=== PATIENT | female | born 1960 ===

== ENCOUNTER 2025-01-21 20:33 | Emergency (ER) | payer OTHER, SELFPAY ==
--- NOTE | ~2025-01-21 | XR_ITS ---
CLINICAL HISTORY: cough 2 view chest x-ray Comparison: None Findings: No consolidation or effusion. Normal size heart. No acute fracture. IMPRESSION: 1. No acute findings. This document has been electronically signed by: Lebron Garcia MD on 01/21/2025 23:58:51
[2025-01-21 20:41] VITALS: BP 146/92; PULSE 73; O2SAT 96
[2025-01-21 21:04] VITALS: BP 130/98; PULSE 72; RESP 19; TEMP 36.6; O2SAT 97; BMI 28.7
[2025-01-21 21:41] LABS: MANUAL DIFF FLAG NO
[2025-01-21 21:43] LABS: Basophils Absolute Auto 0.1 X10*3/uL (0.0-0.2); Basophils Percent Auto 0.7 % (0-2); Eosinophils Absolute Auto 0.2 X10*3/uL (0.0-0.4); Hematocrit 38.8 % (37.0-47.0); Hemoglobin 13.5 g/dl (12.0-16.0); Imm Gran Abs Auto 0.05 X10*3/uL (0.00-0.03); Imm Gran Pct Auto 0.6 % (0.0-0.4); Lymphocytes Absolute Auto 1.2 X10*3/uL (1.2-4.9); Lymphocytes Percent Auto 15.3 % (20-40); Mean Corpuscular HGB Conc 34.8 g/dl (31.0-35.0); Mean Corpuscular Hemoglobin 30.4 pg (27.0-33.0); Mean Corpuscular Volume 87.4 fL (80.0-98.0); Mean Platelet Volume 9.7 fL (9.4-12.3); Monocytes Absolute Auto 0.5 X10*3/uL (0.1-1.2); Neutrophils Percent Auto 75.4 % (45-73); Platelet Count 145 X10*3/uL (160-400); Red Blood Count 4.44 X10*6/uL (4.20-5.50); Red Cell Distribution Width 14.3 % (11.0-16.0)
[2025-01-21 22:12] LABS: Alanine Aminotransferase 36 U/L (0-31); Albumin Level 4.5 g/dL (3.5-5.0); Alkaline Phosphatase 85 U/L (39-117); Anion Gap 13 (12-20); Aspartate Amino Transferase 36 U/L (5-31); Bilirubin Direct 0.2 mg/dL (0.0-0.5); Bilirubin Total 0.6 mg/dL (0.0-1.0); Blood Urea Nitrogen 3 mg/dL (9-16); Calcium 8.4 mg/dL (8.4-10.2); Carbon Dioxide 25 mmol/L (22-29); Chloride 98 mmol/L (96-108); Creatinine Clr Calc Pharmacy 68.9; Estimated Glomerular Filt Rate 58; Glucose Random 89 mg/dL (60-115); Lipase 12 U/L (8-78); Potassium 3.8 mmol/L (3.3-5.1); Sodium 132 mmol/L (135-145)
[2025-01-21 22:19] LABS: Influenza A PCR NEGATIVE (Negative); Influenza B PCR NEGATIVE (Negative); Resp Syncy Virus RNA Qual PCR NEGATIVE (Negative); SARS COV2 PCR INHOUSE NEGATIVE (Negative)
[2025-01-21 23:01] VITALS: BP 144/77; PULSE 77; RESP 18; TEMP 36.4; O2SAT 95
--- NOTE | 2025-01-21 23:07 | PC.NURSE ---
pt a&ox4, respirations even and unlabored but noted to have a productive, junky cough. pt reporting x3 days of general weakness, nausea, vomiting, diarrhea, shortness of breath, fevers and chills. pt reports she had not been checking her temperature at home but she felt hot . pt reports recent admit at [facility] for pneumonia. vss.
--- NOTE | 2025-01-22 01:59 | ED.GENADULT ---
HPI - General Adult General Chief complaint: General Medical Stated complaint: diarrhea,chills, falls yesterday Time Seen by Provider: 01/22/25 01:34 Source: patient Limitations: no limitations History of Present Illness ED Provider: Seema Johnson PA-C HPI narrative: 64-year-old female presents with diarrhea x2 days. Denies nausea vomiting, abdominal pain, fever. Denies recent travel, use of antibiotics or hospitalizations. Patient was having 2 loose stools a day. No sick contacts with similar symptoms Related Data Previous Rx's ?Medication ?Instructions ?Recorded dicyclomine 10 mg capsule 10 mg PO BID PRN abdominal pain #6 01/22/25 caps Allergies Allergy/AdvReac Type Severity Reaction Status Date / Time ibuprofen Allergy Unknown Verified 01/21/25 21:08 Review of Systems Review of Systems: Yes all other systems are reviewed and are negative Constitutional: Constitutional: Denies fatigue and Denies fever(s) Cardiovascular: Cardiovascular: Denies chest pain and Denies dyspnea Respiratory: Respiratory: Denies cough and Denies dyspnea Gastrointestinal: Gastrointestinal: Denies abdominal pain, Reports diarrhea, Denies nausea and Denies vomiting Endocrine: Endocrine: Denies fatigue [facility] Past Medical History Attestation statement: The following information was validated with the patient. Social History Social History Smoked in Last 30 Days: Yes Use of substances other than those prescribed or required for medical reasons: No Advance Directives: No Advance Directives Information Provided: Yes Patient : No Physical Exam ED Vital Signs: Vital Signs - 24 hr 01/21/25 21:04 01/21/25 23:01 Temperature 98 F 97.6 F Pulse Rate 72 77 Respiratory Rate 19 18 Blood Pressure 130/98 H 144/77 H Pulse Oximetry 97 95 Oxygen Delivery Method Room Air Room Air BMI result Body Mass Index 28.7 Const Other: Alert appears older than stated age Orientation/consciousness: patient oriented x3 Resp Effort & Inspection: normal respiratory effort Cardio Other: Normal peripheral perfusion GI Other: Soft nontender nondistended no guarding Skin Other: Warm dry no rash Neuro General: patient oriented x3, gait normal, no focal motor deficits and CN's II-XI intact bilaterally Psych Other: Cooperative Medical Decision Making Medical Decision Making MDM Narrative: 64-year-old female presents with diarrhea x2 days. Denies nausea vomiting, abdominal pain, fever. Denies recent travel, use of antibiotics or hospitalizations. Patient was having 2 loose stools a day. No sick contacts with similar symptoms No known chronic issues History: Per patient I have considered the following differential diagnoses: Viral gastroenteritis, diverticulitis, C diff, traveler's diarrhea Plan: Screening labs and a viral panel were obtained from triage, everything is unremarkable. She is having minimal symptoms, she has no abdominal pain, her exam was benign, we will send with Bent[facility] she can follow up with primary care. She has no risk factors for C diff or traveler's diarrhea. I have independently reviewed the following tests: Labs: No leukocytosis, not anemic, no electrolyte abnormality, viral panel negative Lab Data 01/21/25 21:37 01/21/25 21:37 Labs: Lab Results 01/21/25 Range/Units 21:37 WBC 8.0 (4.8-10.8) X10*3/uL RBC 4.44 (4.20-5.50) X10*6/uL Hgb 13.5 (12.0-16.0) g/dl Hct 38.8 (37.0-47.0) % MCV 87.4 (80.0-98.0) fL MCH 30.4 (27.0-33.0) pg MCHC 34.8 (31.0-35.0) g/dl RDW 14.3 (11.0-16.0) % Plt Count 145 L (160-400) X10*3/uL MPV 9.7 (9.4-12.3) fL Immature Gran % (Auto) 0.6 H (0.0-0.4) % Neut % (Auto) 75.4 H (45-73) % Lymph % (Auto) 15.3 L (20-40) % [place] % (Auto) 6.0 (2-11) % Eos % (Auto) 2.0 (0-4) % Baso % (Auto) 0.7 (0-2) % Lymph # (Auto) 1.2 (1.2-4.9) X10*3/uL [place] # (Auto) 0.5 (0.1-1.2) X10*3/uL Eos # (Auto) 0.2 (0.0-0.4) X10*3/uL Baso # (Auto) 0.1 (0.0-0.2) X10*3/uL Abs Immat Gran (auto) 0.05 H (0.00-0.03) X10*3/uL Absolute Neuts (auto) 6.0 (2.0-8.3) x10*3/uL Absolute Nucleated RBC 0.000 (0.0-0.012) X10*3/uL Nucleated RBC % (auto) 0.0 (0.0-0.2) /100WBC Sodium 132 L (135-145) mmol/L Potassium 3.8 (3.3-5.1) mmol/L Chloride 98 (96-108) mmol/L Carbon Dioxide 25 (22-29) mmol/L Anion Gap 13 (12-20) BUN 3 L (9-16) mg/dL Creatinine 0.97 (0.5-1.4) mg/dL Estim Creat Clear Calc 68.9 Estimated GFR 58 Random Glucose 89 (60-115) mg/dL Calcium 8.4 (8.4-10.2) mg/dL Total Bilirubin 0.6 (0.0-1.0) mg/dL Direct Bilirubin 0.2 (0.0-0.5) mg/dL AST 36 H (5-31) U/L ALT 36 H (0-31) U/L Alkaline Phosphatase 85 (39-117) U/L Total Protein 8.0 (6.5-8.0) g/dL Albumin 4.5 (3.5-5.0) g/dL Lipase 12 (8-78) U/L Influenza Type A (PCR) NEGATIVE (Negative) Influenza Type B (PCR) NEGATIVE (Negative) RSV RNA Qual (PCR) NEGATIVE (Negative) SARS-CoV-2 RNA (RT-PCR) NEGATIVE (Negative) Discharge Plan Discharge Clinical Impression: Diarrhea Patient Disposition: Home, Self-Care Instructions: Acute Diarrhea (ED), Nutrition Tips for Relief of Diarrhea (ED) Additional Instructions: All of your labs were normal. See home care instructions. Use the dicyclomine as needed for abdominal cramping and/or diarrhea. Follow up with your primary care provider next week. Prescriptions: New dicyclomine 10 mg capsule 10 mg PO BID PRN (Reason: abdominal pain) Qty: 6 0RF Print Language: Cook Islander
[2025-01-22] MEDS: Dicyclomine HCl 10 MG CAPSULE 20 MG PO (02:28)
--- NOTE | 2025-01-22 02:41 | PC.NURSE ---
pt tooth cutter clutch to provide transport home.
[2025-01-22 03:19] VITALS: BP 142/88; PULSE 69; RESP 18; TEMP 36.8; O2SAT 95
== END 2025-01-22 03:19 | disposition home or self-care (01) ==
PROVIDERS: Emergency Provider Emergency Medicine; PCP Internal Medicine
DX: R19.7 Diarrhea, unspecified (principal); Z03.818 Encounter for observation for suspected exposure to other biological agents ruled out; F17.210 Nicotine dependence, cigarettes, uncomplicated
CPT/HCPCS: 0241U; 71046; 80048; 80076; 83690; 85025; 99283; 99284

== ENCOUNTER → 2025-01-21 23:00 | Outpatient (BNV) | payer OTHER, SELFPAY | PROVIDERS: PCP Internal Medicine; Visit Provider Radiology Diagnostic Radiology | DX: R05.9 Cough, unspecified (principal) | CPT/HCPCS: 71046 ==

== ENCOUNTER 2025-01-24 04:37 | Emergency (ER) | payer OTHER, SELFPAY ==
[2025-01-24 04:48] VITALS: BP 108/69; BP 142/78; PULSE 82; PULSE 85; RESP 18; TEMP 36.2; O2SAT 93; O2SAT 98; BMI 26.6
[2025-01-24 04:49] VITALS: BP 108/69; PULSE 85; RESP 20; TEMP 36.2; O2SAT 93
--- NOTE | 2025-01-24 05:16 | PC.NURSE ---
supplemental: essentially what ems stated was AH seems to be loud homeless people outside of where she is living. she states building isnt safe doesnt like the place where she is living drank a wine and two beers today states she has [facility] help w meds, states shes current on medications, states she feels safe (no plans to hurt self or others). 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
--- OUTSIDE RECORDS SUMMARY | 2025-01-24 05:25 | XMS_ITS | Encounter Summary ---
Author Organization [facility] Address [address] [place] [address] Care Team Providers Care General Cleaner Name Role Phone Dina Anna MD Primary Care Provider [phone] Reason for Visit * Reason Onset Date Comments Advice Only 11/27/2024 Encounter Details Date Type Department Care Team (Late st Contact Info) Description 11/27/2024 Telephone General Surgery - [place] [address] [facility] [address] [place] [phone] Benoit Garvin MD 175 [facility] [address] [place] [address] Advice Only Social History Tobacco Use Types Packs/Day Years Used Date Smoking Tobacco: Some Days Cigarettes Smokeless Tobacco: Never Alcohol Use Standard Drinks/Week Comments Yes 2 (1 standard drink = 0.6 oz pur e alcohol) Comments Unknown Sex and Gender Information Value Date Recorded Sex Assigned at Not on file Legal Sex Female 10:26 PM EST Gender Identity Not on file Sexual Orientation Not on file documented as of this encounter Progress Notes * Lorie Kincaid MA - 11/28/2024 3:46 PM EST Attempted to call pt , phone is not in service * Lian Charlton - 11/27/2024 12:34 PM EST Patient would like to know, if Dr Garvin received the Results of the Ultrasound she had done for Neck Cancer? She would like to receive a call. documented in this encounter Plan of Treatment Upcoming Encounters Date Type Department Care Team (Late st Contact Info) Description 04/29/2025 11:00 AM EDT Office Visit Internal Medicine - [place] 175 [facility] [address] [place] [phone] Dina Anna MD 175 [facility] [address] [place] [phone] 06/01/2025 11:00 AM EDT Office Visit General Surgery - [place] 175 [facility] [address] [place] [phone] Benoit Garvin MD 175 [facility] [address] [place] [address] documented as of this encounter Visit Diagnoses Not on filedocumented in this encounter Care Teams General Cleaner Relationship Specialty Start Date End Date Dina Anna MD [address] [phone] PCP - General Internal Medicine 03/23/22 documented as of this encounter
--- OUTSIDE RECORDS SUMMARY | 2025-01-24 05:25 | XMS_ITS | Encounter Summary ---
Author Organization [facility] Address [address] [place] [address] Care Team Providers Care Car Painter Name Role Phone Dina Anna MD Primary Care Provider [phone] Reason for Visit * Reason Onset Date Comments Request For Order(s) 01/06/2025 [facility] Care - Order [id number] Encounter Details Date Type Department Care Team (Late st Contact Info) Description 01/06/2025 Telephone Internal Medicine - [place] [address] [facility] [address] [place] [address] Angelita Owens MA Request For Order(s) ([facility] - Order [id number]/) Social History Tobacco Use Types Packs/Day Years [...] as of this encounter Progress Notes * Angelita Owens MA - 01/08/2025 10:15 AM EST Scanned into chart and faxed to [facility] [phone] * Angelita Owens MA - 01/06/2025 2:19 PM EST [facility] - Order [id number] Please sign & fax [phone] documented in this encounter Plan of Treatment Upcoming Encounters Date Type Department Care Team (Late st Contact Info) Description 04/29/2025 11:00 AM EDT Office Visit Internal Medicine - [place] 175 [facility] [address] [place] [phone] Dina Anna MD 175 [facility] [address] [place] [phone] 06/01/2025 11:00 AM EDT Office Visit General Surgery - [place] 175 [facility] [address] [place] [phone] Benoit Garvin MD 175 [facility] [address] [place] [address] documented as of this encounter Visit Diagnoses Not on filedocumented in this encounter Care Teams Car Painter Relationship Specialty Start Date End Date Dina Anna MD 175 [facility] [address] [place] [phone] PCP - General Internal Medicine 03/23/22 documented as of this encounter
--- OUTSIDE RECORDS SUMMARY | 2025-01-24 05:25 | XMS_ITS | Encounter Summary ---
Author Organization [facility] Address [id number] [place] [phone] Care Team Providers Care Microfilm Machine Operator Name Role Phone Dina Anna MD Primary Care Provider Reason for Visit * Reason Onset Date Comments [facility] 01/15/2025 Encounter Details Date Type Department Care Team (Late st Contact Info) Description 01/15/2025 Telephone Internal Medicine - [place] [address] [facility] [address] [place] [phone] Dina Anna MD [address] [facility] [address] [place] [address] [place] [address] [facility] Social History Tobacco Use Types Packs/Day Years [...] on file documented as of this encounter Ordered Prescriptions Prescription Sig Dispense Quantity Refills Last Filled Start Date End Date diclofenac (VOLTAREN) 1 % topical gel Apply 2 g topically 4 (four) times a day. 150 g 2 01/15/2025 acetaminophen (TYLENOL) 500 mg tablet Take 1 tablet (500 mg total) by mouth every 6 (six) hours if needed for moderate pain. 30 tablet 3 01/15/2025 documented in this encounter Progress Notes * Dina Anna MD - 01/15/2025 4:22 PM EST sent * Tomeka Senior RN - 01/15/2025 3:57 PM EST Call to [facility] # [phone], spoke w/ them. Verbal order given. Pt is reporting some arthritis pain and [facility] is asking for orders for -tylenol -diclofenac sodium topical ointment * Daylin Terrell - 01/15/2025 3:45 PM EST [facility] called and requested verbal orders to continue halfway. Cb# [phone] documented in this encounter Plan of Treatment Upcoming Encounters Date Type Department Care Team (Late st Contact Info) Description 04/29/2025 11:00 AM EDT Office Visit Internal Medicine [facility] [address] [phone] Dina Anna MD [address] [phone] 06/01/2025 11:00 AM EDT Office Visit General Surgery [facility] 175 [facility] [address] [place] [phone] Benoit Garvin MD 175 [facility] [address] [place] [address] documented as of this encounter Visit Diagnoses Not on filedocumented in this encounter Discontinued Medications Medication Sig Discontinue Reason Start Date End Da te acetaminophen (TYLENOL) 500 mg tablet Take 1 tablet (500 mg total) by mouth every 6 (six) hours if needed. Reorder 11/13/2023 01/15/2025 documented as of this encounter Care Teams Microfilm Machine Operator Relationship Specialty Start Date End Date Dina Anna MD [address] [phone] PCP - General Internal Medicine 03/23/22 documented as of this encounter
--- OUTSIDE RECORDS SUMMARY | 2025-01-24 05:25 | XMS_ITS | Clinical Summary ---
Author Organization [facility] Address [address] [place] [address] Phone Care Team Providers Care Flanging Operator Name Role Phone Dina Anna MD Primary Care Provider [phone] Allergies Active Allergy Reactions Criticality Noted Date Comments Ibuprofen 05/02/2023 Ragweed 12/03/2023 Medications albuterol 2.5 mg /3 mL (0.083 %) nebulizer solution Inhale 3 mL (2.5 mg total). 11/13/19 24 Active albuterol HFA (PROAIR HFA ; PROVENTIL HFA ; VENTOLIN HFA) 90 mcg/actuation inhaler Inhale 2 puffs by mouth. 02/24/20 21 Active atorvastatin (LIPITOR) 20 mg tablet Take 1 tablet (20 mg total) by mouth. 11/15/19 24 Active ergocalciferol (VITAMIN D-2) 1,250 mcg (50,000 unit) capsule Take 1 capsule (50,000 Units total) by mouth. 11/21/19 23 Active gabapentin (NEURONTIN) 400 mg capsule Take 1 capsule (400 mg total) by mouth. Active hydrOXYzine pamoate (VISTARIL) 50 mg capsule 4 times daily as needed for Itching. 11/13/19 24 Active incontinence pad, liner, disp pad 1 each by Not Applicable route. 03/23/20 20 Active diaper,brief,a dult,disposabl e misc 1 each by Not Applicable route. 03/23/20 20 Active melatonin 3 mg tablet Take 1 tablet (3 mg total) by mouth. Active NEBULIZERS MISC 1 each by Not Applicable route. 02/24/20 21 Active nicotine (Nicotrol) 10 mg inhaler Inhale 1 puff by mouth. 07/11/20 22 Active prazosin (MINIPRESS) 2 mg capsule Take 1 capsule (2 mg total) by mouth. Active risperiDONE (RisperDAL) 1 mg tablet Take 1 tablet (1 mg total) by mouth 2 (two) times a day. 01/04/20 21 Active sertraline (ZOLOFT) 100 mg tablet Take 2 tablets (200 mg total) by mouth 1 (one) time each day. 11/13/19 24 Active sertraline (ZOLOFT) 50 mg tablet Take 1 tablet (50 mg total) by mouth 1 (one) time each day. 05/31/20 23 Active incontinence pad,liner,disp (PREVAIL PANTY LINER MISC) 3 each by Not Applicable route. 05/20/20 20 Active traMADoL (ULTRAM) 50 mg tablet Take 1 tablet (50 mg total) by mouth. 05/24/20 23 Active cholecalcifero l (VITAMIN D-3) 125 mcg (5,000 unit) capsule Take 1 capsule (5,000 Units total) by mouth 1 (one) time per week. 4 capsule 2 09/29/20 24 Active solifenacin (VESICARE) 10 mg tablet TAKE 1 TABLET BY MOUTH DAILY. 30 tablet 4 10/21/20 24 Active levothyroxine (SYNTHROID, LEVOTHROID) 25 mcg tablet TAKE 1 TABLET BY MOUTH DAILY. 30 tablet 10/31/20 24 Active tiotropium (Spiriva with HandiHaler) 18 mcg per inhalation capsule Place 1 capsule (18 mcg total) into inhaler and inhale 1 (one) time each day. 30 capsule 4 01/14/20 25 Active acetaminophen (TYLENOL) 500 mg tablet Take 1 tablet (500 mg total) by mouth every 6 (six) hours if needed for moderate pain. 30 tablet 3 01/16/20 25 Active diclofenac (VOLTAREN) 1 % topical gel Apply 2 g topically 4 (four) times a day. 150 g 2 01/16/20 25 Active acetaminophen (TYLENOL) 500 mg tablet Take 1 tablet (500 mg total) by mouth every 6 (six) hours if needed. 11/13/19 24 025 Discontinued(Re order) tiotropium (SPIRIVA) 18 mcg per inhalation capsule Place 1 capsule (18 mcg total) into inhaler and inhale. 07/30/20 23 025 Discontinued cefuroxime (CEFTIN) 500 mg tablet Take 1 tablet (500 mg total) by mouth 2 (two) times a day for 7 days. 14 tablet 11/13/19 25 025 Discontinued cefuroxime (CEFTIN) 500 mg tablet TAKE 1 TABLET (500 MG TOTAL) BY MOUTH 2 (TWO) TIMES A DAY FOR 7 DAYS. 14 tablet 12/30/19 25 025 Active Problems Problem Noted Date Diagnosed Date Acute respiratory failure with hypoxia Major depressive disorder, r ecurrent severe without psychotic features 10/23/2024 Acute respiratory failure with hypoxemia 024 Hypo-osmolality and hyponatremia 10/14/2024 Unspecified bacterial pneumonia 10/14/2024 Noninfective gastroenteritis and colitis, unspec ified 10/14/2024 Major depressive disorder, r ecurrent, severe without psychotic features 10/14/2024 Post-traumatic stress disorder, chronic 10/14/20 24 Mixed incontinence urge and stress (male)(female ) 01/07/2024 Overview (01/07/2024): 02/16/2021 Overactive bladder/mixed, on solefenacin, has supplies Depression 01/07/2024 Overview (01/07/2024): Admitted to [facility] in 11/2019; patient has had multiple admits Tobacco use 01/07/2024 Overview (01/07/2024): 04/08/2021 Motivational interviewing done Chooses quit date of in July Motivation is her health and her grandchildren to live a long time for them History of seizures 01/07/2024 Overview (01/07/2024): From withdrawal Hypercholesteremia 12/23/2019 Post traumatic stress disorder 12/23/2018 Overview (01/07/2024): 02/16/2021 Also with BAD, on risperdal, prazosin, Zoloft No SI HI Has no psychiatrist, will help get 1 in the community Has therapist who comes to her house weekly No SI/HI 03/02/2021 Has appt with psychiatrist tomorrow Got her sons ashes this week, planning a memorial now, family is helping to plan 03/09/2021 Patient still suffering with this Awaiting psychiatry Going to [facility] today Thrombocytopenia 10/20/2018 Overview (01/07/2024): 02/16/2021 Likely due to etoh in past, normal recently Consider US in future 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 (01/07/2024): Active TB, age 4; negative chest x-ray 11/2010 Bipolar 1 disorder 07/25/2018 Allergic rhinitis 07/25/2018 COPD (chronic obstructive pulmonary disease) Overview (01/07/2024): 02/16/2021 Patient with history of COPD Chronic cough, uses Spiriva No acute worsening of symptoms Uses as needed albuterol, prescribed nebulizer and solution today Consider long-acting beta agonist in the future Tobacco cessation 02/23/2021 Smoking cessation, again sent prescription for nebulizer as well as albuterol inhaler for when she is out of the house Chronic hepatitis C 06/30/2018 Overview (01/07/2024): 07/2016 S/p treatment w/ repeatedly negative viral loads, resolved Alcohol dependence 04/12/2018 Substance abuse 11/16/2016 Overview (01/07/2024): 02/16/2021 Cocaine and alcohol. [facility] 04/29, 06/29, 10/29; [facility] 03/30 alcohol; [facility] 12/04/20-12/07/20 Patient longest sobriety was 1 year, many years ago Her motivation for sobriety is her grandchildren Drinking is been worse that she is mourning the of 2 sons Reports that gabapentin 100 mg has been helpful in relieving her anxiety and her cravings Increase to 300 3 times daily Consider naltrexone in the future Also uses cocaine and crack, wants to be abstinent from both Extensive motivational interviewing done, focusing on her grandchildren and her goal to be in their life 02/23/2021 Reports drinking 1-2 25 oz Ice house beers per day When drinking heavily will have 3-4 of these large high alcohol content beers and a few nips Motivated for abstinence Has not started increased dose of gabapentin, states her VNA who makes her pillboxes has not started yet Gabapentin 300 tid, consider adding NTX at fu Further motivational interviewing to picture her grandchildren on and take a deep exhalation whenever she has cravings for cocaine 03/02/2021 Has not drank all week! Stressed out and still not drinking. Did increase dose of gabapentin which she feels is helpful. No cocaine I'm done with it Has been picturing her grandchildren on and take a deep exhalation whenever she has cravings for cocaine 03/09/2021 Patient has relapsed in the last week with both alcohol and cocaine Started off his treatment couple of years, progressed to more beer and more nips and also cocaine Patient reports great relief when she has gone to [facility] detox in the past She already has contacted them for [place], is awaiting bed Today I congratulated her on actively seeking care Also highlighted has been successful for her recovery in the past Reports being abstinent from heroin for 25 years which began with a prayer to god Encouraged to bring more prayer to her life Consider naltrexone at follow-up, declines today 03/25/2021 Reports cutting back on her own Didn't end up needing to go to [facility] Getting more support from her mother/family who are sober Feels that the gabapentin is helping She also states that her parents helping, prays to Joel for what she wants, for strength, also expresses gratitude 04/08/2021 rePorts 1 beer in the last week and a half Reports no cocaine for 1 week and states I am done with that Motivational interviewing done today Notes relief with gabapentin in regards to her alcohol use Encounters Date Type Department Care Team Description 01/23/2025 Telephone Internal Medicine [address] [place] [phone] Ela Hager MA faxed order (L&C) 01/15/2025 Telephone Internal Medicine - [place] [facility] [address] [place] [phone] Dina Anna MD VNA 01/06/2025 Telephone Internal Medicine [address] [phone] Angelita Owens MA Request For Order(s) ([facility] - Order 2VXP/) 12/02/2024 Telephone Internal Medicine [address] [phone] Angelita Owens MA Request For Order(s) ([facility] Cert 11/21/24-01/19/25 Plan Of Care /) 11/27/2024 Telephone General Surgery [address] [place] [phone] Benoit Garvin MD Advice Only 11/13/2024 10:45 AM EST Office Visit Internal Medicine [address] [place] [phone] Matty Flaherty MD Loose stools (Primary Dx); Acute viral syndrome 11/11/2024 Telephone Internal Medicine [address] [phone] Dina Anna MD Call back 11/04/2024 Telephone Internal Medicine [address] [phone] Dina Anna MD [place]: Imaging Results 11/03/2024 Telephone Internal Medicine [address] [place] [phone] Dina Anna MD PT1 from Last 3 Months Immunizations Name Administration Dates Next Due Influenza trivalent, with pr eservative (Fluzone; Afluria) 6mo and older 08/26/2021,11/25/2019 Pneumococcal polysaccharide 23 valent (Pneumovax 23) 2yo and older 03/04/2019 Surgical History Surgery Date Site/Laterality Comments CHOLECYSTECTOMY PROCEDURE: HISTORICAL CHOLECYSTECTOMY TUBAL LIGATION PROCEDURE: HISTORICAL TUBAL LIGATION ANKLE SURGERY 02/2017 Left PROCEDURE: HISTORICAL ANKLE SURGERY; COMMENT: ankle fx; Dr. Ken Medical History Medical History Date Comments Depression DX:Depression Urinary incontinence DX:Urinary incontinence; COMMENT: Overactive bladder COPD (chronic obstructive pu lmonary disease) (CMS/HCC) DX:COPD (chronic obstructive pulmonary disease) ([facility]); COMMENT: 2010 hx of collapsed lung from a cold History of hepatitis C 06/30/2018 DX:Histor y of hepatitis C; COMMENT: 07/2016 S/p treatment w/ repeatedly negative viral loads, resolved History of substance abuse (CMS/HCC) 11/16/2016 DX:History of substance abuse (HCC); COMMENT: Cocaine and alcohol. [facility] 04/29, 06/29 Allergic rhinitis 07/25/2018 DX:Allergic rh initis Chronic hepatitis C (CMS/HCC) 06/30/2018 DX :Chronic hepatitis C (HCC); COMMENT: 07/2016 S/p treatment w/ repeatedly negative viral loads, resolved 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 DX:T B (pulmonary tuberculosis); COMMENT: Active TB, age 4; negative chest x-ray 11/2010 History of seizures 12/23/2018 DX:History o f seizures; COMMENT: From withdrawal Post traumatic stress disorder 12/23/2018 D X:Post traumatic stress disorder Bipolar 1 disorder (CMS/HCC) 07/25/2018 DX: Bipolar 1 disorder (HCC) Alcohol dependence (CMS/HCC) 04/12/2018 DX: Alcohol dependence (HCC) Thrombocytopenia (CMS/HCC) 10/20/2018 DX:Th rombocytopenia (HCC) Substance abuse (CMS/HCC) 11/16/2016 DX:Sub stance abuse (HCC); COMMENT: Cocaine and alcohol. [facility] 04/29, 06/29, 10/29 Family History Medical History Relation Name Comments Heart attack Brother 1 Arnel Alcohol abuse Father otw not known; no contact since age 14 Breast cancer Mother osteoporosis; chemical dependence-drugs Osteoporosis Mother Suicide Attempts Son 1 Pasquale 2017 ADD / ADHD Son 2 Jesus Other: brain injury Son 2 Jesus seizure in the tub; 2019 Relation Name Status Comments Brother 1 Arnel Brother 2 Jarred Alive Father (Age 77) Mother Alive Sister Nadya Alive Son 1 Pasquale (Age 35) Son 2 Jesus (Age 36) 2019 Social History Tobacco Use Types Packs/Day Years [...] on file Sexual Orientation Not on file Obstetrics History Last Filed Vital Signs Vital Sign Reading Time Taken Comments Blood Pressure 124/70 11/13/2024 11:13 AM EST Pulse 81 11/13/2024 11:13 AM EST Temperature 36.9 ??C (98.4 ??F) 11/13/2024 11:[address] Respiratory Rate - - Oxygen Saturation 92% 11/13/2024 11:13 AM EST Inhaled Oxygen Concentration - - Weight 89 kg (196 lb 3.2 oz) 11/13/2024 11:13 AM EST Height 170.2 cm (5' 7 ) 06/02/2024 1:00 PM EDT Body Mass Index 30.73 06/02/2024 1:00 PM EDT Plan of Treatment Upcoming Encounters Date Type Department Care Team (Late st Contact Info) Description 04/29/2025 11:00 AM EDT Office Visit Internal Medicine [facility] [address] [facility] [address] [place] [phone] Dina Anna MD [facility] [address] [place] [phone] 06/01/2025 11:00 AM EDT Office Visit General Surgery [facility] [address] [facility] [address] [place] [phone] Benoit Garvin MD [facility] [address] [place] [phone] Health Maintenance Due Date Last Done Comments Breast Cancer Screening 1962 COVID-19 Vaccine (#1) 1967 Hepatitis A Vaccines (1 of 2 - Risk 2-dose series) 1981 Zoster Vaccines (1 of 2) 1981 Cervical Cancer Screening: Pap Smear 11/16/2019 11/16/2016 Pneumococcal Vaccine: 50+ Years (3 of 3 - PCV) 03/04/2020 03/04/2019, 12/28/2012 Pneumococcal Vaccine: Pediatrics (0 to 5 Years) and At-Risk Patients (6 to 64 Years) (3 of 3 - PCV) 03/04/2020 03/04/2019, 12/28/2012 Hepatitis B Vaccines (1 of 3 - Risk 3-dose series) 2022 RSV Immunization Patients 60+ Years Old (1 - Risk 60-74 years 1-dose series) 2022 Colorectal Cancer Screening: Stool Based Tests (FOBT/FIT) 10/15/2022 HIV Screening 10/15/2022 Social Influencers of Health Screening 10/15/2022 Influenza Vaccine (#1) 2024 2, 08/26/2021, 11/25/2019, Additional history exists Depression Screening 12/12/2024 12/12/2023 DTaP,Tdap,and Td Vaccines (2 - Td or Tdap) 06/06/2025 06/06/2015 Cholesterol Screening (Lipid Panel) 11/14/2028 11/14/2023 Hepatitis C Screening Completed 12/02/2018 HIB Vaccines Aged Out No longer eligi ble based on patient's age to complete this topic HPV Vaccines Aged Out No longer eligi ble based on patient's age to complete this topic IPV Vaccines Aged Out No longer eligi ble based on patient's age to complete this topic MMR Vaccines Aged Out No longer eligi ble based on patient's age to complete this topic Meningococcal ACWY Vaccine Aged Out N o longer eligible based on patient's age to complete this topic Meningococcal B Vacine Aged Out No lo nger eligible based on patient's age to complete this topic RSV Immunization Patients Under 20 months Aged Out No longer eligible based on patient's age to complete this topic Varicella Vaccines Aged Out No longer eligible based on patient's age to complete this topic Procedures Procedure Name Priority Date/Time Associated Diagnosis Comments LIPID PANEL Routine 11/14/2023 HEPATITIS C SCREENING Routine 12/02/2018 PAP SMEAR Routine 11/16/2016 from Last 3 Months or Most Recently Relevant to Health Maintenance Results * Lipid panel (11/14/2023) LDL/HDL Ratio 5 Triglycerides 95 mg/dL Cholesterol 215 mg/dL HDL 47 mg/dL LDL Cholesterol 149 mg/dL Blood Venous blood specimen / Unknown Historical Provider LAB BLOOD ORDERABLES Lesa l Result * Hepatitis C Screening (12/02/2018) Hepatitis C Screening Negative [facility] Provider HEALTH MAINTENANCE Final Result * Pap Smear (11/16/2016) Pap smear Negative Historical Provider HEALTH MAINTENANCE Final Result from Last 3 Months or Most Recently Relevant to Health Maintenance Insurance [facility] [facility] Care Teams Flanging Operator Relationship Specialty Start Date End Date Dina Anna MD [facility] [address] [place] [phone] PCP - General Internal Medicine 03/23/22
--- NOTE | 2025-01-24 06:29 | ED.PSYCH ---
HPI - Psych General Chief Complaint: Psychiatric Symptoms Stated Complaint: CRISIS. AH Time Seen by Provider: 01/24/25 06:25 Source: patient, EMS, RN notes reviewed and old records reviewed Mode of arrival: EMS Limitations: no limitations History of Present Illness ED Provider: Nikkie Kaur PA-C HPI Narrative: 64 yo female presents to the ER for evaluation of auditory hallucinations. She reports she has been increasingly depressed lately thinking about the deaths of her 2 sons that occurred 6 years ago. She reports last night she was at home when she heard a woman screaming for help. She was scared and did not feel safe. She reports she is unsure if this was real or hallucinations, but it felt real. She denies history of auditory hallucinations in the past. She has a psychiatric history but has difficulty telling me what her diagnosis are and what medications she is on. she reports being medication compliant. she states she has a psychiatrist and a therapist. she denies SI or HI. she reports the last time she was psychiatrically hospitalized was 2 years ago in [place]. She feels like she needs to be hospitalized again. MD complaint: feels depressed, anxiety and hallucinations Onset (ago): hour(s) Duration: intermittent History of same: No Relieving factors: none Exacerbating factors: none Associated psychiatric symptoms: depression and auditory hallucinations Related Data Home Medications ?Medication ?Instructions ?Recorded ?Confirmed gabapentin 300 mg capsule 300 mg PO TID 01/24/25 01/24/25 hydroxyzine pamoate 50 mg capsule 50 mg PO QID PRN Anxiety 01/24/25 01/24/25 melatonin 3 mg tablet 3 mg PO BEDTIME PRN Insomnia 01/24/25 01/24/25 prazosin 1 mg capsule 1 mg PO TID 01/24/25 01/24/25 risperidone 1 mg tablet 1 mg PO BID 01/24/25 01/24/25 sertraline 100 mg tablet 100 mg PO BID 01/24/25 01/24/25 solifenacin 10 mg tablet 10 mg PO DAILY 01/24/25 01/24/25 Previous Rx's ?Medication ?Instructions ?Recorded dicyclomine 10 mg capsule 10 mg PO BID PRN abdominal pain #6 01/22/25 caps Allergies Allergy/AdvReac Type Severity Reaction Status Date / Time ibuprofen Allergy Intermediate Unknown Verified 01/24/25 04:53 Review of Systems Review of Systems: Yes all other systems are reviewed and are negative [facility] Social History Social History Advance Directives: No Advance Directives Information Provided: Yes Do you have a plan to hurt others: No Plan Physical Exam Vital Signs: Vital Signs: Last Vital Signs Temp 97.0 F 01/24/25 09:22 Pulse 80 01/24/25 09:22 Resp 18 01/24/25 09:22 BP 125/83 01/24/25 14:08 Pulse Ox 92 01/24/25 09:22 O2 Del Method Room Air 01/24/25 09:22 BMI result Body Mass Index 26.6 Appearance: Alert. Oriented X3. No acute distress. Head: normocephalic, atraumatic. Eyes: normal inspection ENT: normal external inspection Neck: Normal inspection. CVS: Normal heart rate and rhythm. Pulses normal. Respiratory: No respiratory distress. Breath sounds normal. Abdomen: obese, soft and nontender. +BS x4 Skin: Skin warm and dry. Normal skin color. Normal skin turgor. No rashes. Extremities: No lower extremity edema. No joint swelling. Neuro/psych: Oriented X 3. grossly nonfocal. CN II-XII intact. intermittently garbled speech and cognition. poor historian. mood is depressed Medications Administered Generic Name Dose Route Start Last Admin Trade Name [place] PRN Reason Stop Dose Admin Cefuroxime Axetil 500 mg 01/24/25 13:00 01/24/25 13:46 Cefuroxime Axetil 500 Mg Tablet PO 500 mg BID REENA Administration Gabapentin 300 mg 01/24/25 15:00 01/24/25 14:08 Gabapentin 300 Mg Capsule PO 300 mg TID REENA Administration Prazosin HCl 1 mg 01/24/25 15:00 01/24/25 14:08 Prazosin Hcl 1 Mg Capsule PO 1 mg TID REENA Administration Protocol Risperidone 1 mg 01/24/25 13:00 01/24/25 13:46 Risperidone 1 Mg Tablet PO 1 mg BID REENA Administration Sertraline HCl 100 mg 01/24/25 13:00 01/24/25 13:46 Sertraline Hcl 100 Mg Tablet PO 100 mg BID REENA Administration Tolterodine Tartrate 4 mg 01/24/25 13:30 01/24/25 15:03 Tolterodine Tartrate [place] 4 Mg Cap.Er.24h PO 4 mg DAILY REENA Administration Discontinued Medications Generic Name Dose Route Start Last Admin Trade Name [place] PRN Reason Stop Dose Admin Acetaminophen 650 mg 01/24/25 14:18 01/24/25 14:27 Acetaminophen 325 Mg Tablet PO 01/24/25 14:19 650 mg ONCE ONE Administration Medical Decision Making Medical Decision Making [facility] Narrative: 64 yo female with unclear psych diagnosis, history of psych hospitalization 2 years ago presenting for evaluation of depression, anxiety and possible auditory hallucinations. her history is not very clear. she is a poor historian will get basic lab workup, utox, have care team see her. Patient has urinary tract infection on her workup. She also found to be cocaine positive. Her possible hallucinations are intermittent which is not totally consistent with acute confusion associated with UTI. no fever, tachycardia or leukocytosis to suggest sepsis started on PO abx She is lucid at this time. She is complaining of worsening depression, thinking about the of her 2 sons. She feels like she needs inpatient level of care verses respite. Will have the care team evaluate her. Physician observation started at 1346. Patient placed in physician observation because patient is awaiting CARE team evaluation for the possible need of inpatient psych admission. At the time observation was started patient's vital signs were stable. Patient is alert and oriented. Neuro exam is non-focal. CV: RRR and lungs are clear. Will continue to monitor. Differential Diagnosis Differential Diagnoses: The differential diagnosis associated with the presentation includes substance induced mood disorder, acute psychosis, schizophrenia, schizoaffective disorder, PTSD, bipolar disorder, major depression with psychotic features, UTI Admission/Observation Consideration of admission/observation: Escalation of care including admission/observation considered Lab Data [facility] Lab Attestation statement: I reviewed the patient's lab results. 01/24/25 09:22 01/24/25 09:22 Labs: Lab Results 01/24/25 01/24/25 Range/Units 09:22 12:44 WBC 10.1 (4.8-10.8) X10*3/uL RBC 4.72 (4.20-5.50) X10*6/uL Hgb 14.2 (12.0-16.0) g/dl Hct 42.3 (37.0-47.0) % MCV 89.6 (80.0-98.0) fL MCH 30.1 (27.0-33.0) pg MCHC 33.6 (31.0-35.0) g/dl RDW 14.4 (11.0-16.0) % Plt Count 182 D (160-400) X10*3/uL MPV 9.8 (9.4-12.3) fL Immature Gran % (Auto) 0.5 H (0.0-0.4) % Neut % (Auto) 71.7 (45-73) % Lymph % (Auto) 20.6 (20-40) % [place] % (Auto) 5.1 (2-11) % Eos % (Auto) 1.5 (0-4) % Baso % (Auto) 0.6 (0-2) % Lymph # (Auto) 2.1 (1.2-4.9) X10*3/uL [place] # (Auto) 0.5 (0.1-1.2) X10*3/uL Eos # (Auto) 0.2 (0.0-0.4) X10*3/uL Baso # (Auto) 0.1 (0.0-0.2) X10*3/uL Abs Immat Gran (auto) 0.05 H (0.00-0.03) X10*3/uL Absolute Neuts (auto) 7.2 (2.0-8.3) x10*3/uL Absolute Nucleated RBC 0.000 (0.0-0.012) X10*3/uL Nucleated RBC % (auto) 0.0 (0.0-0.2) /100WBC Sodium 134 L (135-145) mmol/L Potassium 4.2 (3.3-5.1) mmol/L Chloride 99 (96-108) mmol/L Carbon Dioxide 25 (22-29) mmol/L Anion Gap 14 (12-20) BUN 4 L (9-16) mg/dL Creatinine 1.03 (0.5-1.4) mg/dL Estim Creat Clear Calc 64.7 Estimated GFR 54 Random Glucose 87 (60-115) mg/dL Calcium 8.4 (8.4-10.2) mg/dL Magnesium 2.2 (1.6-2.6) mg/dL Total Bilirubin 0.7 (0.0-1.0) mg/dL Direct Bilirubin 0.2 (0.0-0.5) mg/dL AST 33 H (5-31) U/L ALT 27 (0-31) U/L Alkaline Phosphatase 91 (39-117) U/L Total Protein 8.1 H (6.5-8.0) g/dL Albumin 4.4 (3.5-5.0) g/dL Urine Color Yellow Urine Appearance Cloudy Urine pH 6.5 (5.0-9.0) Ur Specific [place] <= 1.005 (1.005-1.025) Urine Protein Negative (Neg-Trace) mg/dL Urine Glucose (UA) Negative (Negative) mg/dL Urine Ketones Negative (Negative) mg/dL Urine Blood Negative (Negative) Urine Nitrite Positive H (Negative) Ur Leukocyte Esterase Large (3+) H (Negative) Urine RBC 0-2 (0-2) /HPF Urine WBC >50 H (0-5) /HPF Ur Squamous Epith Cells 0-2 (0-2) /HPF Urine Bacteria 4+ (None Seen) Hyaline Casts 0-2 (0-2) /LPF Urine Opiates Screen Not Detected (Not Detect) Ur Buprenorphine Scrn Not Detected (Not Detect) ng/mL Ur Oxycodone Screen Not Detected (Not Detect) ng/mL Urine Methadone Screen Not Detected (Not Detect) ng/mL Urine Fentanyl Screen Not Detected (Not Detect) Ur Barbiturates Screen Not Detected (Not Detect) Ur Phencyclidine Scrn Not Detected (Not Detect) Ur Amphetamines Screen Not Detected (Not Detect) U Benzodiazepines Scrn Not Detected (Not Detect) Urine Cocaine Screen POSITIVE H (Not Detect) U Marijuana (THC) Screen Not Detected (Not Detect) Ethyl Alcohol < 10 mg/dL Independent Historian Clinical information obtained from an independent historian. History obtained from or confirmed by: EMS External Record Review External record reviewed: Prior outpatient labs Prescription Management I considered prescription management with: Antibiotic Chronic Conditions Patient?s care impacted by: Other (psychiatric disorder) Critical Care Time Critical Care Time Critical Care Time: No Discharge Plan Discharge Clinical Impression: Cocaine use UTI (urinary tract infection) Qualifiers: Urinary tract infection type: acute cystitis Hematuria presence: without hematuria Qualified Code(s): N30.00 - Acute cystitis without hematuria Patient Disposition: Still a Patient Prescriptions: No Action dicyclomine 10 mg capsule 10 mg PO BID PRN (Reason: abdominal pain) Qty: 6 0RF hydroxyzine pamoate 50 mg Capsule 50 mg PO QID PRN (Reason: Anxiety) solifenacin 10 mg Tablet 10 mg PO DAILY prazosin 1 mg Capsule 1 mg PO TID Rx Instructions: TID at bedtime sertraline 100 mg Tablet 100 mg PO BID Rx Instructions: 2 tablets by mouth once a day melatonin 3 mg Tablet 3 mg PO BEDTIME PRN (Reason: Insomnia) gabapentin 300 mg Capsule 300 mg PO TID risperidone 1 mg Tablet 1 mg PO BID Interventions: [place]-Suicide Risk Severity Scale Last Done: 01/24/25 06:29 Print Language: Welsh
[2025-01-24 09:22] VITALS: BP 125/83; PULSE 80; RESP 18; TEMP 36.1; O2SAT 92
--- NOTE | 2025-01-24 09:24 | PC.NURSE ---
Pt stating she hasn't received her morning meds. This RN attempted to do med rec on pt- put unable to tell t/w what medications she takes stating, it's in the computer Only medication under home meds is PRN Bentyl. This RN asked pt what pharmacy she uses in attempt to call pharmacy for med rec. Pt states [facility] - refused to respond when asked for more clarification as to which pharmacy. Pt speaking with agitation towards this RN, will reattempt med rec when pt is more calm/cooperative with staff. A/ox3, respirations even and unlabored, no increased wob/sob noted, no signs of distress.
[2025-01-24 09:33] LABS: MANUAL DIFF FLAG NO
[2025-01-24 09:34] LABS: Basophils Absolute Auto 0.1 X10*3/uL (0.0-0.2); Basophils Percent Auto 0.6 % (0-2); Eosinophils Absolute Auto 0.2 X10*3/uL (0.0-0.4); Eosinophils Percent Auto 1.5 % (0-4); Hematocrit 42.3 % (37.0-47.0); Hemoglobin 14.2 g/dl (12.0-16.0); Imm Gran Abs Auto 0.05 X10*3/uL (0.00-0.03); Imm Gran Pct Auto 0.5 % (0.0-0.4); Lymphocytes Absolute Auto 2.1 X10*3/uL (1.2-4.9); Lymphocytes Percent Auto 20.6 % (20-40); Mean Corpuscular HGB Conc 33.6 g/dl (31.0-35.0); Mean Corpuscular Hemoglobin 30.1 pg (27.0-33.0); Mean Corpuscular Volume 89.6 fL (80.0-98.0); Mean Platelet Volume 9.8 fL (9.4-12.3); Monocytes Absolute Auto 0.5 X10*3/uL (0.1-1.2); Monocytes Percent Auto 5.1 % (2-11); Neutrophils Absolute Auto 7.2 x10*3/uL (2.0-8.3); Neutrophils Percent Auto 71.7 % (45-73); Platelet Count 182 X10*3/uL (160-400); Red Blood Count 4.72 X10*6/uL (4.20-5.50); Red Cell Distribution Width 14.4 % (11.0-16.0); White Blood Count 10.1 X10*3/uL (4.8-10.8)
--- NOTE | 2025-01-24 09:45 | MHC.EDTECH ---
Patient unable to provide urine sample at this time. Patient incontinent of urine in brief. A new brief and cleaning supplies provided to patient.
[2025-01-24 09:53] LABS: Alanine Aminotransferase 27 U/L (0-31); Albumin Level 4.4 g/dL (3.5-5.0); Alkaline Phosphatase 91 U/L (39-117); Anion Gap 14 (12-20); Aspartate Amino Transferase 33 U/L (5-31); Bilirubin Direct 0.2 mg/dL (0.0-0.5); Bilirubin Total 0.7 mg/dL (0.0-1.0); Blood Urea Nitrogen 4 mg/dL (9-16); Calcium 8.4 mg/dL (8.4-10.2); Carbon Dioxide 25 mmol/L (22-29); Chloride 99 mmol/L (96-108); Creatinine Clr Calc Pharmacy 64.7; Estimated Glomerular Filt Rate 54; Ethanol < 10 mg/dL; Glucose Random 87 mg/dL (60-115); Magnesium 2.2 mg/dL (1.6-2.6); Potassium 4.2 mmol/L (3.3-5.1); Sodium 134 mmol/L (135-145); Total Protein 8.1 g/dL (6.5-8.0)
--- NOTE | 2025-01-24 10:53 | MHC.EDTECH ---
This tech attempted again to obtain urine sample. Patient politely refusing, stating unable to give sample as she was just incontinent. This tech explained that we needed these test results before we could move forward with her speaking with our care team. This tech will continue to attempt to obtain sample. RN and care team aware of attempts.
--- NOTE | 2025-01-24 12:01 | MHC.EDTECH ---
This tech attempted to obtain urine sample. Patient refusing to get up, states tired, I want my pamper . This tech explained that a brief was supplied earlier at her request. Patient will try to provide urine sample when she goes to the bathroom to put on her brief. Will attempt again.
[2025-01-24 12:52] LABS: Appearance Urine Cloudy; Color Urine Yellow; Glucose Urine UA Negative (Negative); Leukocyte Esterase Urine Large (3+) (Negative); Nitrite Urine Positive (Negative); PH 6.5 (5.0-9.0); Specific Gravity - Urine <= 1.005 (1.005-1.025); UMIC TRIGGER UACC YES; Urine Blood Negative (Negative); Urine Ketones Negative (Negative); Urine Protein Negative (Neg-Trace)
[2025-01-24 12:57] LABS: Bacteria Urine 4+ (None Seen); Hyaline Casts Urine 0-2 /LPF (0-2); RBC Urine 0-2 /HPF (0-2); Squamous Epithelial Cell Urine 0-2 /HPF (0-2); UACC Culture Trigger YES; WBC Urine >50 /HPF (0-5)
[2025-01-24 13:01] LABS: Amphetamine Screen Urine Not Detected (Not Detect); Barbiturates, Urine Not Detected (Not Detect); Benzodiazepines Screen Urine Not Detected (Not Detect); Buprenorphine Scr Not Detected (Not Detect); Cannabinoid Screen Urine Not Detected (Not Detect); Cocaine Screen Urine POSITIVE (Not Detect); Fentanyl, urine Not Detected (Not Detect); Methadone Screen, Urine Not Detected (Not Detect); Opiate Screen Urine Not Detected (Not Detect); Oxycodone Screen Urine Not Detected (Not Detect); Phencyclidine Screen Urine Not Detected (Not Detect)
[2025-01-24] MEDS: risperiDONE 1 MG TABLET PO ×2 (13:46→20:02)
[2025-01-24] MEDS: Sertraline HCL 100 MG TABLET PO ×2 (13:46→20:02)
[2025-01-24] MEDS: cefuroxime axetiL 500 MG TABLET PO ×2 (13:46→20:01)
[2025-01-24 14:08] VITALS: BP 125/83
[2025-01-24] MEDS: Prazosin HCL 1 MG CAPSULE PO ×2 (14:08→20:01)
[2025-01-24] MEDS: Gabapentin 300 MG CAPSULE PO ×2 (14:08→20:01)
[2025-01-24] MEDS: Acetaminophen 325 MG TABLET 650 MG PO (14:27)
--- NOTE | 2025-01-24 14:55 | PC.NURSE ---
[facility] [phone]
[2025-01-24] MEDS: Tolterodine Tartrate LA 4 MG CAP.ER.24H PO (15:03)
[2025-01-24] MEDS: hydrOXYzine HCL 50 MG TABLET PO ×2 (18:29→22:39)
[2025-01-24 18:44] VITALS: BP 136/98; PULSE 96; RESP 16; TEMP 36.7; O2SAT 95
[2025-01-24 20:01] VITALS: BP 136/98
[2025-01-24] MEDS: Melatonin 3 MG TABLET PO (22:40)
[2025-01-25 05:14] VITALS: BP 99/75; PULSE 72; RESP 18; TEMP 36.3; O2SAT 90
[2025-01-25] MEDS: Albuterol Sulfate 90 MCG 8 GM INHALER 2 PUFF INHALE (05:39)
[2025-01-25] MEDS: Prazosin HCL 1 MG CAPSULE PO (08:55)
[2025-01-25] MEDS: Gabapentin 300 MG CAPSULE PO (08:55)
[2025-01-25] MEDS: risperiDONE 1 MG TABLET PO (08:55)
[2025-01-25] MEDS: Sertraline HCL 100 MG TABLET PO (08:55)
[2025-01-25] MEDS: cefuroxime axetiL 500 MG TABLET PO (09:15)
[2025-01-25 09:27] VITALS: BP 138/78; PULSE 69; RESP 16; TEMP 36.1; O2SAT 93
--- NOTE | 2025-01-25 10:01 | PC.NURSE ---
Pt belongings returned to pt; pt verbalized that she has all personal belongings at time of DC
[2025-01-25 10:02] VITALS: BP 138/78; PULSE 69; RESP 16; TEMP 36.1; O2SAT 93
== END 2025-01-25 10:03 | disposition home or self-care (01) ==
PROVIDERS: Physician Assistant; Emergency Provider Emergency Medicine; PCP Internal Medicine
DX: F14.90 Cocaine use, unspecified, uncomplicated (principal); R44.0 Auditory hallucinations; F32.A Depression, unspecified; F41.9 Anxiety disorder, unspecified; N39.0 Urinary tract infection, site not specified; F10.10 Alcohol abuse, uncomplicated; F17.210 Nicotine dependence, cigarettes, uncomplicated; Z79.899 Other long term (current) drug therapy
CPT/HCPCS: 36415; 80048; 80076; 80307; 81001; 83735; 85025; 87086; 87088; 87186; 99285; S9485

== ENCOUNTER 2025-02-03 04:13 | Emergency (ER) | payer OTHER, SELFPAY ==
[2025-02-03 04:42] VITALS: BP 144/88; BP 158/110; PULSE 89; PULSE 91; RESP 16; TEMP 36.7; O2SAT 97; O2SAT 98; BMI 29.0
[2025-02-03 05:03] LABS: MANUAL DIFF FLAG NO
[2025-02-03 05:05] LABS: Basophils Percent Auto 0.5 % (0-2); Eosinophils Absolute Auto 0.1 X10*3/uL (0.0-0.4); Hematocrit 36.9 % (37.0-47.0); Hemoglobin 12.5 g/dl (12.0-16.0); Imm Gran Abs Auto 0.03 X10*3/uL (0.00-0.03); Imm Gran Pct Auto 0.5 % (0.0-0.4); Lymphocytes Absolute Auto 1.2 X10*3/uL (1.2-4.9); Lymphocytes Percent Auto 20.1 % (20-40); Mean Corpuscular HGB Conc 33.9 g/dl (31.0-35.0); Mean Corpuscular Hemoglobin 30.4 pg (27.0-33.0); Mean Corpuscular Volume 89.8 fL (80.0-98.0); Mean Platelet Volume 9.7 fL (9.4-12.3); Monocytes Absolute Auto 0.3 X10*3/uL (0.1-1.2); Monocytes Percent Auto 5.4 % (2-11); Neutrophils Absolute Auto 4.2 x10*3/uL (2.0-8.3); Neutrophils Percent Auto 72.5 % (45-73); Platelet Count 129 X10*3/uL (160-400); Red Blood Count 4.11 X10*6/uL (4.20-5.50); Red Cell Distribution Width 14.3 % (11.0-16.0); White Blood Count 5.8 X10*3/uL (4.8-10.8)
[2025-02-03 05:18] LABS: Alanine Aminotransferase 22 U/L (0-31); Albumin Level 3.7 g/dL (3.5-5.0); Alkaline Phosphatase 76 U/L (39-117); Anion Gap 13 (12-20); Aspartate Amino Transferase 27 U/L (5-31); Bilirubin Direct 0.2 mg/dL (0.0-0.5); Bilirubin Total 0.4 mg/dL (0.0-1.0); Blood Urea Nitrogen 5 mg/dL (9-16); Carbon Dioxide 24 mmol/L (22-29); Chloride 107 mmol/L (96-108); Creatinine Clr Calc Pharmacy 73.8; Estimated Glomerular Filt Rate > 60; Ethanol < 10 mg/dL; Glucose Random 83 mg/dL (60-115); Magnesium 1.9 mg/dL (1.6-2.6); Potassium 3.8 mmol/L (3.3-5.1); Sodium 140 mmol/L (135-145); Total Protein 6.3 g/dL (6.5-8.0)
--- NOTE | 2025-02-03 05:33 | PC.NURSE ---
Pt arrived via ambulance, for reports of visual and auditory hallucinations. 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 Pt denied any drug use to this RN but reported to provider. Pt Denies si/HI denies auditory hallucinations. Pt reports recent uti and believes throat cancer is coming back. labs drawn MD assessed patient, plan of care ongoing.
--- NOTE | 2025-02-03 05:38 | ECG_ITS ---
Test Reason : SUBSTANCE Blood Pressure : */* mmHG Vent. Rate : 64 BPM Atrial Rate : 64 BPM P-R Int : 154 ms QRS Dur : 74 ms QT Int : 464 ms P-R-T Axes : 29 49 60 degrees QTcB Int : 478 ms Normal sinus rhythm Low voltage QRS Borderline ECG No previous ECGs available Referred By: Alejandra Griffin Electronically Signed By: YANDEL SHANNON MD
--- NOTE | 2025-02-03 05:41 | ED_ITS ---
HPI - Psych General Chief Complaint: Psychiatric Symptoms Stated Complaint: hallucinations paranoia Time Seen by Provider: 02/03/25 04:37 Source: patient and EMS Mode of arrival: EMS Limitations: no limitations History of Present Illness ED Provider: XIOMARA GREEN Narrative: 64 yo female with anxiety and depression who is struggling with her sons deaths 6 years ago she is depressed and has passive SI - she is using cociane and not taking her medications as she should she states she needs help with depression and needs to get off the cocaine. She is paranoid and having visual hallucinations. She has had hallucinations in the past with cocaine abuse. MD complaint: feels depressed and hallucinations Onset (ago): week(s) Duration: getting worse History of same: Yes Relieving factors: none Exacerbating factors: drug use Context: recent drug abuse Associated psychiatric symptoms: depression and suicidal ideation Associated symptoms: denies other symptoms Treatments prior to arrival: none If self harm: admits thoughts of self harm Related Data Home Medications ?Medication ?Instructions ?Recorded ?Confirmed gabapentin 300 mg capsule 300 mg PO TID 01/24/25 01/24/25 hydroxyzine pamoate 50 mg capsule 50 mg PO QID PRN Anxiety 01/24/25 01/24/25 melatonin 3 mg tablet 3 mg PO BEDTIME PRN Insomnia 01/24/25 01/24/25 prazosin 1 mg capsule 1 mg PO TID 01/24/25 01/24/25 risperidone 1 mg tablet 1 mg PO BID 01/24/25 01/24/25 sertraline 100 mg tablet 100 mg PO BID 01/24/25 01/24/25 solifenacin 10 mg tablet 10 mg PO DAILY 01/24/25 01/24/25 Previous Rx's ?Medication ?Instructions ?Recorded dicyclomine 10 mg capsule 10 mg PO BID PRN abdominal pain #6 01/22/25 caps cephalexin 500 mg capsule 500 mg PO Q8H #15 caps 01/25/25 Allergies Allergy/AdvReac Type Severity Reaction Status Date / Time ibuprofen Allergy Intermediate Unknown Verified 02/03/25 04:46 Review of Systems 2 Review of Systems: Constitutional : No Fever, No Chills ENT/Mouth : No Ear Pain, No Nasal Congestion, No sore throat Eyes: No Eye Pain, No Swelling, No Redness Cardiovascular : No Chest Pain, No SOB Respiratory : No Cough, No Sputum, No Dyspnea Gastrointestinal : No Nausea, No Vomiting, No Diarrhea, No Hematochezia, No Melena Genitourinary : No Dysuria, No Urinary Frequency, No Hematuria Musculoskeletal : No Myalgias Skin : No Skin Lesions, No rash Neuro : No Weakness, No Numbness, No Paresthesias, No Dizziness, No Headache Psych : positive Anxiety, positive Depression, positive SI no HI All other systems reviewed and are negative [facility] Past Medical History Attestation statement: The following information was validated with the patient. Source: old records reviewed Medical History (Updated 02/03/25 @ 06:20 by Alejandra Griffin DO) Anxiety and depression Social History Social History (Updated 02/03/25 @ 05:41 by Alejandra Griffin DO) Alcohol intake: former Patient Tobacco Use Status: Current everyday Tobacco user Smoked in Last 30 Days: Yes Use of substances other than those prescribed or required for medical reasons: No Advance Directives: No Advance Directives Information Provided: Yes Physical Exam 2 Vital Signs: Vital Signs: Last Vital Signs Temp 98.1 F 02/03/25 04:42 Pulse 91 02/03/25 04:42 Resp 16 02/03/25 04:42 BP 158/110 H 02/03/25 04:42 Pulse Ox 98 02/03/25 04:42 O2 Del Method Room Air 02/03/25 04:42 BMI result Body Mass Index 29.0 Appearance: Alert. Oriented X3. No acute distress. Eyes: Pupils equal, round and reactive to light. ENT: Pharynx normal. Neck: Normal inspection. Neck supple. CVS: Normal heart rate and rhythm. Pulses normal. Respiratory: No respiratory distress. Breath sounds normal. Abdomen: Soft and nontender. Skin: Skin warm and dry. Normal skin color. Normal skin turgor. Extremities: No lower extremity edema. No calf ttp Neuro: Oriented X 3. No motor deficit. No sensory deficit. CN2-12 intact Medications Administered Discontinued Medications Generic Name Dose Route Start Last Admin Trade Name Freq PRN Reason Stop Dose Admin Hydroxyzine HCl 50 mg 02/03/25 05:57 02/03/25 06:07 Hydroxyzine Hcl 50 Mg Tablet PO 02/03/25 05:58 50 mg ONCE ONE Administration Medical Decision Making Medical Decision Making MDM Narrative: 64 yo female with anxiety and depression here with c/o cocaine abuse paranoia and feeling depressed at this time will obtain basic labs, CARE team consult. She has no medical issues or complaints Differential Diagnosis Differential Diagnoses: The differential diagnosis associated with the presentation includes depression, cocaine abuse Admission/Observation Consideration of admission/observation: Escalation of care including admission/observation considered physician observation started at 615am Lab Data MDM Lab Attestation statement: I reviewed the patient's lab results. 02/03/25 04:55 02/03/25 04:55 Labs: Lab Results 02/03/25 Range/Units 04:55 WBC 5.8 (4.8-10.8) X10*3/uL RBC 4.11 L (4.20-5.50) X10*6/uL Hgb 12.5 (12.0-16.0) g/dl Hct 36.9 L (37.0-47.0) % MCV 89.8 (80.0-98.0) fL MCH 30.4 (27.0-33.0) pg MCHC 33.9 (31.0-35.0) g/dl RDW 14.3 (11.0-16.0) % Plt Count 129 L D (160-400) X10*3/uL MPV 9.7 (9.4-12.3) fL Immature Gran % (Auto) 0.5 H (0.0-0.4) % Neut % (Auto) 72.5 (45-73) % Lymph % (Auto) 20.1 (20-40) % [place] % (Auto) 5.4 (2-11) % Eos % (Auto) 1.0 (0-4) % Baso % (Auto) 0.5 (0-2) % Lymph # (Auto) 1.2 (1.2-4.9) X10*3/uL [place] # (Auto) 0.3 (0.1-1.2) X10*3/uL Eos # (Auto) 0.1 (0.0-0.4) X10*3/uL Baso # (Auto) 0.0 (0.0-0.2) X10*3/uL Abs Immat Gran (auto) 0.03 (0.00-0.03) X10*3/uL Absolute Neuts (auto) 4.2 (2.0-8.3) x10*3/uL Absolute Nucleated RBC 0.000 (0.0-0.012) X10*3/uL Nucleated RBC % (auto) 0.0 (0.0-0.2) /100WBC Sodium 140 (135-145) mmol/L Potassium 3.8 (3.3-5.1) mmol/L Chloride 107 (96-108) mmol/L Carbon Dioxide 24 (22-29) mmol/L Anion Gap 13 (12-20) BUN 5 L (9-16) mg/dL Creatinine 0.88 (0.5-1.4) mg/dL Estim Creat Clear Calc 73.8 Estimated GFR > 60 Random Glucose 83 (60-115) mg/dL Calcium 8.0 L (8.4-10.2) mg/dL Magnesium 1.9 (1.6-2.6) mg/dL Total Bilirubin 0.4 (0.0-1.0) mg/dL Direct Bilirubin 0.2 (0.0-0.5) mg/dL AST 27 (5-31) U/L ALT 22 (0-31) U/L Alkaline Phosphatase 76 (39-117) U/L Total Protein 6.3 L (6.5-8.0) g/dL Albumin 3.7 (3.5-5.0) g/dL Ethyl Alcohol < 10 mg/dL Independent Interpretation I performed an independent interpretation of an: EKG Interpretation: Rate: 64 Rhythm: NSR [place]: normal Normal P waves. Normal MESFIN. Normal QRS complex. ST T wave : nonspecific ST T wave changes lateral leads qTC: 478 prior studies: no acute ischemia The study has been interpreted contemporaneously by me. . Independent Historian Clinical information obtained from an independent historian. History obtained from or confirmed by: EMS External Record Review External record reviewed: Outpatient record Social Determinants Patient?s care significantly limited by Social Determinants of Health including: Problems related to primary support group Discharge Plan Discharge Clinical Impression: Cocaine abuse Patient Disposition: Still a Patient Instructions: Cocaine Abuse (ED) Prescriptions: No Action dicyclomine 10 mg capsule 10 mg PO BID PRN (Reason: abdominal pain) Qty: 6 0RF hydroxyzine pamoate 50 mg Capsule 50 mg PO QID PRN (Reason: Anxiety) solifenacin 10 mg Tablet 10 mg PO DAILY prazosin 1 mg Capsule 1 mg PO TID Rx Instructions: TID at bedtime sertraline 100 mg Tablet 100 mg PO BID Rx Instructions: 2 tablets by mouth once a day melatonin 3 mg Tablet 3 mg PO BEDTIME PRN (Reason: Insomnia) gabapentin 300 mg Capsule 300 mg PO TID risperidone 1 mg Tablet 1 mg PO BID cephalexin 500 mg capsule 500 mg PO Q8H Qty: 15 0RF Interventions: [place]-Suicide Risk Severity Scale Last Done: 02/03/25 04:46 Print Language: Mexican
[2025-02-03] MEDS: hydrOXYzine HCL 50 MG TABLET PO (06:07)
--- NOTE | 2025-02-03 06:11 | PC.NURSE ---
Pt c/o bad anxiety . requesting home med of vistaril 50mg. Elias Mcmillan notified and medications administered per order.
[2025-02-03 06:23] VITALS: BP 142/85; PULSE 62; RESP 16; TEMP 36.7; O2SAT 93
--- NOTE | 2025-02-03 07:40 | PC.NURSE ---
Pt yelling, agitated and demanding to go home. This RN attempted to deescalate, provider at bedside talking to pt. 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 No SI or HI. Pt reporting she is trying to find a ride to call and is demanding to leave.
[2025-02-03 08:26] VITALS: BP 142/85; PULSE 62; RESP 16; TEMP 36.7; O2SAT 93
== END 2025-02-03 08:27 | disposition home or self-care (01) ==
PROVIDERS: Emergency Provider Emergency Medicine
DX: F14.10 Cocaine abuse, uncomplicated (principal); R44.1 Visual hallucinations; F32.A Depression, unspecified; Z79.899 Other long term (current) drug therapy
CPT/HCPCS: 36415; 80048; 80076; 80307; 83735; 85025; 93005; 99284; S9485

== ENCOUNTER → 2025-02-03 05:38 | Outpatient (BNV) | payer OTHER, SELFPAY | PROVIDERS: Emergency Provider Emergency Medicine; Visit Provider Internal Medicine Cardiovascular Disease | DX: F19.10 Other psychoactive substance abuse, uncomplicated (principal) | CPT/HCPCS: 93010 ==

== ENCOUNTER 2025-02-04 19:54 | Inpatient (IN) | payer OTHER, SELFPAY ==
[2025-02-04 20:11] VITALS: BP 132/82; BP 145/91; PULSE 70; PULSE 72; RESP 18; TEMP 36.2; O2SAT 95
[2025-02-04 20:55] LABS: MANUAL DIFF FLAG NO
[2025-02-04 20:58] LABS: Basophils Absolute Auto 0.1 X10*3/uL (0.0-0.2); Basophils Percent Auto 0.9 % (0-2); Eosinophils Absolute Auto 0.1 X10*3/uL (0.0-0.4); Eosinophils Percent Auto 2.3 % (0-4); Hematocrit 40.7 % (37.0-47.0); Hemoglobin 13.5 g/dl (12.0-16.0); Imm Gran Abs Auto 0.03 X10*3/uL (0.00-0.03); Imm Gran Pct Auto 0.6 % (0.0-0.4); Lymphocytes Absolute Auto 1.3 X10*3/uL (1.2-4.9); Lymphocytes Percent Auto 25.2 % (20-40); Mean Corpuscular HGB Conc 33.2 g/dl (31.0-35.0); Mean Corpuscular Hemoglobin 30.2 pg (27.0-33.0); Mean Corpuscular Volume 91.1 fL (80.0-98.0); Mean Platelet Volume 9.5 fL (9.4-12.3); Monocytes Absolute Auto 0.3 X10*3/uL (0.1-1.2); Monocytes Percent Auto 5.5 % (2-11); Neutrophils Absolute Auto 3.5 x10*3/uL (2.0-8.3); Neutrophils Percent Auto 65.5 % (45-73); Platelet Count 138 X10*3/uL (160-400); Red Blood Count 4.47 X10*6/uL (4.20-5.50); Red Cell Distribution Width 14.6 % (11.0-16.0); White Blood Count 5.3 X10*3/uL (4.8-10.8)
[2025-02-04 21:13] LABS: Acetaminophen LAB < 3 mcg/mL (<30); Alanine Aminotransferase 22 U/L (0-31); Albumin Level 4.2 g/dL (3.5-5.0); Alkaline Phosphatase 87 U/L (39-117); Anion Gap 12 (12-20); Aspartate Amino Transferase 26 U/L (5-31); Bilirubin Total 0.5 mg/dL (0.0-1.0); Blood Urea Nitrogen 5 mg/dL (9-16); Calcium 8.3 mg/dL (8.4-10.2); Carbon Dioxide 27 mmol/L (22-29); Chloride 106 mmol/L (96-108); Creatinine Clr Calc Pharmacy 63.4; Estimated Glomerular Filt Rate 58; Ethanol < 10 mg/dL; Glucose Random 82 mg/dL (60-115); Salicylate < 5.0 mg/dL (15-30); Sodium 141 mmol/L (135-145); Total Protein 7.1 g/dL (6.5-8.0)
--- NOTE | 2025-02-04 21:32 | PC.NURSE ---
patient appears to have fallen asleep presently
--- NOTE | 2025-02-05 | ECG_ITS ---
Test Reason : MEDICAL CLEARENCE Blood Pressure : */* mmHG Vent. Rate : 71 BPM Atrial Rate : 71 BPM P-R Int : 152 ms QRS Dur : 78 ms QT Int : 416 ms P-R-T Axes : 51 72 68 degrees QTcB Int : 452 ms Normal sinus rhythm Nonspecific T wave abnormality Abnormal ECG When compared with ECG of 03-Feb-2025 05:53, Inverted T waves have replaced nonspecific T wave abnormality in Anterior leads Referred By: Alber Sinha Electronically Signed By: YANDEL SHANNON MD
--- NOTE | 2025-02-05 03:47 | ED_ITS ---
HPI - Psych General Chief Complaint: Psychiatric Symptoms Stated Complaint: suicidal ideations w plans Time Seen by Provider: 02/04/25 21:22 Source: patient Limitations: no limitations History of Present Illness ED Provider: Seema Johnson PA-C HPI Narrative: 64-year-old female with a history of anxiety, depression, alcohol abuse, cocaine abuse, presents with SI. Patient states she has a plan for self-harm, however is not verbalizing that plan. Patient describes she had 2 sons, 1 hung himself the other was murdered. The incident occurred 6 years ago. Patient was actively asking to be hospitalized. She admits to alcohol use overnight. To note patient was seen in the emergency department yesterday and cleared by the care team. Related Data Home Medications ?Medication ?Instructions ?Recorded ?Confirmed gabapentin 300 mg capsule 300 mg PO TID 01/24/25 01/24/25 hydroxyzine pamoate 50 mg capsule 50 mg PO QID PRN Anxiety 01/24/25 01/24/25 melatonin 3 mg tablet 3 mg PO BEDTIME PRN Insomnia 01/24/25 01/24/25 prazosin 1 mg capsule 1 mg PO TID 01/24/25 01/24/25 risperidone 1 mg tablet 1 mg PO BID 01/24/25 01/24/25 sertraline 100 mg tablet 100 mg PO BID 01/24/25 01/24/25 solifenacin 10 mg tablet 10 mg PO DAILY 01/24/25 01/24/25 Previous Rx's ?Medication ?Instructions ?Recorded dicyclomine 10 mg capsule 10 mg PO BID PRN abdominal pain #6 01/22/25 caps cephalexin 500 mg capsule 500 mg PO Q8H #15 caps 01/25/25 Allergies Allergy/AdvReac Type Severity Reaction Status Date / Time ibuprofen Allergy Intermediate Unknown Verified 02/04/25 20:17 Review of Systems 2 Review of Systems: Yes all other systems are reviewed and are negative Constitutional: Constitutional: Denies fatigue and Denies fever(s) Cardiovascular: Cardiovascular: Denies chest pain and Denies dyspnea Respiratory: Respiratory: Denies cough and Denies dyspnea Gastrointestinal: Gastrointestinal: Denies abdominal pain Endocrine: Endocrine: Denies fatigue PMFSH Past Medical History Attestation statement: The following information was validated with the patient. Medical History (Updated 02/05/25 @ 03:53 by JAMES Gomez) Anxiety and depression Social History Social History (Updated 02/03/25 @ 05:41 by Alejandra Griffin DO) Alcohol intake: former Patient Tobacco Use Status: Current everyday Tobacco user Advance Directives: No Advance Directives Information Provided: Yes Do you have a plan to hurt others: No Plan Physical Exam 2 Vital Signs: Vital Signs: Last Vital Signs Temp 97.1 F 02/04/25 20:11 Pulse 70 02/04/25 20:11 Resp 18 02/04/25 20:11 BP 145/91 H 02/04/25 20:11 Pulse Ox 95 02/04/25 20:11 O2 Del Method Room Air 02/04/25 20:11 BMI result Body Mass Index 30.0 Const: Other: Alert Orientation/consciousness: patient oriented x3 Resp: Effort & Inspection: normal respiratory effort Cardio: Other: normal peripheral perfusion Skin: Other: warm dry no rash Neuro: General: patient oriented x3, gait normal, no focal motor deficits and CN's II-XI intact bilaterally Psych: Other: cooperative in ER Medical Decision Making Medical Decision Making MDM Narrative: 64-year-old female with a history of anxiety, depression, alcohol abuse, cocaine abuse, presents with SI. Patient states she has a plan for self-harm, however is not verbalizing that plan. Patient describes she had 2 sons, 1 hung himself the other was murdered. The incident occurred 6 years ago. Patient was actively asking to be hospitalized. She admits to alcohol use overnight. To note patient was seen in the emergency department yesterday and cleared by the care team. problem: Anxiety, depression, substance abuse History: Per patient I have considered the following differential diagnoses: Decompensated psychiatric illness, SI, HI, drug / alcohol intoxication Plan: I foresee the patient being a bed search, she was cleared by the care team yesterday, she bounces back today. Screening labs including serum ethanol and drug screen we will be obtained. We will place the consult. I have independently reviewed the following tests: labs: No leukocytosis, not anemic, no electrolyte abnormality, ethanol negative, drug screen pending Lab Data 02/04/25 20:48 02/04/25 20:49 Labs: Lab Results 02/04/25 02/04/25 Range/Units 20:48 20:49 WBC 5.3 (4.8-10.8) X10*3/uL RBC 4.47 (4.20-5.50) X10*6/uL Hgb 13.5 (12.0-16.0) g/dl Hct 40.7 (37.0-47.0) % MCV 91.1 (80.0-98.0) fL MCH 30.2 (27.0-33.0) pg MCHC 33.2 (31.0-35.0) g/dl RDW 14.6 (11.0-16.0) % Plt Count 138 L (160-400) X10*3/uL MPV 9.5 (9.4-12.3) fL Immature Gran % (Auto) 0.6 H (0.0-0.4) % Neut % (Auto) 65.5 (45-73) % Lymph % (Auto) 25.2 (20-40) % [place] % (Auto) 5.5 (2-11) % Eos % (Auto) 2.3 (0-4) % Baso % (Auto) 0.9 (0-2) % Lymph # (Auto) 1.3 (1.2-4.9) X10*3/uL [place] # (Auto) 0.3 (0.1-1.2) X10*3/uL Eos # (Auto) 0.1 (0.0-0.4) X10*3/uL Baso # (Auto) 0.1 (0.0-0.2) X10*3/uL Abs Immat Gran (auto) 0.03 (0.00-0.03) X10*3/uL Absolute Neuts (auto) 3.5 (2.0-8.3) x10*3/uL Absolute Nucleated RBC 0.000 (0.0-0.012) X10*3/uL Nucleated RBC % (auto) 0.0 (0.0-0.2) /100WBC Sodium 141 (135-145) mmol/L Potassium 4.0 (3.3-5.1) mmol/L Chloride 106 (96-108) mmol/L Carbon Dioxide 27 (22-29) mmol/L Anion Gap 12 (12-20) BUN 5 L (9-16) mg/dL Creatinine 0.97 (0.5-1.4) mg/dL Estim Creat Clear Calc 63.4 Estimated GFR 58 Random Glucose 82 (60-115) mg/dL Calcium 8.3 L (8.4-10.2) mg/dL Total Bilirubin 0.5 (0.0-1.0) mg/dL AST 26 (5-31) U/L ALT 22 (0-31) U/L Alkaline Phosphatase 87 (39-117) U/L Total Protein 7.1 (6.5-8.0) g/dL Albumin 4.2 (3.5-5.0) g/dL Salicylates < 5.0 L (15-30) mg/dL Acetaminophen < 3 (<30) mcg/mL Ethyl Alcohol < 10 mg/dL Discharge Plan Discharge Clinical Impression: Suicidal ideation Patient Disposition: Still a Patient Prescriptions: No Action dicyclomine 10 mg capsule 10 mg PO BID PRN (Reason: abdominal pain) Qty: 6 0RF hydroxyzine pamoate 50 mg Capsule 50 mg PO QID PRN (Reason: Anxiety) solifenacin 10 mg Tablet 10 mg PO DAILY prazosin 1 mg Capsule 1 mg PO TID Rx Instructions: TID at bedtime sertraline 100 mg Tablet 100 mg PO BID Rx Instructions: 2 tablets by mouth once a day melatonin 3 mg Tablet 3 mg PO BEDTIME PRN (Reason: Insomnia) gabapentin 300 mg Capsule 300 mg PO TID risperidone 1 mg Tablet 1 mg PO BID cephalexin 500 mg capsule 500 mg PO Q8H Qty: 15 0RF Interventions: Beadle-Suicide Risk Severity Scale Last Done: 02/04/25 20:32 Print Language: Faroese
[2025-02-05 04:25] VITALS: BP 146/96; PULSE 65; RESP 17; TEMP 36.9; O2SAT 89
[2025-02-05 04:27] LABS: Appearance Urine Clear; Color Urine Yellow; Glucose Urine UA Negative (Negative); Leukocyte Esterase Urine Trace (Negative); Nitrite Urine Negative (Negative); Specific Gravity - Urine <= 1.005 (1.005-1.025); UMIC TRIGGER UACC YES; Urine Blood Negative (Negative); Urine Ketones Negative (Negative); Urine Protein Negative (Neg-Trace)
[2025-02-05 04:32] LABS: Bacteria Urine None Seen (None Seen); Hyaline Casts Urine 0-2 /LPF (0-2); RBC Urine 0-2 /HPF (0-2); Squamous Epithelial Cell Urine 0-2 /HPF (0-2); WBC Urine 0-5 /HPF (0-5)
[2025-02-05 04:36] LABS: Amphetamine Screen Urine Not Detected (Not Detect); Barbiturates, Urine Not Detected (Not Detect); Benzodiazepines Screen Urine Not Detected (Not Detect); Buprenorphine Scr Not Detected (Not Detect); Cannabinoid Screen Urine Not Detected (Not Detect); Cocaine Screen Urine POSITIVE (Not Detect); Fentanyl, urine Not Detected (Not Detect); Methadone Screen, Urine Not Detected (Not Detect); Opiate Screen Urine Not Detected (Not Detect); Oxycodone Screen Urine Not Detected (Not Detect); Phencyclidine Screen Urine Not Detected (Not Detect)
--- NOTE | 2025-02-05 10:15 | PC.NURSE ---
pt sleeping, rr equal/non labored, woked to verbal stimulus- care team spoke with pt, per care team patient will go inpt. plan of care ongoing
--- NOTE | 2025-02-05 10:57 | PC.NURSE ---
patient requesting am medications which pt has had med req completed- provider was notified that the med req was completed by pharmacy and to order the medications.
[2025-02-05 11:06] VITALS: BP 134/94; PULSE 72; RESP 20; TEMP 36.5; O2SAT 95
[2025-02-05] MEDS: Gabapentin 600 MG TABLET PO ×3 (11:06→20:42)
[2025-02-05] MEDS: risperiDONE 1 MG TABLET PO ×2 (11:06→20:43)
[2025-02-05] MEDS: Sertraline HCL 100 MG TABLET 200 MG PO (11:06)
[2025-02-05 11:07] VITALS: BP 134/94
[2025-02-05] MEDS: Levothyroxine Sodium 25 MCG TABLET PO (11:07)
[2025-02-05] MEDS: Prazosin HCL 1 MG CAPSULE PO ×3 (11:07→20:43)
[2025-02-05] MEDS: Atorvastatin Calcium 20 MG TABLET PO (11:07)
--- NOTE | 2025-02-05 11:14 | PC.NURSE ---
patient was medicated with her am meds, she is also asking for tylenol for generalized pain, this nurse notified provider.
--- NOTE | 2025-02-05 11:16 | PC.NURSE ---
meds this nurse noticed that the patients medications were put in from the med req as 1x dosages, attempted speaking with pharmacy to see if the orders could be changed to reflect the daily dosages and they stated that the provider will have to put in all new orders for them to be continued after this dose. The patient was medicated with the 1x orders and this nurse notified Dr. Sinha via tiger text that he will need to do new orders to continue the patients medication.
--- NOTE | 2025-02-05 11:52 | MHC.CARE ---
Pt will be an inpatient bedsearch
[2025-02-05] MEDS: Nicotine 21 MG PATCH.TD24 TRANSDERMA (12:56)
[2025-02-05] MEDS: Acetaminophen 325 MG TABLET 975 MG PO (12:57)
[2025-02-05 15:18] VITALS: BP 101/71; PULSE 71; RESP 18; TEMP 36.6; O2SAT 95
[2025-02-05 15:19] VITALS: BMI 30.6
--- NOTE | 2025-02-05 18:15 | PC.ADMIT ---
64 y/o female admitted to M5 from [facility] at 1445 for depression and SI. Pt has hx of MDD, Bipolar, and PTSD. Pt self presented to ED for depression and SI and was discharged on 02/03 [address] services already in place. However, pt returned to ED on 02/04 with plan to hang herself if not admitted. Pt struggling with substance use and unresolved grief from losing both of her sons one year apart. Per report, pt found one son hanging in the closet after committing suicide, and another son in a MVA. Pt stated both of her sons six years ago, one right after the other, and she has struggled to cope with their loss. On arrival to the unit pt was calm and cooperative. Pt appeared disheveled and older than stated age. Pt cooperative with safety check. Skin check remarkable for old abrasion to right auguste. Pt reported ?That?s from a fall. I?m really unsteady, I fall a lot.? Pt denied using an ambulation device at home, but stated ?I really need a cane.? Pt was given a walker and placed on 5 minute checks with a PT consult ordered. Pt incontinent of urine and reported she wears a brief at home. Pt has numerous missing teeth, but denied denture use. During the admission process pt reported ?I need to be here. I have so much going on with my mental health. I need help.? Pt denied an active plan to harm herself on the unit and stated she could seek out staff if feeling unsafe. Pt denied AVH, however reported a past hx. Pt reported daily ETOH use, and weekly crack cocaine use. Tox screen positive for cocaine,? BAL <10. Pt placed on CIWA per orders.? Pt lives alone in an apartment in [place]. Pt has a cost recovery technician, psychiatrist, therapist, and a rep payee. Pt reported she also has an aide that comes to her home to help with showering and house cleaning. Pt stated that despite taking her medications, and maintaining her appointments she has felt increasingly depressed with thoughts to hang herself. Pt has past IPLOC admits for substance use and a suicide attempt. Pt is a daily nicotine user, and is utilizing a nicotine patch. Pt reported she believed she already received a Flu vaccine this season. Pt declined to sign any releases, and stated ?Maybe tomorrow I will decide to.? Pt has hx of COPD but denied any other medical issues. Pt accepted a visit from the hospital police lieutenant precinct, and wants to continue visits with pastoral services while on the? unit.
[2025-02-05] MEDS: hydrOXYzine HCL 25 MG TABLET PO (19:15)
[2025-02-05 20:41] VITALS: BP 145/89; PULSE 67; RESP 20; TEMP 36.2; O2SAT 96
[2025-02-05] MEDS: LORazepam 1 MG TABLET PO (20:46)
[2025-02-06] MEDS: Levothyroxine Sodium 25 MCG TABLET PO (07:21)
[2025-02-06 07:59] VITALS: BP 146/85; PULSE 61; RESP 16; TEMP 36.4; O2SAT 94
[2025-02-06] MEDS: Nicotine 21 MG PATCH.TD24 TRANSDERMA (08:15)
[2025-02-06] MEDS: Gabapentin 600 MG TABLET PO ×3 (08:16→20:47)
[2025-02-06] MEDS: Prazosin HCL 1 MG CAPSULE PO ×3 (08:16→20:47)
[2025-02-06] MEDS: Multivitamin TABLET 1 TAB PO (08:16)
[2025-02-06] MEDS: Thiamine HCL 100 MG TABLET PO (08:16)
[2025-02-06] MEDS: Tolterodine Tartrate LA 4 MG CAP.ER.24H PO (08:16)
[2025-02-06] MEDS: risperiDONE 1 MG TABLET PO ×2 (08:16→20:48)
[2025-02-06] MEDS: Folic Acid 1 MG TABLET PO (08:16)
[2025-02-06] MEDS: Sertraline HCL 100 MG TABLET 200 MG PO (08:17)
[2025-02-06] MEDS: Atorvastatin Calcium 20 MG TABLET PO (08:17)
[2025-02-06 08:49] LABS: Estimated Average Glucose 103 mg/dL; Hemoglobin A1C 123.0226 umol/L; Hemoglobin A1c % 5.2 % (<6.0); Total Hemoglobin (HGBA1C) 3666.9996 umol/L
[2025-02-06 08:59] VITALS: BP 146/85; PULSE 61; O2SAT 94
[2025-02-06 09:04] LABS: Cholesterol 173 mg/dL (<200); HDL Cholesterol 50 mg/dL (>40); LDL Cholesterol Calculated 95 mg/dL (<100); Magnesium 2.2 mg/dL (1.6-2.6); Triglycerides 144 mg/dL (<150)
--- NOTE | 2025-02-06 09:07 | P.HPPS_ITS ---
HPI Date of Service: 02/06/25 Chief Complaint: suicidal ideations w plans Sources of Information: patient interviewed, chart reviewed and crisis/core team assessment reviewed HPI Subjective Notes: Bowman Warning, Conditional Voluntary and 3 Day Narrative: 64 y/o female admitted to M5 from [facility] at 1445 for depression and SI. Pt has hx of MDD, Bipolar, and PTSD. Pt self presented to ED for depression and SI and was discharged on 02/03 with services already in place. However, pt returned to ED on 02/04 with plan to hang herself if not admitted. Pt struggling with substance use and unresolved grief from losing both of her sons one year apart. Per report, pt found one son hanging in the closet after committing suicide, and another son in a MVA. Pt stated both of her sons six years ago, one right after the other, and she has struggled to cope with their loss. On arrival to the unit pt was calm and cooperative. Pt appeared disheveled and older than stated age. Pt cooperative with safety check. Skin check remarkable for old abrasion to right auguste. Pt reported ?That?s from a fall. I?m really unsteady, I fall a lot.? Pt denied using an ambulation device at home, but stated ?I really need a cane.? Pt was given a walker and placed on 5 minute checks with a PT consult ordered. Pt incontinent of urine and reported she wears a brief at home. Pt has numerous missing teeth, but denied denture use. During the admission process pt reported ?I need to be here. I have so much going on with my mental health. I need help.? Pt denied an active plan to harm herself on the unit and stated she could seek out staff if feeling unsafe. Pt denied AVH, however reported a past hx. Pt reported daily ETOH use, and weekly crack cocaine use. Tox screen positive for cocaine,? BAL <10. Pt placed on CIWA per orders.? Pt lives alone in an apartment in [place]. Pt has a classroom technology coach, psychiatrist, therapist, and a rep payee. Pt reported she also has an aide that comes to her home to help with showering and house cleaning. Pt stated that despite taking her medications, and maintaining her appointments she has felt increasingly depressed with thoughts to hang herself. Pt has past IPLOC admits for substance use and a suicide attempt. Pt is a daily nicotine user, and is utilizing a nicotine patch. Pt reported she believed she already received a Flu vaccine this season. Pt declined to sign any releases, and stated ?Maybe tomorrow I will decide to.? Pt has hx of COPD but denied any other medical issues. Pt accepted a visit from the hospital mechanical engineering specialist, and wants to continue visits with pastoral services while on the? unit. [facility] Medical History (Updated 02/05/25 @ 03:53 by JAMES Gomez) Anxiety and depression Diagnostics Vital Signs (24Hr): Vital Signs - 24 hr 02/05/25 11:06 02/05/25 11:07 02/05/25 15:18 Temperature 97.7 F 98 F Pulse Rate 72 71 Respiratory Rate 20 18 Blood Pressure 134/94 H 134/94 H 101/71 Pulse Oximetry 95 95 Oxygen Delivery Method Room Air Room Air 02/05/25 20:41 02/06/25 07:59 Temperature 97.1 F 97.5 F Pulse Rate 67 61 Respiratory Rate 20 16 Blood Pressure 145/89 H 146/85 H Pulse Oximetry 96 94 Oxygen Delivery Method Room Air Room Air BMI result Body Mass Index 30.6 Labs 02/04/25 20:48 02/04/25 20:49 Labs: Laboratory Results - last 48 hr 02/04/25 02/04/25 02/05/25 20:48 20:49 04:15 WBC 5.3 RBC 4.47 Hgb 13.5 Hct 40.7 MCV 91.1 MCH 30.2 MCHC 33.2 RDW 14.6 Plt Count 138 L MPV 9.5 Immature Gran % (Auto) 0.6 H Neut % (Auto) 65.5 Lymph % (Auto) 25.2 [place] % (Auto) 5.5 Eos % (Auto) 2.3 Baso % (Auto) 0.9 Lymph # (Auto) 1.3 [place] # (Auto) 0.3 Eos # (Auto) 0.1 Baso # (Auto) 0.1 Abs Immat Gran (auto) 0.03 Absolute Neuts (auto) 3.5 Absolute Nucleated RBC 0.000 Nucleated RBC % (auto) 0.0 Sodium 141 Potassium 4.0 Chloride 106 Carbon Dioxide 27 Anion Gap 12 BUN 5 L Creatinine 0.97 Estim Creat Clear Calc 63.4 Estimated GFR 58 Random Glucose 82 Estimat Average Glucose Hemoglobin A1c % Calcium 8.3 L Magnesium Total Bilirubin 0.5 AST 26 ALT 22 Alkaline Phosphatase 87 Total Protein 7.1 Albumin 4.2 Triglycerides Cholesterol LDL Cholesterol, Calc HDL Cholesterol Urine Color Yellow Urine Appearance Clear Urine pH 7.0 Ur Specific [place] <= 1.005 Urine Protein Negative Urine Glucose (UA) Negative Urine Ketones Negative Urine Blood Negative Urine Nitrite Negative Ur Leukocyte Esterase Trace H Urine RBC 0-2 Urine WBC 0-5 Ur Squamous Epith Cells 0-2 Urine Bacteria None Seen Hyaline Casts 0-2 Salicylates < 5.0 L Urine Opiates Screen Ur Buprenorphine Scrn Ur Oxycodone Screen Urine Methadone Screen Urine Fentanyl Screen Acetaminophen < 3 Ur Barbiturates Screen Ur Phencyclidine Scrn Ur Amphetamines Screen U Benzodiazepines Scrn Urine Cocaine Screen U Marijuana (THC) Screen Ethyl Alcohol < 10 02/05/25 02/06/25 04:16 08:27 WBC RBC Hgb Hct MCV MCH MCHC RDW Plt Count MPV Immature Gran % (Auto) Neut % (Auto) Lymph % (Auto) [place] % (Auto) Eos % (Auto) Baso % (Auto) Lymph # (Auto) [place] # (Auto) Eos # (Auto) Baso # (Auto) Abs Immat Gran (auto) Absolute Neuts (auto) Absolute Nucleated RBC Nucleated RBC % (auto) Sodium Potassium Chloride Carbon Dioxide Anion Gap BUN Creatinine Estim Creat Clear Calc Estimated GFR Random Glucose Estimat Average Glucose 103 Hemoglobin A1c % 5.2 Calcium Magnesium 2.2 Total Bilirubin AST ALT Alkaline Phosphatase Total Protein Albumin Triglycerides 144 Cholesterol 173 LDL Cholesterol, Calc 95 HDL Cholesterol 50 Urine Color Urine Appearance Urine pH Ur Specific [place] Urine Protein Urine Glucose (UA) Urine Ketones Urine Blood Urine Nitrite Ur Leukocyte Esterase Urine RBC Urine WBC Ur Squamous Epith Cells Urine Bacteria Hyaline Casts Salicylates Urine Opiates Screen Not Detected Ur Buprenorphine Scrn Not Detected Ur Oxycodone Screen Not Detected Urine Methadone Screen Not Detected Urine Fentanyl Screen Not Detected Acetaminophen Ur Barbiturates Screen Not Detected Ur Phencyclidine Scrn Not Detected Ur Amphetamines Screen Not Detected U Benzodiazepines Scrn Not Detected Urine Cocaine Screen POSITIVE H U Marijuana (THC) Screen Not Detected Ethyl Alcohol Meds/Allergies Meds Home Medications ?Medication ?Instructions ?Recorded ?Confirmed ?Type gabapentin 300 mg capsule 600 mg PO TID 01/24/25 02/05/25 History hydroxyzine pamoate 50 mg capsule 50 mg PO QID PRN Anxiety 01/24/25 02/05/25 History melatonin 3 mg tablet 3 mg PO BEDTIME PRN Insomnia 01/24/25 02/05/25 History prazosin 1 mg capsule 1 mg PO TID 01/24/25 02/05/25 History risperidone 1 mg tablet 1 mg PO BID 01/24/25 02/05/25 History sertraline 100 mg tablet 200 mg PO DAILY 01/24/25 02/05/25 History solifenacin 10 mg tablet 10 mg PO DAILY 01/24/25 02/05/25 History atorvastatin 20 mg tablet 20 mg PO DAILY 02/05/25 02/05/25 History diclofenac sodium 1 % topical gel 1 inch topical BID 02/05/25 02/05/25 History levothyroxine 25 mcg tablet 25 mcg PO DAILY 02/05/25 02/05/25 History Allergies Allergies Allergy/AdvReac Type Severity Reaction Status Date / Time ibuprofen Allergy Intermediate Unknown Verified 02/04/25 20:17 Assessment & Plan Statement Statement: I have reviewed the history and physical and performed a pertinent examination on my patient. No changes have occurred unless specified. If the History and Physical was not performed prior to admission, the Hospitalist's service will be consulted for completing the admission physical. Time Spent With Patient Time: Total time managing care of this patient today ____ minutes.
[2025-02-06 09:19] LABS: Free T4 (Free Thyroxine) 0.49 ng/dL (0.71-1.85); Thyroid Stimulating Hormone 72.46 uIU/mL (0.32-4.0)
[2025-02-06] MEDS: Acetaminophen 325 MG TABLET 975 MG PO (09:28)
[2025-02-06 09:31] LABS: Folate 4.6 ng/mL (> or = 4.0); Vitamin B12 503 pg/mL (200-900)
[2025-02-06] MEDS: Tiotropium Bromide 2.5 mcg 1 PUFF/2.5 MCG MIST.INHAL 2 PUFF INHALE (09:52)
--- NOTE | 2025-02-06 10:12 | HO.PSYADMNOT ---
HPI Date of Service: 02/06/25 Chief Complaint: suicidal ideations w plans Sources of Information: patient interviewed, chart reviewed and crisis/core team assessment reviewed Additional Sources of Information: Seen 2pm HPI Subjective Notes: Bowman Warning and Conditional Voluntary Healthcare Proxy: No Guardianship: No Medical Problems Affecting Mental Status: No Narrative: 64 yo female, to ER with EMS, reports an increase in depressive sx with SI,plan to hang herself and AVH. Reports a lack of support and feels she needs someone to live with as she falls a lot and needs someone to be there to help. Has a NATURAL GAS INSPECTOR who can help with her cat. Does not believe current living situation is appropriate for her mental health needs. Reports decreasing alcohol use, currently 2 beers monthly. 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 Two brothers and one sister GED earned. Never , 2 sons who have Substance History: alcohol, cocaine Several admissions to [facility] she reports Trauma History: Affirms- found her son hanging in a closet in 2016 and younger son in 2017 of a brain aneurysm/mva Diagnostics Vital Signs (24Hr): Vital Signs - 24 hr 02/05/25 11:06 02/05/25 11:07 02/05/25 15:18 Temperature 97.7 F 98 F Pulse Rate 72 71 Respiratory Rate 20 18 Blood Pressure 134/94 H 134/94 H 101/71 Pulse Oximetry 95 95 Oxygen Delivery Method Room Air Room Air 02/05/25 20:41 02/06/25 07:59 02/06/25 08:59 Temperature 97.1 F 97.5 F Pulse Rate 67 61 61 Respiratory Rate 20 16 Blood Pressure 145/89 H 146/85 H 146/85 H Pulse Oximetry 96 94 94 Oxygen Delivery Method Room Air Room Air BMI result Body Mass Index 30.6 Labs 02/04/25 20:48 02/04/25 20:49 Labs: Laboratory Results - last 48 hr 02/04/25 02/04/25 02/05/25 20:48 20:49 04:15 WBC 5.3 RBC 4.47 Hgb 13.5 Hct 40.7 MCV 91.1 MCH 30.2 MCHC 33.2 RDW 14.6 Plt Count 138 L MPV 9.5 Immature Gran % (Auto) 0.6 H Neut % (Auto) 65.5 Lymph % (Auto) 25.2 [place] % (Auto) 5.5 Eos % (Auto) 2.3 Baso % (Auto) 0.9 Lymph # (Auto) 1.3 [place] # (Auto) 0.3 Eos # (Auto) 0.1 Baso # (Auto) 0.1 Abs Immat Gran (auto) 0.03 Absolute Neuts (auto) 3.5 Absolute Nucleated RBC 0.000 Nucleated RBC % (auto) 0.0 Sodium 141 Potassium 4.0 Chloride 106 Carbon Dioxide 27 Anion Gap 12 BUN 5 L Creatinine 0.97 Estim Creat Clear Calc 63.4 Estimated GFR 58 Random Glucose 82 Estimat Average Glucose Hemoglobin A1c % Calcium 8.3 L Magnesium Total Bilirubin 0.5 AST 26 ALT 22 Alkaline Phosphatase 87 Total Protein 7.1 Albumin 4.2 Triglycerides Cholesterol LDL Cholesterol, Calc HDL Cholesterol Vitamin B12 Folate TSH Free T4 Urine Color Yellow Urine Appearance Clear Urine pH 7.0 Ur Specific [place] <= 1.005 Urine Protein Negative Urine Glucose (UA) Negative Urine Ketones Negative Urine Blood Negative Urine Nitrite Negative Ur Leukocyte Esterase Trace H Urine RBC 0-2 Urine WBC 0-5 Ur Squamous Epith Cells 0-2 Urine Bacteria None Seen Hyaline Casts 0-2 Salicylates < 5.0 L Urine Opiates Screen Ur Buprenorphine Scrn Ur Oxycodone Screen Urine Methadone Screen Urine Fentanyl Screen Acetaminophen < 3 Ur Barbiturates Screen Ur Phencyclidine Scrn Ur Amphetamines Screen U Benzodiazepines Scrn Urine Cocaine Screen U Marijuana (THC) Screen Ethyl Alcohol < 10 02/05/25 02/06/25 04:16 08:27 WBC RBC Hgb Hct MCV MCH MCHC RDW Plt Count MPV Immature Gran % (Auto) Neut % (Auto) Lymph % (Auto) [place] % (Auto) Eos % (Auto) Baso % (Auto) Lymph # (Auto) [place] # (Auto) Eos # (Auto) Baso # (Auto) Abs Immat Gran (auto) Absolute Neuts (auto) Absolute Nucleated RBC Nucleated RBC % (auto) Sodium Potassium Chloride Carbon Dioxide Anion Gap BUN Creatinine Estim Creat Clear Calc Estimated GFR Random Glucose Estimat Average Glucose 103 Hemoglobin A1c % 5.2 Calcium Magnesium 2.2 Total Bilirubin AST ALT Alkaline Phosphatase Total Protein Albumin Triglycerides 144 Cholesterol 173 LDL Cholesterol, Calc 95 HDL Cholesterol 50 Vitamin B12 503 Folate 4.6 TSH 72.46 H Free T4 0.49 L Urine Color Urine Appearance Urine pH Ur Specific [place] Urine Protein Urine Glucose (UA) Urine Ketones Urine Blood Urine Nitrite Ur Leukocyte Esterase Urine RBC Urine WBC Ur Squamous Epith Cells Urine Bacteria Hyaline Casts Salicylates Urine Opiates Screen Not Detected Ur Buprenorphine Scrn Not Detected Ur Oxycodone Screen Not Detected Urine Methadone Screen Not Detected Urine Fentanyl Screen Not Detected Acetaminophen Ur Barbiturates Screen Not Detected Ur Phencyclidine Scrn Not Detected Ur Amphetamines Screen Not Detected U Benzodiazepines Scrn Not Detected Urine Cocaine Screen POSITIVE H U Marijuana (THC) Screen Not Detected Ethyl Alcohol Meds/Allergies Meds Home Medications ?Medication ?Instructions ?Recorded ?Confirmed ?Type gabapentin 300 mg capsule 600 mg PO TID 01/24/25 02/05/25 History hydroxyzine pamoate 50 mg capsule 50 mg PO QID PRN Anxiety 01/24/25 02/05/25 History melatonin 3 mg tablet 3 mg PO BEDTIME PRN Insomnia 01/24/25 02/05/25 History prazosin 1 mg capsule 1 mg PO TID 01/24/25 02/05/25 History risperidone 1 mg tablet 1 mg PO BID 01/24/25 02/05/25 History sertraline 100 mg tablet 200 mg PO DAILY 01/24/25 02/05/25 History solifenacin 10 mg tablet 10 mg PO DAILY 01/24/25 02/05/25 History atorvastatin 20 mg tablet 20 mg PO DAILY 02/05/25 02/05/25 History diclofenac sodium 1 % topical gel 1 inch topical BID 02/05/25 02/05/25 History levothyroxine 25 mcg tablet 25 mcg PO DAILY 02/05/25 02/05/25 History Allergies Allergies Allergy/AdvReac Type Severity Reaction Status Date / Time ibuprofen Allergy Intermediate Unknown Verified 02/04/25 20:17 Mental Status Exam Mental Status Exam Patient Appearance: Fatigued Patient Orientation: Person, Place, Time and Situation Level of Consciousness: Alert Patient Behavior: Talkative and Good Eye Contact Mood Description: Depressed Affect Description: Flat Patient Cognition Impaired: No Ability to Follow Directions: Good Speech Pattern: Spontaneous Speech and Soft-Spoken Memory Description: Intact and Episodic Impaired Hallucinations: Auditory Perceptual Disturbances: Depersonalization and Derealization Thought Process: Rumination Thought Content: positive for Circumstantial and positive for Perseveration Depressive Symptoms: Increased Anxiety, Hopelessness and Thoughts of /Suicide Judgement: Fair Assessment & Plan Assessment & Plan (1) Bipolar disorder current episode depressed: Status: Acute Code(s): F31.30 - Bipolar disorder, current episode depressed, mild or moderate severity, unspecified (2) Alcohol abuse: Status: Acute Code(s): F10.10 - Alcohol abuse, uncomplicated Plan Admit, CV, 15 minute checks Collateral Contact Diagnostics as needed Lamictal 25 mg HS Continue other meds Encourage milieu PT consult for walker use Discharge planning. Patient educated on: medication risk/benefits and therapeutic strategies Reason for continued inpatient stay Substantial Risk for: rapid decompensation Statement Statement: I have reviewed the history and physical and performed a pertinent examination on my patient. No changes have occurred unless specified. If the History and Physical was not performed prior to admission, the Hospitalist's service will be consulted for completing the admission physical. Time Spent With Patient Time: Total time managing care of this patient today ____ minutes.
[2025-02-06 16:41] VITALS: BP 142/32
[2025-02-06] MEDS: Nicotine Polacrilex 2 MG GUM 4 MG BUCCAL ×2 (16:42→20:47)
[2025-02-06 20:30] VITALS: BP 144/80; PULSE 80; RESP 18; TEMP 36.6; O2SAT 93
[2025-02-06 20:47] VITALS: BP 144/80
[2025-02-06] MEDS: lamoTRIgine 25 MG TABLET PO (20:47)
[2025-02-06] MEDS: hydrOXYzine HCL 25 MG TABLET PO (23:29)
[2025-02-06] MEDS: Melatonin 3 MG TABLET PO (23:29)
[2025-02-07] MEDS: Acetaminophen 325 MG TABLET 975 MG PO ×3 (01:02→20:41)
[2025-02-07 04:00] VITALS: PULSE 84; RESP 16
[2025-02-07] MEDS: Levothyroxine Sodium 25 MCG TABLET PO (06:44)
[2025-02-07 07:49] VITALS: BP 106/71; PULSE 73; RESP 18; O2SAT 94
[2025-02-07] MEDS: Tiotropium Bromide 2.5 mcg 1 PUFF/2.5 MCG MIST.INHAL 2 PUFF INHALE (07:57)
[2025-02-07] MEDS: Nicotine 21 MG PATCH.TD24 TRANSDERMA (07:58)
[2025-02-07] MEDS: Multivitamin TABLET 1 TAB PO (07:59)
[2025-02-07] MEDS: Atorvastatin Calcium 20 MG TABLET PO (07:59)
[2025-02-07] MEDS: risperiDONE 1 MG TABLET PO ×2 (07:59→20:41)
[2025-02-07] MEDS: Thiamine HCL 100 MG TABLET PO (07:59)
[2025-02-07] MEDS: Sertraline HCL 100 MG TABLET 200 MG PO (07:59)
[2025-02-07] MEDS: Prazosin HCL 1 MG CAPSULE PO ×3 (07:59→20:41)
[2025-02-07] MEDS: Tolterodine Tartrate LA 4 MG CAP.ER.24H PO (07:59)
[2025-02-07] MEDS: Gabapentin 600 MG TABLET PO ×3 (07:59→20:41)
[2025-02-07] MEDS: Folic Acid 1 MG TABLET PO (08:00)
[2025-02-07] MEDS: Magnesium Hydrox/Alum Hydrox 30 ML ORAL.SUSP PO (08:41)
--- NOTE | 2025-02-07 09:01 | P.PNPSI_ITS ---
Subjective Subjective Date of Service: 02/07/25 Reason For Visit: suicidal ideations w plans Subjective Notes: Conditional Voluntary Healthcare Proxy: No Guardianship: No Medical Problems Affecting Mental Status: No Interim History: 64 yo oanh lockwood reports not interested in living at assisted living, but just fears living alone and EMT DISPATCHER took off . Requesting melatonin for sleep at night0- which is already on her meds just has to be requested by patient as prn Medication Compliance: Yes Side effects from medications: No Attending Groups: Yes Review of Systems Acute medical concerns: No Medical Review of Systems: unchanged Mental Status Exam Mental Status Exam Narrative: appears older than stated age Patient Appearance: Well Grooomed and Unkempt Patient Orientation: Person, Place, Time and Situation Patient Behavior: Appropriate and Cooperative Mood Description: Calm Affect Description: Appropriate Patient Cognition Impaired: No Ability to Follow Directions: Good Speech Pattern: Clear Hallucinations: None Delusions: Not Present Thought Process: Intact and Goal Oriented Thought Content: positive for Perseveration and positive for Hypochondriasis (somatic focus) Depressive Symptoms: Increased Anxiety (around falling at home) Judgement: Fair Diagnostics Vital Signs (24Hr): Vital Signs - 24 hr 02/06/25 16:41 02/06/25 20:30 02/06/25 20:47 Temperature 97.9 F Pulse Rate 80 Respiratory Rate 18 Blood Pressure 142/32 H 144/80 H 144/80 H Pulse Oximetry 93 Oxygen Delivery Method Room Air 02/07/25 04:00 02/07/25 07:49 Temperature Pulse Rate 84 73 Respiratory Rate 16 18 Blood Pressure 106/71 Pulse Oximetry 94 Oxygen Delivery Method Room Air BMI result Body Mass Index 30.6 Labs 02/04/25 20:48 02/04/25 20:49 Labs: Laboratory Results - last 48 hr 02/06/25 08:27 Estimat Average Glucose 103 Hemoglobin A1c % 5.2 Magnesium 2.2 Triglycerides 144 Cholesterol 173 LDL Cholesterol, Calc 95 HDL Cholesterol 50 Vitamin B12 503 Folate 4.6 TSH 72.46 H Free T4 0.49 L Medications Medications Current Medications Acetaminophen (Acetaminophen 325 Mg Tablet) 975 mg PO Q8H PRN PRN Reason: Pain, Mild (Pain Scale 1-3) Last Admin: 02/07/25 01:02 Dose: 975 mg Al Hydroxide/Mg Hydroxide (Magnesium Hydrox/Alum Hydrox 30 Ml Oral.Susp) 30 ml PO Q6H PRN PRN Reason: Heartburn/Nausea Last Admin: 02/07/25 08:41 Dose: 30 ml Atorvastatin Calcium (Atorvastatin Calcium 20 Mg Tablet) 20 mg PO DAILY [facility] Last Admin: 02/07/25 07:59 Dose: 20 mg Folic Acid (Folic Acid 1 Mg Tablet) 1 mg PO DAILY [facility] Last Admin: 02/07/25 08:00 Dose: 1 mg Gabapentin (Gabapentin 600 Mg Tablet) 600 mg PO TID [facility] Last Admin: 02/07/25 07:59 Dose: 600 mg Hydroxyzine HCl (Hydroxyzine Hcl 25 Mg Tablet) 25 mg PO Q6H PRN PRN Reason: mild anxiety Last Admin: 02/06/25 23:29 Dose: 25 mg Lamotrigine (Lamotrigine 25 Mg Tablet) 25 mg PO BEDTIME [facility] Last Admin: 02/06/25 20:47 Dose: 25 mg Levothyroxine Sodium (Levothyroxine Sodium 25 Mcg Tablet) 25 mcg PO DAILY@0600 [facility] Last Admin: 02/07/25 06:44 Dose: 25 mcg Lorazepam (Lorazepam 1 Mg Tablet) 1 mg PO Q2H PRN PRN Reason: ciwa 6-10 Last Admin: 02/05/25 20:46 Dose: 1 mg Lorazepam (Lorazepam 1 Mg Tablet) 2 mg PO Q2H PRN PRN Reason: ciwa 11+ Magnesium Hydroxide (Milk Of Magnesia 30 Ml Oral.Susp) 30 ml PO DAILY PRN PRN Reason: Constipation Melatonin (Melatonin 3 Mg Tablet) 3 mg PO BEDTIME PRN PRN Reason: Insomnia Last Admin: 02/06/25 23:29 Dose: 3 mg Multivitamins/Vitamin C (Multivitamin Tablet) 1 tab PO DAILY [facility] Last Admin: 02/07/25 07:59 Dose: 1 tab Nicotine (Nicotine 21 Mg Patch.Td24) 21 mg TRANSDERMA DAILY [facility] Last Admin: 02/07/25 07:58 Dose: 21 mg Nicotine Polacrilex (Nicotine Polacrilex 2 Mg Gum) 4 mg BUCCAL Q2H PRN PRN Reason: Nicotine Cravings Last Admin: 02/06/25 20:47 Dose: 4 mg Prazosin HCl (Prazosin Hcl 1 Mg Capsule) 1 mg PO TID [facility]; Protocol Last Admin: 02/07/25 07:59 Dose: 1 mg Risperidone (Risperidone 1 Mg Tablet) 1 mg PO BID [facility] Last Admin: 02/07/25 07:59 Dose: 1 mg Sertraline HCl (Sertraline Hcl 100 Mg Tablet) 200 mg PO DAILY [facility] Last Admin: 02/07/25 07:59 Dose: 200 mg Thiamine HCl (Thiamine Hcl 100 Mg Tablet) 100 mg PO DAILY [facility] Last Admin: 02/07/25 07:59 Dose: 100 mg Tiotropium [place] (Tiotropium [place] 2.5 Mcg 1 Puff/2.5 Mcg Mist.Inhal) 2 puff INHALE RDAILY [facility] Last Admin: 02/07/25 07:57 Dose: 2 puff Tolterodine Tartrate (Tolterodine Tartrate [place] 4 Mg Cap.Er.24h) 4 mg PO DAILY [facility] Last Admin: 02/07/25 07:59 Dose: 4 mg Allergies Allergies Allergy/AdvReac Type Severity Reaction Status Date / Time ibuprofen Allergy Intermediate Unknown Verified 02/04/25 20:17 Assessment & Plan Assessment & Plan (1) Bipolar disorder current episode depressed: Status: Acute Code(s): F31.30 - Bipolar disorder, current episode depressed, mild or moderate severity, unspecified (2) Alcohol abuse: Status: Acute Code(s): F10.10 - Alcohol abuse, uncomplicated Plan Admit, CV, 15 minute checks Collateral Contact Diagnostics as needed Lamictal 25 mg HS Continue other meds Encourage milieu PT consult for walker use Discharge planning. 3.29 CTP- Patient educated on: medication risk/benefits Informed Consent: understands Reason for continued inpatient stay Substantial Risk for: inability to function and rapid decompensation Time Spent With Patient Time: Total time managing care of this patient today ____ minutes.
[2025-02-07] MEDS: hydrOXYzine HCL 25 MG TABLET PO (10:45)
[2025-02-07 14:35] VITALS: BP 132/73
[2025-02-07 20:00] VITALS: BP 133/68; PULSE 79; RESP 18; TEMP 36.4; O2SAT 96
[2025-02-07] MEDS: lamoTRIgine 25 MG TABLET PO (20:42)
[2025-02-07] MEDS: Melatonin 3 MG TABLET PO (20:42)
[2025-02-08] MEDS: Levothyroxine Sodium 25 MCG TABLET PO (06:49)
[2025-02-08] MEDS: Folic Acid 1 MG TABLET PO (08:25)
[2025-02-08] MEDS: Gabapentin 600 MG TABLET PO ×3 (08:25→20:52)
[2025-02-08] MEDS: Sertraline HCL 100 MG TABLET 200 MG PO (08:25)
[2025-02-08] MEDS: Multivitamin TABLET 1 TAB PO (08:25)
[2025-02-08] MEDS: Prazosin HCL 1 MG CAPSULE PO ×3 (08:25→20:53)
[2025-02-08] MEDS: Atorvastatin Calcium 20 MG TABLET PO (08:25)
[2025-02-08] MEDS: Tolterodine Tartrate LA 4 MG CAP.ER.24H PO (08:25)
[2025-02-08] MEDS: Thiamine HCL 100 MG TABLET PO (08:25)
[2025-02-08] MEDS: risperiDONE 1 MG TABLET PO ×2 (08:26→20:52)
[2025-02-08] MEDS: Acetaminophen 325 MG TABLET 975 MG PO (08:26)
[2025-02-08] MEDS: Nicotine 21 MG PATCH.TD24 TRANSDERMA (08:27)
[2025-02-08] MEDS: Lidocaine 4 % Patch ADH..PATCH 1 PATCH TRANSDERMA (08:27)
[2025-02-08] MEDS: Tiotropium Bromide 2.5 mcg 1 PUFF/2.5 MCG MIST.INHAL 2 PUFF INHALE (08:33)
[2025-02-08 08:34] VITALS: BP 120/72; PULSE 77; RESP 18; TEMP 36.4; O2SAT 96
[2025-02-08] MEDS: Magnesium Hydrox/Alum Hydrox 30 ML ORAL.SUSP PO ×2 (09:23→17:40)
--- NOTE | 2025-02-08 10:45 | P.PNPSI_ITS ---
Subjective Subjective Date of Service: 02/08/25 Reason For Visit: suicidal ideations w plans Subjective Notes: Conditional Voluntary Healthcare Proxy: No Guardianship: No Medical Problems Affecting Mental Status: No Interim History: 64 yo WF hoping to go home Sunday, says NITROGLYCERIN SUPERVISOR coming to pick her up - was wanting to apply to housing for 2 bedroom so that NITROGLYCERIN SUPERVISOR could stay at house- Pt co constipation and gas/gi issues responded to maalox- partially and might be on colace now- no signs of etoh withdrawal ciwa dced feels inc medication did help depression- Medication Compliance: Yes Side effects from medications: Yes (constipation) Attending Groups: Intermittent Review of Systems Acute medical concerns: No Medical Review of Systems: changed (constipation) Mental Status Exam Mental Status Exam Narrative: lying in bed Patient Appearance: Fatigued Patient Orientation: Person, Place, Time and Situation Level of Consciousness: Awake Patient Behavior: Appropriate, Cooperative and Good Eye Contact Mood Description: Calm Affect Description: Blunted Patient Cognition Impaired: No Ability to Follow Directions: Good Speech Pattern: Clear Hallucinations: None Delusions: Not Present Thought Process: Intact and Goal Oriented Depressive Symptoms: Difficulty Sleeping and Back Pain Judgement: Fair Diagnostics Vital Signs (24Hr): Vital Signs - 24 hr 02/07/25 14:35 02/07/25 20:00 02/08/25 08:34 Temperature 97.6 F 97.5 F Pulse Rate 79 77 Respiratory Rate 18 18 Blood Pressure 132/73 133/68 120/72 Pulse Oximetry 96 96 Oxygen Delivery Method Room Air Room Air BMI result Body Mass Index 30.6 Labs 02/04/25 20:48 02/04/25 20:49 Medications Medications Current Medications Acetaminophen (Acetaminophen 325 Mg Tablet) 975 mg PO Q8H PRN PRN Reason: Pain, Mild (Pain Scale 1-3) Last Admin: 02/08/25 08:26 Dose: 975 mg Al Hydroxide/Mg Hydroxide (Magnesium Hydrox/Alum Hydrox 30 Ml Oral.Susp) 30 ml PO Q6H PRN PRN Reason: Heartburn/Nausea Last Admin: 02/08/25 09:23 Dose: 30 ml Atorvastatin Calcium (Atorvastatin Calcium 20 Mg Tablet) 20 mg PO DAILY [facility] Last Admin: 02/08/25 08:25 Dose: 20 mg Folic Acid (Folic Acid 1 Mg Tablet) 1 mg PO DAILY [facility] Last Admin: 02/08/25 08:25 Dose: 1 mg Gabapentin (Gabapentin 600 Mg Tablet) 600 mg PO TID [facility] Last Admin: 02/08/25 08:25 Dose: 600 mg Hydroxyzine HCl (Hydroxyzine Hcl 25 Mg Tablet) 25 mg PO Q6H PRN PRN Reason: mild anxiety Last Admin: 02/07/25 10:45 Dose: 25 mg Lamotrigine (Lamotrigine 25 Mg Tablet) 25 mg PO BEDTIME [facility] Last Admin: 02/07/25 20:42 Dose: 25 mg Levothyroxine Sodium (Levothyroxine Sodium 25 Mcg Tablet) 25 mcg PO DAILY@0600 [facility] Last Admin: 02/08/25 06:49 Dose: 25 mcg Lidocaine (Lidocaine 4 % Patch Adh..Patch) 1 patch TRANSDERMA DAILY [facility]; Protocol Last Admin: 02/08/25 08:27 Dose: 1 patch Lorazepam (Lorazepam 1 Mg Tablet) 1 mg PO Q2H PRN PRN Reason: ciwa 6-10 Last Admin: 02/05/25 20:46 Dose: 1 mg Lorazepam (Lorazepam 1 Mg Tablet) 2 mg PO Q2H PRN PRN Reason: ciwa 11+ Magnesium Hydroxide (Milk Of Magnesia 30 Ml Oral.Susp) 30 ml PO DAILY PRN PRN Reason: Constipation Melatonin (Melatonin 3 Mg Tablet) 3 mg PO BEDTIME PRN PRN Reason: Insomnia Last Admin: 02/07/25 20:42 Dose: 3 mg Multivitamins/Vitamin C (Multivitamin Tablet) 1 tab PO DAILY [facility] Last Admin: 02/08/25 08:25 Dose: 1 tab Nicotine (Nicotine 21 Mg Patch.Td24) 21 mg TRANSDERMA DAILY [facility] Last Admin: 02/08/25 08:27 Dose: 21 mg Nicotine Polacrilex (Nicotine Polacrilex 2 Mg Gum) 4 mg BUCCAL Q2H PRN PRN Reason: Nicotine Cravings Last Admin: 02/06/25 20:47 Dose: 4 mg Prazosin HCl (Prazosin Hcl 1 Mg Capsule) 1 mg PO TID [facility]; Protocol Last Admin: 02/08/25 08:25 Dose: 1 mg Risperidone (Risperidone 1 Mg Tablet) 1 mg PO BID [facility] Last Admin: 02/08/25 08:26 Dose: 1 mg Sertraline HCl (Sertraline Hcl 100 Mg Tablet) 200 mg PO DAILY [facility] Last Admin: 02/08/25 08:25 Dose: 200 mg Thiamine HCl (Thiamine Hcl 100 Mg Tablet) 100 mg PO DAILY [facility] Last Admin: 02/08/25 08:25 Dose: 100 mg Tiotropium [place] (Tiotropium [place] 2.5 Mcg 1 Puff/2.5 Mcg Mist.Inhal) 2 puff INHALE RDAILY [facility] Last Admin: 02/08/25 08:33 Dose: 2 puff Tolterodine Tartrate (Tolterodine Tartrate La 4 Mg Cap.Er.24h) 4 mg PO DAILY [facility] Last Admin: 02/08/25 08:25 Dose: 4 mg Allergies Allergies Allergy/AdvReac Type Severity Reaction Status Date / Time ibuprofen Allergy Intermediate Unknown Verified 02/04/25 20:17 Assessment & Plan Assessment & Plan (1) Bipolar disorder current episode depressed: Status: Acute Code(s): F31.30 - Bipolar disorder, current episode depressed, mild or moderate severity, unspecified (2) Alcohol abuse: Status: Acute Code(s): F10.10 - Alcohol abuse, uncomplicated Plan Admit, CV, 15 minute checks Collateral Contact Diagnostics as needed Lamictal 25 mg HS Continue other meds Encourage milieu PT consult for walker use Discharge planning. 3. CTP- 02/08 slept better on melatonin- some constipation from medication- Patient educated on: medication risk/benefits Informed Consent: understands Reason for continued inpatient stay Substantial Risk for: rapid decompensation Time Spent With Patient Time: Total time managing care of this patient today ____ minutes.
[2025-02-08 14:03] VITALS: BP 152/92
[2025-02-08] MEDS: hydrOXYzine HCL 25 MG TABLET PO (17:40)
[2025-02-08 20:00] VITALS: BP 137/71; PULSE 72; RESP 18; TEMP 36.6; O2SAT 93
[2025-02-08] MEDS: lamoTRIgine 25 MG TABLET PO (20:55)
[2025-02-08] MEDS: Melatonin 3 MG TABLET PO (20:56)
[2025-02-09 08:00] VITALS: BP 145/79; PULSE 66; TEMP 36.5; O2SAT 92
[2025-02-09] MEDS: Lidocaine 4 % Patch ADH..PATCH 1 PATCH TRANSDERMA (08:32)
[2025-02-09] MEDS: Prazosin HCL 1 MG CAPSULE PO ×3 (08:33→20:43)
[2025-02-09] MEDS: Tolterodine Tartrate LA 4 MG CAP.ER.24H PO (08:33)
[2025-02-09] MEDS: Gabapentin 600 MG TABLET PO ×3 (08:33→20:42)
[2025-02-09] MEDS: risperiDONE 1 MG TABLET PO ×2 (08:33→20:42)
[2025-02-09] MEDS: Levothyroxine Sodium 25 MCG TABLET PO (08:33)
[2025-02-09] MEDS: Multivitamin TABLET 1 TAB PO (08:33)
[2025-02-09] MEDS: Atorvastatin Calcium 20 MG TABLET PO (08:34)
[2025-02-09] MEDS: Sertraline HCL 100 MG TABLET 200 MG PO (08:34)
[2025-02-09] MEDS: Folic Acid 1 MG TABLET PO (08:34)
[2025-02-09] MEDS: Thiamine HCL 100 MG TABLET PO (08:34)
[2025-02-09] MEDS: Nicotine 21 MG PATCH.TD24 TRANSDERMA (08:34)
[2025-02-09] MEDS: Tiotropium Bromide 2.5 mcg 1 PUFF/2.5 MCG MIST.INHAL 2 PUFF INHALE (08:34)
[2025-02-09] MEDS: Acetaminophen 325 MG TABLET 975 MG PO ×2 (08:57→18:29)
--- NOTE | 2025-02-09 11:34 | MHC.RECOVRN ---
AUDIT-C Brief Intervention Pt had positive screen for unhealthy alcohol use on admission. Attempted to meet with pt to discuss alcohol use and offer resources, pt declined.
--- NOTE | 2025-02-09 11:55 | PM.EVENT ---
Event Note Date of Service: 02/09/25 Event Note: Disscussed with Provider re TSH. Hx of elevated TSH, has been on levothyroxine 25 for some time, ok to increase to 50mcg, should repeat TSH in 4-6 weeks Time Spent With Patient Time: Total time managing care of this patient today ____ minutes.
[2025-02-09 15:29] VITALS: BP 122/87
--- NOTE | 2025-02-09 17:21 | HO.PSYCHPN ---
Subjective Subjective Date of Service: 02/09/25 Reason For Visit: suicidal ideations w plans Subjective Notes: Conditional Voluntary Healthcare Proxy: No Guardianship: No Medical Problems Affecting Mental Status: No Interim History: Denies SI,HI,AH,VH. No sx of psychosis or tegan. Prepared to discharge 02/10. VNA will return to assist her. Review of labs, elevated TSH. Hospitalist team suggested we increase levothyroxine to 50 mcg which was done. Pt reports she has an senior net application developer in [place] however does not know her name. We reviewed local endocrinologists, however, pt does not find any familiar names. She will call for appt upon her return to home Mental Status Exam Mental Status Exam Patient Appearance: Appropriate Patient Orientation: Person, Place, Time and Situation Level of Consciousness: Alert Patient Behavior: Talkative and Good Eye Contact Mood Description: Appropriate and Apprehensive Affect Description: Appropriate and Apprehensive Patient Cognition Impaired: No Ability to Follow Directions: Good Speech Pattern: Spontaneous Speech Memory Description: Episodic Impaired Hallucinations: None Delusions: Not Present Thought Process: Goal Oriented Thought Content: positive for Goal Oriented Depressive Symptoms: Increased Anxiety Judgement: Good Diagnostics Vital Signs (24Hr): Vital Signs - 24 hr 02/08/25 20:00 02/09/25 08:00 02/09/25 15:29 Temperature 97.8 F 97.7 F Pulse Rate 72 66 Respiratory Rate 18 Blood Pressure 137/71 145/79 H 122/87 Pulse Oximetry 93 92 Oxygen Delivery Method Room Air Room Air BMI result Body Mass Index 30.6 Labs 02/04/25 20:48 02/04/25 20:49 Medications Medications Current Medications Acetaminophen (Acetaminophen 325 Mg Tablet) 975 mg PO Q8H PRN PRN Reason: Pain, Mild (Pain Scale 1-3) Last Admin: 02/09/25 08:57 Dose: 975 mg Al Hydroxide/Mg Hydroxide (Magnesium Hydrox/Alum Hydrox 30 Ml Oral.Susp) 30 ml PO Q6H PRN PRN Reason: Heartburn/Nausea Last Admin: 02/08/25 17:40 Dose: 30 ml Atorvastatin Calcium (Atorvastatin Calcium 20 Mg Tablet) 20 mg PO DAILY REENA Last Admin: 02/09/25 08:34 Dose: 20 mg Folic Acid (Folic Acid 1 Mg Tablet) 1 mg PO DAILY REENA Last Admin: 02/09/25 08:34 Dose: 1 mg Gabapentin (Gabapentin 600 Mg Tablet) 600 mg PO TID [facility] Last Admin: 02/09/25 15:29 Dose: 600 mg Hydroxyzine HCl (Hydroxyzine Hcl 25 Mg Tablet) 25 mg PO Q6H PRN PRN Reason: mild anxiety Last Admin: 02/08/25 17:40 Dose: 25 mg Lamotrigine (Lamotrigine 25 Mg Tablet) 25 mg PO BEDTIME [facility] Last Admin: 02/08/25 20:55 Dose: 25 mg Levothyroxine Sodium (Levothyroxine Sodium 50 Mcg Tablet) 50 mcg PO DAILY@0600 [facility] Lidocaine (Lidocaine 4 % Patch Adh..Patch) 1 patch TRANSDERMA DAILY [facility]; Protocol Last Admin: 02/09/25 08:32 Dose: 1 patch Magnesium Hydroxide (Milk Of Magnesia 30 Ml Oral.Susp) 30 ml PO DAILY PRN PRN Reason: Constipation Melatonin (Melatonin 3 Mg Tablet) 3 mg PO BEDTIME PRN PRN Reason: Insomnia Last Admin: 02/08/25 20:56 Dose: 3 mg Multivitamins/Vitamin C (Multivitamin Tablet) 1 tab PO DAILY [facility] Last Admin: 02/09/25 08:33 Dose: 1 tab Nicotine (Nicotine 21 Mg Patch.Td24) 21 mg TRANSDERMA DAILY [facility] Last Admin: 02/09/25 08:34 Dose: 21 mg Nicotine Polacrilex (Nicotine Polacrilex 2 Mg Gum) 4 mg BUCCAL Q2H PRN PRN Reason: Nicotine Cravings Last Admin: 02/06/25 20:47 Dose: 4 mg Prazosin HCl (Prazosin Hcl 1 Mg Capsule) 1 mg PO TID [facility]; Protocol Last Admin: 02/09/25 15:29 Dose: 1 mg Risperidone (Risperidone 1 Mg Tablet) 1 mg PO BID [facility] Last Admin: 02/09/25 08:33 Dose: 1 mg Sertraline HCl (Sertraline Hcl 100 Mg Tablet) 200 mg PO DAILY [facility] Last Admin: 02/09/25 08:34 Dose: 200 mg Simethicone (Simethicone 80 Mg Tab.Chew) 80 mg PO QIDWMHS PRN PRN Reason: Gas Thiamine HCl (Thiamine Hcl 100 Mg Tablet) 100 mg PO DAILY [facility] Last Admin: 02/09/25 08:34 Dose: 100 mg Tiotropium [place] (Tiotropium [place] 2.5 Mcg 1 Puff/2.5 Mcg Mist.Inhal) 2 puff INHALE RDAILY [facility] Last Admin: 02/09/25 08:34 Dose: 2 puff Tolterodine Tartrate (Tolterodine Tartrate [place] 4 Mg Cap.Er.24h) 4 mg PO DAILY [facility] Last Admin: 02/09/25 08:33 Dose: 4 mg Allergies Allergies Allergy/AdvReac Type Severity Reaction Status Date / Time ibuprofen Allergy Intermediate Unknown Verified 02/04/25 20:17 Assessment & Plan Assessment & Plan (1) Bipolar disorder current episode depressed: Status: Acute Code(s): F31.30 - Bipolar disorder, current episode depressed, mild or moderate severity, unspecified (2) Alcohol abuse: Status: Acute Code(s): F10.10 - Alcohol abuse, uncomplicated Plan Admit, CV, 15 minute checks Collateral Contact Diagnostics as needed Lamictal 25 mg HS Continue other meds Encourage milieu PT consult for walker use Discharge planning. 3.29 CTP- 02/08 slept better on melatonin- some constipation from medication- 01/30 TSH elevated Increase levothyroxine to 50 mcg daily Pt will follow up with her senior net application developer post discharge Reason for continued inpatient stay Substantial Risk for: stable for discharge Time Spent With Patient Time: Total time managing care of this patient today ____ minutes.
[2025-02-09] MEDS: hydrOXYzine HCL 25 MG TABLET PO (18:30)
[2025-02-09 20:00] VITALS: BP 115/87; PULSE 74; RESP 18; TEMP 36.4; O2SAT 93
[2025-02-09] MEDS: Melatonin 3 MG TABLET PO (20:42)
[2025-02-09] MEDS: lamoTRIgine 25 MG TABLET PO (20:42)
[2025-02-10] MEDS: hydrOXYzine HCL 25 MG TABLET PO (02:43)
[2025-02-10] MEDS: Levothyroxine Sodium 50 MCG TABLET PO (06:41)
[2025-02-10 08:15] VITALS: BP 123/79; PULSE 67; RESP 18; TEMP 36.4; O2SAT 93
[2025-02-10] MEDS: Tiotropium Bromide 2.5 mcg 1 PUFF/2.5 MCG MIST.INHAL 2 PUFF INHALE (08:30)
[2025-02-10] MEDS: Tolterodine Tartrate LA 4 MG CAP.ER.24H PO (08:31)
[2025-02-10] MEDS: Prazosin HCL 1 MG CAPSULE PO (08:31)
[2025-02-10] MEDS: Thiamine HCL 100 MG TABLET PO (08:31)
[2025-02-10] MEDS: Folic Acid 1 MG TABLET PO (08:31)
[2025-02-10] MEDS: risperiDONE 1 MG TABLET PO (08:31)
[2025-02-10] MEDS: Multivitamin TABLET 1 TAB PO (08:31)
[2025-02-10] MEDS: Sertraline HCL 100 MG TABLET 200 MG PO (08:31)
[2025-02-10] MEDS: Atorvastatin Calcium 20 MG TABLET PO (08:31)
[2025-02-10] MEDS: Gabapentin 600 MG TABLET PO (08:32)
[2025-02-10] MEDS: Lidocaine 4 % Patch ADH..PATCH 1 PATCH TRANSDERMA (08:32)
--- NOTE | 2025-02-10 11:01 | PM.PSYDC ---
DS: Providers Provider Date of admission: 02/05/25 13:15 Primary care physician: Unknown Physician Consults: 02/05/25 18:03 Addiction Medicine Provider Routine Consulting Provider: Addiction Covering Reason for consultation: ETOH and Cocaine use DS: Diagnosis Discharge Diagnosis (1) Bipolar disorder current episode depressed: Status: Acute (2) Alcohol abuse: Status: Acute DS: Medications Discharge Medications Home Medications: Home Medications ?Medication ?Instructions ?Recorded ?Confirmed diclofenac sodium 1 % topical gel 1 inch topical BID 02/05/25 02/05/25 Previous Rx's ?Medication ?Instructions ?Recorded acetaminophen 325 mg tablet 975 mg (3 x 325 mg) PO Q8H PRN 02/09/25 Pain, Mild (Pain Scale 1-3) #0 tabs aluminum-magnesium hydroxide 200 30 ml PO Q6H PRN Heartburn/Nausea 02/09/25 mg-200 mg/5 mL oral suspension #0 mL (MAG-AL) atorvastatin 20 mg tablet 20 mg PO DAILY #30 tabs 02/09/25 folic acid 1 mg tablet 1 mg PO DAILY #30 tabs 02/09/25 gabapentin 600 mg tablet 600 mg PO TID #90 tabs 02/09/25 hydroxyzine HCl 25 mg tablet 25 mg PO Q6H PRN mild anxiety #30 02/09/25 tabs lamotrigine 25 mg tablet 25 mg PO BEDTIME #30 tabs 02/09/25 levothyroxine 50 mcg tablet 50 mcg PO DAILY@0600 #30 tabs 02/09/25 lidocaine 4 % topical patch 1 patch transdermal DAILY #0 ea 02/09/25 (Lidocaine Pain Relief) melatonin 3 mg tablet 3 mg PO BEDTIME PRN Insomnia #30 02/09/25 tabs multivitamin (Daily-Darinel tablet) 1 tab PO DAILY #30 tabs 02/09/25 nicotine (polacrilex) 2 mg gum 4 mg buccal Q2H PRN Nicotine 02/09/25 Cravings #100 ea nicotine 21 mg/24 hr daily 21 mg transdermal DAILY #30 ea 02/09/25 transdermal patch prazosin 1 mg capsule 1 mg PO TID #90 caps 02/09/25 risperidone 1 mg tablet 1 mg PO BID #60 tabs 02/09/25 sertraline 100 mg tablet 200 mg (2 x 100 mg) PO DAILY #60 02/09/25 tabs solifenacin 10 mg tablet 10 mg PO DAILY #30 tabs 02/09/25 thiamine mononitrate (vit B1) 100 100 mg PO DAILY #30 tabs 02/09/25 mg tablet tiotropium bromide 2.5 2 puff inhalation RDAILY #1 inhaler 02/09/25 mcg/actuation mist for inhalation (Spiriva Respimat) Data Data Completed and Pending Completed studies during hospitalization [Text1]: 02/04/25 02/04/25 02/05/25 20:48 20:49 04:15 WBC 5.3 RBC 4.47 Hgb 13.5 Hct 40.7 MCV 91.1 MCH 30.2 MCHC 33.2 RDW 14.6 Plt Count 138 L MPV 9.5 Immature Gran % (Auto) 0.6 H Neut % (Auto) 65.5 Lymph % (Auto) 25.2 [place] % (Auto) 5.5 Eos % (Auto) 2.3 Baso % (Auto) 0.9 Lymph # (Auto) 1.3 [place] # (Auto) 0.3 Eos # (Auto) 0.1 Baso # (Auto) 0.1 Abs Immat Gran (auto) 0.03 Absolute Neuts (auto) 3.5 Absolute Nucleated RBC 0.000 Nucleated RBC % (auto) 0.0 Sodium 141 Potassium 4.0 Chloride 106 Carbon Dioxide 27 Anion Gap 12 BUN 5 L Creatinine 0.97 Estim Creat Clear Calc 63.4 Estimated GFR 58 Random Glucose 82 Estimat Average Glucose Hemoglobin A1c % Calcium 8.3 L Magnesium Total Bilirubin 0.5 AST 26 ALT 22 Alkaline Phosphatase 87 Total Protein 7.1 Albumin 4.2 Triglycerides Cholesterol LDL Cholesterol, Calc HDL Cholesterol Vitamin B12 Folate TSH Free T4 Urine Color Yellow Urine Appearance Clear Urine pH 7.0 Ur Specific [place] <= 1.005 Urine Protein Negative Urine Glucose (UA) Negative Urine Ketones Negative Urine Blood Negative Urine Nitrite Negative Ur Leukocyte Esterase Trace H Urine RBC 0-2 Urine WBC 0-5 Ur Squamous Epith Cells 0-2 Urine Bacteria None Seen Hyaline Casts 0-2 Salicylates < 5.0 L Urine Opiates Screen Ur Buprenorphine Scrn Ur Oxycodone Screen Urine Methadone Screen Urine Fentanyl Screen Acetaminophen < 3 Ur Barbiturates Screen Ur Phencyclidine Scrn Ur Amphetamines Screen U Benzodiazepines Scrn Urine Cocaine Screen U Marijuana (THC) Screen Ethyl Alcohol < 10 02/05/25 02/06/25 04:16 08:27 WBC RBC Hgb Hct MCV MCH MCHC RDW Plt Count MPV Immature Gran % (Auto) Neut % (Auto) Lymph % (Auto) [place] % (Auto) Eos % (Auto) Baso % (Auto) Lymph # (Auto) [place] # (Auto) Eos # (Auto) Baso # (Auto) Abs Immat Gran (auto) Absolute Neuts (auto) Absolute Nucleated RBC Nucleated RBC % (auto) Sodium Potassium Chloride Carbon Dioxide Anion Gap BUN Creatinine Estim Creat Clear Calc Estimated GFR Random Glucose Estimat Average Glucose 103 Hemoglobin A1c % 5.2 Calcium Magnesium 2.2 Total Bilirubin AST ALT Alkaline Phosphatase Total Protein Albumin Triglycerides 144 Cholesterol 173 LDL Cholesterol, Calc 95 HDL Cholesterol 50 Vitamin B12 503 Folate 4.6 TSH 72.46 H Free T4 0.49 L Urine Color Urine Appearance Urine pH Ur Specific [place] Urine Protein Urine Glucose (UA) Urine Ketones Urine Blood Urine Nitrite Ur Leukocyte Esterase Urine RBC Urine WBC Ur Squamous Epith Cells Urine Bacteria Hyaline Casts Salicylates Urine Opiates Screen Not Detected Ur Buprenorphine Scrn Not Detected Ur Oxycodone Screen Not Detected Urine Methadone Screen Not Detected Urine Fentanyl Screen Not Detected Acetaminophen Ur Barbiturates Screen Not Detected Ur Phencyclidine Scrn Not Detected Ur Amphetamines Screen Not Detected U Benzodiazepines Scrn Not Detected Urine Cocaine Screen POSITIVE H U Marijuana (THC) Screen Not Detected Ethyl Alcohol DS: Summary Time Spent with Patient Time attestation: Total time managing care of this patient today ____ minutes. Discharge Plan Discharge Anticipated Discharge Date/Time: 02/10/25 12:00 Patient Disposition: Home, Self-Care Discharge Diagnosis: Bipolar Disorder Alcohol Abuse Referrals: Shon Rowland RN [Other] - 1 Week (fax- [phone] ) [facility] Psychiatry with Ct Bergman APRN [Other] - 03/06/25 10:00 am (Telehealth) Therapy with Sage Cramer [Other] - 3-5 Days (Pt will follow up.) Physician,Unknown J [Primary Care Provider] - 1 Week Discharge Medications: New nicotine (polacrilex) 2 mg Gum 4 mg buccal Q2H PRN (Reason: Nicotine Cravings) Qty: 100 0RF nicotine 21 mg/24 hr Patch 24 Hour 21 mg transdermal DAILY Qty: 30 0RF Spiriva Respimat 2.5 mcg/actuation Mist 2 puff inhalation RDAILY Qty: 1 0RF acetaminophen 325 mg Tablet 975 mg PO Q8H PRN (Reason: Pain, Mild (Pain Scale 1-3)) Qty: 0 0RF gabapentin 600 mg Tablet 600 mg PO TID Qty: 90 0RF hydroxyzine HCl 25 mg Tablet 25 mg PO Q6H PRN (Reason: mild anxiety) Qty: 30 0RF lidocaine [Lidocaine Pain Relief] 4 % Adhesive Patch,Medicated 1 patch transdermal DAILY Qty: 0 0RF Protocol: Apply to: Apply to: back lamotrigine 25 mg Tablet 25 mg PO BEDTIME Qty: 30 0RF levothyroxine 50 mcg Tablet 50 mcg PO DAILY@0600 Qty: 30 0RF MAG-AL 200-200 mg/5 mL Suspension 30 ml PO Q6H PRN (Reason: Heartburn/Nausea) Qty: 0 0RF multivitamin [Daily-Darinel] Tablet 1 tab PO DAILY Qty: 30 0RF folic acid 1 mg Tablet 1 mg PO DAILY Qty: 30 0RF thiamine mononitrate (vit B1) 100 mg Tablet 100 mg PO DAILY Qty: 30 0RF Continued diclofenac sodium 1 % gel 1 inch topical BID atorvastatin 20 mg tablet 20 mg PO DAILY Qty: 30 0RF prazosin 1 mg Capsule 1 mg PO TID Qty: 90 0RF Rx Instructions: TID at bedtime sertraline 100 mg Tablet 200 mg PO DAILY Qty: 60 0RF Rx Instructions: 2 tablets by mouth once a day melatonin 3 mg Tablet 3 mg PO BEDTIME PRN (Reason: Insomnia) Qty: 30 0RF risperidone 1 mg Tablet 1 mg PO BID Qty: 60 0RF solifenacin 10 mg Tablet 10 mg PO DAILY Qty: 30 0RF Discontinued hydroxyzine pamoate 50 mg Capsule 50 mg PO QID PRN (Reason: Anxiety) gabapentin 300 mg Capsule 600 mg PO TID levothyroxine 25 mcg tablet 25 mcg PO DAILY Discharge Orders: Discharge Order (Routine); Ordered 02/10/25 Ordered By: Rajni Beckford Diet: Advance to usual diet Activity on Discharge: As tolerated Stand Alone Forms: Patient Portal Discharge page, Community Support Print Language: Unable To Collect Care Plan Goals: Mood and Behavioral Stabilization Abstinence from substances Health Concerns: Mood and Behavioral Stabilization Abstinence from substances Plan of Treatment: Take medications as directed Attend scheduled appointments. Make an appointment with your endocrine specialist. Your TSH on 02/06 was 72.46 Range(0.32-4) and your Free T4 was 0.49 Range (0.71-1.85) on 02/06. In consultation with the hospitalist team, your levothyroxine was increased to 50 mcg daily. You reported you have this providers name and number at your home. Assessment: Denies SI,HI,AH,VH No sx of acute tegan or psychosis Pt asks for discharge and is in agreement with her plan of care.
== END 2025-02-10 12:05 | disposition home or self-care (01) | DRG 753 ==
LOC: HO.ED 02-05 03:53 → HO.PM5 02-05 13:20
PROVIDERS: Admitting Provider Clinical Nurse Specialist Psychiatric/Mental Health, Adult; Emergency Provider Emergency Medicine; Visit Provider Clinical Nurse Specialist Psychiatric/Mental Health, Adult
DX: F31.30 Bipolar disorder, current episode depressed, mild or moderate severity, unspecified (principal); R45.851 Suicidal ideations; F17.210 Nicotine dependence, cigarettes, uncomplicated; Z71.6 Tobacco abuse counseling; F10.10 Alcohol abuse, uncomplicated
CPT/HCPCS: 36415; 80053; 80061; 80143; 80179; 80307; 81001; 82607; 82746; 83036; 83735; 84439; 84443; 85025; 93005; 97161; 99285; S9485

== ENCOUNTER 2025-02-05 13:15 | Outpatient (BNV) | payer OTHER, SELFPAY | END 2025-02-05 14:22 | PROVIDERS: Admitting Provider Clinical Nurse Specialist Psychiatric/Mental Health, Adult; Emergency Provider Emergency Medicine; Visit Provider Internal Medicine Cardiovascular Disease | DX: R94.31 Abnormal electrocardiogram [ECG] [EKG] (principal); Z13.6 Encounter for screening for cardiovascular disorders | CPT/HCPCS: 93010 ==

== ENCOUNTER → 2025-02-05 13:15 | Outpatient (BNV) | payer OTHER, SELFPAY | PROVIDERS: Admitting Provider Clinical Nurse Specialist Psychiatric/Mental Health, Adult; Emergency Provider Emergency Medicine; Visit Provider Clinical Nurse Specialist Psychiatric/Mental Health, Adult | DX: F31.30 Bipolar disorder, current episode depressed, mild or moderate severity, unspecified (principal); F10.10 Alcohol abuse, uncomplicated | CPT/HCPCS: 90792 ==

== ENCOUNTER 2025-02-20 00:58 | Emergency (ER) | payer OTHER, SELFPAY ==
[2025-02-20 01:07] VITALS: BP 128/68; BP 132/90; PULSE 69; PULSE 70; RESP 18; TEMP 36.3; O2SAT 91; O2SAT 96; BMI 31.3
[2025-02-20 05:36] VITALS: BP 109/53; PULSE 65; RESP 16; TEMP 36.6; O2SAT 94
[2025-02-20 07:13] VITALS: BP 112/62; PULSE 67; RESP 20; TEMP 35.9; O2SAT 96
--- OUTSIDE RECORDS SUMMARY | 2025-02-20 07:30 | XMS_ITS | Encounter Summary ---
Author Organization [facility] Address [address] [place] [id number] Care Team Providers Care Beam Press Operator Name Role Phone Dina Anna MD Primary Care Provider [phone] Reason for Visit * Reason Onset Date Comments Hospital Follow-up 02/17/2025 Verbal orders 02/17/2025 Encounter Details Date Type Department Care Team (Late st Contact Info) Description 02/17/2025 Telephone Internal Medicine - [place] [address] [place] [address] Dina Anna MD [address] [place] [address] Hospital Follow-up; Verbal orders Social History Tobacco Use Types Packs/Day Years [...] as of this encounter Progress Notes * Antoinette Mcrae RN - 02/19/2025 8:38 AM EDT Call to Shon # [phone], left message to call back Call to pt # [phone], left message to call back 2nd attempt to reach pt and VNA * Antoinette Mcrae RN - 02/18/2025 8:34 AM EDT Call to Shon # [phone], left message to call back Call to pt # [phone], left message to call back * Tomeka Senior RN - 02/17/2025 1:52 PM EDT Pt in [facility] [place] on 02/03 for substance use. Call to Shon # [phone], left message to call us back Needs TCM Call to pt # [phone], number not in service Call to 2nd listed # [phone], number not reachable Call to 3rd listed pt # [phone], line is busy, tried 2x Call to 4th listed pt # [phone], line rings several times then goes to voicemail, I left a message for the pt to call us back Looks like 1st 3 numbers are not in service, I took those numbers out of pt chart If pt calls back please confirm her best contact info * Daylin Terrell - 02/17/2025 1:44 PM EDT [facility] called and requested verbal orders for penitentiary. Also requesting a hospital follow up for patient because she was in [facility] on 02/05 and discharged yesterday due to mental health. Please advise Cb# [phone] documented in this encounter Plan of Treatment Upcoming Encounters Date Type Department Care Team (Late st Contact Info) Description 03/17/2025 2:00 PM EDT Office Visit Internal Medicine [facility] [address] [address] Dina Anna MD [address] [phone] 04/29/2025 11:00 AM EDT Office Visit Internal Medicine [facility] [address] [facility] [address] [place] [address] Dina Anna MD 175 [facility] [address] [place] [address] 06/01/2025 11:00 AM EDT Office Visit General Surgery - [place] [address] [facility] [address] [place] [id number] Benoit Garvin MD [address] [id number] documented as of this encounter Visit Diagnoses Not on filedocumented in this encounter Care Teams Beam Press Operator Relationship Specialty Start Date End Date Dina Anna MD [address] [phone] PCP - General Internal Medicine 03/23/22 documented as of this encounter
--- OUTSIDE RECORDS SUMMARY | 2025-02-20 07:30 | XMS_ITS | Clinical Summary ---
Author Organization 175 [facility] Address 175 [place] [address] Phone Care Team Providers Care Supervisor Assembly Name Role Phone Dina Anna MD Primary Care Provider [phone] Allergies Active Allergy Reactions Criticality Noted Date Comments Ibuprofen 05/02/2023 Ragweed 12/03/2023 Medications albuterol 2.5 mg /3 mL (0.083 %) nebulizer solution Inhale 3 mL (2.5 mg total). 4 Active albuterol HFA (PROAIR HFA ; PROVENTIL HFA ; VENTOLIN HFA) 90 mcg/actuation inhaler Inhale 2 puffs by mouth. 1 Active ergocalciferol (VITAMIN D-2) 1,250 mcg (50,000 unit) capsule Take 1 capsule (50,000 Units total) by mouth. 3 Active gabapentin (NEURONTIN) 400 mg capsule Take 1 capsule (400 mg total) by mouth. Active hydrOXYzine pamoate (VISTARIL) 50 mg capsule 4 times daily as needed for Itching. 4 Active incontinence pad, liner, disp pad 1 each by Not Applicable route. 0 Active diaper,brief,a dult,disposabl e misc 1 each by Not Applicable route. 0 Active melatonin 3 mg tablet Take 1 tablet (3 mg total) by mouth. Active NEBULIZERS MISC 1 each by Not Applicable route. 1 Active nicotine (Nicotrol) 10 mg inhaler Inhale 1 puff by mouth. 2 Active prazosin (MINIPRESS) 2 mg capsule Take 1 capsule (2 mg total) by mouth. Active risperiDONE (RisperDAL) 1 mg tablet Take 1 tablet (1 mg total) by mouth 2 (two) times a day. 1 Active sertraline (ZOLOFT) 100 mg tablet Take 2 tablets (200 mg total) by mouth 1 (one) time each day. 4 Active sertraline (ZOLOFT) 50 mg tablet Take 1 tablet (50 mg total) by mouth 1 (one) time each day. 3 Active incontinence pad,liner,disp (PREVAIL PANTY LINER MISC) 3 each by Not Applicable route. 0 Active traMADoL (ULTRAM) 50 mg tablet Take 1 tablet (50 mg total) by mouth. 3 Active cholecalcifero l (VITAMIN D-3) 125 mcg (5,000 unit) capsule Take 1 capsule (5,000 Units total) by mouth 1 (one) time per week. 4 capsule 2 4 Active solifenacin (VESICARE) 10 mg tablet TAKE 1 TABLET BY MOUTH DAILY. 30 tablet 4 4 Active levothyroxine (SYNTHROID, LEVOTHROID) 25 mcg tablet TAKE 1 TABLET BY MOUTH DAILY. 30 tablet 4 Active tiotropium (Spiriva with HandiHaler) 18 mcg per inhalation capsule Place 1 capsule (18 mcg total) into inhaler and inhale 1 (one) time each day. 30 capsule 4 5 Active acetaminophen (TYLENOL) 500 mg tablet Take 1 tablet (500 mg total) by mouth every 6 (six) hours if needed for moderate pain. 30 tablet 3 5 Active diclofenac (VOLTAREN) 1 % topical gel Apply 2 g topically 4 (four) times a day. 150 g 2 5 Active atorvastatin (LIPITOR) 20 mg tablet Take 1 tablet (20 mg total) by mouth at bedtime. 90 tablet 3 5 Active atorvastatin (LIPITOR) 20 mg tablet Take 1 tablet (20 mg total) by mouth. 4 02/05/20 25 Discontinu ed(Reorder ) Active Problems Problem Noted Date Diagnosed Date Acute respiratory failure wi th hypoxia (CMS/HCC V24, CMS/HCC V28) 10/23/2024 Major depressive disorder, r ecurrent severe without psychotic features ([facility] V24, [facility] V28) 10/23/2024 Acute respiratory failure wi th hypoxemia ([facility] V24, CMS/[facility] V28) 10/14/2024 Hypo-osmolality and hyponatremia 10/14/2024 Unspecified bacterial pneumonia 10/14/2024 Noninfective gastroenteritis and colitis, unspec ified 10/14/2024 Major depressive disorder, r ecurrent, severe without psychotic features ([facility] V24, [facility] V28) 10/14/2024 Post-traumatic stress disorder, chronic 10/14/20 24 Mixed incontinence urge and stress (male)(female ) 01/07/2024 Overview (01/07/2024): 02/16/2021 Overactive bladder/mixed, on solefenacin, has supplies Depression 01/07/2024 Overview (01/07/2024): Admitted to [facility] in 11/2019; patient has had multiple admits [...] suffering with this Awaiting psychiatry Going to [facility] today Thrombocytopenia ([facility] V24) 10/20/2018 Overview (01/07/2024): 02/16/2021 Likely due to etoh in past, normal recently Consider US in future 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 (01/07/2024): Active TB, age 4; negative chest x-ray 11/2010 Bipolar 1 disorder ([facility] V24, [facility] V28) Allergic rhinitis 07/25/2018 COPD (chronic obstructive pu lmonary disease) ([facility] V24, [facility] V28) 07/25/2018 Overview (01/07/2024): 02/16/2021 Patient with history of COPD Chronic cough, uses Spiriva No acute worsening of symptoms Uses as needed albuterol, prescribed nebulizer and solution today Consider long-acting beta agonist in the future Tobacco cessation 02/23/2021 Smoking cessation, again sent prescription for nebulizer as well as albuterol inhaler for when she is out of the house Chronic hepatitis C ([facility] V24, [facility] V28) 0 06/30/2018 Overview (01/07/2024): 07/2016 S/p treatment w/ repeatedly negative viral loads, resolved Alcohol dependence ([facility] V24, [facility] V28) Substance abuse ([facility] V24, [facility] V28) 11/16 Overview (01/07/2024): 02/16/2021 Cocaine and alcohol. [facility] 04/29, 06/29, 10/29; [facility] 03/30 [facility]; [facility] Patient longest sobriety was 1 year, [...] great relief when she has gone to [facility] detox in the past She already has contacted them for [place], is awaiting bed Today I congratulated her [...] Didn't end up needing to go to [facility] Getting more support from her mother/family [...] Encounters Date Type Department Care Team Description 02/18/2025 Telephone Internal Medicine - [place] 175 [facility] [address] [place] [address] Miley Rutherford MA pt-1 02/17/2025 Telephone Internal Medicine [facility] 175 [facility] [address] [place] [phone] Dina Anna MD Hospital Follow-up; Verbal orders 01/30/2025 Telephone Internal [facility] [address] [facility] [address] [place] [phone] Angelita Owens MA Request For Order(s) ([facility] Cert 01/20/25-03/20/2025 Plan Of Care /) 01/23/2025 [facility] [address] [place] [phone] Ela Hager MA faxed order (L&C) 01/15/2025 [facility] [address] [place] [phone] Dina Anna MD VNA 01/06/2025 [facility] [address] [phone] Angelita Owens MA Request For Order(s) ([facility] - Order 2VXP/) 12/02/2024 [facility] [address] [phone] Angelita Owens MA Request For Order(s) ([facility] Cert 11/21/24-01/19/25 Plan Of Care /) 11/27/2024 Telephone General Surgery [address] [place] [address] Benoit Garvin MD Advice Only from Last 3 Months Immunizations Name Administration [...] bladder COPD (chronic obstructive pu lmonary disease) ([facility]/HCC V24, CMS/HCC V28) DX:COPD (chronic o bstructive pulmonary disease) (HCC); COMMENT: 2010 hx of collapsed lung from a cold History of hepatitis C 06/30/2018 DX:Histor y of hepatitis C; COMMENT: 07/2016 S/p treatment w/ repeatedly negative viral loads, resolved History of substance abuse ( CMS/HCC V24, [facility] V28) 11/16/2016 DX:History of substance abus e (HCC); COMMENT: Cocaine and alcohol. [facility] 04/29, 06/29 Allergic rhinitis 07/25/2018 DX:Allergic rh initis Chronic hepatitis C ([facility]/HCC V24, [facility] V28) 06/30/2018 DX:Chronic hepatitis C (HCC) ; COMMENT: 07/2016 S/p treatment w/ repeatedly negative viral loads, resolved 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 DX:T B (pulmonary tuberculosis); COMMENT: Active TB, age 4; negative chest x-ray 11/2010 History of seizures 12/23/2018 DX:History o f seizures; COMMENT: From withdrawal Post traumatic stress disorder 12/23/2018 D X:Post traumatic stress disorder Bipolar 1 disorder ([facility]/HCC V24, [facility]/HCC V28) 07/25/2018 DX:Bipolar 1 disorder (HCC) Alcohol dependence ([facility]/HCC V24, [facility] V28) 04/12/2018 DX:Alcohol dependence (HCC) Thrombocytopenia ([facility]/HCC V24) 10/20/2018 D X:Thrombocytopenia (HCC) Substance abuse ([facility]/HCC V24 , [facility] V28) 11/16/2016 DX:Substance abuse (HCC); CO MMENT: Cocaine and alcohol. [facility] 04/29, 06/29, 10/29 [...] 2:00 PM EDT Office Visit Internal Medicine [facility] 175 [facility] [address] [place] [phone] Dina Anna MD [address] [phone] 04/29/2025 11:00 AM EDT Office Visit Internal Medicine [facility] 175 [facility] [address] [place] [phone] Dina Anna MD 175 [facility] [address] [place] [phone] 06/01/2025 11:00 AM EDT Office Visit General Surgery - [place] 175 [facility] [address] [place] [address] Benoit Garvin MD 175 [facility] [address] [place] [address] Health Maintenance Due Date Last Done Comments [...] - Risk 3-dose series) 2022 RSV Immunization Adult Patients (1 - Risk 60-74 years 1-dose series) 2022 Colorectal Cancer Screening: Stool Based Tests (FOBT/FIT) 10/15/2022 HIV Screening 10/15/2022 Social Influencers of Health Screening 10/15/2022 Depression Screening 12/12/2024 12/12/2023 DTaP,Tdap,and Td Vaccines (2 - Td or Tdap) 06/06/2025 06/06/2015 Influenza Vaccine (Season Ended) 2025 10/20/2022, 08/26/2021, 11/25/2019, Additional history exists Cholesterol Screening (Lipid Panel) 11/14/2028 11/14/2023 Hepatitis [...] age to complete this topic Meningococcal B Vaccine Aged Out No l onger eligible based on patient's age to complete [...] C Screening (12/02/2018) Hepatitis C Screening Negative Historical Provider HEALTH MAINTENANCE Final Result * Pap Smear (11/16/2016) Pap smear Negative Historical Provider HEALTH MAINTENANCE Final Result from Last 3 Months or Most Recently Relevant to Health Maintenance Insurance [facility] Care Teams Supervisor Assembly Relationship Specialty Start Date End Date Dina Anna MD [address] [place] [phone] PCP - General Internal Medicine 03/23/22
--- OUTSIDE RECORDS SUMMARY | 2025-02-20 07:30 | XMS_ITS | Encounter Summary ---
Author Organization [facility] Address [address] [place] [phone] Care Team Providers Care Cissp Name Role Phone Jojo Anna MD Primary Care Provider [phone] Reason for Visit * Reason Onset Date Comments pt-1 02/18/2025 Encounter Details Date Type Department Care Team (Late st Contact Info) Description 02/18/2025 Telephone Internal Medicine - [place] [address] [facility] [address] [place] [address] Miley Rutherford MA pt-1 Social History Tobacco Use Types Packs/Day Years [...] as of this encounter Progress Notes * Ela Hager MA - 02/18/2025 3:48 PM EDT Submitted * Miley Rutherford MA - 02/18/2025 1:59 PM EDT [facility] [employer] new provider or submitter number is [id number] Verify and document patients [place] [employer] insurance ID # (NOT [facility] ID): Payor: [employer]ERCIAL INSURANCE / Plan: COMMERCIAL INSURANCE / Product Type: OTHER Patient mailing address: [address] [place] [address] [place] [address] Telephone Information:[phone] Home Phone Work Phone Not on file. Mobile Not on file. Pt. demographics verified? yes If not accurate, update registration. Is this a NEW request or a RENEWAL? renewal Name of treating facility: adult medicine Name (first & last) of treating provider? required : jojo anna What is the medical reason why the patient is seeing the above provider? physical Address/Zip code for treating provider: 175 [facility] 200 [facility] [address] Phone # for treating provider: [phone] Is the provider in the [facility] [employer] network (do they accept [place] [employer] insurance)? yes What specialtly is this provider? Adult med When is the visit scheduled for? 03/17/2025 How often you will be seeing this particular provider? routinely Do you have friends or family who can transport you to this visit? no If yes, do not complete request. Is there anything stopping you from using public transportation? If yes, explain. : copd Is there a medical reason (diagnosis) why you are unable to use public transportation? If yes, explain: copd j44.9 Does patient carry self-administered oxygen? no Does patient require door through door or room to room service( ex: member cannot ambulate or wait independently outside their home/facility for transportation. no Is this is for an Adult Day Program or Suboxone clinic no If yes to above what is arrival time and what is departure time If yes to above how many days a week? Do you need a wheelchair van? no If you use a wheelchair what is the height, width & length of the wheelchair? Do you need an escort to accompany you? If yes, explain why. no Will you have an alternative pick-up address? no Do you have a service animal? no PT DOES NOT NEED RELEASE OF INFORMATION SIGNED documented in this encounter Plan of Treatment Upcoming Encounters Date Type Department Care Team (Late st Contact Info) Description 03/17/2025 2:00 PM EDT Office Visit Internal Medicine [address] [phone] Jojo Anna MD [address] [place] [address] [address] [place] [address] 04/29/2025 11:00 AM EDT Office Visit Internal Medicine - [address] [place] [address] Jojo Anna MD [address] [phone] 06/01/2025 11:00 AM EDT Office Visit General Surgery - [place] 175 [facility] [address] [place] [phone] Benoit Garvin MD [address] [phone] documented as of this encounter Visit Diagnoses Not on filedocumented in this encounter Care Teams Cissp Relationship Specialty Start Date End Date Jojo Anna MD [address] [phone] PCP - General Internal Medicine 03/23/22 documented as of this encounter
[2025-02-20 08:29] VITALS: BP 111/81; PULSE 64; RESP 16; TEMP 37.2; O2SAT 91
--- NOTE | 2025-02-20 09:00 | PC.NURSE ---
pt is yelling that she is not staying for any treatment, insisting that she needs to leaving right now, refusing the medication and the blood work and x-ray, carbon brush maker aware
--- NOTE | 2025-02-20 09:08 | ED.GENADULT ---
HPI - General Adult General Chief complaint: Extremity Injury, Lower Stated complaint: Bilat leg and foot pain, hx of arthritis, 89 RA Time Seen by Provider: 02/20/25 08:03 Source: patient, EMS, RN notes reviewed and old records reviewed Mode of arrival: EMS History of Present Illness ED Provider: Ana María Villanueva PA-C HPI narrative: 64-year-old female with a past medical history ETOH abuse, bipolar, anxiety, depression, presenting to the ED complaining of bilateral foot pain x weeks with associated paresthesias & spasming to feet /toes. Reports history of arthritis, has been taking Tylenol at home without relief. Denies injury, trauma, fall, weakness, fever, chills, pedal edema, SOB/CP Related Data Home Medications ?Medication ?Instructions ?Recorded ?Confirmed diclofenac sodium 1 % topical gel 1 inch topical BID 02/05/25 02/05/25 Previous Rx's ?Medication ?Instructions ?Recorded acetaminophen 325 mg tablet 975 mg (3 x 325 mg) PO Q8H PRN 02/09/25 Pain, Mild (Pain Scale 1-3) #0 tabs aluminum-magnesium hydroxide 200 30 ml PO Q6H PRN Heartburn/Nausea 02/09/25 mg-200 mg/5 mL oral suspension #0 mL (MAG-AL) atorvastatin 20 mg tablet 20 mg PO DAILY #30 tabs 02/09/25 folic acid 1 mg tablet 1 mg PO DAILY #30 tabs 02/09/25 gabapentin 600 mg tablet 600 mg PO TID #90 tabs 02/09/25 hydroxyzine HCl 25 mg tablet 25 mg PO Q6H PRN mild anxiety #30 02/09/25 tabs lamotrigine 25 mg tablet 25 mg PO BEDTIME #30 tabs 02/09/25 levothyroxine 50 mcg tablet 50 mcg PO DAILY@0600 #30 tabs 02/09/25 lidocaine 4 % topical patch 1 patch transdermal DAILY #0 ea 02/09/25 (Lidocaine Pain Relief) melatonin 3 mg tablet 3 mg PO BEDTIME PRN Insomnia #30 02/09/25 tabs multivitamin (Daily-Darinel tablet) 1 tab PO DAILY #30 tabs 02/09/25 nicotine (polacrilex) 2 mg gum 4 mg buccal Q2H PRN Nicotine 02/09/25 Cravings #100 ea nicotine 21 mg/24 hr daily 21 mg transdermal DAILY #30 ea 02/09/25 transdermal patch prazosin 1 mg capsule 1 mg PO TID #90 caps 02/09/25 risperidone 1 mg tablet 1 mg PO BID #60 tabs 02/09/25 sertraline 100 mg tablet 200 mg (2 x 100 mg) PO DAILY #60 02/09/25 tabs solifenacin 10 mg tablet 10 mg PO DAILY #30 tabs 02/09/25 thiamine mononitrate (vit B1) 100 100 mg PO DAILY #30 tabs 02/09/25 mg tablet tiotropium bromide 2.5 2 puff inhalation RDAILY #1 inhaler 02/09/25 mcg/actuation mist for inhalation (Spiriva Respimat) Allergies Allergy/AdvReac Type Severity Reaction Status Date / Time ibuprofen Allergy Intermediate Unknown Verified 02/20/25 01:10 Review of Systems Review of Systems: Yes all other systems are reviewed and are negative Constitutional: Constitutional: Reports as per [facility] Past Medical History Attestation statement: The following information was validated with the patient. Source: old records reviewed Medical History Alcohol abuse Bipolar disorder current episode depressed Anxiety and depression Social History Social History Household Members: None Housing: Apartment Do you presently have visiting nurse or other home services: Yes Alcohol intake: current Patient Tobacco Use Status: Current everyday Tobacco user Tobacco use type: Cigarette Smoked in Last 30 Days: Yes Use of substances other than those prescribed or required for medical reasons: Yes Substance Use Type: Crack/Cocaine Advance Directives: No Advance Directives Information Provided: Yes Do you have a plan to hurt others: No Plan service: No Sexual orientation: Straight/Heterosexual Physical Exam ED Vital Signs: Vital Signs - 24 hr 02/20/25 01:07 02/20/25 05:36 02/20/25 07:13 Temperature 97.3 F 97.8 F 96.6 F L Pulse Rate 69 65 67 Respiratory Rate 18 16 20 Blood Pressure 128/68 109/53 L 112/62 Pulse Oximetry 96 94 96 Oxygen Delivery Method Nasal Cannula Room Air Room Air 02/20/25 08:29 02/20/25 09:20 Temperature 98.9 F 98.9 F Pulse Rate 64 64 Respiratory Rate 16 16 Blood Pressure 111/81 111/81 Pulse Oximetry 91 L 91 L Oxygen Delivery Method Room Air Room Air BMI result Body Mass Index 31.3 Const General: cooperative, healthy appearing and no acute distress Orientation/consciousness: patient oriented x3 Limitations: no limitations HENMT Head: Yes normal to inspection and Yes atraumatic Ears: hearing grossly normal bilaterally General nose exam: Normal external nose present Face and sinus: Yes normal facial exam Eyes General: appearance normal, both eyes and all related structures EOM: EOMs intact bilaterally Neck Neck: Yes normal visual inspection and Yes no meningeal signs Resp Effort & Inspection: normal respiratory effort and no respiratory distress Cardio Rate: regular rate Skin Rashes: no rashes Wounds: no wounds Neuro General: patient oriented x3, tone normal and no meningeal signs Cranial nerves: Yes CN's II-XII intact bilaterally Gait exam (Neuro): Normal gait present Extrem Other: bilateral feet without appreciable deformity. No swelling / pitting edema, no erythema /warmth or crepitus. Nontender to palpation. Neurovascularly intact. No calf tenderness. General: Yes normal to inspection Course Course Course Narrative: -0900-- patient refusing all labs and imaging. Would like to be discharged. Safe for discharge home, transportation called Results discussed with patient including worrisome signs and symptoms and strict return precautions, and when to return to the emergency department. They verbalized understanding and feel safe for discharge at this time. Medical Decision Making Medical Decision Making [facility] Narrative: 64-year-old female with a past medical history ETOH abuse, bipolar, anxiety, depression, presenting to the ED complaining of bilateral foot pain x weeks with associated paresthesias. On exam VSS, NAD, nontoxic appearing, PE as above. Concern for arthritis vs myalgias vs electrolyte abnormality. Low suspicion for DVT. No evidence of cellulitis. Low suspicion for fracture Plan: Labs, x-ray, pain control Please refer to course for remaining clinical decision making, interpretation of labs/imaging results, and discussions with consultants and/or family members. Differential Diagnosis Differential Diagnoses: The differential diagnosis associated with the presentation includes As above Admission/Observation Consideration of admission/observation: Escalation of care including admission/observation considered Lab Data [facility] Lab Attestation statement: I reviewed the patient's lab results. Radiology Impression Discussion of test interpretation with radiology: I have reviewed the radiologist's reading. External Record Review External record reviewed: Inpatient record, Office record, Outpatient record, Prior outpatient labs, Prior outpatient radiology, Primary care record and Outside ED record Tests considered The following testing was considered but not selected: As above Discharge Plan Discharge Clinical Impression: Bilateral foot pain Patient Disposition: Home, Self-Care Instructions: Arthralgia (ED) Additional Instructions: you refused all labs and imaging Continue home prescribed medications Take Tylenol at home for pain Follow up with her primary care doctor If your symptoms persist or worsen return to the emergency department You are always welcome to return to the ED Prescriptions: No Action diclofenac sodium 1 % gel 1 inch topical BID nicotine (polacrilex) 2 mg Gum 4 mg buccal Q2H PRN (Reason: Nicotine Cravings) Qty: 100 0RF nicotine 21 mg/24 hr Patch 24 Hour 21 mg transdermal DAILY Qty: 30 0RF Spiriva Respimat 2.5 mcg/actuation Mist 2 puff inhalation RDAILY Qty: 1 0RF acetaminophen 325 mg Tablet 975 mg PO Q8H PRN (Reason: Pain, Mild (Pain Scale 1-3)) Qty: 0 0RF gabapentin 600 mg Tablet 600 mg PO TID Qty: 90 0RF hydroxyzine HCl 25 mg Tablet 25 mg PO Q6H PRN (Reason: mild anxiety) Qty: 30 0RF lidocaine [Lidocaine Pain Relief] 4 % Adhesive Patch,Medicated 1 patch transdermal DAILY Qty: 0 0RF Protocol: Apply to: Apply to: back lamotrigine 25 mg Tablet 25 mg PO BEDTIME Qty: 30 0RF levothyroxine 50 mcg Tablet 50 mcg PO DAILY@0600 Qty: 30 0RF MAG-AL 200-200 mg/5 mL Suspension 30 ml PO Q6H PRN (Reason: Heartburn/Nausea) Qty: 0 0RF multivitamin [Daily-Darinel] Tablet 1 tab PO DAILY Qty: 30 0RF folic acid 1 mg Tablet 1 mg PO DAILY Qty: 30 0RF thiamine mononitrate (vit B1) 100 mg Tablet 100 mg PO DAILY Qty: 30 0RF atorvastatin 20 mg tablet 20 mg PO DAILY Qty: 30 0RF prazosin 1 mg Capsule 1 mg PO TID Qty: 90 0RF Rx Instructions: TID at bedtime sertraline 100 mg Tablet 200 mg PO DAILY Qty: 60 0RF Rx Instructions: 2 tablets by mouth once a day melatonin 3 mg Tablet 3 mg PO BEDTIME PRN (Reason: Insomnia) Qty: 30 0RF risperidone 1 mg Tablet 1 mg PO BID Qty: 60 0RF solifenacin 10 mg Tablet 10 mg PO DAILY Qty: 30 0RF Referrals: [facility] [Provider Group] Physician,Unknown J [Primary Care Provider] - Interventions: ED Discharge Assessment Last Done: 02/20/25 09:20 Discharge Date/Time: 02/20/25 09:20 Print Language: Unable To Collect
--- NOTE | 2025-02-20 09:18 | MHC.EDTECH ---
Patient is refusing all care and testing. RN aware as well as provider.
[2025-02-20 09:20] VITALS: BP 111/81; PULSE 64; RESP 16; TEMP 37.2; O2SAT 91
== END 2025-02-20 09:20 | disposition home or self-care (01) ==
PROVIDERS: Emergency Provider Emergency Medicine Emergency Medical Services
DX: M79.604 Pain in right leg (principal); M79.605 Pain in left leg
CPT/HCPCS: 99282; 99284

== ENCOUNTER 2025-07-04 02:23 | Inpatient (IN) | payer OTHER, SELFPAY ==
--- NOTE | ~2025-07-04 | XR_ITS ---
CLINICAL HISTORY: cough, SOB 1 view chest x-ray Comparison: 01/21/2025 Findings: There is left lower lobe consolidation, possible pneumonia or subsegmental atelectasis. Normal size heart. No acute fracture. IMPRESSION: 1. Lower lobe consolidation, differential considerations noted. This document has been electronically signed by: Sage Suarez MD on 07/05/2025 08:31:37
[2025-07-04 02:35] VITALS: BP 103/73; BP 124/86; PULSE 75; PULSE 85; RESP 16; TEMP 36.7; O2SAT 95; BMI 29.8
[2025-07-04 02:39] VITALS: BP 103/73; PULSE 75; RESP 16; TEMP 36.7; O2SAT 88
[2025-07-04 02:54] LABS: MANUAL DIFF FLAG NO
[2025-07-04 02:55] LABS: Hematocrit 38.2 % (37.0-47.0); Hemoglobin 13.1 g/dl (12.0-16.0); Imm Gran Abs Auto 0.04 X10*3/uL (0.00-0.03); Imm Gran Pct Auto 0.5 % (0.0-0.4); Lymphocytes Absolute Auto 1.8 X10*3/uL (1.2-4.9); Mean Corpuscular HGB Conc 34.3 g/dl (31.0-35.0); Mean Corpuscular Hemoglobin 30.7 pg (27.0-33.0); Mean Corpuscular Volume 89.5 fL (80.0-98.0); NRBC Abs Auto 0.000 X10*3/uL (0.0-0.012); NRBC Pct Auto 0.0 /100WBC (0.0-0.2); Platelet Count 151 X10*3/uL (160-400); Red Blood Count 4.27 X10*6/uL (4.20-5.50); White Blood Count 7.9 X10*3/uL (4.8-10.8)
[2025-07-04 03:13] LABS: Alanine Aminotransferase 17 U/L (0-31); Albumin Level 4.5 g/dL (3.5-5.0); Alkaline Phosphatase 79 U/L (39-117); Anion Gap 16 (12-20); Aspartate Amino Transferase 29 U/L (5-31); Blood Urea Nitrogen 5 mg/dL (9-16); Calcium 8.2 mg/dL (8.4-10.2); Carbon Dioxide 25 mmol/L (22-29); Chloride 98 mmol/L (96-108); Creatinine Clr Calc Pharmacy 63.2; Estimated Glomerular Filt Rate 54; Magnesium 2.1 mg/dL (1.6-2.6); Potassium 3.6 mmol/L (3.3-5.1); Sodium 135 mmol/L (135-145); Total Protein 7.2 g/dL (6.5-8.0)
--- NOTE | 2025-07-04 04:19 | MHC.EDTECH ---
Pts belongings are in the [facility] 1
[2025-07-04 05:12] VITALS: BP 102/70; PULSE 69; RESP 16; TEMP 36.7; O2SAT 91
--- NOTE | 2025-07-04 05:24 | ED.ALCOHOL ---
HPI - Alcohol General Chief Complaint: ETOH/Substance Use Stated Complaint: ETOH Time Seen by Provider: 07/04/25 04:48 Source: patient and EMS Mode of arrival: EMS Limitations: no limitations History of Present Illness ED Provider: Dr. Crys Villarreal HPI narrative: Patient comes to the emergency room complaining depression. Patient states that she wants to be with her kids. Patient states that 2 of them . Also, patient states that she is terrified by going home, states that there is a werewolf around her house and patient can see through the window. Patient denies any HI. Patient admits to drinking alcohol. Related Data Home Medications ?Medication ?Instructions ?Recorded ?Confirmed atorvastatin 20 mg tablet 20 mg PO DAILY 07/04/25 07/04/25 gabapentin 300 mg capsule 600 mg PO TID 07/04/25 07/04/25 hydroxyzine pamoate 50 mg capsule 50 mg PO Q6H PRN Agitation 07/04/25 07/04/25 levothyroxine 25 mcg tablet 25 mcg PO DAILY@0600 07/04/25 07/04/25 prazosin 1 mg capsule 3 mg PO BEDTIME 07/04/25 07/04/25 risperidone 1 mg tablet 1 mg PO BID 07/04/25 07/04/25 sennosides 8.6 mg-docusate sodium 1 tab PO BEDTIME 07/04/25 07/04/25 50 mg tablet (Stool Softener-Laxative) sertraline 100 mg tablet 200 mg PO DAILY 07/04/25 07/04/25 solifenacin 10 mg tablet 10 mg PO DAILY 07/04/25 07/04/25 Allergies Allergy/AdvReac Type Severity Reaction Status Date / Time ibuprofen Allergy Intermediate Unknown Verified 07/04/25 02:36 Review of Systems Review of Systems: Constitutional : No Weight loss, No Fever, No Chills, No Night Sweats, No Fatigue, No Malaise ENT/Mouth : No Hearing loss, No Ear Pain, No Nasal Congestion, No Sinus Pain, No Hoarseness, No sore throat, No Rhinorrhea, No Swallowing Difficulty Eyes: No Eye Pain, No Swelling, No Redness, No Foreign Body, No Discharge, No Vision Changes Cardiovascular : No Chest Pain, No SOB, No Dyspnea on Exertion, No Orthopnea, No Edema, No Palpitations Respiratory : No Cough, No Sputum, No Wheezing, No Smoke Exposure, No Dyspnea Gastrointestinal : No Nausea, No Vomiting, No Diarrhea, No Constipation, No abdominal Pain, No Hematochezia, No Melena Genitourinary : no irregular bleeding, No Dysuria, No Urinary Frequency, No Hematuria, No Urinary Incontinence, No Urgency, No Flank Pain, No Urinary Flow Changes, No Hesitancy Musculoskeletal : No joint pain, No Myalgias, No Joint Swelling Skin : No Skin Lesions, No rash Neuro : No Weakness, No Numbness, No Paresthesias, No Loss of Consciousness, No Dizziness, No Headache Psych : Complaining of anxiety and depression, complaining of fear of a werewolf roaming around her house, states that she wants to be with her kids who already Heme/Lymph: No Bruising, No Bleeding,No Lymphadenopathy Endocrine : No Polyuria, No Polydipsia, No Temperature Intolerance PMFSH Past Medical History Medical History Alcohol abuse Bipolar disorder current episode depressed Anxiety and depression Social History Social History Household Members: None Housing: Apartment Do you presently have visiting nurse or other home services: Yes Alcohol intake: current Alcohol intake frequency: 0-2 drinks per day Alcohol type: hard liquor Patient Tobacco Use Status: Current everyday Tobacco user Tobacco use type: Cigarette Smoked in Last 30 Days: Yes Use of substances other than those prescribed or required for medical reasons: No Substance Use Type: Crack/Cocaine Advance Directives: No Advance Directives Information Provided: Yes Patient : No service: No Sexual orientation: Straight/Heterosexual Physical Exam ED Exam Exam: Appearance: Alert. Oriented X3. No acute distress. Eyes: Pupils equal, round and reactive to light. ENT: Pharynx normal. Neck: Normal inspection. Neck supple. No lymph nodes noted. No crepitus CVS: Normal heart rate and rhythm. Pulses normal. Normal S1 and S2 Respiratory: No respiratory distress. Breath sounds normal. No Wheezing. No rales Abdomen: Soft and nontender. No rigidity. No distention. Skin: Skin warm and dry. Normal skin color. Normal skin turgor. Extremities: No lower extremity edema. No Lacerations. No Rash Neuro: Oriented X 3. No motor deficit. No sensory deficit. Moving all extremities. No slurred speech. CN 2 through 12 grossly intact Psych: calm, cooperative, normal affect Vital Signs: Vital Signs - 24 hr 07/04/25 14:11 07/04/25 20:11 07/05/25 02:09 Temperature 98 F 98.4 F Pulse Rate 75 69 Respiratory Rate 18 18 Blood Pressure 125/84 152/93 H 107/66 Pulse Oximetry 97 92 Oxygen Delivery Method Nasal Cannula Nasal Cannula Oxygen Flow Rate 2 2 07/05/25 03:19 07/05/25 07:06 07/05/25 08:00 Temperature 97.5 F 97.8 F 98.7 F Pulse Rate 69 78 80 Respiratory Rate 16 18 16 Blood Pressure 142/95 H 125/106 H 125/89 Pulse Oximetry 90 L 97 Oxygen Delivery Method Nasal Cannula Nasal Cannula Nasal Cannula Oxygen Flow Rate 3 3 3 BMI result Body Mass Index 29.8 Course Course Course Narrative: Patient did not make any direct SI statements but keeps saying that she wants to be with her kids who Also, patient complaining of seeing a werewolf through her window in her house Patient requesting a care team consult and will like to go to the Behavioral Health floor Reevaluation(s) Reevaluation #1: Time: 07:21 Date: 07/05/25 Provider: Addison Peck MD Signed out to me at [address] Villarreal waiting for [facility] bed Noted to be hypoxic, also she has a UTI, we will do a chest x-ray Chest x-ray done the patient has a left lower lobe pneumonia we will start on IV antibiotic I think she will need to be admitted she is hypoxic, she has a left lower lobe pneumonia, she also has a UTI, she is withdrawing from alcohol she is scoring 6, we will order blood culture lactic acid before starting antibiotic Patient will need admission she has a left lower lobe pneumonia/UTI/she withdrawn from alcohol she has a an oxygen requirement of 3 L. discussed with hospitalist Time: 10:25 Medical Decision Making Medical Decision Making [facility] Narrative: My interpretation of labs: No significant abnormality in patient's hematology or chemistry, normal LFTs, minimal elevation of ETOH at 19 Pending: Urinalysis Urine toxicology Differential Diagnosis Differential Diagnoses: The differential diagnosis associated with the presentation includes (Anxiety, depression, alcohol abuse, polysubstance abuse, bipolar disorder, schizophrenia) Admission/Observation Consideration of admission/observation: Escalation of care including admission/observation considered (It is possible that patient may need inpatient level of care, consult from the care team pending to determine patient's disposition) Lab Data MDM Lab Attestation statement: I reviewed the patient's lab results. 07/05/25 10:37 07/04/25 02:49 Labs: Lab Results 07/04/25 07/04/25 07/04/25 Range/Units 02:49 05:17 08:30 WBC 7.9 (4.8-10.8) X10*3/uL RBC 4.27 (4.20-5.50) X10*6/uL Hgb 13.1 (12.0-16.0) g/dl Hct 38.2 (37.0-47.0) % MCV 89.5 (80.0-98.0) fL MCH 30.7 (27.0-33.0) pg MCHC 34.3 (31.0-35.0) g/dl RDW 14.0 (11.0-16.0) % Plt Count 151 L (160-400) X10*3/uL MPV 8.8 L (9.4-12.3) fL Immature Gran % (Auto) 0.5 H (0.0-0.4) % Neut % (Auto) 70.4 (45-73) % Lymph % (Auto) 23.2 (20-40) % Daniels % (Auto) 4.4 (2-11) % Eos % (Auto) 0.9 (0-4) % Baso % (Auto) 0.6 (0-2) % Lymph # (Auto) 1.8 (1.2-4.9) X10*3/uL Daniels # (Auto) 0.4 (0.1-1.2) X10*3/uL Eos # (Auto) 0.1 (0.0-0.4) X10*3/uL Baso # (Auto) 0.1 (0.0-0.2) X10*3/uL Abs Immat Gran (auto) 0.04 H (0.00-0.03) X10*3/uL Absolute Neuts (auto) 5.5 (2.0-8.3) x10*3/uL Absolute Nucleated RBC 0.000 (0.0-0.012) X10*3/uL Nucleated RBC % (auto) 0.0 (0.0-0.2) /100WBC Sodium 135 (135-145) mmol/L Potassium 3.6 (3.3-5.1) mmol/L Chloride 98 (96-108) mmol/L Carbon Dioxide 25 (22-29) mmol/L Anion Gap 16 (12-20) BUN 5 L (9-16) mg/dL Creatinine 1.04 (0.5-1.4) mg/dL Estim Creat Clear Calc 63.2 Estimated GFR 54 Random Glucose 79 (60-115) mg/dL Calcium 8.2 L (8.4-10.2) mg/dL Magnesium 2.1 (1.6-2.6) mg/dL Total Bilirubin 0.4 (0.0-1.0) mg/dL AST 29 (5-31) U/L ALT 17 (0-31) U/L Alkaline Phosphatase 79 (39-117) U/L Total Protein 7.2 (6.5-8.0) g/dL Albumin 4.5 (3.5-5.0) g/dL Urine Color Yellow Urine Appearance Turbid Urine pH 6.0 (5.0-9.0) Ur Specific [place] <= 1.005 (1.005-1.025) Urine Protein 300 (3+) H (Neg-Trace) mg/dL Urine Glucose (UA) Negative (Negative) mg/dL Urine Ketones Negative (Negative) mg/dL Urine Blood Moderate (2+) H (Negative) Urine Nitrite Negative (Negative) Ur Leukocyte Esterase Large (3+) H (Negative) Urine RBC 0-2 (0-2) /HPF Urine WBC >50 H (0-5) /HPF Urine WBC Clumps Present Ur Squamous Epith Cells 11-20 (0-2) /HPF Urine Bacteria 4+ (None Seen) Hyaline Casts >20 (0-2) /LPF Urine Opiates Screen Not Detected (Not Detect) Ur Buprenorphine Scrn Not Detected (Not Detect) ng/mL Ur Oxycodone Screen Not Detected (Not Detect) ng/mL Urine Methadone Screen Not Detected (Not Detect) ng/mL Urine Fentanyl Screen Not Detected (Not Detect) Ur Barbiturates Screen Not Detected (Not Detect) Ur Phencyclidine Scrn Not Detected (Not Detect) Ur Amphetamines Screen Not Detected (Not Detect) U Benzodiazepines Scrn Not Detected (Not Detect) Urine Cocaine Screen POSITIVE H (Not Detect) U Marijuana (THC) Screen Not Detected (Not Detect) Ethyl Alcohol 19 mg/dL Influenza Type A (PCR) NEGATIVE (Negative) Influenza Type B (PCR) NEGATIVE (Negative) RSV RNA Qual (PCR) NEGATIVE (Negative) SARS-CoV-2 RNA (RT-PCR) NEGATIVE (Negative) 07/05/25 Range/Units 10:37 WBC 6.3 (4.8-10.8) X10*3/uL RBC 4.21 (4.20-5.50) X10*6/uL Hgb 13.0 (12.0-16.0) g/dl Hct 39.2 (37.0-47.0) % MCV 93.1 (80.0-98.0) fL MCH 30.9 (27.0-33.0) pg MCHC 33.2 (31.0-35.0) g/dl RDW 14.2 (11.0-16.0) % Plt Count 131 L (160-400) X10*3/uL MPV 9.2 L (9.4-12.3) fL Immature Gran % (Auto) 0.6 H (0.0-0.4) % Neut % (Auto) 78.7 H (45-73) % Lymph % (Auto) 14.5 L (20-40) % Daniels % (Auto) 4.9 (2-11) % Eos % (Auto) 0.8 (0-4) % Baso % (Auto) 0.5 (0-2) % Lymph # (Auto) 0.9 L (1.2-4.9) X10*3/uL Daniels # (Auto) 0.3 (0.1-1.2) X10*3/uL Eos # (Auto) 0.1 (0.0-0.4) X10*3/uL Baso # (Auto) 0.0 (0.0-0.2) X10*3/uL Abs Immat Gran (auto) 0.04 H (0.00-0.03) X10*3/uL Absolute Neuts (auto) 5.0 (2.0-8.3) x10*3/uL Absolute Nucleated RBC 0.000 (0.0-0.012) X10*3/uL Nucleated RBC % (auto) 0.0 (0.0-0.2) /100WBC Sodium (135-145) mmol/L Potassium (3.3-5.1) mmol/L Chloride (96-108) mmol/L Carbon Dioxide (22-29) mmol/L Anion Gap (12-20) BUN (9-16) mg/dL Creatinine (0.5-1.4) mg/dL Estim Creat Clear Calc Estimated GFR Random Glucose (60-115) mg/dL Calcium (8.4-10.2) mg/dL Magnesium (1.6-2.6) mg/dL Total Bilirubin (0.0-1.0) mg/dL AST (5-31) U/L ALT (0-31) U/L Alkaline Phosphatase (39-117) U/L Total Protein (6.5-8.0) g/dL Albumin (3.5-5.0) g/dL Urine Color Urine Appearance Urine pH (5.0-9.0) Ur Specific [place] (1.005-1.025) Urine Protein (Neg-Trace) mg/dL Urine Glucose (UA) (Negative) mg/dL Urine Ketones (Negative) mg/dL Urine Blood (Negative) Urine Nitrite (Negative) Ur Leukocyte Esterase (Negative) Urine RBC (0-2) /HPF Urine WBC (0-5) /HPF Urine WBC Clumps Ur Squamous Epith Cells (0-2) /HPF Urine Bacteria (None Seen) Hyaline Casts (0-2) /LPF Urine Opiates Screen (Not Detect) Ur Buprenorphine Scrn (Not Detect) ng/mL Ur Oxycodone Screen (Not Detect) ng/mL Urine Methadone Screen (Not Detect) ng/mL Urine Fentanyl Screen (Not Detect) Ur Barbiturates Screen (Not Detect) Ur Phencyclidine Scrn (Not Detect) Ur Amphetamines Screen (Not Detect) U Benzodiazepines Scrn (Not Detect) Urine Cocaine Screen (Not Detect) U Marijuana (THC) Screen (Not Detect) Ethyl Alcohol mg/dL Influenza Type A (PCR) (Negative) Influenza Type B (PCR) (Negative) RSV RNA Qual (PCR) (Negative) SARS-CoV-2 RNA (RT-PCR) (Negative) Medications Administered Generic Name Dose Route Start Last Admin Trade Name [place] PRN Reason Stop Dose Admin Atorvastatin Calcium 20 mg 07/05/25 09:00 07/05/25 08:40 Atorvastatin Calcium 20 Mg Tablet PO 20 mg DAILY REENA Administration Gabapentin 600 mg 07/04/25 15:00 07/05/25 08:39 Gabapentin 300 Mg Capsule PO 600 mg TID REENA Administration Hydroxyzine HCl 50 mg 07/04/25 14:31 07/04/25 23:12 Hydroxyzine Hcl 50 Mg Tablet PO 50 mg Q6H PRN Administration Agitation Levothyroxine Sodium 25 mcg 07/05/25 06:00 07/05/25 07:05 Levothyroxine Sodium 25 Mcg Tablet PO 25 mcg DAILY@0600 REENA Administration Prazosin HCl 3 mg 07/04/25 21:00 07/04/25 20:11 Prazosin Hcl 1 Mg Capsule PO 3 mg BEDTIME REENA Administration Protocol Risperidone 1 mg 07/04/25 21:00 07/05/25 08:40 Risperidone 1 Mg Tablet PO 1 mg BID REENA Administration Senna/Docusate Sodium 1 tab 07/04/25 21:00 07/04/25 20:11 Sennosides/Docusate Sodium Tablet PO 1 tab BEDTIME REENA Administration Sertraline HCl 200 mg 07/05/25 09:00 07/05/25 08:40 Sertraline Hcl 100 Mg Tablet PO 200 mg DAILY REENA Administration Tolterodine Tartrate 4 mg 07/05/25 09:00 07/05/25 08:40 Tolterodine Tartrate La 4 Mg Cap.Er.24h PO 4 mg DAILY REENA Administration Discontinued Medications Generic Name Dose Route Start Last Admin Trade Name [place] PRN Reason Stop Dose Admin Acetaminophen 975 mg 07/04/25 08:24 07/04/25 08:31 Acetaminophen 325 Mg Tablet PO 07/04/25 08:25 975 mg ONCE ONE Administration Lorazepam 1 mg 07/05/25 10:18 07/05/25 10:39 Lorazepam 1 Mg Tablet PO 07/05/25 10:19 1 mg ONCE ONE Administration Ondansetron HCl 4 mg 07/05/25 04:02 07/05/25 04:09 Ondansetron Odt 4 Mg Tab.Rapdis TRANSLINGU 07/05/25 04:03 4 mg ONCE ONE Administration Ondansetron HCl 4 mg 07/05/25 09:01 07/05/25 09:04 Ondansetron Odt 4 Mg Tab.Pb [id number] 07/05/25 09:02 4 mg ONCE ONE Administration Critical Care Time Critical Care Time Critical Care Time: Yes Total Critical Care Time: 35 Attestation: I have personally provided critical care time. Time includes review of lab data, radiology results, discussion with consultants, and monitoring for potential decompensation. Intervention performed as documented. Discharge Plan Discharge Clinical Impression: Hallucination, visual, Anxiety and depression, Alcohol abuse Pneumonia Qualifiers: Pneumonia type: due to unspecified organism Laterality: left Lung location: lower lobe of lung Qualified Code(s): J18.9 - Pneumonia, unspecified organism UTI (urinary tract infection) Qualifiers: Urinary tract infection type: site unspecified Hematuria presence: without hematuria Qualified Code(s): N39.0 - Urinary tract infection, site not specified Patient Disposition: Admitted As Inpatient Print Language: Unable To Collect
[2025-07-04 05:27] LABS: Appearance Urine Turbid; Glucose Urine UA Negative (Negative); PH 6.0 (5.0-9.0); Specific Gravity - Urine <= 1.005 (1.005-1.025); UMIC TRIGGER UA YES
[2025-07-04 05:46] LABS: Cannabinoid Screen Urine Not Detected (Not Detect)
[2025-07-04 08:33] VITALS: BP 105/83; PULSE 69; RESP 18; O2SAT 94
[2025-07-04 10:12] LABS: Resp Syncy Virus RNA Qual PCR NEGATIVE (Negative); SARS COV2 PCR INHOUSE NEGATIVE (Negative)
--- NOTE | 2025-07-04 10:45 | PHA.MEDREC ---
Pharmacy Consult ? Medication Reconciliation Pharmacy has completed the medication reconciliation. Patient unarousable at bedside, utilized recent claim history
[2025-07-04 14:11] VITALS: BP 125/84; PULSE 75; RESP 18; TEMP 36.6; O2SAT 97
--- NOTE | 2025-07-04 16:54 | PC.NURSE ---
Pt reports feeling anxious, requesting hydroxyzine. Medicated as charted.
[2025-07-04 20:11] VITALS: BP 152/93
[2025-07-05] VITALS (13 sets, daily range): BP systolic 107–142; BP diastolic 66–106; PULSE 69–83; RESP 16–25; TEMP 36.2–37.1; O2SAT 89–97; BMI 30.9
--- NOTE | 2025-07-05 07:12 | PC.NURSE ---
assumed care of patient, Pt is calm and cooperative, RR even and unlabored, on 3L NC. Pt denies SOB or CP but c/o 4/10 lower abdominal pain, ongoing with a little nausea. Pt is A+OX4. No other complaints.
--- NOTE | 2025-07-05 09:07 | PC.NURSE ---
pt had an episode of dry heaving/vomitting, provided with a zofran tablet.
[2025-07-05 10:44] LABS: MANUAL DIFF FLAG NO
[2025-07-05 10:46] LABS: Hematocrit 39.2 % (37.0-47.0); Hemoglobin 13.0 g/dl (12.0-16.0); Imm Gran Abs Auto 0.04 X10*3/uL (0.00-0.03); Imm Gran Pct Auto 0.6 % (0.0-0.4); Lymphocytes Absolute Auto 0.9 X10*3/uL (1.2-4.9); Mean Corpuscular HGB Conc 33.2 g/dl (31.0-35.0); Mean Corpuscular Hemoglobin 30.9 pg (27.0-33.0); Mean Corpuscular Volume 93.1 fL (80.0-98.0); NRBC Abs Auto 0.000 X10*3/uL (0.0-0.012); NRBC Pct Auto 0.0 /100WBC (0.0-0.2); Platelet Count 131 X10*3/uL (160-400); Red Blood Count 4.21 X10*6/uL (4.20-5.50); White Blood Count 6.3 X10*3/uL (4.8-10.8)
--- NOTE | 2025-07-05 10:51 | PM.IMHP ---
History of Present Illness Date of Service: 07/05/25 Attending physician on admission: Lee Herrera Chief Complaint: SI, cough This is a 64-year-old female with a history of COPD, hypothyroidism who presented to the emergency department with increasing depression and suicidal ideation. She initially was stating that she wanted to go be with her two children. She was evaluated by the care team and it was initially planned for her to be admitted to the inpatient psychiatric floor. However patient developed hypoxia and was placed on 3 L nasal cannula. Chest x-ray was obtained which showed a left-sided pneumonia. Patient endorses shortness of breath with ambulation and persistent cough. She denies any fever or chills. She received a dose of IV doxycycline in the emergency room. Patient states that she usually drinks 2-25 oz beers daily but in addition to that she has also been drinking hard alcohol that someone gave her. She smokes 1 pack of cigarettes daily and smokes crack. She reports having a nurse who brings her medications and reports being compliant with her baseline medication Review of Systems Review of Systems: Yes all other systems are reviewed and are negative Constitutional: Constitutional: Denies chills and Denies fever(s) Cardiovascular: Cardiovascular: Denies chest pain and Reports dyspnea Respiratory: Respiratory: Reports cough and Reports dyspnea Gastrointestinal: Gastrointestinal: Denies abdominal pain [facility] Medical History (Updated 07/05/25 @ 10:59 by JAMES Martinez) Thyroid cancer HLD (hyperlipidemia) Alcohol abuse Bipolar disorder current episode depressed Anxiety and depression Social History Household Members: None Housing: Apartment Do you presently have visiting nurse or other home services: Yes Alcohol intake: current Alcohol intake frequency: 0-2 drinks per day Alcohol type: hard liquor Patient Tobacco Use Status: Current everyday Tobacco user Tobacco use type: Cigarette Smoked in Last 30 Days: Yes Use of substances other than those prescribed or required for medical reasons: No Substance Use Type: Crack/Cocaine Advance Directives: No Advance Directives Information Provided: Yes Patient : No service: No Sexual orientation: Straight/Heterosexual Meds Allergies Allergy/AdvReac Type Severity Reaction Status Date / Time ibuprofen Allergy Intermediate Unknown Verified 07/04/25 02:36 Active Medications: Current Medications Acetaminophen (Acetaminophen 325 Mg Tablet) 650 mg PO Q6H PRN PRN Reason: Pain, Mild 1-3,fever,headache Albuterol/Ipratropium (Albuterol/Iprat 2.5/0.5mg 3 Ml Ampul.Neb) 3 ml INHALE RQ6H WHILE AWAKE [facility] Albuterol/Ipratropium (Albuterol/Iprat 2.5/0.5mg 3 Ml Ampul.Neb) 3 ml INHALE RQ4H WHILE AWAKE PRN PRN Reason: shortness of breath/wheezing Atorvastatin Calcium (Atorvastatin Calcium 20 Mg Tablet) 20 mg PO DAILY [facility] Last Admin: 07/05/25 08:40 Dose: 20 mg Calcium Carbonate (Calcium Carbonate 750 Mg Tab.Chew) 750 mg PO Q4H PRN PRN Reason: Heartburn Enoxaparin Sodium (Enoxaparin Sodium 40 Mg/0.4 Ml Syringe) 40 mg SUBCUT Q24H [facility] Gabapentin (Gabapentin 300 Mg Capsule) 600 mg PO TID [facility] Last Admin: 07/05/25 08:39 Dose: 600 mg Guaifenesin/Dextromethorphan (Guaifenesin Dm 200/20/10 Ml 10 Ml Syrup) 10 ml PO Q6H PRN PRN Reason: Cough Hydroxyzine HCl (Hydroxyzine Hcl 50 Mg Tablet) 50 mg PO Q6H PRN PRN Reason: Agitation Last Admin: 07/04/25 23:12 Dose: 50 mg Doxycycline Hyclate 100 mg/ (Sodium Chloride) 250 mls @ 166.67 mls/hr IV ONCE ONE Stop: 07/05/25 11:46 Last Admin: 07/05/25 10:49 Dose: 166.67 mls/hr Levothyroxine Sodium (Levothyroxine Sodium 25 Mcg Tablet) 25 mcg PO DAILY@0600 [facility] Last Admin: 07/05/25 07:05 Dose: 25 mcg Magnesium Hydroxide (Milk Of Magnesia 30 Ml Oral.Susp) 30 ml PO DAILY PRN PRN Reason: Constipation Melatonin (Melatonin 3 Mg Tablet) 6 mg PO BEDTIME PRN PRN Reason: Insomnia Nicotine (Nicotine 21 Mg Patch.Td24) 21 mg TRANSDERMA DAILY [facility] Prazosin HCl (Prazosin Hcl 1 Mg Capsule) 3 mg PO BEDTIME [facility]; Protocol Last Admin: 07/04/25 20:11 Dose: 3 mg Risperidone (Risperidone 1 Mg Tablet) 1 mg PO BID [facility] Last Admin: 07/05/25 08:40 Dose: 1 mg Senna/Docusate Sodium (Sennosides/Docusate Sodium Tablet) 1 tab PO BEDTIME [facility] Last Admin: 07/04/25 20:11 Dose: 1 tab Sertraline HCl (Sertraline Hcl 100 Mg Tablet) 200 mg PO DAILY [facility] Last Admin: 07/05/25 08:40 Dose: 200 mg Sodium Chloride (0.9 % Sodium Chloride Flush 3 Ml Syringe) 3 ml IVFLUSH QSHIFT [facility] Tolterodine Tartrate (Tolterodine Tartrate La 4 Mg Cap.Er.24h) 4 mg PO DAILY [facility] Last Admin: 07/05/25 08:40 Dose: 4 mg Home Medications ?Medication ?Instructions ?Recorded ?Confirmed ?Last Taken ?Type atorvastatin 20 mg tablet 20 mg PO DAILY 07/04/25 07/04/25 Unknown History gabapentin 300 mg capsule 600 mg PO TID 07/04/25 07/04/25 Unknown History hydroxyzine pamoate 50 mg capsule 50 mg PO Q6H PRN Agitation 07/04/25 07/04/25 Unknown History levothyroxine 25 mcg tablet 25 mcg PO DAILY@0600 07/04/25 07/04/25 Unknown History prazosin 1 mg capsule 3 mg PO BEDTIME 07/04/25 07/04/25 Unknown History risperidone 1 mg tablet 1 mg PO BID 07/04/25 07/04/25 Unknown History sennosides 8.6 mg-docusate sodium 1 tab PO BEDTIME 07/04/25 07/04/25 Unknown History 50 mg tablet (Stool Softener-Laxative) sertraline 100 mg tablet 200 mg PO DAILY 07/04/25 07/04/25 Unknown History solifenacin 10 mg tablet 10 mg PO DAILY 07/04/25 07/04/25 Unknown History Physical Exam Vital Signs and Narrative: Vital Signs: Last Vital Signs Temp 98.7 F 07/05/25 08:00 Pulse 80 07/05/25 08:00 Resp 16 07/05/25 08:00 BP 125/89 07/05/25 08:00 Pulse Ox 97 07/05/25 08:00 O2 Del Method Nasal Cannula 07/05/25 08:00 O2 Flow Rate 3 07/05/25 08:00 BMI result Body Mass Index 29.8 Const: General: no acute distress, alert, awake and Physically active Nutritional Appearance: average body habitus Orientation/consciousness: patient oriented x3 Resp: Other: scattered expiratory wheeze Effort & Inspection: normal respiratory effort, able to speak in complete sentences, no respiratory distress and no use of accessory muscles Cardio: Rate: regular rate GI: Inspection: No distended Palpation (GI): Soft to palpation Neuro: Other: not tremulous General: patient oriented x3, moves all extremities and CN's II-XI intact bilaterally Extrem: General: No pedal edema Results Labs 07/05/25 10:37 07/05/25 10:37 Labs: Laboratory Results - last 24 hr 07/05/25 10:37 MCV 93.1 MCH 30.9 MCHC 33.2 RDW 14.2 Plt Count 131 L MPV 9.2 L Immature Gran % (Auto) 0.6 H Neut % (Auto) 78.7 H Lymph % (Auto) 14.5 L [place] % (Auto) 4.9 Eos % (Auto) 0.8 Baso % (Auto) 0.5 Lymph # (Auto) 0.9 L [place] # (Auto) 0.3 Eos # (Auto) 0.1 Baso # (Auto) 0.0 Abs Immat Gran (auto) 0.04 H Absolute Neuts (auto) 5.0 Absolute Nucleated RBC 0.000 Nucleated RBC % (auto) 0.0 Assessment and Plan (1) Pneumonia: Qualifiers: Laterality: left Lung location: lower lobe of lung Pneumonia type: due to unspecified organism Qualified Code(s): J18.9 - Pneumonia, unspecified organism Status: Acute (2) UTI (urinary tract infection): Qualifiers: Hematuria presence: without hematuria Urinary tract infection type: site unspecified Qualified Code(s): N39.0 - Urinary tract infection, site not specified Status: Acute (3) COPD (chronic obstructive pulmonary disease): Status: Acute (4) Alcohol abuse: Status: Acute Plan This is a 64-year-old female with history of depression, COPD, alcohol use disorder, tobacco dependence, thyroid cancer who presents to the emergency department with depression with suicidal ideation found to be hypoxic and diagnosed to have pneumonia Acute respiratory failure with hypoxia Due to pneumonia and COPD exacerbation Wean supplemental oxygen as Pneumonia No sepsis Lactic acid pending but does not meet SIRS criteria Ceftriaxone, doxycycline Follow blood cultures Acute COPD exacerbation, mild In the setting of pneumonia, active tobacco and crack cocaine Oral prednisone Scheduled and as needed breathing treatments UTI urine culture growing GNR Previous urine culture grew Klebsiella sensitive to ceftriaxone Continue IV ceftriaxone Follow final urine culture result Alcohol use disorder Scoring 6 on CIWA at this, primarily due to episode of dry heaving Does not appear to be withdrawing at this hold off on starting phenobarb protocol for now Monitor closely on CIWA addiction medicine consult Hypothyroidism following thyroidectomy Continue Synthroid Check TSH (72 in january) Thrombocytopenia Likely due to bone marrow suppression from chronic alcohol Mood Continue baseline medication will need care team evaluation when medically cleared to assess need for inpatient psych Tobacco use disorder Smoking cessation advised NRT HLD Continue statin DVT prophylaxis-Lovenox Code status-full Patient will likely require 2 midnight stay in the hospital for treatment of pneumonia, COPD and alcohol withdrawal requiring IV antibiotics and close monitoring Quality Stroke Does the patient have a stroke diagnosis?: No VTE Prior VTE?: No VTE Risk Level:: Medical - moderate - high VTE Device Contraindication: N/A - Device Ordered VTE Drug Contraindication: N/A - Med Ordered
[2025-07-05 11:12] LABS: Alanine Aminotransferase 12 U/L (0-31); Albumin Level 4.0 g/dL (3.5-5.0); Alkaline Phosphatase 75 U/L (39-117); Anion Gap 14 (12-20); Aspartate Amino Transferase 25 U/L (5-31); Blood Urea Nitrogen 7 mg/dL (9-16); Calcium 8.6 mg/dL (8.4-10.2); Carbon Dioxide 27 mmol/L (22-29); Chloride 101 mmol/L (96-108); Creatinine Clr Calc Pharmacy 62.6; Estimated Glomerular Filt Rate 53; Potassium 4.0 mmol/L (3.3-5.1); Sodium 138 mmol/L (135-145); Total Protein 6.6 g/dL (6.5-8.0)
[2025-07-05] MEDS: Nicotine 21 MG PATCH.TD24 TRANSDERMA (11:12)
[2025-07-05 13:02] LABS: Free T4 (Free Thyroxine) 0.55 ng/dL (0.71-1.85)
[2025-07-05] MEDS: Albuterol/Iprat 2.5/0.5MG 3 ML AMPUL.NEB INHALE ×2 (15:29→19:07)
[2025-07-05] MEDS: 0.9 % Sodium Chloride Flush 3 ML SYRINGE IVFLUSH ×2 (17:55→20:41)
--- NOTE | 2025-07-05 22:25 | PM.EVENT ---
Event Note Date of Service: 07/05/25 Event Note: 10:45 pm - Pt is resting comfortable. Denies suicidal thought currently. Feeling much better. No need for sitter at this time. Time Spent With Patient Time: Total time managing care of this patient today ____ minutes.
--- NOTE | 2025-07-05 22:33 | PC.NURSE ---
pt is no longer suicidal, 1:[address] Maciel at 07/05/2025 22:30.
[2025-07-06] VITALS (8 sets, daily range): BP systolic 110–137; BP diastolic 67–87; PULSE 78–87; RESP 16–20; TEMP 36.3–36.7; O2SAT 88–95
[2025-07-06] MEDS: Albuterol/Iprat 2.5/0.5MG 3 ML AMPUL.NEB INHALE ×3 (07:33→21:25)
[2025-07-06 07:34] LABS: Hematocrit 39.6 % (37.0-47.0); Hemoglobin 13.1 g/dl (12.0-16.0); Mean Corpuscular HGB Conc 33.1 g/dl (31.0-35.0); Mean Corpuscular Hemoglobin 31.2 pg (27.0-33.0); Mean Corpuscular Volume 94.3 fL (80.0-98.0); NRBC Abs Auto 0.000 X10*3/uL (0.0-0.012); NRBC Pct Auto 0.0 /100WBC (0.0-0.2); Platelet Count 155 X10*3/uL (160-400); Red Blood Count 4.20 X10*6/uL (4.20-5.50); White Blood Count 7.8 X10*3/uL (4.8-10.8)
[2025-07-06 07:48] LABS: Anion Gap 16 (12-20); Blood Urea Nitrogen 9 mg/dL (9-16); Calcium 8.8 mg/dL (8.4-10.2); Carbon Dioxide 26 mmol/L (22-29); Chloride 100 mmol/L (96-108); Creatinine Clr Calc Pharmacy 82.7; Estimated Glomerular Filt Rate > 60; Potassium 3.7 mmol/L (3.3-5.1); Sodium 138 mmol/L (135-145)
[2025-07-06] MEDS: guaiFENesin DM 200/20/10 ML 10 ML SYRUP PO ×2 (07:51→16:22)
[2025-07-06] MEDS: Nicotine 21 MG PATCH.TD24 TRANSDERMA (07:52)
[2025-07-06] MEDS: 0.9 % Sodium Chloride Flush 3 ML SYRINGE IVFLUSH ×3 (07:57→23:50)
--- NOTE | 2025-07-06 08:14 | P.PNIM_ITS ---
Subjective Subjective Date of Service: 07/06/25 Interval History: copd /pneumonia Review of Systems sob with exersion generalised weak no fevers Review of Systems: Yes all other systems are reviewed and are negative Physical Exam 2 Vital Signs: Vital Signs: Last Vital Signs Temp 97.5 F 07/06/25 07:04 Pulse 78 07/06/25 07:35 Resp 16 07/06/25 07:04 BP 137/86 07/06/25 07:04 Pulse Ox 89 L 07/06/25 07:04 O2 Del Method Nasal Cannula 07/06/25 07:04 O2 Flow Rate 2 07/06/25 07:04 FiO2 95 07/05/25 19:41 BMI result Body Mass Index 30.9 Appearance: Alert.? Oriented X3.? cvs: rrr, [id number] , no murmur res: aair entry diminshed ,has b/l wheezing abd: no rebound or guarding ,nt, bs present. ext pulses present , no cyanosis . neuro: axo3 , nonfocal. Objective Data Active Medications Acetaminophen (Acetaminophen 325 Mg Tablet) 650 mg PO Q6H PRN PRN Reason: Pain, Mild 1-3,fever,headache Albuterol/Ipratropium (Albuterol/Iprat 2.5/0.5mg 3 Ml Ampul.Neb) 3 ml INHALE RQ6H WHILE AWAKE [facility] Last Admin: 07/06/25 07:33 Dose: 3 ml Documented By: ARCHIE Albuterol/Ipratropium (Albuterol/Iprat 2.5/0.5mg 3 Ml Ampul.Neb) 3 ml INHALE RQ4H WHILE AWAKE PRN PRN Reason: shortness of breath/wheezing Atorvastatin Calcium (Atorvastatin Calcium 20 Mg Tablet) 20 mg PO DAILY [facility] Last Admin: 07/06/25 07:52 Dose: 20 mg Documented By: NASIR Calcium Carbonate (Calcium Carbonate 750 Mg Tab.Chew) 750 mg PO Q4H PRN PRN Reason: Heartburn Ceftriaxone Sodium (Ceftriaxone Sodium 1 Gm Vial) 1 gm IVPUSH Q24H [facility] Last Admin: 07/05/25 11:12 Dose: 1 gm Documented By: CECILIA Enoxaparin Sodium (Enoxaparin Sodium 40 Mg/0.4 Ml Syringe) 40 mg SUBCUT Q24H [facility] Last Admin: 07/05/25 11:12 Dose: 40 mg Documented By: CECILIA Folic Acid (Folic Acid 1 Mg Tablet) 1 mg PO DAILY [facility] Last Admin: 07/06/25 07:52 Dose: 1 mg Documented By: NASIR Gabapentin (Gabapentin 300 Mg Capsule) 600 mg PO TID [facility] Last Admin: 07/06/25 07:51 Dose: 600 mg Documented By: NASIR Guaifenesin/Dextromethorphan (Guaifenesin Dm 200/20/10 Ml 10 Ml Syrup) 10 ml PO Q6H PRN PRN Reason: Cough Last Admin: 07/06/25 07:51 Dose: 10 ml Documented By: NASIR Hydroxyzine HCl (Hydroxyzine Hcl 50 Mg Tablet) 50 mg PO Q6H PRN PRN Reason: Agitation Last Admin: 07/06/25 03:47 Dose: 50 mg Documented By: SIXTO Comments: per patient request Levothyroxine Sodium (Levothyroxine Sodium 25 Mcg Tablet) 25 mcg PO DAILY@0600 [facility] Last Admin: 07/06/25 05:48 Dose: 25 mcg Documented By: SIXTO Magnesium Hydroxide (Milk Of Magnesia 30 Ml Oral.Susp) 30 ml PO DAILY PRN PRN Reason: Constipation Melatonin (Melatonin 3 Mg Tablet) 6 mg PO BEDTIME PRN PRN Reason: Insomnia Nicotine (Nicotine 21 Mg Patch.Td24) 21 mg TRANSDERMA DAILY [facility] Last Admin: 07/06/25 07:52 Dose: 21 mg Documented By: NASIR Nystatin (Nystatin Powder 15 Gm Bottle) 1 appl TOPICAL BID [facility]; Protocol Last Admin: 07/05/25 20:46 Dose: Not Given Documented By: SIXTO Non-Admin Reason: Med Not Available Prazosin HCl (Prazosin Hcl 1 Mg Capsule) 3 mg PO BEDTIME [facility]; Protocol Last Admin: 07/05/25 20:39 Dose: 3 mg Documented By: SIXTO Prednisone (Prednisone 20 Mg Tablet) 40 mg PO DAILY [facility] Last Admin: 07/06/25 07:51 Dose: 40 mg Documented By: NASIR Risperidone (Risperidone 1 Mg Tablet) 1 mg PO BID [facility] Last Admin: 07/06/25 07:52 Dose: 1 mg Documented By: NASIR Senna/Docusate Sodium (Sennosides/Docusate Sodium Tablet) 1 tab PO BEDTIME [facility] Last Admin: 07/05/25 20:39 Dose: 1 tab Documented By: SIXTO Sertraline HCl (Sertraline Hcl 100 Mg Tablet) 200 mg PO DAILY [facility] Last Admin: 07/06/25 07:52 Dose: 200 mg Documented By: NASIR Sodium Chloride (0.9 % Sodium Chloride Flush 3 Ml Syringe) 3 ml IVFLUSH QSHIFT [facility] Last Admin: 07/06/25 07:57 Dose: 3 ml Documented By: NASIR Thiamine HCl (Thiamine Hcl 100 Mg Tablet) 100 mg PO DAILY [facility] Last Admin: 07/06/25 07:52 Dose: 100 mg Documented By: NASIR Tolterodine Tartrate (Tolterodine Tartrate La 4 Mg Cap.Er.24h) 4 mg PO DAILY [facility] Last Admin: 07/06/25 07:52 Dose: 4 mg Documented By: NASIR Labs 07/06/25 06:39 07/06/25 06:39 Labs: Laboratory Results - last 24 hr 07/05/25 07/05/25 07/06/25 10:35 10:37 06:39 MCV 93.1 94.3 MCH 30.9 31.2 MCHC 33.2 33.1 RDW 14.2 14.3 Plt Count 131 L 155 L MPV 9.2 L 9.4 Immature Gran % (Auto) 0.6 H Neut % (Auto) 78.7 H Lymph % (Auto) 14.5 L [place] % (Auto) 4.9 Eos % (Auto) 0.8 Baso % (Auto) 0.5 Lymph # (Auto) 0.9 L [place] # (Auto) 0.3 Eos # (Auto) 0.1 Baso # (Auto) 0.0 Abs Immat Gran (auto) 0.04 H Absolute Neuts (auto) 5.0 Absolute Nucleated RBC 0.000 0.000 Nucleated RBC % (auto) 0.0 0.0 Anion Gap 14 16 Estim Creat Clear Calc 62.6 82.7 Estimated GFR 53 > 60 Random Glucose 77 146 H Lactic Acid 0.7 Calcium 8.6 8.8 Total Bilirubin 0.4 AST 25 ALT 12 Alkaline Phosphatase 75 Total Protein 6.6 Albumin 4.0 TSH 41.00 H Free T4 0.55 L Microbiology Microbiology Results: Microbiology 07/04/25 Unknown Urine Culture - Final Urine clean catch - Clean Catch Midstream Klebsiella pneumoniae Assessment and Plan (1) UTI (urinary tract infection): Status: Acute (2) COPD (chronic obstructive pulmonary disease): Status: Acute Plan 64-year-old female with history of depression, COPD, alcohol use disorder, tobacco dependence, thyroid cancer who presents to the emergency department with depression with suicidal ideation found to be hypoxic and diagnosed to have pneumonia Acute respiratory failure with hypoxia Due to pneumonia and COPD exacerbation Wean supplemental oxygen as Pneumonia No sepsis Lactic acid pending but does not meet SIRS criteria Ceftriaxone, doxycycline Follow blood cultures Acute COPD exacerbation, mild In the setting of pneumonia, active tobacco and crack cocaine Oral prednisone Scheduled and as needed breathing treatments UTI urine culture growing GNR Previous urine culture grew Klebsiella sensitive to ceftriaxone Continue IV ceftriaxone Follow final urine culture result Alcohol use disorder Scoring 6 on CIWA at this, primarily due to episode of dry heaving Does not appear to be withdrawing at this hold off on starting phenobarb protocol for now Monitor closely on CIWA addiction medicine consult Hypothyroidism following thyroidectomy Continue Synthroid Check TSH (72 in january) Thrombocytopenia Likely due to bone marrow suppression from chronic alcohol Mood as per staff still has SI Continue baseline medication will need care team evaluation when medically cleared to assess need for inpatient psych Tobacco use disorder Smoking cessation advised NRT HLD Continue statin DVT prophylaxis-Lovenox Code status-full ongoing need for stay in the hospital for treatment of pneumonia, COPD and alcohol withdrawal requiring IV antibiotics and close monitorin Quality Stroke Does the patient have a stroke diagnosis?: No VTE Prior VTE?: No VTE Risk Level:: Medical - moderate - high VTE Device Contraindication: N/A - Device Ordered VTE Drug Contraindication: N/A - Med Ordered
--- NOTE | 2025-07-06 13:14 | MHC.CM.PN ---
EMR REVIEWED, PT W/ETOH WITHDRAWAL/HYPOXIA/PNA/SI, PT HAS SITTER AT BEDSIDE D/T SI, PT REPORTS SHE LIVES ALONE W/HER CAT AND HER AERONAUTICAL DRAFTER IS FEEDING CAT WHILE PT IN HOSPITAL, PT REPORTS SHE FURNITURE SURFS AT HOME D/T SIZE OF HER STUDIO APT, PT HAS A NEBULIZER/COMMODE FOR DME AND DAILY [facility] AERONAUTICAL DRAFTER UP TO 40HRS/WK AND [facility] FOR DAILY MEDS, [facility] APT AND OUTPT SERVICES. PT WOULD LIKE STR VS IPLOC ADMISSION. [facility] ON FILE VERIFIED, PT REPORTS SHE HAD A HCP IN THE PAST HOWEVER HE WAS STEALING FROM [facility] BY SUBMITTING EXTRA TIME SHEETS, PT CURRENTLY DECLINES TO COMPLETE A NEW HCP HOWEVER AWARE IF PLAN IS STR SHE WILL NEED TO COMPLETE A NEW ONE.
--- NOTE | 2025-07-06 16:06 | MHC.RECOVRN ---
Addendum entered by Isabelle Oviedo RN 07/06/25 16:11: No EtOH withdrawal symptoms reported or observed at this time. Original Note: Pt is a 64-year-old female with history of alcohol use disorder (AUD), depression, COPD, tobacco dependence, and thyroid cancer, who presented to the ED expressing suicidal statements and worsening depression. Pt was found to be hypoxic and was medically admitted for treatment for pneumonia. Met with pt in 443 after receiving addiction consult to discuss substance use, recovery supports, PEBBLES, and other resources. Upon approach pt is receptive to speaking with this nurse in regards to her substance use. 1:1 patient observer at bedsite due to pt continuing to express SI. Pt was somewhat tangential during our discussion and inconsistent with her responses. States she drinks ?every day or whenever I feel like it? due to family conflicts. Pt states she has ?graduated over 15 programs? - has mostly been to IOPs rather than detox. During our discussion pt continued to have difficulties staying on topic and was disorganized - going on tangents about past traumas,family conflict,? evading questions specific to her substance use. Upon further questioning pt endorsed using cocaine via inhalation (smoking) but would not elaborate on further details. Pt was offered written educational material on PEBBLES which she accepted and is planning to review. She is requesting a ?psychiatrist, therapist, graduation coach, and doctor?, however, she adds ?I want nothing to do with mental health providers?. Current supports were discussed: pt has a daily LATCHER, as well as a diving coach Geena. CARE team also following pt. No other questions offered at this time. Will continue to follow up as needed and to determine appropriate interventions for pt.
[2025-07-06] MEDS: Milk of Magnesia 30 ML ORAL.SUSP PO (16:24)
[2025-07-07] VITALS (11 sets, daily range): BP systolic 107–141; BP diastolic 60–88; PULSE 78–91; RESP 16–20; TEMP 36.1–36.7; O2SAT 85–97
[2025-07-07] MEDS: Nicotine 21 MG PATCH.TD24 TRANSDERMA (07:40)
[2025-07-07] MEDS: 0.9 % Sodium Chloride Flush 3 ML SYRINGE IVFLUSH (07:43)
[2025-07-07] MEDS: Albuterol/Iprat 2.5/0.5MG 3 ML AMPUL.NEB INHALE ×3 (07:46→19:04)
[2025-07-07] MEDS: Milk of Magnesia 30 ML ORAL.SUSP PO (07:46)
[2025-07-07] MEDS: guaiFENesin DM 200/20/10 ML 10 ML SYRUP PO (10:52)
--- NOTE | 2025-07-07 14:21 | MHC.RECOVRN ---
Met with pt. in to offer support and education re MONET. Pt A&O and cooperative with T/W. Reviewed pt's ETOH hx and pt. reports to t/w that she drinks 2 beers every sunday . She then stated sometimes nips and when t/w asked how much or how often pt replied whenever someone gives them to me . She does acknowledge that she drinks an amount that is not good for her health and needs to cut down/stop. She reviewed the PEBBLES with me and is interested in Naltrexone. Report to Kelly Burt NP for recommendations. T/W available PRN.
--- NOTE | 2025-07-07 14:35 | HO.PM.IMPN ---
Subjective Subjective Date of Service: 07/07/25 Interval History: copd execerebation Review of Systems sob with minimal excersion has cough no fevers Physical Exam Exam: Exam: Appearance: Alert.? Oriented X3.? cvs: rrr, [id number] , no murmur res: aair entry diminshed ,has b/l wheezing abd: no rebound or guarding ,nt, bs present. ext pulses present , no cyanosis . neuro: axo3 , nonfocal. Vital Signs: Vital Signs: Last Vital Signs Temp 97.0 F 07/07/25 11:47 Pulse 79 07/07/25 11:47 Resp 20 07/07/25 11:47 BP 118/73 07/07/25 11:47 Pulse Ox 97 07/07/25 11:47 O2 Del Method Nasal Cannula 07/07/25 11:47 O2 Flow Rate 4 07/07/25 11:47 FiO2 95 07/05/25 19:41 BMI result Body Mass Index 30.9 Objective Data Active Medications Acetaminophen (Acetaminophen 325 Mg Tablet) 650 mg PO Q6H PRN PRN Reason: Pain, Mild 1-3,fever,headache Last Admin: 07/07/25 03:04 Dose: 650 mg Documented By: SIXTO Albuterol/Ipratropium (Albuterol/Iprat 2.5/0.5mg 3 Ml Ampul.Neb) 3 ml INHALE RQ6H WHILE AWAKE [facility] Last Admin: 07/07/25 07:46 Dose: 3 ml Documented By: ALCON Albuterol/Ipratropium (Albuterol/Iprat 2.5/0.5mg 3 Ml Ampul.Neb) 3 ml INHALE RQ4H WHILE AWAKE PRN PRN Reason: shortness of breath/wheezing Atorvastatin Calcium (Atorvastatin Calcium 20 Mg Tablet) 20 mg PO DAILY [facility] Last Admin: 07/07/25 07:42 Dose: 20 mg Documented By: JAYY Calcium Carbonate (Calcium Carbonate 750 Mg Tab.Chew) 750 mg PO Q4H PRN PRN Reason: Heartburn Ceftriaxone Sodium (Ceftriaxone Sodium 1 Gm Vial) 1 gm IVPUSH Q24H [facility] Last Admin: 07/07/25 11:10 Dose: 1 gm Documented By: JAYY Enoxaparin Sodium (Enoxaparin Sodium 40 Mg/0.4 Ml Syringe) 40 mg SUBCUT Q24H [facility] Last Admin: 07/07/25 10:59 Dose: 40 mg Documented By: JAYY Folic Acid (Folic Acid 1 Mg Tablet) 1 mg PO DAILY [facility] Last Admin: 07/07/25 07:42 Dose: 1 mg Documented By: JAYY Gabapentin (Gabapentin 300 Mg Capsule) 600 mg PO TID [facility] Last Admin: 07/07/25 07:43 Dose: 600 mg Documented By: JAYY Guaifenesin/Dextromethorphan (Guaifenesin Dm 200/20/10 Ml 10 Ml Syrup) 10 ml PO Q6H PRN PRN Reason: Cough Last Admin: 07/07/25 10:52 Dose: 10 ml Documented By: JAYY Hydroxyzine HCl (Hydroxyzine Hcl 50 Mg Tablet) 50 mg PO Q6H PRN PRN Reason: Agitation Last Admin: 07/07/25 10:52 Dose: 50 mg Documented By: JAYY Levothyroxine Sodium (Levothyroxine Sodium 25 Mcg Tablet) 37.5 mcg PO DAILY@0600 [facility] Magnesium Hydroxide (Milk Of Magnesia 30 Ml Oral.Susp) 30 ml PO DAILY PRN PRN Reason: Constipation Last Admin: 07/07/25 07:46 Dose: 30 ml Documented By: JAYY Melatonin (Melatonin 3 Mg Tablet) 6 mg PO BEDTIME PRN PRN Reason: Insomnia Nicotine (Nicotine 21 Mg Patch.Td24) 21 mg TRANSDERMA DAILY [facility] Last Admin: 07/07/25 07:40 Dose: 21 mg Documented By: JAYY Nystatin (Nystatin Powder 15 Gm Bottle) 1 appl TOPICAL BID [facility]; Protocol Last Admin: 07/07/25 07:55 Dose: 1 appl Documented By: JAYY Prazosin HCl (Prazosin Hcl 1 Mg Capsule) 3 mg PO BEDTIME [facility]; Protocol Last Admin: 07/06/25 20:15 Dose: 3 mg Documented By: SIXTO Prednisone (Prednisone 20 Mg Tablet) 40 mg PO DAILY [facility] Last Admin: 07/07/25 07:43 Dose: 40 mg Documented By: JAYY Risperidone (Risperidone 1 Mg Tablet) 1 mg PO BID [facility] Last Admin: 07/07/25 07:43 Dose: 1 mg Documented By: JAYY Senna/Docusate Sodium (Sennosides/Docusate Sodium Tablet) 1 tab PO BEDTIME [facility] Last Admin: 07/06/25 20:17 Dose: 1 tab Documented By: SIXTO Sertraline HCl (Sertraline Hcl 100 Mg Tablet) 200 mg PO DAILY [facility] Last Admin: 07/07/25 07:43 Dose: 200 mg Documented By: JAYY Sodium Chloride (0.9 % Sodium Chloride Flush 3 Ml Syringe) 3 ml IVFLUSH QSHIFT [facility] Last Admin: 07/07/25 07:43 Dose: 3 ml Documented By: JAYY Thiamine HCl (Thiamine Hcl 100 Mg Tablet) 100 mg PO DAILY [facility] Last Admin: 07/07/25 07:42 Dose: 100 mg Documented By: JAYY Tolterodine Tartrate (Tolterodine Tartrate La 4 Mg Cap.Er.24h) 4 mg PO DAILY [facility] Last Admin: 07/07/25 07:42 Dose: 4 mg Documented By: JAYY Labs 07/06/25 06:39 07/06/25 06:39 Microbiology Microbiology Results: Microbiology 07/05/25 10:54 Blood Culture - Preliminary Blood - Venous No growth after 48 hours. 07/05/25 10:35 Blood Culture - Preliminary Blood - Venous No growth after 48 hours. Assessment and Plan (1) UTI (urinary tract infection): Status: Acute (2) COPD (chronic obstructive pulmonary disease): Status: Acute Plan 64-year-old female with history of depression, COPD, alcohol use disorder, tobacco dependence, thyroid cancer who presents to the emergency department with depression with suicidal ideation found to be hypoxic and diagnosed to have pneumonia Acute respiratory failure with hypoxia Due to pneumonia and COPD exacerbation Wean supplemental oxygen as Pneumonia No sepsis Lactic acid pending but does not meet SIRS criteria Ceftriaxone, doxycycline Follow blood cultures Acute COPD exacerbation, mild In the setting of pneumonia, active tobacco and crack cocaine Oral prednisone Scheduled and as needed breathing treatments UTI urine culture growing GNR Previous urine culture grew Klebsiella sensitive to ceftriaxone Continue IV ceftriaxone Follow final urine culture result Alcohol use disorder Scoring 6 on [facility] at this, primarily due to episode of dry heaving Does not appear to be withdrawing at this hold off on starting phenobarb protocol for now Monitor closely on [facility] addiction medicine consult Hypothyroidism following thyroidectomy Continue Synthroid Check TSH (72 in january) Thrombocytopenia Likely due to bone marrow suppression from chronic alcohol Mood as per staff still has SI Continue baseline medication will need care team evaluation when medically cleared to assess need for inpatient psych Tobacco use disorder Smoking cessation advised NRT HLD Continue statin DVT prophylaxis-Lovenox Code status-full ongoing need for stay in the hospital for treatment of pneumonia, COPD and alcohol withdrawal requiring IV antibiotics and close monitorin,taper oxygen Quality Stroke Does the patient have a stroke diagnosis?: No VTE Prior VTE?: No VTE Risk Level:: Medical - moderate - high VTE Device Contraindication: N/A - Device Ordered VTE Drug Contraindication: N/A - Med Ordered
[2025-07-08] VITALS (9 sets, daily range): BP systolic 99–127; BP diastolic 61–82; PULSE 76–92; RESP 16–20; TEMP 36–36.5; O2SAT 88–94
[2025-07-08] MEDS: 0.9 % Sodium Chloride Flush 3 ML SYRINGE IVFLUSH ×4 (00:13→20:45)
[2025-07-08] MEDS: Albuterol/Iprat 2.5/0.5MG 3 ML AMPUL.NEB INHALE ×3 (07:36→19:17)
[2025-07-08] MEDS: Nicotine 21 MG PATCH.TD24 TRANSDERMA (08:22)
[2025-07-08] MEDS: Milk of Magnesia 30 ML ORAL.SUSP PO (08:31)
--- NOTE | 2025-07-08 10:13 | MHC.CM.PN ---
Per ROUNDS discussion, Patient is not yet medically cleared for dc (IV Lasix); Patient may benefit from a Care Team Consult to assist with disposition (? IPLOC).CM will continue to follow.
--- NOTE | 2025-07-08 10:20 | HO.ADDICT_ITS ---
History of Present Illness Date of Service: 07/08/2025 Chief Complaint: ETOH withdrawal, pneumonia Reason for Consult: AUD Sources of Information: patient interviewed and chart reviewed HPI Narrative: Patient is a 64 year old female who presented to [facility] reporting worsening depression and suicidal ideation. While in ED she developed hypoxia, requiring NC and found to have pneumonia, so she was medically admitted. Consult requested as patient reported increase in drinking recently. Chart reviewed, patient seen by mill set up, and history reviewed with patient. She is awake, alert, pleasant and engaged in interview. She reported wanting to start PEBBLES, and actually had medication information sheet on her bedside table reviewing. Reviewed dosing, goals of treatment and possible side effects from medication. She denied any questions. She stated that in the past she has taken a white pill and found it effective in managing her drinking. She reports periods of abstinence, including 6 years --unclear when this was. 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 She has been scoring 1 on CIWA since admission and has not required phenobarbital. She denies experiencing any withdrawal sx. 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 [place]: Hanging attempt Age 20 threw herself in front of a tractor In her 30's attempted to jump from a bridge Medical Evaluation Reviewed: Yes Review of Systems Constitutional: Reports as per HPI Diagnostics Vital Signs (24Hr): Vital Signs - 24 hr 07/07/25 11:47 07/07/25 14:43 07/07/25 16:00 Temperature 97.0 F 97.7 F Pulse Rate 79 86 91 Respiratory Rate 20 16 20 Blood Pressure 118/73 112/70 Pulse Oximetry 97 93 Oxygen Delivery Method Nasal Cannula Nasal Cannula Oxygen Flow Rate 4 2 07/07/25 19:04 07/07/25 20:00 07/07/25 22:24 Temperature 98.0 F Pulse Rate 84 81 Respiratory Rate 20 16 Blood Pressure 107/63 141/88 H Pulse Oximetry 91 L Oxygen Delivery Method Nasal Cannula Oxygen Flow Rate 2 07/07/25 23:45 07/08/25 03:42 07/08/25 07:39 Temperature 97.6 F 97.0 F Pulse Rate 84 77 79 Respiratory Rate 16 16 16 Blood Pressure 126/82 99/61 Pulse Oximetry 91 L 90 L Oxygen Delivery Method Nasal Cannula Nasal Cannula Oxygen Flow Rate 1 1 07/08/25 07:47 Temperature 97.1 F Pulse Rate 76 Respiratory Rate 20 Blood Pressure 125/82 Pulse Oximetry 91 L Oxygen Delivery Method Nasal Cannula Oxygen Flow Rate 2 BMI result Body Mass Index 30.9 Labs 07/06/25 06:39 07/06/25 06:39 Mental Status Exam Mental Status Exam Patient Appearance: Appropriate Level of Consciousness: Awake and Alert Patient Behavior: Appropriate, Talkative and Cooperative Affect Description: Calm Speech Pattern: Clear Thought Process: Intact Thought Content: positive for Intact and positive for [place] Judgement: Good Medications Medications Current Medications Acetaminophen (Acetaminophen 325 Mg Tablet) 650 mg PO Q6H PRN PRN Reason: Pain, Mild 1-3,fever,headache Last Admin: 07/07/25 03:04 Dose: 650 mg Albuterol/Ipratropium (Albuterol/Iprat 2.5/0.5mg 3 Ml Ampul.Neb) 3 ml INHALE RQ6H WHILE AWAKE [facility] Last Admin: 07/08/25 07:36 Dose: 3 ml Albuterol/Ipratropium (Albuterol/Iprat 2.5/0.5mg 3 Ml Ampul.Neb) 3 ml INHALE RQ4H WHILE AWAKE PRN PRN Reason: shortness of breath/wheezing Atorvastatin Calcium (Atorvastatin Calcium 20 Mg Tablet) 20 mg PO DAILY [facility] Last Admin: 07/08/25 08:23 Dose: 20 mg Calcium Carbonate (Calcium Carbonate 750 Mg Tab.Chew) 750 mg PO Q4H PRN PRN Reason: Heartburn Ceftriaxone Sodium (Ceftriaxone Sodium 1 Gm Vial) 1 gm IVPUSH Q24H [facility] Last Admin: 07/07/25 11:10 Dose: 1 gm Enoxaparin Sodium (Enoxaparin Sodium 40 Mg/0.4 Ml Syringe) 40 mg SUBCUT Q24H [facility] Last Admin: 07/07/25 10:59 Dose: 40 mg Folic Acid (Folic Acid 1 Mg Tablet) 1 mg PO DAILY [facility] Last Admin: 07/08/25 08:23 Dose: 1 mg Gabapentin (Gabapentin 300 Mg Capsule) 600 mg PO TID [facility] Last Admin: 07/08/25 08:23 Dose: 600 mg Guaifenesin/Dextromethorphan (Guaifenesin Dm 200/20/10 Ml 10 Ml Syrup) 10 ml PO Q6H PRN PRN Reason: Cough Last Admin: 07/07/25 10:52 Dose: 10 ml Hydroxyzine HCl (Hydroxyzine Hcl 50 Mg Tablet) 50 mg PO Q6H PRN PRN Reason: Agitation Last Admin: 07/07/25 22:21 Dose: 50 mg Levothyroxine Sodium (Levothyroxine Sodium 25 Mcg Tablet) 37.5 mcg PO DAILY@0600 [facility] Last Admin: 07/08/25 06:13 Dose: 37.5 mcg Magnesium Hydroxide (Milk Of Magnesia 30 Ml Oral.Susp) 30 ml PO DAILY PRN PRN Reason: Constipation Last Admin: 07/08/25 08:31 Dose: 30 ml Melatonin (Melatonin 3 Mg Tablet) 6 mg PO BEDTIME PRN PRN Reason: Insomnia Last Admin: 07/07/25 22:24 Dose: 6 mg Naltrexone HCl (Naltrexone Hcl 50 Mg Tablet) 25 mg PO DAILY [facility] Stop: 07/10/25 09:01 Naltrexone HCl (Naltrexone Hcl 50 Mg Tablet) 50 mg PO DAILY [facility] Nicotine (Nicotine 21 Mg Patch.Td24) 21 mg TRANSDERMA DAILY [facility] Last Admin: 07/08/25 08:22 Dose: 21 mg Nystatin (Nystatin Powder 15 Gm Bottle) 1 appl TOPICAL BID [facility]; Protocol Last Admin: 07/08/25 08:31 Dose: 1 appl Prazosin HCl (Prazosin Hcl 1 Mg Capsule) 3 mg PO BEDTIME [facility]; Protocol Last Admin: 07/07/25 22:24 Dose: 3 mg Prednisone (Prednisone 20 Mg Tablet) 40 mg PO DAILY [facility] Last Admin: 07/08/25 08:23 Dose: 40 mg Risperidone (Risperidone 1 Mg Tablet) 1 mg PO BID [facility] Last Admin: 07/08/25 08:23 Dose: 1 mg Senna/Docusate Sodium (Sennosides/Docusate Sodium Tablet) 1 tab PO BEDTIME [facility] Last Admin: 07/07/25 22:22 Dose: 1 tab Sertraline HCl (Sertraline Hcl 100 Mg Tablet) 200 mg PO DAILY [facility] Last Admin: 07/08/25 08:23 Dose: 200 mg Sodium Chloride (0.9 % Sodium Chloride Flush 3 Ml Syringe) 3 ml IVFLUSH QSHIFT [facility] Last Admin: 07/08/25 08:24 Dose: 3 ml Thiamine HCl (Thiamine Hcl 100 Mg Tablet) 100 mg PO DAILY [facility] Last Admin: 07/08/25 08:23 Dose: 100 mg Tolterodine Tartrate (Tolterodine Tartrate La 4 Mg Cap.Er.24h) 4 mg PO DAILY [facility] Last Admin: 07/08/25 08:23 Dose: 4 mg Allergies Allergies Allergy/AdvReac Type Severity Reaction Status Date / Time ibuprofen Allergy Intermediate Unknown Verified 07/04/25 02:36 ragweed pollen Allergy Sneezing Verified 07/05/25 17:34 Assessment & Plan Assessment & Plan (1) Alcohol use disorder, moderate, dependence: Status: Acute Code(s): F10.20 - Alcohol dependence, uncomplicated Assessment and Plan: * naltrexone 25mg x doses, then increase to 50mg QD * mill set up to follow up and ensure connection to provider for continuation of treatment * continue thiamine and folic acid PO Total time managing care of this patient today __25__ minutes. PMFSH Past Medical History Medical History (Updated 07/08/25 @ 10:20 by Kelly Burt CNP) Thyroid cancer HLD (hyperlipidemia) Alcohol abuse Bipolar disorder current episode depressed Anxiety and depression Social History Social History Household Members: None Housing: Apartment Do you presently have visiting nurse or other home services: Yes ([employer]) Alcohol intake: current Alcohol intake frequency: 0-2 drinks per day Alcohol type: hard liquor Comment: sitter in the room Patient Tobacco Use Status: Current everyday Tobacco user Tobacco use type: Cigarette Cigarettes Per Day: 1 Years Smoked: 54 Second Hand Smoke Exposure: Yes Substance Use Type: Crack/Cocaine service: No Sexual orientation: Straight/Heterosexual
--- NOTE | 2025-07-08 10:43 | HO.PM.IMPN ---
Subjective Subjective Date of Service: 07/08/25 Interval History: sob Physical Exam Exam: Exam: General: AO X 3, no acute distress Resp: wheezing bilateral, no accessory muscles used CVS: S1,S2,RRR GI: soft, non tender, non distended Neuro: motor grossly intact, alert Vital Signs: Vital Signs: Last Vital Signs Temp 97.1 F 07/08/25 07:47 Pulse 76 07/08/25 07:47 Resp 20 07/08/25 07:47 BP 125/82 07/08/25 07:47 Pulse Ox 91 L 07/08/25 07:47 O2 Del Method Nasal Cannula 07/08/25 07:47 O2 Flow Rate 2 07/08/25 07:47 FiO2 95 07/05/25 19:41 BMI result Body Mass Index 30.9 Objective Data Active Medications Acetaminophen (Acetaminophen 325 Mg Tablet) 650 mg PO Q6H PRN PRN Reason: Pain, Mild 1-3,fever,headache Last Admin: 07/07/25 03:04 Dose: 650 mg Documented By: SIXTO Albuterol/Ipratropium (Albuterol/Iprat 2.5/0.5mg 3 Ml Ampul.Neb) 3 ml INHALE RQ6H WHILE AWAKE [facility] Last Admin: 07/08/25 07:36 Dose: 3 ml Documented By: TONNY Albuterol/Ipratropium (Albuterol/Iprat 2.5/0.5mg 3 Ml Ampul.Neb) 3 ml INHALE RQ4H WHILE AWAKE PRN PRN Reason: shortness of breath/wheezing Atorvastatin Calcium (Atorvastatin Calcium 20 Mg Tablet) 20 mg PO DAILY [facility] Last Admin: 07/08/25 08:23 Dose: 20 mg Documented By: ROCIO Calcium Carbonate (Calcium Carbonate 750 Mg Tab.Chew) 750 mg PO Q4H PRN PRN Reason: Heartburn Ceftriaxone Sodium (Ceftriaxone Sodium 1 Gm Vial) 1 gm IVPUSH Q24H [facility] Last Admin: 07/08/25 10:33 Dose: 1 gm Documented By: ROCIO Enoxaparin Sodium (Enoxaparin Sodium 40 Mg/0.4 Ml Syringe) 40 mg SUBCUT Q24H [facility] Last Admin: 07/08/25 10:33 Dose: 40 mg Documented By: ROCIO Folic Acid (Folic Acid 1 Mg Tablet) 1 mg PO DAILY [facility] Last Admin: 07/08/25 08:23 Dose: 1 mg Documented By: ROCIO Gabapentin (Gabapentin 300 Mg Capsule) 600 mg PO TID [facility] Last Admin: 07/08/25 08:23 Dose: 600 mg Documented By: ROCIO Guaifenesin/Dextromethorphan (Guaifenesin Dm 200/20/10 Ml 10 Ml Syrup) 10 ml PO Q6H PRN PRN Reason: Cough Last Admin: 07/07/25 10:52 Dose: 10 ml Documented By: ANDRÉSPAElo Hydroxyzine HCl (Hydroxyzine Hcl 50 Mg Tablet) 50 mg PO Q6H PRN PRN Reason: Agitation Last Admin: 07/07/25 22:21 Dose: 50 mg Documented By: BRYON Levothyroxine Sodium (Levothyroxine Sodium 25 Mcg Tablet) 37.5 mcg PO DAILY@0600 [facility] Last Admin: 07/08/25 06:13 Dose: 37.5 mcg Documented By: ANTOIC Magnesium Hydroxide (Milk Of Magnesia 30 Ml Oral.Susp) 30 ml PO DAILY PRN PRN Reason: Constipation Last Admin: 07/08/25 08:31 Dose: 30 ml Documented By: ROCIO Melatonin (Melatonin 3 Mg Tablet) 6 mg PO BEDTIME PRN PRN Reason: Insomnia Last Admin: 07/07/25 22:24 Dose: 6 mg Documented By: BRYON Naltrexone HCl (Naltrexone Hcl 50 Mg Tablet) 25 mg PO DAILY [facility] Stop: 07/10/25 09:01 Naltrexone HCl (Naltrexone Hcl 50 Mg Tablet) 50 mg PO DAILY [facility] Nicotine (Nicotine 21 Mg Patch.Td24) 21 mg TRANSDERMA DAILY [facility] Last Admin: 07/08/25 08:22 Dose: 21 mg Documented By: ROCIO Nystatin (Nystatin Powder 15 Gm Bottle) 1 appl TOPICAL BID [facility]; Protocol Last Admin: 07/08/25 08:31 Dose: 1 appl Documented By: ROCIO Prazosin HCl (Prazosin Hcl 1 Mg Capsule) 3 mg PO BEDTIME [facility]; Protocol Last Admin: 07/07/25 22:24 Dose: 3 mg Documented By: BRYON Prednisone (Prednisone 20 Mg Tablet) 40 mg PO DAILY [facility] Last Admin: 07/08/25 08:23 Dose: 40 mg Documented By: ROCIO Risperidone (Risperidone 1 Mg Tablet) 1 mg PO BID [facility] Last Admin: 07/08/25 08:23 Dose: 1 mg Documented By: ROCIO Senna/Docusate Sodium (Sennosides/Docusate Sodium Tablet) 1 tab PO BEDTIME [facility] Last Admin: 07/07/25 22:22 Dose: 1 tab Documented By: ALTRNelly Sertraline HCl (Sertraline Hcl 100 Mg Tablet) 200 mg PO DAILY [facility] Last Admin: 07/08/25 08:23 Dose: 200 mg Documented By: ROCIO Sodium Chloride (0.9 % Sodium Chloride Flush 3 Ml Syringe) 3 ml IVFLUSH QSHIFT [facility] Last Admin: 07/08/25 08:24 Dose: 3 ml Documented By: ROCIO Thiamine HCl (Thiamine Hcl 100 Mg Tablet) 100 mg PO DAILY [facility] Last Admin: 07/08/25 08:23 Dose: 100 mg Documented By: ROCIO Tolterodine Tartrate (Tolterodine Tartrate La 4 Mg Cap.Er.24h) 4 mg PO DAILY [facility] Last Admin: 07/08/25 08:23 Dose: 4 mg Documented By: ROCIO Labs 07/06/25 06:39 07/06/25 06:39 Microbiology Microbiology Results: Microbiology 07/05/25 10:54 Blood Culture - Preliminary Blood - Venous No growth after 48 hours. 07/05/25 10:35 Blood Culture - Preliminary Blood - Venous No growth after 48 hours. Assessment and Plan (1) Anxiety and depression: Status: Acute Plan 64F PMH alcohol dependence, COPD, hypothyroid, mood disorder presented with hallucinations and shortness of breath Acute hypoxic respiratory failure secondary to COPD with acute decompensation and pneumonia Continue prednisone, DuoNebs, ceftriaxone, doxy, wean O2 as tolerated Urinary tract infection Klebsiella, continue ceftriaxone Alcohol dependence with withdrawal and hallucinations Phenobarb CIWA Hypothyroid with elevated TSH and low T4 Increased levothyroxine dose from 25 mcg to 37.5 mcg, recheck TSH in 4 weeks Chronic thrombocytopenia Due to alcohol Mood disorder With suicide ideation One-to-one sitter, care team prior to discharge Hyperlipidemia Statin DVT prophylaxis with Lovenox Full Code reason for continued hospitalization: Hypoxic Quality Stroke Does the patient have a stroke diagnosis?: No VTE Prior VTE?: No VTE Risk Level:: Medical - moderate - high VTE Device Contraindication: N/A - Device Ordered VTE Drug Contraindication: N/A - Med Ordered
[2025-07-09] VITALS (8 sets, daily range): BP systolic 98–139; BP diastolic 60–77; PULSE 60–86; RESP 16–20; TEMP 36.1–36.6; O2SAT 91–97
[2025-07-09] MEDS: Albuterol/Iprat 2.5/0.5MG 3 ML AMPUL.NEB INHALE ×3 (07:19→19:19)
[2025-07-09 07:40] LABS: Hematocrit 38.3 % (37.0-47.0); Hemoglobin 12.2 g/dl (12.0-16.0); Mean Corpuscular HGB Conc 31.9 g/dl (31.0-35.0); Mean Corpuscular Hemoglobin 30.2 pg (27.0-33.0); Mean Corpuscular Volume 94.8 fL (80.0-98.0); NRBC Abs Auto 0.000 X10*3/uL (0.0-0.012); NRBC Pct Auto 0.0 /100WBC (0.0-0.2); Platelet Count 145 X10*3/uL (160-400); Red Blood Count 4.04 X10*6/uL (4.20-5.50); White Blood Count 8.3 X10*3/uL (4.8-10.8)
[2025-07-09 07:58] LABS: Anion Gap 11 (12-20); Blood Urea Nitrogen 14 mg/dL (9-16); Calcium 9.0 mg/dL (8.4-10.2); Carbon Dioxide 32 mmol/L (22-29); Chloride 99 mmol/L (96-108); Creatinine Clr Calc Pharmacy 73.6; Estimated Glomerular Filt Rate > 60; Magnesium 2.2 mg/dL (1.6-2.6); Potassium 4.3 mmol/L (3.3-5.1); Sodium 138 mmol/L (135-145)
[2025-07-09] MEDS: Nicotine 21 MG PATCH.TD24 TRANSDERMA (09:24)
[2025-07-09] MEDS: guaiFENesin DM 200/20/10 ML 10 ML SYRUP PO (09:24)
[2025-07-09] MEDS: 0.9 % Sodium Chloride Flush 3 ML SYRINGE IVFLUSH ×3 (09:25→20:42)
--- NOTE | 2025-07-09 10:42 | HO.PM.IMPN ---
Subjective Subjective Date of Service: 07/09/25 Interval History: still sob, productive cough Physical Exam Exam: Exam: General: AO X 3, no acute distress Resp: wheezing bilateral, no accessory muscles used CVS: S1,S2,RRR GI: soft, non tender, non distended Neuro: motor grossly intact, alert Vital Signs: Vital Signs: Last Vital Signs Temp 97.8 F 07/09/25 07:37 Pulse 82 07/09/25 07:37 Resp 20 07/09/25 07:37 BP 139/77 07/09/25 07:37 Pulse Ox 96 07/09/25 07:37 O2 Del Method Nasal Cannula 07/09/25 07:37 O2 Flow Rate 4 07/09/25 07:37 FiO2 95 07/05/25 19:41 BMI result Body Mass Index 30.9 Objective Data Active Medications Acetaminophen (Acetaminophen 325 Mg Tablet) 650 mg PO Q6H PRN PRN Reason: Pain, Mild 1-3,fever,headache Last Admin: 07/09/25 05:13 Dose: 650 mg Documented By: IMAN Albuterol/Ipratropium (Albuterol/Iprat 2.5/0.5mg 3 Ml Ampul.Neb) 3 ml INHALE RQ6H WHILE AWAKE [facility] Last Admin: 07/09/25 07:19 Dose: 3 ml Documented By: TRENTON Albuterol/Ipratropium (Albuterol/Iprat 2.5/0.5mg 3 Ml Ampul.Neb) 3 ml INHALE RQ4H WHILE AWAKE PRN PRN Reason: shortness of breath/wheezing Atorvastatin Calcium (Atorvastatin Calcium 20 Mg Tablet) 20 mg PO DAILY [facility] Last Admin: 07/09/25 09:25 Dose: 20 mg Documented By: SOPHIE Calcium Carbonate (Calcium Carbonate 750 Mg Tab.Chew) 750 mg PO Q4H PRN PRN Reason: Heartburn Last Admin: 07/09/25 02:57 Dose: 750 mg Documented By: IMAN Ceftriaxone Sodium (Ceftriaxone Sodium 1 Gm Vial) 1 gm IVPUSH Q24H [facility] Last Admin: 07/09/25 09:24 Dose: 1 gm Documented By: SOPHIE Enoxaparin Sodium (Enoxaparin Sodium 40 Mg/0.4 Ml Syringe) 40 mg SUBCUT Q24H [facility] Last Admin: 07/09/25 09:24 Dose: 40 mg Documented By: SOPHIE Folic Acid (Folic Acid 1 Mg Tablet) 1 mg PO DAILY [facility] Last Admin: 07/09/25 09:25 Dose: 1 mg Documented By: SOPHIE Gabapentin (Gabapentin 300 Mg Capsule) 600 mg PO TID [facility] Last Admin: 07/09/25 09:25 Dose: 600 mg Documented By: SOPHIE Guaifenesin/Dextromethorphan (Guaifenesin Dm 200/20/10 Ml 10 Ml Syrup) 10 ml PO Q6H PRN PRN Reason: Cough Last Admin: 07/09/25 09:24 Dose: 10 ml Documented By: SOPHIE Hydroxyzine HCl (Hydroxyzine Hcl 50 Mg Tablet) 50 mg PO Q6H PRN PRN Reason: Agitation Last Admin: 07/09/25 02:57 Dose: 50 mg Documented By: IMAN Levothyroxine Sodium (Levothyroxine Sodium 25 Mcg Tablet) 37.5 mcg PO DAILY@0600 [facility] Last Admin: 07/09/25 05:10 Dose: 37.5 mcg Documented By: IMAN Magnesium Hydroxide (Milk Of Magnesia 30 Ml Oral.Susp) 30 ml PO DAILY PRN PRN Reason: Constipation Last Admin: 07/08/25 08:31 Dose: 30 ml Documented By: ROCIO Melatonin (Melatonin 3 Mg Tablet) 6 mg PO BEDTIME PRN PRN Reason: Insomnia Last Admin: 07/08/25 20:43 Dose: 6 mg Documented By: IMAN Naltrexone HCl (Naltrexone Hcl 50 Mg Tablet) 25 mg PO DAILY [facility] Stop: 07/10/25 09:01 Last Admin: 07/09/25 09:24 Dose: 25 mg Documented By: SOPHIE Naltrexone HCl (Naltrexone Hcl 50 Mg Tablet) 50 mg PO DAILY [facility] Nicotine (Nicotine 21 Mg Patch.Td24) 21 mg TRANSDERMA DAILY [facility] Last Admin: 07/09/25 09:24 Dose: 21 mg Documented By: SOPHIE Nystatin (Nystatin Powder 15 Gm Bottle) 1 appl TOPICAL BID [facility]; Protocol Last Admin: 07/09/25 09:25 Dose: 1 appl Documented By: SOPHIE Prazosin HCl (Prazosin Hcl 1 Mg Capsule) 3 mg PO BEDTIME [facility]; Protocol Last Admin: 07/08/25 20:42 Dose: 3 mg Documented By: IMAN Prednisone (Prednisone 20 Mg Tablet) 40 mg PO DAILY [facility] Last Admin: 07/09/25 09:25 Dose: 40 mg Documented By: SOPHIE Risperidone (Risperidone 1 Mg Tablet) 1 mg PO BID [facility] Last Admin: 07/09/25 09:25 Dose: 1 mg Documented By: SOPHIE Senna/Docusate Sodium (Sennosides/Docusate Sodium Tablet) 1 tab PO BEDTIME [facility] Last Admin: 07/08/25 20:42 Dose: 1 tab Documented By: IMAN Sertraline HCl (Sertraline Hcl 100 Mg Tablet) 200 mg PO DAILY [facility] Last Admin: 07/09/25 09:25 Dose: 200 mg Documented By: SOPHIE Sodium Chloride (0.9 % Sodium Chloride Flush 3 Ml Syringe) 3 ml IVFLUSH QSHIFT [facility] Last Admin: 07/09/25 09:25 Dose: 3 ml Documented By: SOPHIE Thiamine HCl (Thiamine Hcl 100 Mg Tablet) 100 mg PO DAILY [facility] Last Admin: 07/09/25 09:25 Dose: 100 mg Documented By: SOPHIE Tolterodine Tartrate (Tolterodine Tartrate La 4 Mg Cap.Er.24h) 4 mg PO DAILY [facility] Last Admin: 07/09/25 09:25 Dose: 4 mg Documented By: SOPHIE Labs 07/09/25 07:04 07/09/25 07:04 Labs: Laboratory Results - last 24 hr 07/09/25 07:04 MCV 94.8 MCH 30.2 MCHC 31.9 RDW 14.6 Plt Count 145 L MPV 9.4 Absolute Nucleated RBC 0.000 Nucleated RBC % (auto) 0.0 Anion Gap 11 L Estim Creat Clear Calc 73.6 Estimated GFR > 60 Random Glucose 86 Calcium 9.0 Magnesium 2.2 Assessment and Plan (1) Anxiety and depression: Status: Acute Plan 64F PMH alcohol dependence, COPD, hypothyroid, mood disorder presented with hallucinations and shortness of breath Acute hypoxic respiratory failure secondary to COPD with acute decompensation and pneumonia Continue prednisone, DuoNebs, ceftriaxone, doxy, wean O2 as tolerated Urinary tract infection Klebsiella, continue ceftriaxone Alcohol dependence with withdrawal and hallucinations Phenobarb CIWA Hypothyroid with elevated TSH and low T4 Increased levothyroxine dose from 25 mcg to 37.5 mcg, recheck TSH in 4 weeks Chronic thrombocytopenia Due to alcohol Mood disorder With suicide ideation One-to-one sitter, care team prior to discharge Hyperlipidemia Statin DVT prophylaxis with Lovenox Full Code reason for continued hospitalization: Hypoxic Quality Stroke Does the patient have a stroke diagnosis?: No VTE Prior VTE?: No VTE Risk Level:: Medical - moderate - high VTE Device Contraindication: N/A - Device Ordered VTE Drug Contraindication: N/A - Med Ordered
[2025-07-09] MEDS: Milk of Magnesia 30 ML ORAL.SUSP PO (14:31)
--- NOTE | 2025-07-09 18:21 | MHC.RECOVRN ---
TW spoke w/ provider Jesin via tiger text and requested Naltrexone be ordered upon discharge. Provider agreed. Appt made at [facility] for intake appt and warm handoff provided to [facility] RN Dina
[2025-07-10] VITALS (11 sets, daily range): BP systolic 82–122; BP diastolic 50–68; PULSE 52–90; RESP 15–20; TEMP 36.1–36.6; O2SAT 90–97
[2025-07-10] MEDS: guaiFENesin DM 200/20/10 ML 10 ML SYRUP PO ×2 (02:58→21:09)
[2025-07-10 06:11] LABS: Hematocrit 39.2 % (37.0-47.0); Hemoglobin 13.3 g/dl (12.0-16.0); Mean Corpuscular HGB Conc 33.9 g/dl (31.0-35.0); Mean Corpuscular Hemoglobin 31.5 pg (27.0-33.0); Mean Corpuscular Volume 92.9 fL (80.0-98.0); NRBC Abs Auto 0.000 X10*3/uL (0.0-0.012); NRBC Pct Auto 0.0 /100WBC (0.0-0.2); Platelet Count 148 X10*3/uL (160-400); Red Blood Count 4.22 X10*6/uL (4.20-5.50); Venous Blood Gas Refer to POC result; White Blood Count 8.6 X10*3/uL (4.8-10.8)
[2025-07-10 06:15] LABS: VBG HCO3 35 mmol/L (22-26); VBG O2 % Saturation 91.0 %
[2025-07-10 06:27] LABS: Anion Gap 13 (12-20); Blood Urea Nitrogen 13 mg/dL (9-16); Calcium 8.5 mg/dL (8.4-10.2); Carbon Dioxide 30 mmol/L (22-29); Chloride 101 mmol/L (96-108); Creatinine Clr Calc Pharmacy 75.2; Estimated Glomerular Filt Rate > 60; Potassium 4.4 mmol/L (3.3-5.1); Sodium 140 mmol/L (135-145)
[2025-07-10] MEDS: Albuterol/Iprat 2.5/0.5MG 3 ML AMPUL.NEB INHALE ×3 (07:24→19:01)
[2025-07-10] MEDS: 0.9 % Sodium Chloride Flush 3 ML SYRINGE IVFLUSH ×3 (08:08→21:04)
--- NOTE | 2025-07-10 08:42 | HO.PM.IMPN ---
Subjective Subjective Date of Service: 07/10/25 Interval History: asymptoamtic hyoptension sob improved Physical Exam Exam: Exam: General: AO X 3, no acute distress Resp: CTA bilateral, no accessory muscles used CVS: S1,S2,RRR GI: soft, non tender, non distended Neuro: motor grossly intact, alert Vital Signs: Vital Signs: Last Vital Signs Temp 97.5 F 07/10/25 07:41 Pulse 90 07/10/25 07:41 Resp 20 07/10/25 07:41 BP 82/50 L 07/10/25 07:41 Pulse Ox 92 07/10/25 07:41 O2 Del Method Room Air 07/10/25 07:41 O2 Flow Rate 4 07/10/25 03:18 FiO2 95 07/05/25 19:41 BMI result Body Mass Index 30.9 Objective Data Active Medications Acetaminophen (Acetaminophen 325 Mg Tablet) 650 mg PO Q6H PRN PRN Reason: Pain, Mild 1-3,fever,headache Last Admin: 07/09/25 14:29 Dose: 650 mg Documented By: SOPHIE Albuterol/Ipratropium (Albuterol/Iprat 2.5/0.5mg 3 Ml Ampul.Neb) 3 ml INHALE RQ6H WHILE AWAKE [facility] Last Admin: 07/10/25 07:24 Dose: 3 ml Documented By: TRENTON Albuterol/Ipratropium (Albuterol/Iprat 2.5/0.5mg 3 Ml Ampul.Neb) 3 ml INHALE RQ4H WHILE AWAKE PRN PRN Reason: shortness of breath/wheezing Atorvastatin Calcium (Atorvastatin Calcium 20 Mg Tablet) 20 mg PO DAILY [facility] Last Admin: 07/09/25 09:25 Dose: 20 mg Documented By: SOPHIE Calcium Carbonate (Calcium Carbonate 750 Mg Tab.Chew) 750 mg PO Q4H PRN PRN Reason: Heartburn Last Admin: 07/09/25 02:57 Dose: 750 mg Documented By: IMAN Ceftriaxone Sodium (Ceftriaxone Sodium 1 Gm Vial) 1 gm IVPUSH Q24H [facility] Last Admin: 07/09/25 09:24 Dose: 1 gm Documented By: SOPHIE Enoxaparin Sodium (Enoxaparin Sodium 40 Mg/0.4 Ml Syringe) 40 mg SUBCUT Q24H [facility] Last Admin: 07/09/25 09:24 Dose: 40 mg Documented By: SOPHIE Folic Acid (Folic Acid 1 Mg Tablet) 1 mg PO DAILY [facility] Last Admin: 07/09/25 09:25 Dose: 1 mg Documented By: SOPHIE Gabapentin (Gabapentin 300 Mg Capsule) 600 mg PO TID [facility] Last Admin: 07/09/25 20:40 Dose: 600 mg Documented By: NASIR Guaifenesin/Dextromethorphan (Guaifenesin Dm 200/20/10 Ml 10 Ml Syrup) 10 ml PO Q6H PRN PRN Reason: Cough Last Admin: 07/10/25 02:58 Dose: 10 ml Documented By: ANTOIC Hydroxyzine HCl (Hydroxyzine Hcl 50 Mg Tablet) 50 mg PO Q6H PRN PRN Reason: Agitation Last Admin: 07/10/25 06:03 Dose: 50 mg Documented By: ANTOIC Sodium Chloride (Ns) 1,000 mls @ 999 mls/hr IV .Q1H1M [facility] Stop: 07/10/25 08:45 Last Admin: 07/10/25 07:57 Dose: 999 mls/hr Documented By: TIM Levothyroxine Sodium (Levothyroxine Sodium 25 Mcg Tablet) 37.5 mcg PO DAILY@0600 [facility] Last Admin: 07/10/25 06:02 Dose: 37.5 mcg Documented By: FATOU Magnesium Hydroxide (Milk Of Magnesia 30 Ml Oral.Susp) 30 ml PO DAILY PRN PRN Reason: Constipation Last Admin: 07/09/25 14:31 Dose: 30 ml Documented By: SOPHIE Melatonin (Melatonin 3 Mg Tablet) 6 mg PO BEDTIME PRN PRN Reason: Insomnia Last Admin: 07/08/25 20:43 Dose: 6 mg Documented By: IMAN Naltrexone HCl (Naltrexone Hcl 50 Mg Tablet) 25 mg PO DAILY [facility] Stop: 07/10/25 09:01 Last Admin: 07/09/25 09:24 Dose: 25 mg Documented By: SOPHIE Naltrexone HCl (Naltrexone Hcl 50 Mg Tablet) 50 mg PO DAILY [facility] Nicotine (Nicotine 21 Mg Patch.Td24) 21 mg TRANSDERMA DAILY [facility] Last Admin: 07/09/25 09:24 Dose: 21 mg Documented By: SOPHIE Nystatin (Nystatin Powder 15 Gm Bottle) 1 appl TOPICAL BID [facility]; Protocol Last Admin: 07/09/25 20:43 Dose: Not Given Documented By: NASIR Non-Admin Reason: Patient Refused Prazosin HCl (Prazosin Hcl 1 Mg Capsule) 3 mg PO BEDTIME [facility]; Protocol Last Admin: 07/09/25 20:40 Dose: 3 mg Documented By: NASIR Prednisone (Prednisone 20 Mg Tablet) 40 mg PO DAILY [facility] Last Admin: 07/09/25 09:25 Dose: 40 mg Documented By: SOPHIE Risperidone (Risperidone 1 Mg Tablet) 1 mg PO BID [facility] Last Admin: 07/09/25 20:40 Dose: 1 mg Documented By: NASIR Senna/Docusate Sodium (Sennosides/Docusate Sodium Tablet) 1 tab PO BEDTIME [facility] Last Admin: 07/09/25 20:40 Dose: 1 tab Documented By: NASIR Sertraline HCl (Sertraline Hcl 100 Mg Tablet) 200 mg PO DAILY [facility] Last Admin: 07/09/25 09:25 Dose: 200 mg Documented By: SOPHIE Sodium Chloride (0.9 % Sodium Chloride Flush 3 Ml Syringe) 3 ml IVFLUSH QSHIFT [facility] Last Admin: 07/10/25 08:08 Dose: 3 ml Documented By: TIM Thiamine HCl (Thiamine Hcl 100 Mg Tablet) 100 mg PO DAILY [facility] Last Admin: 07/09/25 09:25 Dose: 100 mg Documented By: SOPHIE Tolterodine Tartrate (Tolterodine Tartrate La 4 Mg Cap.Er.24h) 4 mg PO DAILY [facility] Last Admin: 07/09/25 09:25 Dose: 4 mg Documented By: SOPHIE Labs 07/10/25 06:04 07/10/25 06:04 Labs: Laboratory Results - last 24 hr 07/10/25 07/10/25 06:04 06:10 MCV 92.9 MCH 31.5 MCHC 33.9 RDW 14.6 Plt Count 148 L MPV 9.9 Absolute Nucleated RBC 0.000 Nucleated RBC % (auto) 0.0 VBG pH 7.50 H VBG pCO2 44 VBG pO2 67 VBG HCO3 35 H VBG O2 Saturation 91.0 VBG Base Excess 10.8 Anion Gap 13 Estim Creat Clear Calc 75.2 Estimated GFR > 60 Random Glucose 86 Calcium 8.5 Assessment and Plan (1) Anxiety and depression: Status: Acute Plan 64F PMH alcohol dependence, COPD, hypothyroid, mood disorder presented with hallucinations and shortness of breath Acute hypoxic respiratory failure secondary to COPD with acute decompensation and pneumonia Continue prednisone, DuoNebs, ceftriaxone, doxy, wean O2 as tolerated hypotension due to hypovolemia not sepsis will give 1L NS, monitor Urinary tract infection Klebsiella, continue ceftriaxone Alcohol dependence with withdrawal and hallucinations Phenobarb CIWA Hypothyroid with elevated TSH and low T4 Increased levothyroxine dose from 25 mcg to 37.5 mcg, recheck TSH in 4 weeks Chronic thrombocytopenia Due to alcohol Mood disorder With suicide ideation One-to-one sitter, care team prior to discharge Hyperlipidemia Statin DVT prophylaxis with Lovenox Full Code reason for continued hospitalization: hypotension Quality Stroke Does the patient have a stroke diagnosis?: No VTE Prior VTE?: No VTE Risk Level:: Medical - moderate - high VTE Device Contraindication: N/A - Device Ordered VTE Drug Contraindication: N/A - Med Ordered
[2025-07-10] MEDS: Lactated Ringers 500 ML 999 ML IV (10:40)
--- NOTE | 2025-07-10 13:24 | MHC.CM.PN ---
EMR reviewed and per MD rounds, pt is not medically cleared for discharge due to management of hypotension.
[2025-07-11] VITALS: BP 129/86; PULSE 82; RESP 18; TEMP 36.1; O2SAT 92
[2025-07-11 03:14] VITALS: BP 130/89; PULSE 86; RESP 16; TEMP 36; O2SAT 98
[2025-07-11] MEDS: Albuterol/Iprat 2.5/0.5MG 3 ML AMPUL.NEB INHALE (07:39)
[2025-07-11 07:41] VITALS: PULSE 71; RESP 16; O2SAT 92
[2025-07-11 07:43] VITALS: BP 132/63; PULSE 71; RESP 20; TEMP 36.1; O2SAT 92
[2025-07-11] MEDS: 0.9 % Sodium Chloride Flush 3 ML SYRINGE IVFLUSH (08:11)
[2025-07-11] MEDS: Nicotine 21 MG PATCH.TD24 TRANSDERMA (08:12)
--- NOTE | 2025-07-11 09:17 | HO.PM.IMPN ---
Subjective Subjective Date of Service: 07/11/25 Interval History: no complaints Physical Exam Exam: Exam: General: AO X 3, no acute distress Resp: CTA bilateral, no accessory muscles used CVS: S1,S2,RRR GI: soft, non tender, non distended Neuro: motor grossly intact, alert Vital Signs: Vital Signs: Last Vital Signs Temp 97.0 F 07/11/25 07:43 Pulse 71 07/11/25 07:43 Resp 20 07/11/25 07:43 BP 132/63 07/11/25 07:43 Pulse Ox 92 07/11/25 07:43 O2 Del Method Room Air 07/11/25 07:43 O2 Flow Rate 2 07/11/25 03:14 FiO2 95 07/05/25 19:41 BMI result Body Mass Index 30.9 Objective Data Active Medications Acetaminophen (Acetaminophen 325 Mg Tablet) 650 mg PO Q6H PRN PRN Reason: Pain, Mild 1-3,fever,headache Last Admin: 07/11/25 04:03 Dose: 650 mg Documented By: STEVEN Albuterol/Ipratropium (Albuterol/Iprat 2.5/0.5mg 3 Ml Ampul.Neb) 3 ml INHALE RQ6H WHILE AWAKE [facility] Last Admin: 07/11/25 07:39 Dose: 3 ml Documented By: ALCON Albuterol/Ipratropium (Albuterol/Iprat 2.5/0.5mg 3 Ml Ampul.Neb) 3 ml INHALE RQ4H WHILE AWAKE PRN PRN Reason: shortness of breath/wheezing Atorvastatin Calcium (Atorvastatin Calcium 20 Mg Tablet) 20 mg PO DAILY [facility] Last Admin: 07/11/25 08:05 Dose: 20 mg Documented By: TIM Calcium Carbonate (Calcium Carbonate 750 Mg Tab.Chew) 750 mg PO Q4H PRN PRN Reason: Heartburn Last Admin: 07/09/25 02:57 Dose: 750 mg Documented By: IMAN Ceftriaxone Sodium (Ceftriaxone Sodium 1 Gm Vial) 1 gm IVPUSH Q24H [facility] Last Admin: 07/10/25 09:16 Dose: 1 gm Documented By: TIM Enoxaparin Sodium (Enoxaparin Sodium 40 Mg/0.4 Ml Syringe) 40 mg SUBCUT Q24H [facility] Last Admin: 07/10/25 09:21 Dose: Not Given Documented By: TIM Non-Admin Reason: Patient Refused Folic Acid (Folic Acid 1 Mg Tablet) 1 mg PO DAILY [facility] Last Admin: 07/11/25 08:06 Dose: 1 mg Documented By: TIM Gabapentin (Gabapentin 300 Mg Capsule) 600 mg PO TID [facility] Last Admin: 07/11/25 08:06 Dose: 600 mg Documented By: TIM Guaifenesin/Dextromethorphan (Guaifenesin Dm 200/20/10 Ml 10 Ml Syrup) 10 ml PO Q6H PRN PRN Reason: Cough Last Admin: 07/10/25 21:09 Dose: 10 ml Documented By: STEVEN Hydroxyzine HCl (Hydroxyzine Hcl 50 Mg Tablet) 50 mg PO Q6H PRN PRN Reason: Agitation Last Admin: 07/11/25 04:06 Dose: 50 mg Documented By: STEVEN Levothyroxine Sodium (Levothyroxine Sodium 25 Mcg Tablet) 37.5 mcg PO DAILY@0600 [facility] Last Admin: 07/11/25 05:18 Dose: 37.5 mcg Documented By: STEVEN Magnesium Hydroxide (Milk Of Magnesia 30 Ml Oral.Susp) 30 ml PO DAILY PRN PRN Reason: Constipation Last Admin: 07/09/25 14:31 Dose: 30 ml Documented By: SOPHIE Melatonin (Melatonin 3 Mg Tablet) 6 mg PO BEDTIME PRN PRN Reason: Insomnia Last Admin: 07/10/25 21:04 Dose: 6 mg Documented By: STEVEN Naltrexone HCl (Naltrexone Hcl 50 Mg Tablet) 50 mg PO DAILY [facility] Last Admin: 07/11/25 08:06 Dose: 50 mg Documented By: TIM Nicotine (Nicotine 21 Mg Patch.Td24) 21 mg TRANSDERMA DAILY [facility] Last Admin: 07/11/25 08:12 Dose: 21 mg Documented By: TIM Nystatin (Nystatin Powder 15 Gm Bottle) 1 appl TOPICAL BID [facility]; Protocol Last Admin: 07/11/25 08:11 Dose: 1 appl Documented By: TIM Prazosin HCl (Prazosin Hcl 1 Mg Capsule) 3 mg PO BEDTIME [facility]; Protocol Last Admin: 07/10/25 21:04 Dose: 3 mg Documented By: STEVEN Prednisone (Prednisone 20 Mg Tablet) 40 mg PO DAILY [facility] Last Admin: 07/11/25 08:06 Dose: 40 mg Documented By: TIM Risperidone (Risperidone 1 Mg Tablet) 1 mg PO BID [facility] Last Admin: 07/11/25 08:06 Dose: 1 mg Documented By: TIM Senna/Docusate Sodium (Sennosides/Docusate Sodium Tablet) 1 tab PO BEDTIME [facility] Last Admin: 07/10/25 21:04 Dose: 1 tab Documented By: STEVEN Sertraline HCl (Sertraline Hcl 100 Mg Tablet) 200 mg PO DAILY [facility] Last Admin: 07/11/25 08:06 Dose: 200 mg Documented By: TIM Sodium Chloride (0.9 % Sodium Chloride Flush 3 Ml Syringe) 3 ml IVFLUSH QSHIFT [facility] Last Admin: 07/11/25 08:11 Dose: 3 ml Documented By: TIM Thiamine HCl (Thiamine Hcl 100 Mg Tablet) 100 mg PO DAILY [facility] Last Admin: 07/11/25 08:06 Dose: 100 mg Documented By: TIM Tolterodine Tartrate (Tolterodine Tartrate La 4 Mg Cap.Er.24h) 4 mg PO DAILY [facility] Last Admin: 07/11/25 08:06 Dose: 4 mg Documented By: TIM Labs 07/10/25 06:04 07/10/25 06:04 Microbiology Microbiology Results: Microbiology 07/05/25 10:54 Blood Culture - Final Blood - Venous No growth after 5 days. 07/05/25 10:35 Blood Culture - Final Blood - Venous No growth after 5 days. Assessment and Plan (1) Anxiety and depression: Status: Acute Plan 64F PMH alcohol dependence, COPD, hypothyroid, mood disorder presented with hallucinations and shortness of breath Acute hypoxic respiratory failure secondary to COPD with acute decompensation and pneumonia Continue prednisone, DuoNebs, ceftriaxone, doxy, now on room air hypotension due to hypovolemia not sepsis resolved with ivf Urinary tract infection Klebsiella, continue ceftriaxone Alcohol dependence with withdrawal and hallucinations Phenobarb CIWA Hypothyroid with elevated TSH and low T4 Increased levothyroxine dose from 25 mcg to 37.5 mcg, recheck TSH in 4 weeks Chronic thrombocytopenia Due to alcohol Mood disorder With suicide ideation One-to-one sitter, care team eval - medically cleared Hyperlipidemia Statin DVT prophylaxis with Lovenox Full Code reason for continued hospitalization: care team eval Quality Stroke Does the patient have a stroke diagnosis?: No VTE Prior VTE?: No VTE Risk Level:: Medical - moderate - high VTE Device Contraindication: N/A - Device Ordered VTE Drug Contraindication: N/A - Med Ordered
--- NOTE | 2025-07-11 10:13 | PM.DS ---
DS: Providers Provider Date of Service: 07/11/25 Date of admission: 07/05/25 10:32 Date of discharge: 07/11/25 Primary care physician: Dina Anna MD Consults: 07/04/25 05:29 ED CARE Team Crisis Consult Routine Comment: Reason for consultation: anxiety, depression, hallucinations 07/05/25 11:08 Addiction Medicine Provider Routine Consulting Provider: Addiction Covering Reason for consultation: etoh, crack cocaine Has provider been notified: No 07/05/25 17:52 Addiction Medicine Provider Routine Consulting Provider: Addiction Covering Reason for consultation: Stated Using Crack Cocaine 07/11/25 08:37 Inpt CARE Team Crisis Consult Routine Comment: Reason for consultation: medically cleared, ?psychosis DS: Diagnosis Discharge Diagnosis (1) Anxiety and depression: Status: Acute DS: Summary Hospital Course Hospital Course: from initial hpi: 64-year-old female with a history of COPD, hypothyroidism who presented to the emergency department with increasing depression and suicidal ideation. She initially was stating that she wanted to go be with her two children. She was evaluated by the care team and it was initially planned for her to be admitted to the inpatient psychiatric floor. However patient developed hypoxia and was placed on 3 L nasal cannula. Chest x-ray was obtained which showed a left-sided pneumonia. Patient endorses shortness of breath with ambulation and persistent cough. She denies any fever or chills. She received a dose of IV doxycycline in the emergency room. Patient states that she usually drinks 2-25 oz beers daily but in addition to that she has also been drinking hard alcohol that someone gave her. She smokes 1 pack of cigarettes daily and smokes crack. She reports having a nurse who brings her medications and reports being compliant with her baseline medication hospital course: Patient was admitted for acute hypoxic respiratory failure secondary to COPD with acute decompensation and pneumonia. Was treated with prednisone, DuoNebs, ceftriaxone doxycycline was weaned to room air and feeling much better on discharge we will continue 3 more days of prednisone. During hospitalization did have intermittent episodes of hypotension this was likely due to hypovolemia not sepsis it resolved with IV fluids. For urinary tract infection due to Klebsiella completed course of ceftriaxone. For alcohol dependence with withdrawal and hallucinations completed course phenobarbital and symptoms resolved. For hypothyroid with elevated TSH and low T4 levothyroxine was increased from 25 mcg to 37.5 mcg, TSH should be rechecked in about 4 weeks. For chronic thrombocytopenia due to alcohol she remained stable. For mood disorder with suicide ideation patient was seen by care team prior to discharge and no longer is having suicide ideation and will follow up outpatient. For hyperlipidemia was continued on statin. Patient is feeling better and will be discharged home. Time Attestation Discharge Coordination Time (in mins): 34 Quality: Safe Use of Opioids Does Pt have an Active Cancer Diagnosis on the Problem List?: No Quality: Stroke Does the patient have a stroke diagnosis?: No Physical Exam Exam: Exam: General: AO X 3, no acute distress Resp: CTA bilateral, no accessory muscles used CVS: S1,S2,RRR GI: soft, non tender, non distended Neuro: motor grossly intact, alert Psych: appropriate affect, appropriate insight Vital Signs: Vital Signs: Last Vital Signs Temp 97.0 F 07/11/25 07:43 Pulse 71 07/11/25 07:43 Resp 20 07/11/25 07:43 BP 132/63 07/11/25 07:43 Pulse Ox 92 07/11/25 07:43 O2 Del Method Room Air 07/11/25 07:43 O2 Flow Rate 2 07/11/25 03:14 FiO2 95 07/05/25 19:41 BMI result Body Mass Index 30.9 Discharge Plan Discharge Anticipated Discharge Date/Time: 07/11/25 10:11 Patient Disposition: Home, Self-Care Discharge Diagnosis: copd, etoh Referrals: [facility] [Provider Group] - 07/21/25 9:30 am Referral Note: Please bring ID and insurance card if available This is an intake appt to continue receiving Naltrexone Dina Anna MD [Primary Care Provider, Internal Medicine] - 1 Week Discharge Medications: New naltrexone 50 mg Tablet 50 mg PO DAILY Qty: 90 0RF prednisone 20 mg Tablet 40 mg PO DAILY Qty: 6 0RF levothyroxine 25 mcg Tablet 37.5 mcg PO DAILY@0600 Qty: 90 0RF Continued atorvastatin 20 mg tablet 20 mg PO DAILY prazosin 1 mg capsule 3 mg PO BEDTIME sennosides-docusate sodium [Stool Softener-Laxative] 8.6-50 mg tablet 1 tab PO BEDTIME sertraline 100 mg tablet 200 mg PO DAILY hydroxyzine pamoate 50 mg capsule 50 mg PO Q6H PRN (Reason: Agitation) gabapentin 300 mg capsule 600 mg PO TID risperidone 1 mg tablet 1 mg PO BID solifenacin 10 mg tablet 10 mg PO DAILY Discontinued levothyroxine 25 mcg tablet 25 mcg PO DAILY@0600 Discharge Orders: Discharge Order (Routine); Ordered 07/11/25 Ordered By: Jhonny Harrison Diet: Advance to usual diet Activity on Discharge: As tolerated Stand Alone Forms: Patient Portal Discharge page Print Language: Unable To Collect Care Plan Goals: recovery Health Concerns: copd, etoh Plan of Treatment: prednisone 3 more days, levothyroxine dose increased and TSH should be rechecked in 4 weeks Assessment: see above
--- NOTE | 2025-07-11 10:41 | MHC.CM.PN ---
Pt has been medically DC, she states that she does not have a ride home or the bowles to her Apt. She gave CM 2 phone #'s to call: Sandi her CM at A [phone], and Kendall (female) her [employer] [phone]. LM for both asking if they have the bowles to her apt. and if they are able to transport her home, awaiting return calls.
[2025-07-11 11:29] VITALS: BP 103/68; PULSE 80; RESP 20; TEMP 36.4; O2SAT 91
--- NOTE | 2025-07-11 12:46 | MHC.CARE ---
Puja Armstrong from CARE team, has called all numbers in the patient's chart in attempt to speak with someone who may be able to bring patient her bowles, voice mails left multiple times.
== END 2025-07-11 14:00 | disposition home or self-care (01) | DRG 139 ==
LOC: HO.ED 07-05 10:33 → HO.EDOVER 07-05 10:49 → HO.IMC 07-05 15:23
PROVIDERS: Emergency Medicine; Admitting Provider Physician Assistant Medical; Emergency Provider Emergency Medicine; PCP Internal Medicine; Visit Provider Internal Medicine
DX: J18.9 Pneumonia, unspecified organism (principal); J96.01 Acute respiratory failure with hypoxia; R45.851 Suicidal ideations; D69.59 Other secondary thrombocytopenia; I95.9 Hypotension, unspecified; J44.0 Chronic obstructive pulmonary disease with (acute) lower respiratory infection; N39.0 Urinary tract infection, site not specified; J44.1 Chronic obstructive pulmonary disease with (acute) exacerbation; F17.210 Nicotine dependence, cigarettes, uncomplicated; E89.0 Postprocedural hypothyroidism; B96.1 Klebsiella pneumoniae [K. pneumoniae] as the cause of diseases classified elsewhere; Y90.0 Blood alcohol level of less than 20 mg/100 ml; E78.5 Hyperlipidemia, unspecified; E86.1 Hypovolemia; F10.232 Alcohol dependence with withdrawal with perceptual disturbance; F32.A Depression, unspecified; Z71.6 Tobacco abuse counseling; Z87.440 Personal history of urinary (tract) infections; Z20.822 Contact with and (suspected) exposure to COVID-19; Z79.890 Hormone replacement therapy; Z79.899 Other long term (current) drug therapy
CPT/HCPCS: 36415; 71045; 80048; 80053; 80307; 81001; 82803; 83605; 83735; 84439; 84443; 85025; 85027; 87040; 87086; 87088; 87186; 87637; 94640; 99285; 99499; J0696; J1271; J1650; J7120; S9485

== ENCOUNTER → 2025-07-05 07:46 | Outpatient (BNV) | payer OTHER, SELFPAY | PROVIDERS: Emergency Provider Emergency Medicine; PCP Internal Medicine; Visit Provider Specialist | DX: R05.9 Cough, unspecified (principal) | CPT/HCPCS: 71045 ==

== ENCOUNTER → 2025-07-05 10:32 | Outpatient (BNV) | payer OTHER, SELFPAY | PROVIDERS: Admitting Provider Physician Assistant Medical; Emergency Provider Emergency Medicine; PCP Internal Medicine; Visit Provider Nurse Practitioner Psychiatric/Mental Health | DX: F10.20 Alcohol dependence, uncomplicated (principal) | CPT/HCPCS: 99221 ==

== ENCOUNTER → 2025-07-05 10:32 | Outpatient (BNV) | payer OTHER, SELFPAY | PROVIDERS: Admitting Provider Physician Assistant Medical; Emergency Provider Emergency Medicine; PCP Internal Medicine; Visit Provider Physician Assistant Medical | DX: J18.9 Pneumonia, unspecified organism (principal); N39.0 Urinary tract infection, site not specified; J44.9 Chronic obstructive pulmonary disease, unspecified; F10.10 Alcohol abuse, uncomplicated | CPT/HCPCS: 99223; 99232 ==

== ENCOUNTER 2025-09-12 21:28 | Inpatient (IN) | payer OTHER, SELFPAY ==
--- OUTSIDE RECORDS SUMMARY | 2025-09-11 13:15 | XMS_ITS | Encounter Summary ---
Author Organization [facility] Address [address] [place] [address] Care Team Providers Care Dredge Pumper Name Role Phone Dina Anna MD Primary Care Provider [phone] Reason for Visit * Reason Comments Bleeding/Bruising Encounter Details Date Type Department Care Team ([facility] Contact Info) Description 09/11/2025 1:15 PM EDT Office Visit Internal Medicine - [address] [place] [address] Dina Anna MD [address] [place] [phone] Bruising (Primary Dx); Depression, unspecified depression type; Hypercholesteremia Social History Tobacco Use Types Packs/Day Years Used Date Smoking Tobacco: Some Days Cigarettes Smokeless Tobacco: Never Tobacco Cessation:Ready to Q uit: Not Asked; Counseling Given: Not Answered Alcohol Use Standard Drinks/Week Comments Yes 2 (1 standard drink = 0.6 oz pur e alcohol) Comments No Sex and Gender Information Value Date Recorded Sex Assigned at Not on file Legal Sex Female 10:26 PM EST Gender Identity Not on file Sexual Orientation Not on file documented as of this encounter Last Filed Vital Signs Vital Sign Reading Time Taken Comments Blood Pressure 104/88 09/11/2025 1:17 PM EDT Pulse 78 09/11/2025 1:17 PM EDT Temperature 36.6 C (97.8 F) 09/11/2025 1:17 PM EDT Respiratory Rate 18 09/11/2025 1:17 PM EDT Oxygen Saturation 92% 09/11/2025 1:17 PM EDT Inhaled Oxygen Concentration - - Weight 85.7 kg (189 lb) 09/11/2025 1:17 PM EDT Height 170.2 cm (5' 7 ) 09/11/2025 1:17 PM EDT Body Mass Index 29.6 09/11/2025 1:17 PM EDT documented in this encounter Ordered Prescriptions Prescription Sig Dispense Quantity Refills Last Filled Start Date End Date atorvastatin (LIPITOR) 20 mg tablet Take 1 tablet (20 mg total) by mouth at bedtime. at bedtime. 90 tablet 3 09/11/2025 levothyroxine (SYNTHROID, LEVOTHROID) 25 mcg tablet Take 1 tablet (25 mcg total) by mouth 1 (one) time each day before breakfast. 90 tablet 3 09/11/2025 documented in this encounter Progress Notes * Dina Anna MD - 09/11/2025 1:15 PM EDT CHIEF COMPLAINT: Bleeding/Bruising IDENTIFIER: Karen Cervantes is a 65 y.o. old female. HPI: Patient says she has bruises on the back of her leg. On and off. I did not notice any bruises today. Was recently at [facility] emergency room, labs and imaging reassuring, diagnosed with UTI, treated with antibiotic. ROS: GENERAL: No malaise, significant weight loss or fever NECK: No lumps, goiter, pain or significant neck swelling RESPIRATORY: No cough, wheezing or shortness of breath CARDIOVASCULAR: No chest pain, leg swelling or palpitations GI: No abdominal discomfort, blood in stools or black stools PSYCH: No sleep disturbance, mood disorder or recent psychosocial stressors. PAST MEDICAL HISTORY: Patient Active Problem List Diagnosis Date Noted Chronic hepatitis ([facility]/HCC V24, [facility] V28) 05/05/2025 Acute respiratory failure with hypoxia (CMS/HCC V24, CMS/HCC V28) 10/23/2024 Major depressive disorder, recurrent severe without psychotic features ([facility]/HCC V24, [facility] V28) 10/23/2024 Acute respiratory failure with hypoxemia (CMS/HCC V24, [facility] V28) 10/14/2024 Hypo-osmolality and hyponatremia 10/14/2024 Unspecified bacterial pneumonia 10/14/2024 Noninfective gastroenteritis and colitis, unspecified 10/14/2024 Major depressive disorder, recurrent, severe without psychotic features (CMS/HCC V24, [facility] V28) 10/14/2024 Post-traumatic stress disorder, chronic 10/14/2024 Mixed incontinence urge and stress (male)(female) 01/07/2024 Depression 01/07/2024 Tobacco use 01/07/2024 History of seizures 01/07/2024 Hypercholesteremia 12/23/2019 Post traumatic stress disorder 12/23/2018 Thrombocytopenia ([facility] [place]24[place] 10/20/2018 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 Bipolar 1 disorder ([facility] V24, [facility] V28) 07/25/2018 Allergic rhinitis 07/25/2018 COPD (chronic obstructive pulmonary disease) ([facility] V24, [facility] V28) 07/25/2018 Chronic hepatitis C ([facility] V24, [facility] V28) 06/30/2018 Alcohol dependence ([facility] V24, [facility] V28) 04/12/2018 Substance abuse ([facility] V24, [facility] V28) 11/16/2016 Surgical History[1] SOCIAL HISTORY: Social History Tobacco Use Smoking status: Some Days Current packs/day: 1.00 Types: Cigarettes Smokeless tobacco: Never Substance Use Topics Alcohol use: Yes Alcohol/week: 2.0 standard drinks of alcohol FAMILY HISTORY: Family History[2] Family Status Relation Name Status Mother Alive Father at age 77 Son Pasquale at age 35 Son Jesus at age 36 2019 Brother Arnel Sister Nadya Alive Brother Jarred Alive No partnership data on file MEDICATIONS DISCONTINUED/REORDERED: Medications Discontinued During This Encounter Medication Reason traMADoL (ULTRAM) 50 mg tablet sertraline (ZOLOFT) 100 mg tablet atorvastatin (LIPITOR) 20 mg tablet Reorder levothyroxine (SYNTHROID, LEVOTHROID) 25 mcg tablet Reorder ACTIVE MEDICATIONS: Medications Taking[3] ALLERGIES: Allergies[4] PHYSICAL EXAM: Visit Vitals BP 104/88 (BP Location: Right arm, Patient Position: Sitting, BP Cuff Size: Adult) Pulse 78 Temp 36.6 ??C (97.8 ??F) (Temporal) Resp 18 Ht 1.702 m (67 ) Wt 85.7 kg (189 lb) SpO2 92% BMI 29.60 kg/m?? OB Status Postmenopausal Smoking Status Some Days BSA 1.97 m?? APPEARANCE: Alert and in no acute distress NECK: Neck supple, no adenopathy, thyroid symmetric and of normal size HEART: RRR with normal S1 and S2, no murmurs, no gallops, no JVD appreciated LUNG: clear to auscultation ABDOMEN: Bowel sounds normoactive, no bruits, soft, non-tender, without organomegaly or palpable masses SKIN: Skin color, texture, turgor normal. No rashes or lesions. LABS/IMAGING: Medication and lab orders: No orders of the defined types were placed in this encounter. Other orders: None IMPRESSION: 1. Bruising 2. Depression, unspecified depression type 3. Hypercholesteremia PLAN: Reassurance about bruising Emergency room records reviewed including labs and imaging Will follow-up as scheduled or sooner as needed in 4 months for a physical Dina Anna MD on 09/11/2025 at 1:43 PM EDT [1] Past Surgical History: Procedure Laterality Date ANKLE SURGERY Left 02/2017 PROCEDURE: HISTORICAL ANKLE SURGERY; COMMENT: ankle fx; Dr. Ken CHOLECYSTECTOMY PROCEDURE: HISTORICAL CHOLECYSTECTOMY TUBAL LIGATION PROCEDURE: HISTORICAL TUBAL LIGATION [2] Family History Problem Relation Name Age of Onset Breast cancer Mother osteoporosis; chemical dependence-drugs Osteoporosis Mother Alcohol abuse Father otw not known; no contact since age 14 Suicide Attempts Son Pasquale 2017 ADD / ADHD Son Jesus Other (Other: brain injury) Son Jesus seizure in the tub; 2019 Heart attack Brother Arnel [3] Outpatient Medications Marked as Taking for the 09/11/25 encounter (Office Visit) with Dina Anna MD Medication Sig Dispense Refill acetaminophen (TYLENOL) 500 mg tablet TAKE 1 TABLET (500 MG TOTAL) BY MOUTH EVERY 6 (SIX) HOURS IF NEEDED FOR MODERATE PAIN. 30 tablet 0 albuterol HFA (PROAIR HFA ; PROVENTIL HFA ; VENTOLIN HFA) 90 mcg/actuation inhaler Inhale 2 puffs by mouth. atorvastatin (LIPITOR) 20 mg tablet Take 1 tablet (20 mg total) by mouth at bedtime. at bedtime. 90tablet 3 cholecalciferol (VITAMIN D-3) 125 mcg (5,000 unit) capsule Take 1 capsule (5,000 Units total) by mouth 1 (one) time per week. 4 capsule 2 diaper,brief,adult,disposable misc 1 each by Not Applicable route. diclofenac (VOLTAREN) 1 % topical gel Apply 2 g topically 4 (four) times a day. 150 g 2 ergocalciferol (VITAMIN D-2) 1,250 mcg (50,000 unit) capsule Take 1 capsule (50,000 Units total) bymouth. gabapentin (NEURONTIN) 400 mg capsule Take 1 capsule (400 mg total) by mouth. hydrOXYzine pamoate (VISTARIL) 50 mg capsule 4 times daily as needed for Itching. incontinence pad, liner, disp pad 1 each 1 (one) time each day. 30 each 11 levothyroxine (SYNTHROID, LEVOTHROID) 25 mcg tablet Take 1 tablet (25 mcg total) by mouth 1 (one) time each day before breakfast. 90 tablet 3 melatonin 3 mg tablet Take 1 tablet (3 mg total) by mouth. NEBULIZERS MISC 1 each by Not Applicable route. nicotine (NICODERM CQ) 7 mg/[address] 1 patch on the skin 1 (one) time each day at the same time.30 each 0 prazosin (MINIPRESS) 2 mg capsule Take 1 capsule (2 mg total) by mouth. risperiDONE (RisperDAL) 1 mg tablet Take 1 tablet (1 mg total) by mouth 2 (two) times a day. senna-docusate (PERICOLACE) 8.6-50 mg per tablet Take 1 tablet by mouth 1 (one) time each day. 30 each 11 sertraline (ZOLOFT) 50 mg tablet Take 1 tablet (50 mg total) by mouth 1 (one) time each day. solifenacin (VESICARE) 10 mg tablet TAKE 1 TABLET BY MOUTH DAILY. 30 tablet 0 tiotropium (Spiriva with HandiHaler) 18 mcg per inhalation capsule Place 1 capsule (18 mcg total) into inhaler and inhale 1 (one) time each day. 30 capsule 4 [DISCONTINUED] atorvastatin (LIPITOR) 20 mg tablet TAKE 1 TABLET BY MOUTH AT BEDTIME. 30 tablet 0 [DISCONTINUED] levothyroxine (SYNTHROID, LEVOTHROID) 25 mcg tablet TAKE 1 TABLET (25 MCG TOTAL) BY MOUTH 1 (ONE) TIME EACH DAY BEFORE BREAKFAST. 30 tablet 0 [DISCONTINUED] sertraline (ZOLOFT) 100 mg tablet Take 2 tablets (200 mg total) by mouth 1 (one) time each day. [DISCONTINUED] traMADoL (ULTRAM) 50 mg tablet Take 1 tablet (50 mg total) by mouth. [4] Allergies Allergen Reactions Ibuprofen Ragweed documented in this encounter Plan of Treatment Not on file documented as of this encounter Visit Diagnoses Diagnosis Bruising- Primary Contusion of unspecified site Depression, unspecified depression type Hypercholesteremia Pure hypercholesterolemia documented in this encounter Discontinued Medications Medication Sig Discontinue Reason Start Date End Da te traMADoL (ULTRAM) 50 mg tablet Take 1 tablet (50 mg total) by mouth. 05/24/2023 09/11/2025 sertraline (ZOLOFT) 100 mg tablet Take 2 tablets (200 mg total) by mouth 1 (one) time each day. 11/13/2023 09/11/2025 atorvastatin (LIPITOR) 20 mg tablet TAKE 1 TABLET BY MOUTH AT BEDTIME. Reorder 06/03/2025 09/11/2025 levothyroxine (SYNTHROID, LEVOTHROID) 25 mcg tablet TAKE 1 TABLET (25 MCG TOTAL) BY MOUTH 1 (ONE) TIME EACH DAY BEFORE BREAKFAST. Reorder 07/28/2025 09/11/2025 documented as of this encounter Care Teams Dredge Pumper Relationship Specialty Start Date End Date Dina Anna MD [address] [place] [phone] PCP - General Internal Medicine 03/23/22 documented as of this encounter
--- NOTE | 2025-09-12 | ECG_ITS ---
Test Reason : MEDICAL CLEARANCE Blood Pressure : */* mmHG Vent. Rate : 80 BPM Atrial Rate : 80 BPM P-R Int : 152 ms QRS Dur : 74 ms QT Int : 420 ms P-R-T Axes : 58 56 67 degrees QTcB Int : 484 ms Sinus rhythm with occasional Premature ventricular complexes Otherwise normal ECG When compared with ECG of 05-Feb-2025 14:22, Premature ventricular complexes are now Present Nonspecific T wave abnormality has replaced inverted T waves in Anterior leads Referred By: Generic ED Physician Electronically Signed By: PAWEL TROY
--- NOTE | ~2025-09-12 | XR_ITS ---
CLINICAL HISTORY: chest pain 1 view chest x-ray Comparison: CR - XR CHEST 1V - 07/05/25 07:45 EDT Findings: Lungs are well inflated. Cardiac silhouette is within normal limits. Streaky interstitial prominence within the perihilar and basilar regions with small bilateral pleural effusions. No pneumothorax. IMPRESSION: 1. Central interstitial prominence can be seen with edema, bronchitis/bronchiolitis, or interstitial lung disease. 2. Small bilateral pleural effusions. This document has been electronically signed by: Vernon Andrade MD on 09/12/2025 23:18:03
--- NOTE | ~2025-09-12 | XR_ITS ---
EXAMINATION: XR CHEST CLINICAL INFORMATION: SOB, weakness COMPARISON: 09/12/2025. TECHNIQUE: 2 views of the chest were obtained. FINDINGS: The cardiac, hilar, and mediastinal contours are normal. The lungs are clear bilaterally. There is no pneumothorax or pleural effusion. There is no focal osseous or soft tissue abnormality. There are surgical clips in the region of the thyroid gland. There are mild degenerative changes of the spine. XR/XR chest 2V IMPRESSION: No active pulmonary disease. Electronically signed by: Earl Connor MD 09/17/2025 11:11 AM [facility]
[2025-09-12 21:43] VITALS: BP 190/80; PULSE 106; O2SAT 92; BMI 36.9
--- NOTE | 2025-09-12 21:56 | PC.NURSE ---
pt reports SOB, recently admitted with one pneumonia, pt states she castellanos thought of harming herself, no plan. bisque ware dipper aware, will work pt up and get her medically cleared before transfer to POD. paint roller covers supervisor performed by this RN in bathroom. Pt calm and cooperative. States she is having a hard time getting over the of her son.
--- NOTE | 2025-09-12 22:15 | ED.GENADULT ---
[facility] - General Adult General Chief complaint: Dyspnea Stated complaint: Chest pain, Sob Time Seen by Provider: 09/12/25 22:15 Source: patient Mode of arrival: ambulatory Limitations: no limitations History of Present Illness ED Provider: Dr. Figueroa HPI narrative: This was a 65-year-old female presented hospital today for evaluation shortness of breath and cough for the past couple of days. Recently admitted for pneumonia 3 weeks ago. She does have history of COPD. She is not dependent on oxygen. Patient stated that she needs to go to a care home. She is unable to care for herself. She is also claiming that she is suicidal. Patient does have history of polysubstance abuse in the past. She stated that she has right-sided chest pain. Patient's endorses cough nasal congestion and sore throat as well. Patient stated that she had made plan to hang herself. Related Data Home Medications ?Medication ?Instructions ?Recorded ?Confirmed atorvastatin 20 mg tablet 20 mg PO DAILY 07/04/25 09/13/25 gabapentin 300 mg capsule 600 mg PO TID 07/04/25 09/13/25 hydroxyzine pamoate 50 mg capsule 50 mg PO Q6H PRN Agitation 07/04/25 09/13/25 prazosin 1 mg capsule 3 mg PO BEDTIME 07/04/25 09/13/25 risperidone 1 mg tablet 1 mg PO BID 07/04/25 09/13/25 sennosides 8.6 mg-docusate sodium 1 tab PO BEDTIME 07/04/25 09/13/25 50 mg tablet (Stool Softener-Laxative) sertraline 100 mg tablet 200 mg PO DAILY 07/04/25 09/13/25 solifenacin 10 mg tablet 10 mg PO DAILY 07/04/25 09/13/25 levothyroxine 25 mcg tablet 37.5 mcg PO DAILY 09/13/25 09/13/25 Previous Rx's ?Medication ?Instructions ?Recorded naltrexone 50 mg tablet 50 mg PO DAILY #90 tabs 07/11/25 Allergies Allergy/AdvReac Type Severity Reaction Status Date / Time ibuprofen Allergy Intermediate Unknown Verified 09/12/25 21:56 ragweed pollen Allergy Sneezing Verified 09/12/25 21:56 Review of Systems Review of Systems: Pertinent review of systems as mentioned in HPI. All other system otherwise negative. [facility] Past Medical History PMFSH Narrative: Medical history as mentioned in HPI Medical History Thyroid cancer HLD (hyperlipidemia) Alcohol abuse Bipolar disorder current episode depressed Anxiety and depression Social History Social History Household Members: None Housing: Apartment Do you presently have visiting nurse or other home services: Yes ([facility] and [employer]) Alcohol intake: current Alcohol intake frequency: 0-2 drinks per day Alcohol type: hard liquor Comment: 1:1 sitter Patient Tobacco Use Status: Current everyday Tobacco user Tobacco use type: Cigarette Cigarette Packs Per Day: 1 Cigarettes Per Day: 20.0 Years Smoked: 30 Smoked in Last 30 Days: Yes e-Cigarette/Vaping Use: Never Used Patient Interested in Nicotine Replacement: No Patient Given Instructions on How to Stop Smoking: No Second Hand Smoke Exposure: No Substance Use Type: Crack/Cocaine Currently Displaying Signs/Symptoms of Drug Intoxication Withdrawal: No Have you been hit, kicked, punched, or otherwise hurt by someone within the past year? If so, by whom?: No Do you feel safe in your current relationship?: No Current Relationship Is there a partner from a previous relationship who is making you feel unsafe now?: No Are you made to feel afraid or neglected: No Advance Directives: No Advance Directives Information Provided: No Do you have thoughts of harming others: None Do you have a plan to hurt others: No Plan Recently lost weight without trying: No How much weight loss: Not applicable Nutrition Risks: No Nutritional Risk Patient : No : No Poor oral hygiene: Yes service: No Sexual orientation: Straight/Heterosexual Physical Exam ED Exam Exam: General: Pleasant, no distress, interacting appropriately Head: Normacephalic, atraumatic ENT: oral mucosa moist, neck supple, no tracheal deviation Cardiovascular: regular rate, regular rhythm, no murmurs, rubbing, gallops Respiratory: CTAB, no wheeze, rales, rhonchi Gastrointestinal: Soft, non distended, non tender, non guarding Extremities: No limb pain or swelling, no calf tenderness Neurological: Awake and alert, no facial droop noted Skin: Warm and dry Psychiatric: Appropriate mood and thoughts Vital Signs: Vital Signs - 24 hr 09/14/25 08:39 09/14/25 11:45 Temperature 97.6 F Pulse Rate 66 Respiratory Rate 15 13 Blood Pressure 145/79 H Pulse Oximetry 95 Oxygen Delivery Method Room Air BMI result Body Mass Index 36.9 Course Course Course Narrative: Time: 06:14 Date: 09/14/25 Provider: Alejandra Griffin, DO Patient in physician observation for psychiatric evaluation.? No acute events reported overnight. No current complaints. VS stable.? Patient is in bed search status. Will continue to monitor. Reevaluation(s) Reevaluation #1: September 14 2025 1445 physician observation ended admitted to inpatient [email or web address] Medications Administered Generic Name Dose Route Start Last Admin Trade Name Freq PRN Reason Stop Dose Admin Acetaminophen 650 mg 09/14/25 13:13 09/14/25 17:37 Acetaminophen 325 Mg Tablet PO 650 mg Q6H PRN Administration Headache/Pain, Scale 1-10 Atorvastatin Calcium 20 mg 09/13/25 09:00 09/14/25 07:22 Atorvastatin Calcium 20 Mg Tablet PO 20 mg DAILY REENA Administration Doxycycline Monohydrate 100 mg 09/13/25 09:00 09/14/25 21:14 Doxycycline Monohydrate 100 Mg Capsule PO 100 mg BID REENA Administration Gabapentin 600 mg 09/13/25 09:00 09/14/25 21:13 Gabapentin 300 Mg Capsule PO 600 mg TID REENA Administration Hydroxyzine HCl 50 mg 09/13/25 01:21 EST 09/14/25 13:22 Hydroxyzine Hcl 50 Mg Tablet PO 50 mg Q6H PRN Administration Agitation Levothyroxine Sodium 37.5 mcg 09/13/25 06:00 09/14/25 05:18 Levothyroxine Sodium 25 Mcg Tablet PO 37.5 mcg DAILY@0600 REENA Administration Melatonin 9 mg 09/14/25 21:00 09/14/25 21:13 Melatonin 3 Mg Tablet PO 9 mg BEDTIME REENA Administration Naltrexone HCl 50 mg 09/13/25 09:00 09/14/25 07:22 Naltrexone Hcl 50 Mg Tablet PO 50 mg DAILY REENA Administration Prazosin HCl 3 mg 09/13/25 21:00 09/14/25 21:13 Prazosin Hcl 1 Mg Capsule PO 3 mg BEDTIME REENA Administration Protocol Risperidone 1 mg 09/13/25 09:00 09/14/25 21:13 Risperidone 1 Mg Tablet PO 1 mg BID REENA Administration Sertraline HCl 200 mg 09/13/25 09:00 09/14/25 07:21 Sertraline Hcl 100 Mg Tablet PO 200 mg DAILY REENA Administration Discontinued Medications Generic Name Dose Route Start Last Admin Trade Name [place] PRN Reason Stop Dose Admin Acetaminophen 650 mg 09/13/25 01:25 EST 09/13/25 22:36 Acetaminophen 325 Mg Tablet PO 650 mg Q6H PRN Administration Pain, Mild (Pain Scale 1-3) Doxycycline Monohydrate 100 mg 09/12/25 23:46 09/12/25 23:58 Doxycycline Monohydrate 100 Mg Capsule PO 09/12/25 23:47 100 mg ONCE ONE Administration Gabapentin 300 mg 09/13/25 01:49 EST 09/13/25 01:07 EST Gabapentin 300 Mg Capsule PO 09/13/25 01:50 EST 300 mg ONCE ONE Administration Prazosin HCl 3 mg 09/13/25 01:49 EST 09/13/25 01:07 EST Prazosin Hcl 1 Mg Capsule PO 09/13/25 01:50 EST 3 mg ONCE ONE Administration Protocol Prednisone 40 mg 09/12/25 23:46 09/12/25 23:58 Prednisone 20 Mg Tablet PO 09/12/25 23:47 40 mg ONCE ONE Administration Medical Decision Making Medical Decision Making [facility] Narrative: This is a 65-year-old female history of COPD, polysubstance abuse presented hospital today for suicide ideation and shortness of breath. Patient's O2 saturation is 92-94% on room air per EMS. I do think this is appropriate given her history of COPD. Patient is complaining of upper respiratory type like infection symptoms. I have low suspicion for pneumonia. Does not appear to be wheezing on my exam. Lung is clear. We will obtain a chest x-ray and basic labs for the patient at this time. Viral swab will be obtained as well. Suicide precaution order. Review patient's lab work. CBC is unremarkable, patient's chemistries unremarkable, patient's troponin is negative. Patient's chest x-ray did show slight pleural effusion. We will plan to cover the patient with doxycycline for atypical pneumonia. COVID, influenza swab was negative. Patient is not hypoxic on my evaluation. Patient is medically clear for psychiatric evaluation. Differential Diagnosis Differential Diagnoses: The differential diagnosis associated with the presentation includes Pneumonia, upper respiratory infection, chest wall pain, suicide ideation Lab Data [facility] Lab Attestation statement: I reviewed the patient's lab results. 09/12/25 23:14 09/12/25 23:14 Labs: Lab Results 09/12/25 Range/Units 23:14 WBC 5.3 (4.8-10.8) X10*3/uL RBC 4.25 (4.20-5.50) X10*6/uL Hgb 12.8 (12.0-16.0) g/dl Hct 37.9 (37.0-47.0) % MCV 89.2 (80.0-98.0) fL MCH 30.1 (27.0-33.0) pg MCHC 33.8 (31.0-35.0) g/dl RDW 14.1 (11.0-16.0) % Plt Count 141 L (160-400) X10*3/uL MPV 10.0 (9.4-12.3) fL Immature Gran % (Auto) 0.2 (0.0-0.4) % Neut % (Auto) 71.7 (45-73) % Lymph % (Auto) 19.8 L (20-40) % Bonner % (Auto) 6.8 (2-11) % Eos % (Auto) 1.1 (0-4) % Baso % (Auto) 0.4 (0-2) % Lymph # (Auto) 1.1 L (1.2-4.9) X10*3/uL Bonner # (Auto) 0.4 (0.1-1.2) X10*3/uL Eos # (Auto) 0.1 (0.0-0.4) X10*3/uL Baso # (Auto) 0.0 (0.0-0.2) X10*3/uL Abs Immat Gran (auto) 0.01 (0.00-0.03) X10*3/uL Absolute Neuts (auto) 3.8 (2.0-8.3) x10*3/uL Absolute Nucleated RBC 0.000 (0.0-0.012) X10*3/uL Nucleated RBC % (auto) 0.0 (0.0-0.2) /100WBC Sodium 137 (135-145) mmol/L Potassium 3.3 D (3.3-5.1) mmol/L Chloride 105 (96-108) mmol/L Carbon Dioxide 23 (22-29) mmol/L Anion Gap 12 (12-20) BUN < 3 L (9-16) mg/dL Creatinine 0.76 (0.5-1.4) mg/dL Estim Creat Clear Calc 76.7 Estimated GFR > 60 Random Glucose 88 (60-115) mg/dL Calcium 8.3 L (8.4-10.2) mg/dL Magnesium 1.9 (1.6-2.6) mg/dL Total Bilirubin 0.6 (0.0-1.0) mg/dL AST 17 (5-31) U/L ALT 10 (0-31) U/L Alkaline Phosphatase 59 (39-117) U/L Troponin I High Sens < 2.7 (<3.5-17.0) ng/L Total Protein 6.5 (6.5-8.0) g/dL Albumin 4.1 (3.5-5.0) g/dL Urine Color Yellow Urine Appearance Clear Urine pH 6.5 (5.0-9.0) Ur Specific [place] <= 1.005 (1.005-1.025) Urine Protein Negative (Neg-Trace) mg/dL Urine Glucose (UA) Negative (Negative) mg/dL Urine Ketones Negative (Negative) mg/dL Urine Blood Negative (Negative) Urine Nitrite Negative (Negative) Ur Leukocyte Esterase Trace H (Negative) Urine RBC 0-2 (0-2) /HPF Urine WBC 0-5 (0-5) /HPF Ur Squamous Epith Cells 6-10 (0-2) /HPF Urine Bacteria Trace (None Seen) Hyaline Casts 0-2 (0-2) /LPF Urine Opiates Screen Not Detected (Not Detect) Ur Buprenorphine Scrn Not Detected (Not Detect) ng/mL Ur Oxycodone Screen Not Detected (Not Detect) ng/mL Urine Methadone Screen Not Detected (Not Detect) ng/mL Urine Fentanyl Screen Not Detected (Not Detect) Ur Barbiturates Screen Not Detected (Not Detect) Ur Phencyclidine Scrn Not Detected (Not Detect) Ur Amphetamines Screen Not Detected (Not Detect) U Benzodiazepines Scrn Not Detected (Not Detect) Urine Cocaine Screen POSITIVE H (Not Detect) U Marijuana (THC) Screen Not Detected (Not Detect) COVID-19 (LAM) Negative (Negative) COVID-19 Clin Com See Note Influenza Type A (PE[place]) Negative (Negative) Influenza Type B ([place]) Negative (Negative) Influenza A & B Note See Note Independent Interpretation I performed an independent interpretation of an: EKG and Plain X-Ray Radiology Impression Discussion of test interpretation with radiology: I have reviewed the radiologist's reading. Discharge Plan Discharge Clinical Impression: Acute upper respiratory infection, Suicidal ideation COPD (chronic obstructive pulmonary disease) Qualifiers: COPD type: chronic bronchitis Chronic bronchitis type: unspecified Qualified Code(s): J42 - Unspecified chronic bronchitis Patient Disposition: Admitted As Inpatient Interventions: Admission Worksheet (ED) Last Done: 09/14/25 14:56 Discharge Date/Time: 09/14/25 15:12
--- OUTSIDE RECORDS SUMMARY | 2025-09-12 22:16 | XMS_ITS | Encounter Summary ---
Author Organization [facility] Address [address] [place] [address] Care Team Providers Care School Year Nanny Name Role Phone Dina Anna MD Primary Care Provider [phone] Encounter Details Date Type Department Care Team ([facility] st Contact Info) Description 09/11/2025 Telephone Internal Medicine - [place] [address] [place] [address] Dina Anna MD [address] [place] [address] Social History Tobacco Use Types Packs/Day Years [...] as of this encounter Progress Notes * Dina Anna MD - 09/11/2025 1:30 PM EDT Pt is on gabapentin ,we are not the prescriber, Pls call pharmacy who is sending, Ask them to send refill request to the prescribing provider. documented in this encounter Plan of Treatment Not on file documented as of this encounter Visit Diagnoses Not on filedocumented in this encounter Care Teams School Year Nanny Relationship Specialty Start Date End Date Dina Anna MD [address] [place] [address] PCP - General Internal Medicine 03/23/22 documented as of this encounter
--- OUTSIDE RECORDS SUMMARY | 2025-09-12 22:16 | XMS_ITS | Encounter Summary ---
Author Organization [facility] Address [address] [place] [address] Care Team Providers Care Cat Operator Name Role Phone Dina Anna MD Primary Care Provider [phone] Reason for Visit * Reason Onset Date Comments Request For Order(s) 09/08/[address] [facility] Care - Order 4MSP Encounter Details Date Type Department Care Team ([facility] st Contact Info) Description 09/08/2025 Telephone Internal Medicine - [place] [address] [place] [address] Angelita Owens MA Social History Tobacco Use Types Packs/Day Years [...] Progress Notes * Angelita Owens MA - 09/09/2025 10:11 AM EDT Scanned into chart and faxed to [facility] [phone] * Angelita Owens MA - 09/08/2025 2:46 PM EDT [facility] - Order 4MSP Please sign & fax [phone] documented in this encounter Plan of Treatment Not on file documented as of this encounter Visit Diagnoses Not on filedocumented in this encounter Care Teams Cat Operator Relationship Specialty Start Date End Date Dina Anna MD [address] [place] [id number] PCP - General Internal Medicine 03/23/22 documented as of this encounter
--- OUTSIDE RECORDS SUMMARY | 2025-09-12 22:16 | XMS_ITS | Clinical Summary ---
Author Organization [facility] Address [address] [place] [address] Phone Care Team Providers Care Treasury Agent Name Role Phone Dina Anna MD Primary Care Provider [phone] Allergies Active Allergy Reactions Criticality Noted Date Comments Ibuprofen 05/02/2023 Ragweed 12/03/2023 Medications albuterol 2.5 mg /3 mL (0.083 %) nebulizer solution Inhale 3 mL (2.5 mg total). 11/13/19 24 Active albuterol HFA (PROAIR HFA ; PROVENTIL HFA ; VENTOLIN HFA) 90 mcg/actuation inhaler Inhale 2 puffs by mouth. 02/24/20 21 Active ergocalciferol (VITAMIN D-2) 1,250 mcg (50,000 unit) capsule Take 1 capsule (50,000 Units total) by mouth. 11/21/19 23 Active gabapentin (NEURONTIN) 400 mg capsule Take 1 capsule (400 mg total) by mouth. Active hydrOXYzine pamoate (VISTARIL) 50 mg capsule 4 times daily as needed for Itching. 11/13/19 24 Active diaper,brief,a dult,disposabl e misc 1 each by Not Applicable route. 03/23/20 20 Active melatonin 3 mg tablet Take 1 tablet (3 mg total) by mouth. Active NEBULIZERS MISC 1 each by Not Applicable route. 02/24/20 21 Active prazosin (MINIPRESS) 2 mg capsule Take 1 capsule (2 mg total) by mouth. Active risperiDONE (RisperDAL) 1 mg tablet Take 1 tablet (1 mg total) by mouth 2 (two) times a day. 01/04/20 21 Active sertraline (ZOLOFT) 50 mg tablet Take 1 tablet (50 mg total) by mouth 1 (one) time each day. 05/31/20 23 Active cholecalcifero l (VITAMIN D-3) 125 mcg (5,000 unit) capsule Take 1 capsule (5,000 Units total) by mouth 1 (one) time per week. 4 capsule 2 09/29/20 24 Active diclofenac (VOLTAREN) 1 % topical gel Apply 2 g topically 4 (four) times a day. 150 g 2 01/16/20 25 Active nicotine (NICODERM CQ) 7 mg/[address] 1 patch on the skin 1 (one) time each day at the same time. 30 each 03/17/20 25 Active senna-docusate (PERICOLACE) 8.6-50 mg per tablet Take 1 tablet by mouth 1 (one) time each day. 30 each 04/08/20 25 026 Active incontinence pad, liner, disp padIndications :Loose stools,Urinary incontinence, unspecified type 1 each 1 (one) time each day. 30 each 05/05/20 25 Active acetaminophen (TYLENOL) 500 mg tablet TAKE 1 TABLET (500 MG TOTAL) BY MOUTH EVERY 6 (SIX) HOURS IF NEEDED FOR MODERATE PAIN. 30 tablet 07/29/20 25 Active tiotropium (Spiriva with HandiHaler) 18 mcg per inhalation capsule Place 1 capsule (18 mcg total) into inhaler and inhale 1 (one) time each day. 30 capsule 4 08/26/20 25 Active solifenacin (VESICARE) 10 mg tablet TAKE 1 TABLET BY MOUTH DAILY. 30 tablet 09/04/20 25 Active levothyroxine (SYNTHROID, LEVOTHROID) 25 mcg tablet Take 1 tablet (25 mcg total) by mouth 1 (one) time each day before breakfast. 90 tablet 3 09/11/20 25 Active atorvastatin (LIPITOR) 20 mg tablet Take 1 tablet (20 mg total) by mouth at bedtime. at bedtime. 90 tablet 3 09/11/20 25 Active sertraline (ZOLOFT) 100 mg tablet Take 2 tablets (200 mg total) by mouth 1 (one) time each day. 11/13/19 24 025 Discontinued(Ex pired) traMADoL (ULTRAM) 50 mg tablet Take 1 tablet (50 mg total) by mouth. 05/24/20 23 025 Discontinued(Ex pired) tiotropium (Spiriva with HandiHaler) 18 mcg per inhalation capsule Place 1 capsule (18 mcg total) into inhaler and inhale 1 (one) time each day. 30 capsule 4 01/14/20 25 025 Discontinued(Re order) atorvastatin (LIPITOR) 20 mg tablet TAKE 1 TABLET BY MOUTH AT BEDTIME. 30 tablet 06/03/20 25 025 Discontinued(Re order) solifenacin (VESICARE) 10 mg tablet TAKE 1 TABLET BY MOUTH DAILY. 30 tablet 07/17/20 25 025 Discontinued levothyroxine (SYNTHROID, LEVOTHROID) 25 mcg tablet TAKE 1 TABLET (25 MCG TOTAL) BY MOUTH 1 (ONE) TIME EACH DAY BEFORE BREAKFAST. 30 tablet 07/28/20 025 Discontinued(Re order) Active Problems Problem Noted Date Diagnosed Date Chronic hepatitis ([facility] V24, [facility] V28) Acute respiratory failure wi th hypoxia ([facility] V24, [facility] V28) 10/23/2024 Major depressive disorder, r ecurrent severe without psychotic features ([facility] V24, [facility] V28) 10/23/2024 Acute respiratory failure wi th hypoxemia ([facility] V24, [facility] V28) 10/14/2024 Hypo-osmolality and hyponatremia 10/14/2024 Unspecified bacterial pneumonia 10/14/2024 Noninfective gastroenteritis and colitis, unspec ified 10/14/2024 Major depressive disorder, r ecurrent, severe without psychotic features ([facility] V24, [facility] V28) 10/14/2024 Post-traumatic stress disorder, chronic 10/14/20 Mixed incontinence urge and stress (male)(female ) 01/07/2024 Overview (01/07/2024): 02/16/2021 Overactive bladder/mixed, on solefenacin, has supplies Depression 01/07/2024 Overview (01/07/2024): Admitted to [facility] in 11/2019; patient has had multiple admits [...] suffering with this Awaiting psychiatry Going to [facility] today Thrombocytopenia (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 V24, [facility] V28) Allergic rhinitis 07/25/2018 COPD (chronic obstructive pu lmonary disease) ([facility] V24, [facility] V28) 07/25/2018 Overview (01/07/2024): 02/16/2021 Patient with history of COPD Chronic cough, uses Spiriva No acute worsening of symptoms Uses as needed albuterol, prescribed nebulizer and solution today Consider long-acting beta agonist in the future Tobacco cessation 02/23/2021 Smoking cessation, again sent prescription for nebulizer as well as albuterol inhaler for when she is out of the house Chronic hepatitis C ([facility] V24, [facility] V28) 0 06/30/2018 Overview (01/07/2024): 07/2016 S/p treatment w/ repeatedly negative viral loads, resolved Alcohol dependence ([facility] V24, [facility] V28) Substance abuse ([facility] V24, [facility] V28) 11/16 Overview (01/07/2024): 02/16/2021 Cocaine and alcohol. [facility] 04/29, 06/29, 10/29; Elle 03/30 alcohol; [facility] 12/04/20-12/07/20 Patient longest sobriety was 1 year, [...] great relief when she has gone to [facility] detox in the past She already has contacted them for [place], is awaiting bed Today I congratulated her [...] Didn't end up needing to go to [facility] Getting more support from her mother/family who [...] Encounters Date Type Department Care Team Description 09/11/2025 1:15 PM EDT Office Visit Internal Medicine [facility] [address] [phone] Dina Anna MD Bruising (Primary Dx); Depression, unspecified depression type; Hypercholesteremia 09/11/2025 Telephone Internal Medicine [facility] [address] [phone] Dina Anna MD 09/08/2025 Telephone Internal Medicine [facility] [address] [phone] Angelita Owens MA 08/24/2025 Telephone Internal Medicine [facility] [address] [phone] Angelita Owens [place] 08/03/2025 Telephone Internal Medicine [facility] [address] [phone] Dina Anna MD 07/28/2025 Telephone Internal Medicine [facility] [address] [phone] Dina Anna MD 07/21/2025 Telephone Internal Medicine [facility] 175 [facility] [address] [place] [phone] Angelita Owens MA 07/17/2025 Telephone Internal Medicine - [place] [facility] [address] [place] [phone] Angelita Owens MA from Last 3 Months Immunizations Immunization Administration Dates Next Due Influenza trivalent, with [...] bladder COPD (chronic obstructive pu lmonary disease) ([facility] V24, [facility] V28) DX:COPD (chronic o bstructive pulmonary disease) ([facility]); COMMENT: 2010 hx of collapsed lung from a cold History of hepatitis C 06/30/2018 DX:Histor y of hepatitis C; COMMENT: 07/2016 S/p treatment w/ repeatedly negative viral loads, resolved History of substance abuse ( [facility] V24, [facility] V28) 11/16/2016 DX:History of substance abus e ([facility]); COMMENT: Cocaine and alcohol. [facility] 04/29, 06/29 Allergic rhinitis 07/25/2018 DX:Allergic rh initis Chronic hepatitis C ([facility] V24, [facility] V28) 06/30/2018 DX:Chronic hepatitis C ([facility]) ; COMMENT: 07/2016 S/p treatment w/ repeatedly negative viral loads, resolved 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 DX:T B (pulmonary tuberculosis); COMMENT: Active TB, age 4; negative chest x-ray 11/2010 History of seizures 12/23/2018 DX:History o f seizures; COMMENT: From withdrawal Post traumatic stress disorder 12/23/2018 D X:Post traumatic stress disorder Bipolar 1 disorder ([facility] V24, [facility] V28) 07/25/2018 DX:Bipolar 1 disorder (HCC) Alcohol dependence ([facility] V24, [facility] V28) 04/12/2018 DX:Alcohol dependence (HCC) Thrombocytopenia ([facility] V24) 10/20/2018 D X:Thrombocytopenia (HCC) Substance abuse ([facility] V24 , [facility] V28) 11/16/2016 DX:Substance abuse (HCC); CO MMENT: [...] Mass Index 29.6 09/11/2025 1:17 PM EDT Plan of Treatment Health Maintenance Due Date Last Done Comments Breast Cancer Screening 1962 Hepatitis A Vaccines (1 of 2 - Risk 2-dose series) 1981 RSV Immunization Adult Patients (1 - Risk 50-74 years 1-dose series) 2012 Zoster Vaccines (1 of 2) 2012 Cervical Cancer Screening: Pap Smear 11/16/2019 11/16/2016 Pneumococcal Vaccine: 50+ Years (2 of 2 - PCV) 03/04/2020 03/04/2019, 12/28/2012 Hepatitis B Vaccines (1 of 3 - Risk 3-dose series) 2022 Colorectal Cancer Screening: Stool Based Tests (FOBT/FIT) 10/15/2022 HIV Screening 10/15/2022 Social Influencers of Health Screening 10/15/2022 Depression Screening 11/12/2024 DTaP,Tdap,and Td Vaccines (2 - Td or Tdap) 06/06/2025 06/06/2015 COVID-19 Vaccine (1 - season) 2025 Influenza Vaccine (#1) 2025 2, 08/26/2021, 11/25/2019, Additional history exists Cholesterol Screening [...] Procedure Name Priority Date/Time Associated Diagnosis Comments EXTERNAL XRAY REPORT 07/04/2025 LIPID PANEL Routine 11/14/2023 HM HEPATITIS C SCREENING Routine 12/02/2018 PAP SMEAR Routine 11/16/2016 from Last 3 Months or Most Recently Relevant to Health Maintenance Results * External Xray Report (07/04/2025) Anatomical Region Laterality Modality Radiographic Princess ging Provider [place] On[facility] IMG XR PROCEDURES Final Result * Lipid panel (11/14/2023) LDL/HDL Ratio 5 [...] Most Recently Relevant to Health Maintenance Insurance HEALTH PLAN Care Teams Treasury Agent Relationship Specialty Start Date End Date Dina Anna MD [facility] [address] [place] [address] PCP - General Internal Medicine 03/23/22
[2025-09-12 23:16] VITALS: BP 175/68; PULSE 68; RESP 18; TEMP 36.8; O2SAT 93
[2025-09-12 23:20] LABS: MANUAL DIFF FLAG NO
[2025-09-12 23:22] LABS: Hematocrit 37.9 % (37.0-47.0); Hemoglobin 12.8 g/dl (12.0-16.0); Imm Gran Abs Auto 0.01 X10*3/uL (0.00-0.03); Imm Gran Pct Auto 0.2 % (0.0-0.4); Lymphocytes Absolute Auto 1.1 X10*3/uL (1.2-4.9); Mean Corpuscular HGB Conc 33.8 g/dl (31.0-35.0); Mean Corpuscular Hemoglobin 30.1 pg (27.0-33.0); Mean Corpuscular Volume 89.2 fL (80.0-98.0); NRBC Abs Auto 0.000 X10*3/uL (0.0-0.012); NRBC Pct Auto 0.0 /100WBC (0.0-0.2); Platelet Count 141 X10*3/uL (160-400); Red Blood Count 4.25 X10*6/uL (4.20-5.50); White Blood Count 5.3 X10*3/uL (4.8-10.8)
[2025-09-12 23:25] LABS: Appearance Urine Clear; Glucose Urine UA Negative (Negative); PH 6.5 (5.0-9.0); Specific Gravity - Urine <= 1.005 (1.005-1.025); UMIC TRIGGER UACC YES
[2025-09-12 23:47] LABS: Troponin-I High Sensitivity < 2.7 ng/L (<3.5-17.0)
--- NOTE | 2025-09-12 23:58 | PC.NURSE ---
pt medicated per MAR.
[2025-09-13 00:01] LABS: Alanine Aminotransferase 10 U/L (0-31); Albumin Level 4.1 g/dL (3.5-5.0); Alkaline Phosphatase 59 U/L (39-117); Anion Gap 12 (12-20); Aspartate Amino Transferase 17 U/L (5-31); Blood Urea Nitrogen < 3 mg/dL (9-16); Calcium 8.3 mg/dL (8.4-10.2); Carbon Dioxide 23 mmol/L (22-29); Chloride 105 mmol/L (96-108); Creatinine Clr Calc Pharmacy 76.7; Estimated Glomerular Filt Rate > 60; Magnesium 1.9 mg/dL (1.6-2.6); Potassium 3.3 mmol/L (3.3-5.1); Sodium 137 mmol/L (135-145); Total Protein 6.5 g/dL (6.5-8.0)
--- NOTE | 2025-09-13 00:22 | PC.NURSE ---
pt ambulated to bathroom with steady gate.
[2025-09-13 01:04] LABS: COVID-19 Test Negative (Negative); IDNOW Serial# 55D5AD1C; IDNOW Serial# 58CA691E; Influenza B2 Negative (Negative)
[2025-09-13 01:07] VITALS: BP 140/73
--- NOTE | 2025-09-13 01:10 | PC.NURSE ---
med req done, confirmed with pt and pharmacy for recent fill dates.
[2025-09-13 01:13] VITALS: BP 140/7; PULSE 59; RESP 16; TEMP 36.3; O2SAT 94
--- NOTE | 2025-09-13 01:22 | PC.NURSE ---
Verbal report received from Nurse Crys. salesperson floor coverings completed in Main ED. Patient belongings switched to Locker #1. Presents as calm and cooperative. Requested/Received HS scheduled medications. Mouth checks completed. C/o 03/21 dental pain, MD Figueroa made aware, awaiting order for pain. Endorses passive SI, no plan/intent d/t of son. Denies HI/AVH. Feels safe on the unit. Agreeable to alert staff if feeling unsafe. Patient reports she wants to go to a long-term because she is unable to take care of herself. 15 [address] safety checks in place. Awaiting CARE Team..will continue to monitor for safety.
--- NOTE | 2025-09-13 01:25 | PC.NURSE ---
Verbal report given to Kelly CALDERON in POD.
--- NOTE | 2025-09-13 01:35 | PC.NURSE ---
Received 650mg Tylenol for 5/10 dental pain, pending effect. Patient shares with t/w she lost both of her sons 6 years ago and can't get over it. Reports one son hung himself and the other son was murdered. Patient also shares that she lives alone and does not want to be discharged home. Will continue to monitor for safety...
[2025-09-13 05:52] VITALS: RESP 17
[2025-09-13 06:11] VITALS: BP 132/75; PULSE 60; RESP 16; TEMP 36.9; O2SAT 98
--- NOTE | 2025-09-13 07:22 | PC.NURSE ---
Assumed care of patient at 0645, patient appears to be in no apparent distress this am, pt appears to be sleeping, respirations even and unlabored. Continue plan of care for CARE team evaluation
--- NOTE | 2025-09-13 11:22 | PHA.MEDREC ---
Addendum entered by Chica Zapien [facility] 09/13/25 11:27: Upon further investigation, it looks like Dr Harrison did send an order of levothyroxine at the dose of 37.5 on 07/11/2025. It looks like [facility] filled it this way in july but most recent fill for august was 25 mcg. Will leave this for the morning pharmacist to call [facility] and see what exactly was dispensed. Will keep the dose at 37.5 mcg for now. Original Note: Pharmacy Consult ? Medication Reconciliation Pharmacy has reviewed the medication reconciliation. Dose of levothyroxine was confirmed at dose of 37.5 mcg however patient only has claims for 25 mcg, med rec was changed to reflect 25 mcg.
[2025-09-13 14:06] VITALS: BP 122/78; PULSE 64; RESP 16; TEMP 37.2; O2SAT 94
[2025-09-13 14:45] LABS: Cannabinoid Screen Urine Not Detected (Not Detect)
--- NOTE | 2025-09-13 16:57 | PC.NURSE ---
Pt moved to 2 to have access to TV
--- NOTE | 2025-09-14 00:19 | PC.NURSE ---
took over care at 23:00 from KVNG Grayson, pt sleeping no sign of distress.
--- NOTE | 2025-09-14 02:06 | PC.NURSE ---
pt sleeping at this time.
[2025-09-14 08:39] VITALS: RESP 15
--- NOTE | 2025-09-14 09:22 | PC.NURSE ---
Assumed care, report received. Pt is provided her breakfast and meds, she is calm and cooperative. she is resting in her room at this time.
[2025-09-14 11:45] VITALS: BP 145/79; PULSE 66; RESP 13; TEMP 36.4; O2SAT 95
--- NOTE | 2025-09-14 13:23 | MHC.EDTECH ---
as i was getting vitals patient was stating she can not shower by herself and she wears diapers.
--- NOTE | 2025-09-14 13:24 | PC.NURSE ---
Pt came up to nursing station resting medication, when this RN asked her what she would like she stated that she was having an anxiety attack, pt offered atarax of which she agreed too.
[2025-09-14 15:20] VITALS: BP 97/68; PULSE 67; TEMP 36.4; O2SAT 95
[2025-09-14 16:24] VITALS: BMI 34.9
--- NOTE | 2025-09-14 18:34 | PC.ADMIT ---
Ms. Karen Cervantes was admitted from the pod to room 506-2 at 3:20pm for Suicidal Ideation. She originally went to the ER last night complaining of chest pain and then reported that she was suicidal with a plan to hang herself. She was medically cleared and brought to the pod while a bed search was done. When assessed by the CARE Team, she said that her older son suicided 6 years ago by hanging himself in his closet and Karen found him. She also told them that her younger son in an MVA.? She said she was experiencing auditory and visual hallucination of wolves scratching at her window, telling her to, ?go to the closet.? She has a long history of alcohol and crack cocaine abuse. Her tox screen was positive for crack only. She also said she can no longer live alone and needs to be put in assisted living or a residential program.She was incarcerated in 1999 for possession of cocaine in a school zone. When she arrived on M5 she was cooperative with the admission process, including her skin/ safety search which was unremarkable except for scars on both shins that she said she got from falling off a chair in her home, and also multiple tattoos. She looks older than her stated age, is in need of a shower and is missing many teeth. She said she was still suicidal, was still experiencing AVH and reiterated that she cannot go home as she is unable to live alone. Medically she has had thyroid CA x 2, COPD, asthma, hyperlipidemia and has a history of pneumonia at least once in the past. 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 ?They did an x-ray in the ER and it was fine.? Per the RN in the pod (Melvi), the x-ray showed small bilateral effusions and started her on doxycycline. She also confirmed that they completed a med reconciliation. Karen reported that she has not eaten or slept hardly at all for 3 days, and her increasing depressive symptoms began about a week ago. Prior to admission she said she had VNA services for meds and also had a SURVEILLANCE AGENT but the SURVEILLANCE AGENT, ?was always on vacation and stole from me.? She signed a CV with our provider and was put on safety checks q 15 minutes. She said she smokes crack, ?whenever i can afford it?, and smiles a pack of cigarettes daily. She said she has not drank alcohol in a week because, ?They put me on a edenilson and I can?t drink anymore.? She denies other substance use. Karen signed ROIs for her psychiatrist, therapist, insurance and pharmacy but declined to sign on for her PCP because, ?I don?t like him and I can?t spell his name.? She also declined to sign one for any personal contacts. She declined [employer] and also declined the flu shot.? She does wish to meet with Pastor Escamilla and said her alex is important to her. She has an allergy to ibuprofen.
[2025-09-14 19:12] VITALS: BP 103/67; PULSE 75; RESP 16; TEMP 36.2; O2SAT 95
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
[2025-09-14 21:13] VITALS: BP 103/67
[2025-09-15 08:00] VITALS: BP 126/66; PULSE 58; TEMP 36.2; O2SAT 94
--- NOTE | 2025-09-15 08:29 | HO.PM.IMCN ---
History of Present Illness Data of Consult Service Date: 09/15/25 Primary Care Provider: Unknown Physician HPI Reason for consult: Medical consult 65-year-old female past medical history of COPD, polysubstance abuse, PTSD, bipolar with psychotic features, alcohol use disorder, anxiety and depression, hypothyroidism, hyperlipidemia, history of thyroid cancer presented to the emergency department with suicidal ideation. Patient notably had a recent admission for pneumonia and now is reporting that she is unable to care for herself at home. Per initial workup revealed an unremarkable CBC, no electrolyte imbalances, no renal or liver abnormality, chest x-ray revealed a slight effusion. Tox screen positive for cocaine negative for infection. She was started on doxycycline for atypical pneumonia, COVID and influenza were negative. On exam she has no physical complaints. Review of Systems Review of Systems: Denies chest pain, headaches, dysuria, abdominal pain or discomfort, nausea, vomiting or diarrhea. Denies fever or chills. Patient is short of breath at baseline. [facility] Medical History Thyroid cancer HLD (hyperlipidemia) Alcohol abuse Bipolar disorder current episode depressed Anxiety and depression Social History Household Members: None Housing: Apartment Do you presently have visiting nurse or other home services: Yes ([employer] and [employer]) Alcohol intake: current Alcohol intake frequency: 0-2 drinks per day Alcohol type: hard liquor Comment: 1:1 sitter Patient Tobacco Use Status: Current everyday Tobacco user Tobacco use type: Cigarette Cigarette Packs Per Day: 1 Cigarettes Per Day: 20.0 Years Smoked: 30 Smoked in Last 30 Days: Yes e-Cigarette/Vaping Use: Never Used Patient Interested in Nicotine Replacement: No Patient Given Instructions on How to Stop Smoking: No Second Hand Smoke Exposure: No Substance Use Type: Crack/Cocaine Currently Displaying Signs/Symptoms of Drug Intoxication Withdrawal: No Have you been hit, kicked, punched, or otherwise hurt by someone within the past year? If so, by whom?: No Do you feel safe in your current relationship?: No Current Relationship Is there a partner from a previous relationship who is making you feel unsafe now?: No Are you made to feel afraid or neglected: No Advance Directives: No Advance Directives Information Provided: No Do you have thoughts of harming others: None Do you have a plan to hurt others: No Plan Recently lost weight without trying: No How much weight loss: Not applicable Nutrition Risks: No Nutritional Risk Patient : No : No Poor oral hygiene: Yes service: No Sexual orientation: Straight/Heterosexual Meds Allergies Allergy/AdvReac Type Severity Reaction Status Date / Time ibuprofen Allergy Intermediate Unknown Verified 09/12/25 21:56 ragweed pollen Allergy Sneezing Verified 09/12/25 21:56 Active Medications: Current Medications Acetaminophen (Acetaminophen 325 Mg Tablet) 650 mg PO Q6H PRN PRN Reason: Headache/Pain, Scale 1-10 Last Admin: 09/14/25 17:37 Dose: 650 mg Al Hydroxide/Mg Hydroxide (Magnesium Hydrox/Alum Hydrox 30 Ml Oral.Susp) 30 ml PO Q6H PRN PRN Reason: Heartburn/Nausea Atorvastatin Calcium (Atorvastatin Calcium 20 Mg Tablet) 20 mg PO DAILY [facility] Last Admin: 09/14/25 07:22 Dose: 20 mg Doxycycline Monohydrate (Doxycycline Monohydrate 100 Mg Capsule) 100 mg PO BID [facility] Last Admin: 09/14/25 21:14 Dose: 100 mg Gabapentin (Gabapentin 300 Mg Capsule) 600 mg PO TID [facility] Last Admin: 09/14/25 21:13 Dose: 600 mg Hydroxyzine HCl (Hydroxyzine Hcl 50 Mg Tablet) 50 mg PO Q6H PRN PRN Reason: Agitation Last Admin: 09/14/25 13:22 Dose: 50 mg Levothyroxine Sodium (Levothyroxine Sodium 25 Mcg Tablet) 37.5 mcg PO DAILY@0600 [facility] Last Admin: 09/15/25 06:02 Dose: 37.5 mcg Magnesium Hydroxide (Milk Of Magnesia 30 Ml Oral.Susp) 30 ml PO DAILY PRN PRN Reason: Constipation Melatonin (Melatonin 3 Mg Tablet) 9 mg PO BEDTIME [facility] Last Admin: 09/14/25 21:13 Dose: 9 mg Naltrexone HCl (Naltrexone Hcl 50 Mg Tablet) 50 mg PO DAILY [facility] Last Admin: 09/14/25 07:22 Dose: 50 mg Nicotine (Nicotine 21 Mg Patch.Td24) 21 mg TRANSDERMA DAILY PRN PRN Reason: smoking cessation Nicotine Polacrilex (Nicotine Polacrilex 2 Mg Gum) 4 mg BUCCAL Q2H PRN PRN Reason: Nicotine Cravings Prazosin HCl (Prazosin Hcl 1 Mg Capsule) 3 mg PO BEDTIME [facility]; Protocol Last Admin: 09/14/25 21:13 Dose: 3 mg Risperidone (Risperidone 1 Mg Tablet) 1 mg PO BID [facility] Last Admin: 09/14/25 21:13 Dose: 1 mg Risperidone (Risperidone 0.5 Mg Tablet) 0.5 mg PO BID PRN PRN Reason: Agitation/psychosis Sertraline HCl (Sertraline Hcl 100 Mg Tablet) 200 mg PO DAILY [facility] Last Admin: 09/14/25 07:21 Dose: 200 mg Trazodone HCl (Trazodone Hcl 50 Mg Tablet) 50 mg PO BEDTIME MRX1 PRN PRN Reason: Insomnia Home Medications ?Medication ?Instructions ?Recorded ?Confirmed ?Last Taken ?Type atorvastatin 20 mg tablet 20 mg PO DAILY 07/04/25 09/13/25 1 Day Ago History ~09/12/25 gabapentin 300 mg capsule 600 mg PO TID 07/04/25 09/13/25 Unknown History hydroxyzine pamoate 50 mg capsule 50 mg PO Q6H PRN Agitation 07/04/25 09/13/25 Unknown History prazosin 1 mg capsule 3 mg PO BEDTIME 07/04/25 09/13/25 Unknown History risperidone 1 mg tablet 1 mg PO BID 07/04/25 09/13/25 Unknown History sennosides 8.6 mg-docusate sodium 1 tab PO BEDTIME 07/04/25 09/13/25 Unknown History 50 mg tablet (Stool Softener-Laxative) sertraline 100 mg tablet 200 mg PO DAILY 07/04/25 09/13/25 Unknown History solifenacin 10 mg tablet 10 mg PO DAILY 07/04/25 09/13/25 Unknown History levothyroxine 25 mcg tablet 37.5 mcg PO DAILY 09/13/25 09/13/25 Unknown History Physical Exam Vital Signs and Narrative: Vital Signs: Last Vital Signs Temp 97.2 F 09/14/25 19:12 Pulse 75 09/14/25 19:12 Resp 16 09/14/25 19:12 BP 103/67 09/14/25 21:13 Pulse Ox 95 09/14/25 19:12 O2 Del Method Room Air 09/14/25 19:12 BMI result Body Mass Index 34.9 Alert and oriented X3, calm and cooperative. Answers questions. Neuro: CN II-X11 intact, no deficits, visual acuity intact EYES: PERRLA, EOM intact ENT: Hearing intact, MMM Cardiac: S1 S2 RRR, No ectopy Pulmonary: lungs clear to auscultation, No increased WOB. Abdominal: BS active in all 4 quadrants, no guarding or tenderness MSK: Strength 5/5 upper and lower extremities : Deferred Extremities: No edema in lower extremities Psych: Mood stable, Quiet and cooperative. Skin: Warm and dry, Intact Results Labs 09/12/25 23:14 09/15/25 09:00 Assessment and Plan (1) Hypothyroidism: Status: Acute Plan 65-year-old female with a past medical history listed below presented to the ED with shortness of breath and cough as well as suicide ideation and in ability to care for herself. Polysubstance abuse/PTSD/bipolar with psychotic features/anxiety/depression/alcohol use disorder Treatment per psychiatric team Hypothyroidism/history of thyroid cancer, status post thyroidectomy Continues levothyroxine Her TSH is 54.49 free T4 0.62 Likely due to not taking her medications, repeat level in 4 weeks COPD/atypical pneumonia Recently treated for pneumonia presented to the ED, now being treated for atypical pneumonia with doxycycline b.i.d. Restart Spiriva, albuterol as needed Hyperlipidemia Continue atorvastatin Thank you for allowing me to participate in the care of this patient. Will follow with you, please notify medical provider with any changes in condition or concerns.
[2025-09-15 10:11] LABS: Alanine Aminotransferase 10 U/L (0-31); Albumin Level 4.2 g/dL (3.5-5.0); Alkaline Phosphatase 71 U/L (39-117); Anion Gap 11 (12-20); Aspartate Amino Transferase 16 U/L (5-31); Blood Urea Nitrogen 17 mg/dL (9-16); Calcium 8.7 mg/dL (8.4-10.2); Carbon Dioxide 28 mmol/L (22-29); Chloride 106 mmol/L (96-108); Cholesterol 172 mg/dL (<200); HDL Cholesterol 51 mg/dL (>40); Potassium 4.1 mmol/L (3.3-5.1); Sodium 141 mmol/L (135-145); Total Protein 6.7 g/dL (6.5-8.0); Triglycerides 197 mg/dL (<150)
[2025-09-15 10:25] LABS: Creatinine Clr Calc Pharmacy 47.9; Estimated Glomerular Filt Rate 46
--- NOTE | 2025-09-15 10:57 | P.PNPSI_ITS ---
Subjective Subjective Date of Service: 09/15/25 Reason For Visit: SI Subjective Notes: Conditional Voluntary Healthcare Proxy: No Guardianship: No Medical Problems Affecting Mental Status: No Interim History: I have no one. I need care It was not happening out there. Discussed current needs-believes she needs SKILLED NURSING, a phone, help managing her life. Community supports she reports were not following through. Asks for a new out pt treatment team as well. Discussed effects of crack use on COPD and current respiratory state. I can't do it anymore . I can't tolerate it. Medication Compliance: Yes Side effects from medications: No Attending Groups: Intermittent Review of Systems Acute medical concerns: Yes COPD Medical Review of Systems: unchanged Review of Systems Review of Systems cough, COPD sx Mental Status Exam Mental Status Exam Patient Appearance: Appropriate Patient Orientation: Person, Place, Time and Situation Level of Consciousness: Alert Patient Behavior: Appropriate, Talkative, Cooperative, Distractible and Good Eye Contact Mood Description: Depressed, Labile, Angry and Apprehensive Affect Description: Labile Patient Cognition Impaired: No Ability to Follow Directions: Good Speech Pattern: Spontaneous Speech Memory Description: Intact Hallucinations: None Delusions: Not Present Perceptual Disturbances: Depersonalization and Derealization Thought Process: Goal Oriented Thought Content: positive for Goal Oriented Depressive Symptoms: Increased Anxiety, Increased Irritability, Increased Fatigue, Low Self Esteem and Loss of Energy Judgement: Fair Diagnostics Vital Signs (24Hr): Vital Signs - 24 hr 09/14/25 11:45 09/14/25 15:20 09/14/25 19:12 Temperature 97.6 F 97.5 F 97.2 F Pulse Rate 66 67 75 Respiratory Rate 13 16 Blood Pressure 145/79 H 97/68 103/67 Pulse Oximetry 95 95 95 Oxygen Delivery Method Room Air Room Air Room Air 09/14/25 21:13 09/15/25 08:00 Temperature 97.1 F Pulse Rate 58 Respiratory Rate Blood Pressure 103/67 126/66 Pulse Oximetry 94 Oxygen Delivery Method Room Air BMI result Body Mass Index 34.9 Labs 09/12/25 23:14 09/15/25 09:00 Labs: Laboratory Results - last 48 hr 09/12/25 09/15/25 23:14 09:00 Sodium 141 Potassium 4.1 D Chloride 106 Carbon Dioxide 28 Anion Gap 11 L BUN 17 H Creatinine 1.18 Estim Creat Clear Calc 47.9 Estimated GFR 46 Random Glucose 110 Estimat Average Glucose 105 Hemoglobin A1c % 5.3 Calcium 8.7 Total Bilirubin 0.4 AST 16 ALT 10 Alkaline Phosphatase 71 Total Protein 6.7 Albumin 4.2 Triglycerides 197 H Cholesterol 172 LDL Cholesterol, Calc 82 HDL Cholesterol 51 TSH 54.49 H Urine Opiates Screen Not Detected Ur Buprenorphine Scrn Not Detected Ur Oxycodone Screen Not Detected Urine Methadone Screen Not Detected Urine Fentanyl Screen Not Detected Ur Barbiturates Screen Not Detected Ur Phencyclidine Scrn Not Detected Ur Amphetamines Screen Not Detected U Benzodiazepines Scrn Not Detected Urine Cocaine Screen POSITIVE H U Marijuana (THC) Screen Not Detected Medications Medications Current Medications Acetaminophen (Acetaminophen 325 Mg Tablet) 650 mg PO Q6H PRN PRN Reason: Headache/Pain, Scale 1-10 Last Admin: 09/14/25 17:37 Dose: 650 mg Al Hydroxide/Mg Hydroxide (Magnesium Hydrox/Alum Hydrox 30 Ml Oral.Susp) 30 ml PO Q6H PRN PRN Reason: Heartburn/Nausea Atorvastatin Calcium (Atorvastatin Calcium 20 Mg Tablet) 20 mg PO DAILY [facility] Last Admin: 09/15/25 09:06 Dose: 20 mg Doxycycline Monohydrate (Doxycycline Monohydrate 100 Mg Capsule) 100 mg PO BID [facility] Last Admin: 09/15/25 09:06 Dose: 100 mg Gabapentin (Gabapentin 300 Mg Capsule) 600 mg PO TID [facility] Last Admin: 09/15/25 09:07 Dose: 600 mg Hydroxyzine HCl (Hydroxyzine Hcl 50 Mg Tablet) 50 mg PO Q6H PRN PRN Reason: Agitation Last Admin: 09/14/25 13:22 Dose: 50 mg Levothyroxine Sodium (Levothyroxine Sodium 25 Mcg Tablet) 37.5 mcg PO DAILY@0600 [facility] Last Admin: 09/15/25 06:02 Dose: 37.5 mcg Magnesium Hydroxide (Milk Of Magnesia 30 Ml Oral.Susp) 30 ml PO DAILY PRN PRN Reason: Constipation Melatonin (Melatonin 3 Mg Tablet) 9 mg PO BEDTIME [facility] Last Admin: 09/14/25 21:13 Dose: 9 mg Naltrexone HCl (Naltrexone Hcl 50 Mg Tablet) 50 mg PO DAILY [facility] Last Admin: 09/15/25 09:07 Dose: 50 mg Nicotine (Nicotine 21 Mg Patch.Td24) 21 mg TRANSDERMA DAILY PRN PRN Reason: smoking cessation Nicotine Polacrilex (Nicotine Polacrilex 2 Mg Gum) 4 mg BUCCAL Q2H PRN PRN Reason: Nicotine Cravings Prazosin HCl (Prazosin Hcl 1 Mg Capsule) 3 mg PO BEDTIME [facility]; Protocol Last Admin: 09/14/25 21:13 Dose: 3 mg Risperidone (Risperidone 1 Mg Tablet) 1 mg PO BID [facility] Last Admin: 09/15/25 09:07 Dose: 1 mg Risperidone (Risperidone 0.5 Mg Tablet) 0.5 mg PO BID PRN PRN Reason: Agitation/psychosis Sertraline HCl (Sertraline Hcl 100 Mg Tablet) 200 mg PO DAILY [facility] Last Admin: 09/15/25 09:08 Dose: 200 mg Trazodone HCl (Trazodone Hcl 50 Mg Tablet) 50 mg PO BEDTIME MRX1 PRN PRN Reason: Insomnia Allergies Allergies Allergy/AdvReac Type Severity Reaction Status Date / Time ibuprofen Allergy Intermediate Unknown Verified 09/12/25 21:56 ragweed pollen Allergy Sneezing Verified 09/12/25 21:56 Assessment & Plan Assessment & Plan (1) Bipolar disorder with psychotic features: Status: Acute Code(s): F31.9 - Bipolar disorder, unspecified (2) Suicidal ideation: Status: Acute Code(s): R45.851 - Suicidal ideations (3) Alcohol use disorder, moderate, dependence: Status: Acute Code(s): F10.20 - Alcohol dependence, uncomplicated (4) COPD (chronic obstructive pulmonary disease): Status: Acute Code(s): J44.9 - Chronic obstructive pulmonary disease, unspecified (5) PTSD (post-traumatic stress disorder): Status: Acute Code(s): F43.10 - Post-traumatic stress disorder, unspecified (6) Cocaine use disorder: Status: Acute Code(s): F14.10 - Cocaine abuse, uncomplicated Plan HPI: Pt. is a 65 year old, , Burmese speaking female with hx of PTSD, Bipolar, COPD, Thyroid cancer, HTN, HLD who presented to [facility] secondary to experiencing chest pains and reported to the Doctor that she is experiencing suicidal ideation, and she feels as if she is unable to care for herself at this time. to endorse suicidal ideation, with a plan to hang herself, like her son did years ago. Pt. states, I just don't feel safe. My son committed suicide and I found him , I wanted to do the same. Pt. denies HI, plan, or intent during the evaluation. Pt. reports an increase in depression over the last week. Pt. reports that she has not been eating well or sleeping well in 3 days, and that she slept maybe two hours. Pt. also endorses auditory and visual hallucinations of werewolves around her house, and voices telling her weird things , telling her to go into the closet . Pt. also reports a noticeable weight loss as of recent. Formulation/clinical reasoning: Increasing in depression and anxiety, poor sleep and appetite, SI with plan to hang self, increasing in AVH symptoms. Increasing in Substance use issues: NOE and alcohol. Hx of hanging self x3. Son committed suicide a couple years ago. Hx of PTSD and bipolar, given above information. Patient would benefit in restrictive environment for own safety, medication management, and refer patient back to OP psychiatric to continue with care for aftercare plan. Hospital course: 09/14/25: continue with all home meds: Prazosin 3mg at HS for PTSD Sertraline 200mg daily for depression/ PTSD Naltrexone 50mg daily for Alcohol craving. Risperidone 1mg BID for psychosis/mood Add Risperione 0.5mg BID PRN for agitation/psychosis Add Melatonin 9 mg at HS for insomnia per patient request as patient does not like trazodone. 09/15: Continue regime Flu shot Mucinex prn Plan Patient on 15 minute checks for safety. Admitted to [facility]. CV. Work with treatment team to do collateral on 09/12: Utox +NOE. K3.3, BUN<3. Mikey 8.3. U/A: Unremarkable. EKG: QT/QTc: 420/484. Triponin WNL. Reason for continued inpatient stay Substantial Risk for: med/psych decompensation Time Spent With Patient Time: Total time managing care of this patient today ____ minutes.
[2025-09-15 11:13] LABS: Free T4 (Free Thyroxine) 0.62 ng/dL (0.71-1.85)
[2025-09-15 20:00] VITALS: BP 119/58; PULSE 50; RESP 16; TEMP 36.4; O2SAT 98
[2025-09-15 20:35] VITALS: BP 119/58
--- NOTE | 2025-09-16 | ECG_ITS ---
Test Reason : LOW HR BRADYCARDIA Blood Pressure : */* mmHG Vent. Rate : 77 BPM Atrial Rate : 77 BPM P-R Int : 150 ms QRS Dur : 72 ms QT Int : 400 ms P-R-T Axes : 45 65 70 degrees QTcB Int : 452 ms Sinus rhythm with frequent Premature ventricular complexes Nonspecific T wave abnormality Abnormal ECG When compared with ECG of 12-Sep-2025 22:55, No significant change was found Referred By: Geena Lyman Electronically Signed By: Hal Boo
[2025-09-16 07:56] VITALS: BP 105/58; PULSE 45; TEMP 36.2; O2SAT 94
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
[2025-09-16] MEDS: Tiotropium Bromide 2.5 mcg 1 PUFF/2.5 MCG MIST.INHAL 2 PUFF INHALE (09:32)
--- NOTE | 2025-09-16 12:07 | HO.PM.IMPN ---
Subjective Subjective Date of Service: 09/16/25 Interval History: Patient consulted for and COPD. On exam she reports that she is very depressed and not eating well. Reports her breathing is better. Has not started her Spiriva which has been ordered. Nursing reports a heart rate of 45. Apical pulse noted to be 56. EKG obtained her heart rate was noted to be 77. Reviewed with Dr. Boo, EKGs similar in appearance if patient develops symptoms will consult Cardiology. She denies any chest pain, dizziness, lightheadedness or any other concerning symptoms. She is sitting on the edge of her bed filling out her meal request. Although she reports a poor appetite her meal selection indicates that feels hungry and is ordering lots of food. Patient is on any medications for rate control, she has been afebrile. No other concerns. Review of Systems Denies any shortness of breath, chest pain, headaches, dysuria, abdominal pain or discomfort, nausea, vomiting or diarrhea. Denies fever or chills. Physical Exam Exam: Exam: Alert and oriented X3, calm and cooperative. Answers questions. Neuro: CN II-X11 intact, no deficits, visual acuity intact EYES: PERRLA, EOM intact ENT: Hearing intact, MMM Cardiac: S1 S2 RRR, No ectopy Pulmonary: lungs clear to auscultation, No increased WOB. Abdominal: BS active in all 4 quadrants, no guarding or tenderness MSK: Strength 5/5 upper and lower extremities : Deferred Extremities: No edema in lower extremities Psych: Mood stable, Quiet and cooperative. Skin: Warm and dry, Intact Vital Signs: Vital Signs: Last Vital Signs Temp 97.2 F 09/16/25 07:56 Pulse 45 L 09/16/25 07:56 Resp 16 09/15/25 20:00 BP 105/58 L 09/16/25 07:56 Pulse Ox 94 09/16/25 07:56 O2 Del Method Room Air 09/16/25 07:56 BMI result Body Mass Index 34.9 Objective Data Active Medications Acetaminophen (Acetaminophen 325 Mg Tablet) 650 mg PO Q6H PRN PRN Reason: Headache/Pain, Scale 1-10 Last Admin: 09/15/25 20:32 Dose: 650 mg Documented By: ALIREZA Al Hydroxide/Mg Hydroxide (Magnesium Hydrox/Alum Hydrox 30 Ml Oral.Susp) 30 ml PO Q6H PRN PRN Reason: Heartburn/Nausea Atorvastatin Calcium (Atorvastatin Calcium 20 Mg Tablet) 20 mg PO DAILY [facility] Last Admin: 09/16/25 09:00 Dose: 20 mg Documented By: LOVE Doxycycline Monohydrate (Doxycycline Monohydrate 100 Mg Capsule) 100 mg PO BID [facility] Last Admin: 09/16/25 08:59 Dose: 100 mg Documented By: LOVE Gabapentin (Gabapentin 300 Mg Capsule) 600 mg PO TID [facility] Last Admin: 09/16/25 09:00 Dose: 600 mg Documented By: LOVE Guaifenesin (Guaifenesin [place] 600 Mg Tab.Er.12h) 600 mg PO BID PRN PRN Reason: Cough Hydroxyzine HCl (Hydroxyzine Hcl 50 Mg Tablet) 50 mg PO Q6H PRN PRN Reason: Agitation Last Admin: 09/16/25 06:40 Dose: 50 mg Documented By: ALIREZA Levothyroxine Sodium (Levothyroxine Sodium 25 Mcg Tablet) 37.5 mcg PO DAILY@0600 [facility] Last Admin: 09/16/25 06:38 Dose: 37.5 mcg Documented By: ALIREZA Magnesium Hydroxide (Milk Of Magnesia 30 Ml Oral.Susp) 30 ml PO DAILY PRN PRN Reason: Constipation Melatonin (Melatonin 3 Mg Tablet) 9 mg PO BEDTIME [facility] Last Admin: 09/15/25 20:32 Dose: 9 mg Documented By: ALIREZA Naltrexone HCl (Naltrexone Hcl 50 Mg Tablet) 50 mg PO DAILY [facility] Last Admin: 09/16/25 08:59 Dose: 50 mg Documented By: LOVE Nicotine (Nicotine 21 Mg Patch.Td24) 21 mg TRANSDERMA DAILY PRN PRN Reason: smoking cessation Nicotine Polacrilex (Nicotine Polacrilex 2 Mg Gum) 4 mg BUCCAL Q2H PRN PRN Reason: Nicotine Cravings Prazosin HCl (Prazosin Hcl 1 Mg Capsule) 3 mg PO BEDTIME [facility]; Protocol Last Admin: 09/15/25 20:35 Dose: Not Given Documented By: ALIREZA Non-Admin Reason: Decreased Heart Rate Risperidone (Risperidone 1 Mg Tablet) 1 mg PO BID [facility] Last Admin: 09/16/25 09:00 Dose: 1 mg Documented By: LOVE Risperidone (Risperidone 0.5 Mg Tablet) 0.5 mg PO BID PRN PRN Reason: Agitation/psychosis Sertraline HCl (Sertraline Hcl 100 Mg Tablet) 200 mg PO DAILY [facility] Last Admin: 09/16/25 08:59 Dose: 200 mg Documented By: LOVE Tiotropium [place] (Tiotropium [place] 2.5 Mcg 1 Puff/2.5 Mcg Mist.Inhal) 2 puff INHALE RDAILY [facility] Last Admin: 09/16/25 09:32 Dose: 2 puff Documented By: LOVE Trazodone HCl (Trazodone Hcl 50 Mg Tablet) 50 mg PO BEDTIME MRX1 PRN PRN Reason: Insomnia Last Admin: 09/16/25 01:56 Dose: 50 mg Documented By: ALIREZA Labs 09/12/25 23:14 09/15/25 09:00 Assessment and Plan (1) Asymptomatic bradycardia: Status: Acute Plan 65-year-old female with a past medical history listed below presented to the ED with shortness of breath and cough as well as suicide ideation and in ability to care for herself. Polysubstance abuse/PTSD/bipolar with psychotic features/anxiety/depression/alcohol use disorder Treatment per psychiatric team Hypothyroidism/history of thyroid cancer, status post thyroidectomy Continues levothyroxine Her TSH is 54.49 free T4 0.62 Likely due to not taking her medications, repeat level in 4 weeks COPD/atypical pneumonia Recently treated for pneumonia presented to the ED, now being treated for atypical pneumonia with doxycycline b.i.d. Restart Spiriva, albuterol as needed Patient reports breathing is improved-we will consider steroid burst if patient continues to report worsening shortness of breath Bradycardia Not noted on EKG, rate 77 with no ischemic changes, occasional PVCs. Unchanged from previous EKG Not on anything for rate control Patient is asymptomatic, if patient develops symptomatic bradycardia we will consult Cardiology Hyperlipidemia Continue atorvastatin Thank you for allowing me to participate in the care of this patient. Will follow with you, please notify medical provider with any changes in condition or concerns. Quality Stroke Does the patient have a stroke diagnosis?: No VTE Prior VTE?: No VTE Risk Level:: Medical - low VTE Device Contraindication: Treatment Not Indicated VTE Drug Contraindication: Treatment Not Indicated
[2025-09-16 13:46] VITALS: BP 90/57; PULSE 80
[2025-09-16] MEDS: Nicotine Polacrilex Lozenge 4 MG LOZENGE BUCCAL (15:32)
--- NOTE | 2025-09-16 19:05 | PC.NURSE ---
Addendum entered by Pema Jackson RN 09/16/25 19:25: palpated pulse now 38. Adriana Santiago NP notifird. She said she was going to put in a consult for a hospitalist. Original Note: Karen's Vitals at 7pm: pulse= 47-70, 126/72. Provider Tatianna Santiago NP notified. She said to hold any antihypertensive meds, including prazosin. She also said to continue to push fluids. Her pulse was 45 this morning. Geena Lyman NP ordered an EKG which she asked Cardiology to review. Per Geena, Cardiology said not to worry about it. Adriana Santiago notifird of the above also.
[2025-09-16 20:00] VITALS: BP 128/62; PULSE 47; RESP 16; TEMP 36.8; O2SAT 96
--- NOTE | 2025-09-16 20:00 | PM.EVENT ---
Documented by User: Tatianna Santiago NP 09/16/25 20:12 Event Note Date of Service: 09/16/25 Event Note: Nurse notified Low heart rate, given information that HR has been low this morning. Hospitalist Geena saw patient this morning. Per Hospitalist note, will consult Head Still Operator if patient is symptom. Nurse was asked to check HR manually, given HR at 1924. BP 126/72, O2 sat 96%, HR between 47-70.. Stat consult to hospitalist was placed but canceled after this provider face to face assessed patient by 1940 as patient was asymptomatic. Patient was on the phone, making another phone call to family as she has concerns regarding the cat. She walks using walker to the kitchen. Calm, pleasant and cooperative. She was informed that her HR has been running low. Checked manually by this provider with HR 40 BPM. Patient is asymptomatic, denies dizziness or seeing spots. Report her weakness is not new and has been feeling weak for the past couple of days with arthritis on her legs. Offered fluid, and encourage to increase PO fluid intake. Patient asked for Christal Lorna and observed driving some of Chirstal Lorna on the cup she already has on the table. Patient also is sue that nurses will occasionally check on her at night d/t concerns of low HR. Patient states God watch over me . and receptive with the plan. Nursing is also aware of the plan over night. Prazosin is held d/t unstable VSs. Per record, it was not given the night before as well. Time Spent With Patient Time: Total time managing care of this patient today ____ minutes. Documented by User: Bola Marie MD 09/28/25 11:08 Event Note Date of Service: 09/28/25 Time Spent With Patient Time: Total time managing care of this patient today _20___ minutes.
--- NOTE | 2025-09-17 | ECG_ITS ---
Test Reason : bradycardia Blood Pressure : */* mmHG Vent. Rate : 68 BPM Atrial Rate : 68 BPM P-R Int : * ms QRS Dur : 122 ms QT Int : 414 ms P-R-T Axes : * 78 -86 degrees QTcB Int : 440 ms NSR with PVCs Septal infarct , age undetermined Abnormal ECG When compared with ECG of 16-Sep-2025 13:31, No significant changes seen Referred By: Mary Ann Jeffery Electronically Signed By: Hal Boo
--- NOTE | 2025-09-17 | ECG_ITS ---
Test Reason : ekg changes Blood Pressure : */* mmHG Vent. Rate : 73 BPM Atrial Rate : 73 BPM P-R Int : 140 ms QRS Dur : 80 ms QT Int : 410 ms P-R-T Axes : 58 64 82 degrees QTcB Int : 451 ms Sinus rhythm with frequent Premature ventricular complexes in a pattern of bigeminy Nonspecific ST abnormality Abnormal ECG When compared with ECG of 17-Sep-2025 06:03, No significant changes seen Referred By: Geena Lyman Electronically Signed By: Hal Boo
[2025-09-17 02:39] VITALS: BP 120/85; PULSE 71; RESP 16
[2025-09-17 05:25] VITALS: BP 102/68; PULSE 38; RESP 16; TEMP 36.6; O2SAT 96
--- NOTE | 2025-09-17 06:19 | PM.EVENT ---
Event Note Date of Service: 09/17/25 Event Note: another consult was placed for bradycardis for pt, HR in the low 40s while pt is at rest (sitting or lying down). the pt reports that she is feeling weak and unwell and is unsure if she has a history of bradycardia. she reports congestions and runny nose, mild SOB. no cough, fever, chills, nausea or vomiting. she also reports increased urinary frequency from baseline. she has OAB and reports urinary incontinence at baseline. on exam pt is laying in bed, manual pulse of 42 radially. alert and oriented x3. HR irregularly irregular. lungs diminished throughout, no wheezing or crackles. EKG with PVCs. placed orders for UA/cx, RPP and COVID/flu test, CBC, BMP and chest xray due to SOB. cardiology consult placed as duration of bradycardia and weakness is unclear. recommend holding gabapentin and hydroxyzine in the interim due to potentional side effects of bradycardia discussed case with attending Dr Retana.. Time Spent With Patient Time: Total time managing care of this patient today ____ minutes.
--- NOTE | 2025-09-17 06:59 | PC.NURSE ---
Karen came out into the hallway at 05:25 c/o weakness, fatigue, urinary incontinence and not feeling well . BP 102/68 HR 38-47, 97.8, RR 16, O2 sats 96% on RA. Geraldine Santiago NP had put in a STAT order for hospitalist, but canceled when patient was asymptomatic earlier in the shift. Order for hospitalist service was changed to routine. However, due to patient c/o symptoms, a [place] text was sent to JAMES Jeffery at 0538, STAT EKG done and shown to JAMES Raman, who also did a face to face assessment of Karen at 0600 and put in orders for labs and a CXR; some of her medications are also on hold. Karen was reassured, resting in bed, in NAD at this time.
[2025-09-17 08:00] VITALS: BP 108/72; PULSE 73
--- NOTE | 2025-09-17 08:49 | HO.PM.IMPN ---
Subjective Subjective Date of Service: 09/17/25 Interval History: Patient is seen for persistent bradycardia, she reports occasionally she is dizzy, reports her legs feel weak. She is ambulating with a walker. She denies any shortness of breath, denies any chest pain, denies any palpitations. She reports her weakness is ongoing, utilizing walker. Reports she needs a walker for when she goes home. She reports that her appetite is poor. ?Picks? at her food. Overnight her heart rate was in the low 40s while she was at rest sitting or lying down or sleeping. Denies any history of cardiac issues. Her heart rate is irregular apically. Stat blood work place this morning has not been collected. Patient reports that she has been taking all of her medications at home. Review of Systems Denies chest pain, shortness of breath, palpitations, abdominal pain, nausea vomiting or diarrhea. Reports occasional dizziness and weakness in her legs. Physical Exam Exam: Exam: Alert and oriented X3, able to give good history. Vague at times Neuro: CN II-X11 intact, no deficits, visual acuity intact EYES: PERRLA, EOM intact ENT: Hearing intact, MMM Cardiac: Heart rate irregularly irregular. Strong radial pulse. Pulmonary: Lungs clear to auscultation, No increased WOB. Abdominal: BS active in all 4 quadrants, no guarding or tenderness MSK: Strength 5/5 upper and lower extremities : Deferred Extremities: No edema in lower extremities Psych: mood stable, Quiet and cooperative. Skin: Warm and dry, Intact Vital Signs: Vital Signs: Last Vital Signs Temp 97.8 F 09/17/25 05:25 Pulse 38 L 09/17/25 05:25 Resp 16 09/17/25 05:25 BP 102/68 09/17/25 05:25 Pulse Ox 96 09/17/25 05:25 O2 Del Method Room Air 09/17/25 05:25 BMI result Body Mass Index 34.9 Objective Data Active Medications Acetaminophen (Acetaminophen 325 Mg Tablet) 650 mg PO Q6H PRN PRN Reason: Headache/Pain, Scale 1-10 Last Admin: 09/17/25 06:26 Dose: 650 mg Documented By: NJOROGB Al Hydroxide/Mg Hydroxide (Magnesium Hydrox/Alum Hydrox 30 Ml Oral.Susp) 30 ml PO Q6H PRN PRN Reason: Heartburn/Nausea Atorvastatin Calcium (Atorvastatin Calcium 20 Mg Tablet) 20 mg PO DAILY [facility] Last Admin: 09/16/25 09:00 Dose: 20 mg Documented By: LOVE Doxycycline Monohydrate (Doxycycline Monohydrate 100 Mg Capsule) 100 mg PO BID [facility] Last Admin: 09/16/25 21:05 Dose: 100 mg Documented By: BOB Gabapentin (Gabapentin 300 Mg Capsule) 600 mg PO TID [facility] Last Admin: 09/16/25 21:05 Dose: 600 mg Documented By: BOB Guaifenesin (Guaifenesin La 600 Mg Tab.Er.12h) 600 mg PO BID PRN PRN Reason: Cough Hydroxyzine HCl (Hydroxyzine Hcl 50 Mg Tablet) 50 mg PO Q6H PRN PRN Reason: Agitation Last Admin: 09/16/25 13:29 Dose: 50 mg Documented By: LOVE Levothyroxine Sodium (Levothyroxine Sodium 25 Mcg Tablet) 37.5 mcg PO DAILY@0600 [facility] Last Admin: 09/17/25 06:27 Dose: 37.5 mcg Documented By: SHAKIRA Magnesium Hydroxide (Milk Of Magnesia 30 Ml Oral.Susp) 30 ml PO DAILY PRN PRN Reason: Constipation Melatonin (Melatonin 3 Mg Tablet) 9 mg PO BEDTIME [facility] Last Admin: 09/16/25 21:05 Dose: 9 mg Documented By: BOB Naltrexone HCl (Naltrexone Hcl 50 Mg Tablet) 50 mg PO DAILY [facility] Last Admin: 09/16/25 08:59 Dose: 50 mg Documented By: LOVE Nicotine (Nicotine 21 Mg Patch.Td24) 21 mg TRANSDERMA DAILY PRN PRN Reason: smoking cessation Nicotine Polacrilex (Nicotine Polacrilex Lozenge 4 Mg Lozenge) 4 mg BUCCAL Q2H PRN PRN Reason: Nicotine Cravings Last Admin: 09/16/25 15:32 Dose: 4 mg Documented By: LOVE Prazosin HCl (Prazosin Hcl 1 Mg Capsule) 3 mg PO BEDTIME [facility]; Protocol On Hold: 09/16/25 20:13 Last Admin: 09/15/25 20:35 Dose: Not Given Documented By: ACHEAMD Non-Admin Reason: Decreased Heart Rate Risperidone (Risperidone 1 Mg Tablet) 1 mg PO BID [facility] Last Admin: 09/16/25 21:05 Dose: 1 mg Documented By: BOB Risperidone (Risperidone 0.5 Mg Tablet) 0.5 mg PO BID PRN PRN Reason: Agitation/psychosis Last Admin: 09/16/25 18:10 Dose: 0.5 mg Documented By: LOVE Sertraline HCl (Sertraline Hcl 100 Mg Tablet) 200 mg PO DAILY [facility] Last Admin: 09/16/25 08:59 Dose: 200 mg Documented By: LOVE Tiotropium [place] (Tiotropium [place] 2.5 Mcg 1 Puff/2.5 Mcg Mist.Inhal) 2 puff INHALE RDAILY [facility] Last Admin: 09/16/25 09:32 Dose: 2 puff Documented By: LOVE Trazodone HCl (Trazodone Hcl 50 Mg Tablet) 50 mg PO BEDTIME MRX1 PRN PRN Reason: Insomnia Last Admin: 09/16/25 01:56 Dose: 50 mg Documented By: GREGORIOAMD Labs 09/12/25 23:14 09/15/25 09:00 Assessment and Plan (1) Asymptomatic bradycardia: Status: Acute Plan 65-year-old female with a past medical history listed below presented to the ED with shortness of breath and cough as well as suicide ideation and in ability to care for herself. Polysubstance abuse/PTSD/bipolar with psychotic features/anxiety/depression/alcohol use disorder Treatment per psychiatric team Bradycardia Patient's heart rate continued 40 with slight dizziness. Not on anything for rate control Likely related to hypothyroidism Cardiology consult appreciated, echocardiogram ordered, TSH increased to 50 mcg daily. Encourage patient to abstain from cocaine use. Patient will need continued cardiology follow up outpatient Hypothyroidism/history of thyroid cancer, status post thyroidectomy Increase levothyroxine to 50 mcg daily Her TSH is 54.49 free T4 0.62 Likely due to not taking her medications as her TSH has been elevated in January, June and September. TSH also elevated in 2023 ranged 62.47-99.37 at [facility]. Her dose of levothyroxine at that time was increased to 50 mcg. Patient does not know her home dose but reports that she is taking it. Call placed to [place] [facility] where patient gets her medications and she has been on levothyroxine 25 mcg most recently filled in August, no other doses dispensed from this pharmacy. We will need endocrinology follow up outpatient Repeat labs in 2 weeks if patient is here if not she will need close follow up as outpatient to stabilize hypothyroidism. COPD/atypical pneumonia Recently treated for pneumonia presented to the ED, now being treated for atypical pneumonia with doxycycline b.i.d. Continue Spiriva, albuterol as needed Patient reports her breathing is improved. Denies increased shortness of breath Hyperlipidemia Continue atorvastatin Thank you for allowing me to participate in the care of this patient. Will follow with you, please notify medical provider with any changes in condition or concerns. Quality Stroke Does the patient have a stroke diagnosis?: No VTE Prior VTE?: No VTE Risk Level:: Medical - low VTE Device Contraindication: Treatment Not Indicated VTE Drug Contraindication: Treatment Not Indicated
[2025-09-17] MEDS: Tiotropium Bromide 2.5 mcg 1 PUFF/2.5 MCG MIST.INHAL 2 PUFF INHALE (09:18)
--- NOTE | 2025-09-17 10:52 | P.CONCA_ITS ---
History of Present Illness History of Present Illness Date of Service: 09/17/25 Requesting physician: Rajni Beckford Chief complaint: SI, bradycardia Narrative: [age] year female who has been asked to see for bradycardia. She is in inpatient psych for suicide ideation. She has background of PTSD and bipolar disorder. She has COPD and substance abuse and is positive for cocaine. She is complaining of some weakness and dizziness. She is saying that she has been eating off and on and depending on her mood at times she will not eat. She is hypothyroid and is supposed to be on 37.5 mcg of levothyroxine. She is saying that she has been taking medications regularly. Her TSH is significantly abnormal at 54.49 and free T4 is 0.62. She is denying any cardiovascular history in the past. No chest discomfort or shortness of breath reported. EKG has shown frequent premature ventricular complexes. [facility] Past Medical History Medical History Thyroid cancer HLD (hyperlipidemia) Alcohol abuse Bipolar disorder current episode depressed Anxiety and depression Social History Social History Household Members: None Housing: Apartment Do you presently have visiting nurse or other home services: Yes ([facility] and [employer]) Alcohol intake: current Alcohol intake frequency: 0-2 drinks per day Alcohol type: hard liquor Comment: 1:1 sitter Patient Tobacco Use Status: Current everyday Tobacco user Tobacco use type: Cigarette Cigarette Packs Per Day: 1 Cigarettes Per Day: 20.0 Years Smoked: 30 Smoked in Last 30 Days: Yes e-Cigarette/Vaping Use: Never Used Patient Interested in Nicotine Replacement: No Patient Given Instructions on How to Stop Smoking: No Second Hand Smoke Exposure: No Substance Use Type: Crack/Cocaine Currently Displaying Signs/Symptoms of Drug Intoxication Withdrawal: No Have you been hit, kicked, punched, or otherwise hurt by someone within the past year? If so, by whom?: No Do you feel safe in your current relationship?: No Current Relationship Is there a partner from a previous relationship who is making you feel unsafe now?: No Are you made to feel afraid or neglected: No Advance Directives: No Advance Directives Information Provided: No Do you have thoughts of harming others: None Do you have a plan to hurt others: No Plan Recently lost weight without trying: No How much weight loss: Not applicable Nutrition Risks: No Nutritional Risk Patient : No : No Poor oral hygiene: Yes service: No Sexual orientation: Straight/Heterosexual Meds Allergies Allergy/AdvReac Type Severity Reaction Status Date / Time ibuprofen Allergy Intermediate Unknown Verified 09/12/25 21:56 ragweed pollen Allergy Sneezing Verified 09/12/25 21:56 Active Medications: Current Medications Acetaminophen (Acetaminophen 325 Mg Tablet) 650 mg PO Q6H PRN PRN Reason: Headache/Pain, Scale 1-10 Last Admin: 09/17/25 06:26 Dose: 650 mg Al Hydroxide/Mg Hydroxide (Magnesium Hydrox/Alum Hydrox 30 Ml Oral.Susp) 30 ml PO Q6H PRN PRN Reason: Heartburn/Nausea Atorvastatin Calcium (Atorvastatin Calcium 20 Mg Tablet) 20 mg PO DAILY [facility] Last Admin: 09/17/25 09:17 Dose: 20 mg Doxycycline Monohydrate (Doxycycline Monohydrate 100 Mg Capsule) 100 mg PO BID [facility] Last Admin: 09/17/25 09:18 Dose: 100 mg Gabapentin (Gabapentin 300 Mg Capsule) 600 mg PO TID [facility] Last Admin: 09/17/25 09:18 Dose: 600 mg Guaifenesin (Guaifenesin La 600 Mg Tab.Er.12h) 600 mg PO BID PRN PRN Reason: Cough Hydroxyzine HCl (Hydroxyzine Hcl 50 Mg Tablet) 50 mg PO Q6H PRN PRN Reason: Agitation Last Admin: 09/16/25 13:29 Dose: 50 mg Levothyroxine Sodium (Levothyroxine Sodium 50 Mcg Tablet) 50 mcg PO DAILY@0600 [facility] Magnesium Hydroxide (Milk Of Magnesia 30 Ml Oral.Susp) 30 ml PO DAILY PRN PRN Reason: Constipation Melatonin (Melatonin 3 Mg Tablet) 9 mg PO BEDTIME [facility] Last Admin: 09/16/25 21:05 Dose: 9 mg Naltrexone HCl (Naltrexone Hcl 50 Mg Tablet) 50 mg PO DAILY [facility] Last Admin: 09/17/25 09:18 Dose: 50 mg Nicotine (Nicotine 21 Mg Patch.Td24) 21 mg TRANSDERMA DAILY PRN PRN Reason: smoking cessation Nicotine Polacrilex (Nicotine Polacrilex Lozenge 4 Mg Lozenge) 4 mg BUCCAL Q2H PRN PRN Reason: Nicotine Cravings Last Admin: 09/16/25 15:32 Dose: 4 mg Prazosin HCl (Prazosin Hcl 1 Mg Capsule) 3 mg PO BEDTIME [facility]; Protocol On Hold: 09/16/25 20:13 Last Admin: 09/15/25 20:35 Dose: Not Given Risperidone (Risperidone 1 Mg Tablet) 1 mg PO BID [facility] Last Admin: 09/17/25 09:18 Dose: 1 mg Risperidone (Risperidone 0.5 Mg Tablet) 0.5 mg PO BID PRN PRN Reason: Agitation/psychosis Last Admin: 09/16/25 18:10 Dose: 0.5 mg Sertraline HCl (Sertraline Hcl 100 Mg Tablet) 200 mg PO DAILY [facility] Last Admin: 09/17/25 09:17 Dose: 200 mg Tiotropium [place] (Tiotropium [place] 2.5 Mcg 1 Puff/2.5 Mcg Mist.Inhal) 2 puff INHALE RDAILY [facility] Last Admin: 09/17/25 09:18 Dose: 2 puff Trazodone HCl (Trazodone Hcl 50 Mg Tablet) 50 mg PO BEDTIME MRX1 PRN PRN Reason: Insomnia Last Admin: 09/16/25 01:56 Dose: 50 mg Home Medications ?Medication ?Instructions ?Recorded ?Confirmed ?Last Taken ?Type atorvastatin 20 mg tablet 20 mg PO DAILY 07/04/2501/06 1 Day Ago History ~09/12/25 gabapentin 300 mg capsule 600 mg PO TID 07/04/2509/13 Unknown History hydroxyzine pamoate 50 mg capsule 50 mg PO Q6H PRN Kathy tation 07/04/25 09/13/25 Unknown History prazosin 1 mg capsule 3 mg PO BEDTIME 07/04/2501/06 Unknown History risperidone 1 mg tablet 1 mg PO BID 07/04/25 5 Unknown History sennosides 8.6 mg-docusate sodium 1 tab PO BEDTIME 09/13/25 Unknown History 50 mg tablet (Stool Softener-Laxative) sertraline 100 mg tablet 200 mg PO DAILY 07/04/2501/06 Unknown History solifenacin 10 mg tablet 10 mg PO DAILY 07/04/2501/06 Unknown History levothyroxine 25 mcg tablet 37.5 mcg PO DAILY 09/13/25 09/13/25 Unknown History Physical Exam 2 Vital Signs: Vital Signs: Last Vital Signs Temp 97.8 F 09/17/25 05:25 Pulse 38 L 09/17/25 05:25 Resp 16 09/17/25 05:25 BP 102/68 09/17/25 05:25 Pulse Ox 96 09/17/25 05:25 O2 Del Method Room Air 09/17/25 05:25 BMI result Body Mass Index 34.9 GENERAL APPEARANCE: in no acute distress. NECK: no carotid bruit, no jugular venous distention. SKIN: no suspicious lesions, warm and dry. HEART: no murmurs, regular rate and rhythm. Bradycardic. LUNGS: clear to auscultation bilaterally. ABDOMEN: soft, nontender. EXTREMITIES: no edema. PERIPHERAL PULSES: equal. NEUROLOGIC: No gross deficits, AAO X 3 Objective Labs and Meds 09/12/25 23:14 09/15/25 09:00 Assessment and Plan (1) Asymptomatic bradycardia: Status: Acute (2) Premature ventricular complex: Status: Acute Plan 65-year-old lady with psychiatric illness and substance use disorder presenting with suicide ideation. She has been noticed to be bradycardic. Overall her symptoms are quite vague. She walked with a walker to her room across the hallway without any symptoms. She is hypothyroid and is reporting that she has been taking medications regularly. Her TSH is significantly abnormal at 54.49 and free T4 is 0.62. I think her levothyroxine dose should be increased. This can be discussed with endocrinology team also. Echocardiography to assess LV function. If normal LV then we can walk on treadmill (not very optimistic because she has significant arthritis and is walking with a walker) with a modified Herbert protocol. We can see how the PVCs respond to exercise. Thank you for allowing me to participate in the care of your patient. Please feel free to contact me if you have any questions. Procedures Date of Service Date of Service: 09/17/25
--- NOTE | 2025-09-17 13:00 | CA_ITS ---
Transthoracic Echocardiogram Patient (Last, First, Middle): Karen Cervantes, Gender: Female Date of : 1960 Age: 65 Procedure Date: 09/17/2025 Procedure Type: Transthoracic Echocardiogram Location: M5 Height: 154.94 cm Weight: 83.46 kg BSA: 1.82 m2 Heart Rate: bpm BP: 102 / 68 mmHg Stockbroker: TO Referring MD: Geena Lyman DNP Symptoms: Bradycardia Study Quality: Fair ECG Rhythm: Sinus with extra beats Conclusions: - Normal left ventricular size and systolic function. The visually estimated ejection fraction is between 55-60%. There is no evidence of regional wall motion abnormalities. Diastolic function is indeterminate on the basis of available data. There is mild septal asymmetric hypertrophy. - Mildly increased right ventricular cavity size. There is normal right ventricular systolic function. - The left atrium is mildly dilated. The right atrium is mildly dilated. Findings Procedure Information The quality of the study was technically difficult. The study quality is limited by the patients inability to tolerate the test. Left Ventricle Normal left ventricular size and systolic function. The visually estimated ejection fraction is between 55-60%. There is no evidence of regional wall motion abnormalities. Diastolic function is indeterminate on the basis of available data. There is mild septal asymmetric hypertrophy. Right Ventricle Mildly increased right ventricular cavity size. There is normal right ventricular systolic function. Atria The left atrium is mildly dilated. The right atrium is mildly dilated. Aortic Valve Normal aortic valve structure and function. There is no aortic valve stenosis. There is no aortic valve regurgitation. Mitral Valve The mitral valve appears normal. There is trace mitral valve regurgitation. There is no mitral valve stenosis. Pulmonic Valve Normal pulmonic valve structure and function. There is no pulmonic valve regurgitation. Tricuspid Valve Normal tricuspid valve structure. There is no tricuspid valve regurgitation. Tricuspid regurgitation envelope is inadequate for calculation of right ventricular systolic pressure. Normal right atrial pressure. Great Vessels All visible segments of the aorta are normal in size. The visualized portions of the pulmonary artery and branches are normal. Venous The inferior vena cava is normal in size and collapses greater than 50% with inspiration. Pericardium/Pleural There is no evidence of pericardial effusion. Prior Study Comparison No prior study available for comparison. Measurements 2D Linear Measurements IVSd: 1.22 0.6-0.9/0.6-1.0 cm LVIDd: 4.66 3.9-5.3/4.2-5.9 cm LVIDd Index: 2.56 2.4-3.2/2.2-3.1 cm/m2 LVIDs: 3.04 2.0-3.6 cm LVPWd: 0.94 0.7-1.1 cm LA Diam: 3.40 2.7-3.8/3.0-4.0 cm LAIDs Index: 1.87 1.5-2.3 cm/m2 LV Mass: 224.81 67-162/88-224 g LV Mass Index: 123.52 43-95/49-115 g/m2 LVOT Diam: 2.30 3.0+(-)1.3 cm Mitral Valve MV Pk E: 0.69 MV PK A: 0.40 MV Decel Time: 144.00 E/A: 1.70 PHT: 42.00 MVA PHT: 5.24 Decel Hardeman: 4.78 Aortic Valve AoV Pk Kamran: 0.99 AoV Mn Kamran: 0.66 AoV VTI: 0.19 AoV Pk Grad: 4.00 Aov Mn Grad: 2.00 JUD Cont.VTI: 3.85 LVOT LVOT Pk Kamran: 0.96 LVOT Mn Kamran: 0.62 LVOT VTI: 0.18 LVOT Pk Grad: 4.00 LVOT Mn Grad: 2.00 LVOT Diam: 2.30 LVOT Area: 4.15 Diastolic Function MV Pk E: 0.69 MV Pk A: 0.40 E/A: 1.70 Right Ventricle TAPSE (mm): 20.00 Tricuspid Valve RA Press: 3.00 Great Vessels Aorta Ao Asc: 3.20 2.1-3.4 cm Updated in Other Vendor System with Status of Final Hal Boo MD electronically signed on 09/19/2025 3:24:04 PM with status of Final
[2025-09-17 13:23] LABS: Resp Syncy Virus RNA Qual PCR NEGATIVE (Negative); SARS COV2 PCR INHOUSE NEGATIVE (Negative)
--- NOTE | 2025-09-17 16:41 | HO.PSYCHPN ---
Subjective Subjective Date of Service: 09/17/25 Reason For Visit: SI, bradycardia Subjective Notes: Conditional Voluntary Healthcare Proxy: No Guardianship: No Medical Problems Affecting Mental Status: Yes Interim History: Episode of bradycardia again last evening. Seen by hospitalist last evening and this a.m. along with evening psychiatry coverage. Pt to have ECHO today. Team believes this may be related to her elevated TSH and non compliance with medicine prior to admit. Levothyroxine increased. This afternoon, post ECHO, pt is bright, engaged, reports feeling better, because they found my cat . She is social, reports willing to work with team and community care providers on her discharge planning. Denies SI,HI, AH, VH. Medication Compliance: Yes Side effects from medications: No Attending Groups: Intermittent Review of Systems Acute medical concerns: Yes Review of Systems Review of Systems Bradycardia Mental Status Exam Mental Status Exam Patient Appearance: Appropriate Patient Orientation: Person, Place, Time and Situation Level of Consciousness: Alert Patient Behavior: Appropriate, Talkative, Cooperative, Distractible and Good Eye Contact Mood Description: Calm Affect Description: Calm Patient Cognition Impaired: No Ability to Follow Directions: Good Speech Pattern: Spontaneous Speech Memory Description: Intact Hallucinations: None Delusions: Not Present Thought Process: Goal Oriented Thought Content: positive for Goal Oriented Judgement: Fair Diagnostics Vital Signs (24Hr): Vital Signs - 24 hr 09/16/25 20:00 09/17/25 02:39 09/17/25 05:25 Temperature 98.3 F 97.8 F Pulse Rate 47 L 71 38 L Respiratory Rate 16 16 16 Blood Pressure 128/62 120/85 102/68 Pulse Oximetry 96 96 Oxygen Delivery Method Room Air Room Air BMI result Body Mass Index 34.9 Labs 09/12/25 23:14 09/15/25 09:00 Labs: Laboratory Results - last 48 hr 09/17/25 11:51 Influenza Type A (PCR) NEGATIVE Influenza Type B (PCR) NEGATIVE RSV RNA Qual (PCR) NEGATIVE SARS-CoV-2 RNA (RT-PCR) NEGATIVE Imaging Radiology Impressions: ITS Impressions Chest X-Ray 09/17/25 11:01 IMPRESSION: No active pulmonary disease. Electronically signed by: Earl Connor MD 09/17/2025 11:11 AM [facility] Medications Medications Current Medications Acetaminophen (Acetaminophen 325 Mg Tablet) 650 mg PO Q6H PRN PRN Reason: Headache/Pain, Scale 1-10 Last Admin: 09/17/25 15:37 Dose: 650 mg Al Hydroxide/Mg Hydroxide (Magnesium Hydrox/Alum Hydrox 30 Ml Oral.Susp) 30 ml PO Q6H PRN PRN Reason: Heartburn/Nausea Atorvastatin Calcium (Atorvastatin Calcium 20 Mg Tablet) 20 mg PO DAILY [facility] Last Admin: 09/17/25 09:17 Dose: 20 mg Doxycycline Monohydrate (Doxycycline Monohydrate 100 Mg Capsule) 100 mg PO BID [facility] Last Admin: 09/17/25 09:18 Dose: 100 mg Gabapentin (Gabapentin 300 Mg Capsule) 600 mg PO TID [facility] Last Admin: 09/17/25 15:34 Dose: 600 mg Guaifenesin (Guaifenesin La 600 Mg Tab.Er.12h) 600 mg PO BID PRN PRN Reason: Cough Hydroxyzine HCl (Hydroxyzine Hcl 50 Mg Tablet) 50 mg PO Q6H PRN PRN Reason: Agitation Last Admin: 09/16/25 13:29 Dose: 50 mg Levothyroxine Sodium (Levothyroxine Sodium 50 Mcg Tablet) 50 mcg PO DAILY@0600 [facility] Magnesium Hydroxide (Milk Of Magnesia 30 Ml Oral.Susp) 30 ml PO DAILY PRN PRN Reason: Constipation Melatonin (Melatonin 3 Mg Tablet) 9 mg PO BEDTIME [facility] Last Admin: 09/16/25 21:05 Dose: 9 mg Naltrexone HCl (Naltrexone Hcl 50 Mg Tablet) 50 mg PO DAILY [facility] Last Admin: 09/17/25 09:18 Dose: 50 mg Nicotine (Nicotine 21 Mg Patch.Td24) 21 mg TRANSDERMA DAILY PRN PRN Reason: smoking cessation Nicotine Polacrilex (Nicotine Polacrilex Lozenge 4 Mg Lozenge) 4 mg BUCCAL Q2H PRN PRN Reason: Nicotine Cravings Last Admin: 09/16/25 15:32 Dose: 4 mg Prazosin HCl (Prazosin Hcl 1 Mg Capsule) 3 mg PO BEDTIME [facility]; Protocol On Hold: 09/16/25 20:13 Last Admin: 09/15/25 20:35 Dose: Not Given Risperidone (Risperidone 1 Mg Tablet) 1 mg PO BID [facility] Last Admin: 09/17/25 09:18 Dose: 1 mg Risperidone (Risperidone 0.5 Mg Tablet) 0.5 mg PO BID PRN PRN Reason: Agitation/psychosis Last Admin: 09/16/25 18:10 Dose: 0.5 mg Sertraline HCl (Sertraline Hcl 100 Mg Tablet) 200 mg PO DAILY [facility] Last Admin: 09/17/25 09:17 Dose: 200 mg Tiotropium [place] (Tiotropium [place] 2.5 Mcg 1 Puff/2.5 Mcg Mist.Inhal) 2 puff INHALE RDAILY [facility] Last Admin: 09/17/25 09:18 Dose: 2 puff Trazodone HCl (Trazodone Hcl 50 Mg Tablet) 50 mg PO BEDTIME MRX1 PRN PRN Reason: Insomnia Last Admin: 09/16/25 01:56 Dose: 50 mg Allergies Allergies Allergy/AdvReac Type Severity Reaction Status Date / Time ibuprofen Allergy Intermediate Unknown Verified 09/12/25 21:56 ragweed pollen Allergy Sneezing Verified 09/12/25 21:56 Assessment & Plan Assessment & Plan (1) Bipolar disorder current episode depressed: Status: Acute Code(s): F31.30 - Bipolar disorder, current episode depressed, mild or moderate severity, unspecified (2) PTSD (post-traumatic stress disorder): Status: Acute Code(s): F43.10 - Post-traumatic stress disorder, unspecified (3) Alcohol use disorder, moderate, dependence: Status: Acute Code(s): F10.20 - Alcohol dependence, uncomplicated (4) Cocaine use disorder: Status: Acute Code(s): F14.10 - Cocaine abuse, uncomplicated Plan 65-year-old female with a past medical history listed below presented to the ED with shortness of breath and cough as well as suicide ideation and in ability to care for herself. Polysubstance abuse/PTSD/bipolar with psychotic features/anxiety/depression/alcohol use disorder Treatment per psychiatric team Bradycardia Patient's heart rate continued 40 with slight dizziness. Not on anything for rate control Likely related to hypothyroidism Cardiology consult appreciated, echocardiogram ordered, TSH increased to 50 mcg daily. Encourage patient to abstain from cocaine use. Patient will need continued cardiology follow up outpatient Hypothyroidism/history of thyroid cancer, status post thyroidectomy Increase levothyroxine to 50 mcg daily Her TSH is 54.49 free T4 0.62 Likely due to not taking her medications as her TSH has been elevated in January, June and September. TSH also elevated in 2023 ranged 62.47-99.37 at [facility]. Her dose of levothyroxine at that time was increased to 50 mcg. Patient does not know her home dose but reports that she is taking it. Call placed to [place] [facility] where patient gets her medications and she has been on levothyroxine 25 mcg most recently filled in August, no other doses dispensed from this pharmacy. We will need endocrinology follow up outpatient Repeat labs in 2 weeks if patient is here if not she will need close follow up as outpatient to stabilize hypothyroidism. COPD/atypical pneumonia Recently treated for pneumonia presented to the ED, now being treated for atypical pneumonia with doxycycline b.i.d. Continue Spiriva, albuterol as needed Patient reports her breathing is improved. Denies increased shortness of breath Hyperlipidemia Continue atorvastatin Thank you for allowing me to participate in the care of this patient. Will follow with you, please notify medical provider with any changes in condition or concerns. 09/17/25: Continue current regime Team is working with pt on out pt resources so she may return home. Reason for continued inpatient stay Substantial Risk for: med/psych decompensation Time Spent With Patient Time: Total time managing care of this patient today ____ minutes.
[2025-09-17 20:00] VITALS: BP 108/57; PULSE 36; RESP 16; TEMP 36.9; O2SAT 95
[2025-09-18 08:00] VITALS: BP 139/93; PULSE 89; RESP 15; TEMP 36.4; O2SAT 96
[2025-09-18] MEDS: Tiotropium Bromide 2.5 mcg 1 PUFF/2.5 MCG MIST.INHAL 2 PUFF INHALE (09:11)
--- NOTE | 2025-09-18 09:52 | HO.PSYCHPN ---
Subjective Subjective Date of Service: 09/18/25 Reason For Visit: SI, bradycardia Subjective Notes: Conditional Voluntary Healthcare Proxy: No Guardianship: No Medical Problems Affecting Mental Status: No Interim History: Karen reports feeling better. Reports a decrease in her cough, only intermittent chest discomfort and denies SI,HI,AH, VH-did report to team seeing bugs last evening she reports. OP providers met with pt today and she reports a productive meeting. Team is gathering information from OP providers and it appears pt is using a significant amount of cocaine-having the suppliers come directly to her home. Pt reports I am not doing it any more-I know it is the reason I am sick . Pt continues with ambivalence about home services or rest home trial-one factor is taking her cat to a rest home- I cannot leave him . Another is loss of her monthly funding to the rest home which she is not comfortable with. Today, pt with BLE edema-discussed with hospitalist team-compression stockings ordered, ECHO results are pending. Team believes that chronically high TSH elevation is contributing to sx, thus levothyroxine was increased. Discussed with pt who reports medicine compliance [employer], however, lab hx indicates senior care elevation of TSH. Today, overall , pt appears improved. Mood remains labile. Offered to begin a lamictal trial, however, she refuses today. Medication Compliance: Yes Side effects from medications: No Attending Groups: Intermittent Review of Systems Acute medical concerns: Yes as noted Medical Review of Systems: unchanged Review of Systems Review of Systems BLE edema-compression stockings ordered Mental Status Exam Mental Status Exam Patient Appearance: Appropriate Patient Orientation: Person, Place, Time and Situation Level of Consciousness: Alert Patient Behavior: Appropriate, Talkative, Cooperative, Distractible and Good Eye Contact Mood Description: Labile Affect Description: Labile Patient Cognition Impaired: No Ability to Follow Directions: Good Speech Pattern: Spontaneous Speech Memory Description: Intact Hallucinations: None Delusions: Not Present Thought Process: Goal Oriented Thought Content: positive for Goal Oriented Judgement: Fair Diagnostics Vital Signs (24Hr): Vital Signs - 24 hr 09/17/25 20:00 09/18/25 08:00 Temperature 98.4 F 97.5 F Pulse Rate 36 L 89 Respiratory Rate 16 15 Blood Pressure 108/57 L 139/93 H Pulse Oximetry 95 96 Oxygen Delivery Method Room Air Room Air BMI result Body Mass Index 34.9 Labs 09/12/25 23:14 09/15/25 09:00 Labs: Laboratory Results - last 48 hr 09/17/25 11:51 Influenza Type A (PCR) NEGATIVE Influenza Type B (PCR) NEGATIVE RSV RNA Qual (PCR) NEGATIVE SARS-CoV-2 RNA (RT-PCR) NEGATIVE Imaging Radiology Impressions: ITS Impressions Chest X-Ray 09/17/25 11:01 IMPRESSION: No active pulmonary disease. Electronically signed by: Earl Connor MD 09/17/2025 11:11 AM [facility] [place] Medications Medications Current Medications Acetaminophen (Acetaminophen 325 Mg Tablet) 650 mg PO Q6H PRN PRN Reason: Headache/Pain, Scale 1-10 Last Admin: 09/18/25 09:11 Dose: 650 mg Al Hydroxide/Mg Hydroxide (Magnesium Hydrox/Alum Hydrox 30 Ml Oral.Susp) 30 ml PO Q6H PRN PRN Reason: Heartburn/Nausea Atorvastatin Calcium (Atorvastatin Calcium 20 Mg Tablet) 20 mg PO DAILY [facility] Last Admin: 09/18/25 09:07 Dose: 20 mg Doxycycline Monohydrate (Doxycycline Monohydrate 100 Mg Capsule) 100 mg PO BID [facility] Last Admin: 09/18/25 09:07 Dose: 100 mg Gabapentin (Gabapentin 300 Mg Capsule) 600 mg PO TID [facility] Last Admin: 09/18/25 09:07 Dose: 600 mg Guaifenesin (Guaifenesin La 600 Mg Tab.Er.12h) 600 mg PO BID PRN PRN Reason: Cough Hydroxyzine HCl (Hydroxyzine Hcl 50 Mg Tablet) 50 mg PO Q6H PRN PRN Reason: Agitation Last Admin: 09/16/25 13:29 Dose: 50 mg Levothyroxine Sodium (Levothyroxine Sodium 50 Mcg Tablet) 50 mcg PO DAILY@0600 [facility] Last Admin: 09/18/25 06:23 Dose: 50 mcg Magnesium Hydroxide (Milk Of Magnesia 30 Ml Oral.Susp) 30 ml PO DAILY PRN PRN Reason: Constipation Melatonin (Melatonin 3 Mg Tablet) 9 mg PO BEDTIME [facility] Last Admin: 09/17/25 21:55 Dose: 9 mg Naltrexone HCl (Naltrexone Hcl 50 Mg Tablet) 50 mg PO DAILY [facility] Last Admin: 09/18/25 09:07 Dose: 50 mg Nicotine (Nicotine 21 Mg Patch.Td24) 21 mg TRANSDERMA DAILY PRN PRN Reason: smoking cessation Nicotine Polacrilex (Nicotine Polacrilex Lozenge 4 Mg Lozenge) 4 mg BUCCAL Q2H PRN PRN Reason: Nicotine Cravings Last Admin: 09/16/25 15:32 Dose: 4 mg Prazosin HCl (Prazosin Hcl 1 Mg Capsule) 3 mg PO BEDTIME [facility]; Protocol On Hold: 09/16/25 20:13 Last Admin: 09/15/25 20:35 Dose: Not Given Risperidone (Risperidone 1 Mg Tablet) 1 mg PO BID [facility] Last Admin: 09/18/25 09:07 Dose: 1 mg Risperidone (Risperidone 0.5 Mg Tablet) 0.5 mg PO BID PRN PRN Reason: Agitation/psychosis Last Admin: 09/16/25 18:10 Dose: 0.5 mg Sertraline HCl (Sertraline Hcl 100 Mg Tablet) 200 mg PO DAILY [facility] Last Admin: 09/18/25 09:07 Dose: 200 mg Tiotropium [place] (Tiotropium [place] 2.5 Mcg 1 Puff/2.5 Mcg Mist.Inhal) 2 puff INHALE RDAILY [facility] Last Admin: 09/18/25 09:11 Dose: 2 puff Trazodone HCl (Trazodone Hcl 50 Mg Tablet) 50 mg PO BEDTIME MRX1 PRN PRN Reason: Insomnia Last Admin: 09/16/25 01:56 Dose: 50 mg Allergies Allergies Allergy/AdvReac Type Severity Reaction Status Date / Time ibuprofen Allergy Intermediate Unknown Verified 09/12/25 21:56 ragweed pollen Allergy Sneezing Verified 09/12/25 21:56 Assessment & Plan Assessment & Plan (1) Bipolar disorder current episode depressed: Status: Acute Code(s): F31.30 - Bipolar disorder, current episode depressed, mild or moderate severity, unspecified (2) PTSD (post-traumatic stress disorder): Status: Acute Code(s): F43.10 - Post-traumatic stress disorder, unspecified (3) Alcohol use disorder, moderate, dependence: Status: Acute Code(s): F10.20 - Alcohol dependence, uncomplicated (4) Cocaine use disorder: Status: Acute Code(s): F14.10 - Cocaine abuse, uncomplicated Plan 65-year-old female with a past medical history listed below presented to the ED with shortness of breath and cough as well as suicide ideation and in ability to care for herself. Polysubstance abuse/PTSD/bipolar with psychotic features/anxiety/depression/alcohol use disorder Treatment per psychiatric team Bradycardia Patient's heart rate continued 40 with slight dizziness. Not on anything for rate control Likely related to hypothyroidism Cardiology consult appreciated, echocardiogram ordered, TSH increased to 50 mcg daily. Encourage patient to abstain from cocaine use. Patient will need continued cardiology follow up outpatient Hypothyroidism/history of thyroid cancer, status post thyroidectomy Increase levothyroxine to 50 mcg daily Her TSH is 54.49 free T4 0.62 Likely due to not taking her medications as her TSH has been elevated in January, June and September. TSH also elevated in 2023 ranged 62.47-99.37 at [facility]. Her dose of levothyroxine at that time was increased to 50 mcg. Patient does not know her home dose but reports that she is taking it. Call placed to [facility] where patient gets her medications and she has been on levothyroxine 25 mcg most recently filled in August, no other doses dispensed from this pharmacy. We will need endocrinology follow up outpatient Repeat labs in 2 weeks if patient is here if not she will need close follow up as outpatient to stabilize hypothyroidism. COPD/atypical pneumonia Recently treated for pneumonia presented to the ED, now being treated for atypical pneumonia with doxycycline b.i.d. Continue Spiriva, albuterol as needed Patient reports her breathing is improved. Denies increased shortness of breath Hyperlipidemia Continue atorvastatin Thank you for allowing me to participate in the care of this patient. Will follow with you, please notify medical provider with any changes in condition or concerns. 09/17/25: Continue current regime Team is working with pt on out pt resources so she may return home. 09/18/25: Continue tx Compression stockings for BLE Reason for continued inpatient stay Substantial Risk for: rapid decompensation and med/psych decompensation Time Spent With Patient Time: Total time managing care of this patient today ____ minutes.
[2025-09-18] MEDS: Flu Vacc TS2025-26(6mo up)/PF 0.5 ML SYRINGE IM (10:38)
[2025-09-18 12:17] LABS: Chlamydia pneumoniae PCR Not Detected (Not Detect.); Coronavirus 229E PCR Not Detected (Not Detect.); Coronavirus HKU1 PCR Not Detected (Not Detect.); Coronavirus NL63 PCR Not Detected (Not Detect.); Coronavirus OC43 PCR Not Detected (Not Detect.); RSV PCR Not Detected (Not Detect.); Rhino/Enterovirus PCR Not Detected (Not Detect.)
[2025-09-18 12:27] LABS: Influenza A H1 PCR Not Detected (Not Detect.); Influenza A H1-2009 PCR Not Detected (Not Detect.); Influenza A H3 PCR Not Detected (Not Detect.); SARS-CoV-2 PCR Not Detected (Not Detect.)
--- NOTE | 2025-09-18 16:41 | PC.NURSE ---
Flu vaccine administered in L Deltoid. Pt. tolerated well.
[2025-09-18 20:00] VITALS: BP 100/57; PULSE 68; TEMP 36.6; O2SAT 95
--- NOTE | 2025-09-19 07:00 | HO.PSYCHPN ---
Subjective Subjective Date of Service: 09/19/25 Reason For Visit: SI, bradycardia Interim History: patient reports overall things are going reasonably well. Depression is getting last. Denies current suicidal thoughts. Talked about her 2 adult children [address] past way by suicide and 1 murdered. Also hopeful for treatment and returning home and seeing her 3-year-old cat. Feels the medications are helping her mood gradually. Sleep okay. Medication Compliance: Yes Side effects from medications: No Attending Groups: Yes Review of Systems Acute medical concerns: No Review of Systems Review of Systems BLE edema-compression stockings ordered Mental Status Exam Mental Status Exam Patient Appearance: Appropriate Patient Orientation: Person, Place, Time and Situation Level of Consciousness: Alert Patient Behavior: Appropriate, Talkative, Cooperative, Distractible and Good Eye Contact Mood Description: Appropriate Affect Description: Appropriate Patient Cognition Impaired: No Ability to Follow Directions: Good Speech Pattern: Spontaneous Speech Memory Description: Intact Hallucinations: None Delusions: Not Present Thought Process: Intact Thought Content: positive for Intact Judgement: Fair Diagnostics Vital Signs (24Hr): Vital Signs - 24 hr 09/18/25 08:00 09/18/25 20:00 Temperature 97.5 F 97.8 F Pulse Rate 89 68 Respiratory Rate 15 Blood Pressure 139/93 H 100/57 L Pulse Oximetry 96 95 Oxygen Delivery Method Room Air Room Air BMI result Body Mass Index 34.9 Labs 09/12/25 23:14 09/15/25 09:00 Labs: Laboratory Results - last 48 hr 09/17/25 09/17/25 11:51 11:51 Respiratory Panel Maier See Note Adenovirus (Rapid PCR) Not Detected B.pert (TEM-PCR) Not Detected B.parapertussis DNA PCR Not Detected C. pneumoniae DNA (PCR) Not Detected Coronavirus OC43 (PCR) Not Detected Coronavirus HKU1 (PCR) Not Detected Coronavirus 229E (PCR) Not Detected Coronavirus NL63 (PCR) Not Detected Human Metapneumovir PCR Not Detected Influenza A (RT-PCR) Not Detected Influenza A (H1) PCR Not Detected Influ A (H1/09) PCR Not Detected Influenza A (H3) PCR Not Detected Influenza Type A (PCR) NEGATIVE Influenza B (RT-PCR) Not Detected Influenza Type B (PCR) NEGATIVE M. pneumoniae (PCR) Not Detected Parainfluenza 1 (PCR) Not Detected Parainfluenza 2 (PCR) Not Detected Parainfluenza 3 (PCR) Not Detected Parainfluenza 4 (PCR) Not Detected RSV (PCR) Not Detected RSV RNA Qual (PCR) NEGATIVE Entero/Rhino (PCR) Not Detected SARS-CoV-2 RNA (RT-PCR) NEGATIVE Not Detected Imaging Radiology Impressions: ITS Impressions Chest X-Ray 09/17/25 11:01 IMPRESSION: No active pulmonary disease. Electronically signed by: Earl Connor MD 09/17/2025 11:11 AM [facility] Medications Medications Current Medications Acetaminophen (Acetaminophen 325 Mg Tablet) 650 mg PO Q6H PRN PRN Reason: Headache/Pain, Scale 1-10 Last Admin: 09/18/25 22:04 Dose: 650 mg Al Hydroxide/Mg Hydroxide (Magnesium Hydrox/Alum Hydrox 30 Ml Oral.Susp) 30 ml PO Q6H PRN PRN Reason: Heartburn/Nausea Atorvastatin Calcium (Atorvastatin Calcium 20 Mg Tablet) 20 mg PO DAILY REPLACED BY [facility] Last Admin: 09/18/25 09:07 Dose: 20 mg Doxycycline Monohydrate (Doxycycline Monohydrate 100 Mg Capsule) 100 mg PO BID REPLACED BY [facility] Last Admin: 09/18/25 21:54 Dose: 100 mg Gabapentin (Gabapentin 300 Mg Capsule) 600 mg PO TID REPLACED BY [facility] Last Admin: 09/18/25 21:54 Dose: 600 mg Guaifenesin (Guaifenesin La 600 Mg Tab.Er.12h) 600 mg PO BID PRN PRN Reason: Cough Hydroxyzine HCl (Hydroxyzine Hcl 50 Mg Tablet) 50 mg PO Q6H PRN PRN Reason: Agitation Last Admin: 09/18/25 18:37 Dose: 50 mg Levothyroxine Sodium (Levothyroxine Sodium 50 Mcg Tablet) 50 mcg PO DAILY@0600 REPLACED BY [facility] Last Admin: 09/18/25 06:23 Dose: 50 mcg Magnesium Hydroxide (Milk Of Magnesia 30 Ml Oral.Susp) 30 ml PO DAILY PRN PRN Reason: Constipation Melatonin (Melatonin 3 Mg Tablet) 9 mg PO BEDTIME REPLACED BY [facility] Last Admin: 09/18/25 21:53 Dose: 9 mg Multi-Ingred Cream/Lotion/Oil/Oint (Mineral Oil/Petrolatum,White 106 Gm Tube) 1 appl TOPICAL BID REPLACED BY [facility]; Protocol Last Admin: 09/18/25 22:04 Dose: Not Given Naltrexone HCl (Naltrexone Hcl 50 Mg Tablet) 50 mg PO DAILY REPLACED BY [facility] Last Admin: 09/18/25 09:07 Dose: 50 mg Nicotine (Nicotine 21 Mg Patch.Td24) 21 mg TRANSDERMA DAILY PRN PRN Reason: smoking cessation Nicotine Polacrilex (Nicotine Polacrilex Lozenge 4 Mg Lozenge) 4 mg BUCCAL Q2H PRN PRN Reason: Nicotine Cravings Last Admin: 09/16/25 15:32 Dose: 4 mg Prazosin HCl (Prazosin Hcl 1 Mg Capsule) 3 mg PO BEDTIME REPLACED BY [facility]; Protocol On Hold: 09/16/25 20:13 Last Admin: 09/15/25 20:35 Dose: Not Given Risperidone (Risperidone 1 Mg Tablet) 1 mg PO BID REPLACED BY [facility] Last Admin: 09/18/25 21:52 Dose: 1 mg Risperidone (Risperidone 0.5 Mg Tablet) 0.5 mg PO BID PRN PRN Reason: Agitation/psychosis Last Admin: 09/16/25 18:10 Dose: 0.5 mg Sertraline HCl (Sertraline Hcl 100 Mg Tablet) 200 mg PO DAILY REPLACED BY [facility] Last Admin: 09/18/25 09:07 Dose: 200 mg Tiotropium [place] (Tiotropium [place] 2.5 Mcg 1 Puff/2.5 Mcg Mist.Inhal) 2 puff INHALE RDAILY REPLACED BY [facility] Last Admin: 09/18/25 09:11 Dose: 2 puff Trazodone HCl (Trazodone Hcl 50 Mg Tablet) 50 mg PO BEDTIME MRX1 PRN PRN Reason: Insomnia Last Admin: 09/16/25 01:56 Dose: 50 mg Allergies Allergies Allergy/AdvReac Type Severity Reaction Status Date / Time ibuprofen Allergy Intermediate Unknown Verified 09/12/25 21:56 ragweed pollen Allergy Sneezing Verified 09/12/25 21:56 Assessment & Plan Assessment & Plan (1) Bipolar disorder current episode depressed: Status: Acute Code(s): F31.30 - Bipolar disorder, current episode depressed, mild or moderate severity, unspecified (2) PTSD (post-traumatic stress disorder): Status: Acute Code(s): F43.10 - Post-traumatic stress disorder, unspecified (3) Alcohol use disorder, moderate, dependence: Status: Acute Code(s): F10.20 - Alcohol dependence, uncomplicated (4) Cocaine use disorder: Status: Acute Code(s): F14.10 - Cocaine abuse, uncomplicated Plan 65-year-old female with a past medical history listed below presented to the ED with shortness of breath and cough as well as suicide ideation and in ability to care for herself. Polysubstance abuse/PTSD/bipolar with psychotic features/anxiety/depression/alcohol use disorder Treatment per psychiatric team Bradycardia Patient's heart rate continued 40 with slight dizziness. Not on anything for rate control Likely related to hypothyroidism Cardiology consult appreciated, echocardiogram ordered, TSH increased to 50 mcg daily. Encourage patient to abstain from cocaine use. Patient will need continued cardiology follow up outpatient Hypothyroidism/history of thyroid cancer, status post thyroidectomy Increase levothyroxine to 50 mcg daily Her TSH is 54.49 free T4 0.62 Likely due to not taking her medications as her TSH has been elevated in January, June and September. TSH also elevated in 2023 ranged 62.47-99.37 at [facility]. Her dose of levothyroxine at that time was increased to 50 mcg. Patient does not know her home dose but reports that she is taking it. Call placed to [facility] where patient gets her medications and she has been on levothyroxine 25 mcg most recently filled in August, no other doses dispensed from this pharmacy. We will need endocrinology follow up outpatient Repeat labs in 2 weeks if patient is here if not she will need close follow up as outpatient to stabilize hypothyroidism. COPD/atypical pneumonia Recently treated for pneumonia presented to the ED, now being treated for atypical pneumonia with doxycycline b.i.d. Continue Spiriva, albuterol as needed Patient reports her breathing is improved. Denies increased shortness of breath Hyperlipidemia Continue atorvastatin Thank you for allowing me to participate in the care of this patient. Will follow with you, please notify medical provider with any changes in condition or concerns. 09/17/25: Continue current regime Team is working with pt on out pt resources so she may return home. 09/18/25: Continue tx Compression stockings for BLE 09/19: no changes Reason for continued inpatient stay Substantial Risk for: rapid decompensation Time Spent With Patient Time: Total time managing care of this patient today ____ minutes.
[2025-09-19 08:00] VITALS: BP 108/53; PULSE 48; TEMP 2.4; TEMP 36.4; O2SAT 95
[2025-09-19] MEDS: Tiotropium Bromide 2.5 mcg 1 PUFF/2.5 MCG MIST.INHAL 2 PUFF INHALE (08:58)
[2025-09-19 20:00] VITALS: BP 99/58; PULSE 40; RESP 20; TEMP 36.9; O2SAT 93
[2025-09-19] MEDS: Clotrimazole 1 % Cream 15 GM TUBE 1 APPL TOPICAL (21:31)
[2025-09-19] MEDS: Milk of Magnesia 30 ML ORAL.SUSP PO (21:55)
--- NOTE | 2025-09-20 | CA_ITS ---
Acquisition Time: 2025-09-21 10:44:43 Total Exercise Time: 00:01:33 Test Indications: BRADYCARDIA Medications: LEVOTHYROXINE Protocol: MOD GER Max HR: 93 BPM 59% of Pred: 157 BPM Max BP: 128/80 mmHG Max Work Load: 2.0 METS Exercise stress test with exercise 1 mins 33 secs of Mod Ger, achieving 61% MPHR, requested to stop due to feeling fatigued, no chest pain, with frequent PVCs in the bigeminy pattern at rest, mildly less frequent with exercise. With normotenisve response to exercise. Nondiagnostic EKG for ischemia given suboptimal HR. In recovery, pt feeling back to baseline. Test reviewed with Dr. Boo. Referred By: Hal Boo Electronically Signed By: Ralph Licea
--- NOTE | 2025-09-20 07:57 | P.PNPSI_ITS ---
Subjective Subjective Date of Service: 09/20/25 Reason For Visit: SI, bradycardia Interim History: Overall things still reasonably well- less depressed. Denies current suicidal thoughts. remains hopeful for treatment and returning home and seeing her 3-year-old cat. Feels the medications are helping her mood gradually. Sleep okay. Hospitalist arranging stress test tomorrow as part of ongoing cardiac workup Medication Compliance: Yes Side effects from medications: No Attending Groups: Yes Review of Systems Acute medical concerns: No Review of Systems Review of Systems Nothing acute Mental Status Exam Mental Status Exam Patient Appearance: Appropriate Patient Orientation: Person, Place, Time and Situation Level of Consciousness: Alert Patient Behavior: Appropriate, Talkative, Cooperative, Distractible and Good Eye Contact Mood Description: Appropriate Affect Description: Appropriate Patient Cognition Impaired: No Ability to Follow Directions: Good Speech Pattern: Spontaneous Speech Memory Description: Intact Judgement: Fair Diagnostics Vital Signs (24Hr): Vital Signs - 24 hr 09/19/25 08:00 09/19/25 20:00 Temperature 36.4 F L 98.4 F Pulse Rate 48 L 40 L Respiratory Rate 20 Blood Pressure 108/53 L 99/58 L Pulse Oximetry 95 93 Oxygen Delivery Method Room Air Room Air BMI result Body Mass Index 34.9 Labs 09/12/25 23:14 09/15/25 09:00 Labs: Laboratory Results - last 48 hr 09/17/25 11:51 Respiratory Panel [facility] See Note Adenovirus (Rapid PCR) Not Detected B.pert (TEM-PCR) Not Detected B.parapertussis DNA PCR Not Detected C. pneumoniae DNA (PCR) Not Detected Coronavirus OC43 (PCR) Not Detected Coronavirus HKU1 (PCR) Not Detected Coronavirus 229E (PCR) Not Detected Coronavirus NL63 (PCR) Not Detected Human Metapneumovir PCR Not Detected Influenza A (RT-PCR) Not Detected Influenza A (H1) PCR Not Detected Influ A (H1/09) PCR Not Detected Influenza A (H3) PCR Not Detected Influenza B (RT-PCR) Not Detected M. pneumoniae (PCR) Not Detected Parainfluenza 1 (PCR) Not Detected Parainfluenza 2 (PCR) Not Detected Parainfluenza 3 (PCR) Not Detected Parainfluenza 4 (PCR) Not Detected RSV (PCR) Not Detected Entero/Rhino (PCR) Not Detected SARS-CoV-2 RNA (RT-PCR) Not Detected Imaging Radiology Impressions: ITS Impressions Chest X-Ray 09/17/25 11:01 IMPRESSION: No active pulmonary disease. Electronically signed by: Earl Connor MD 09/17/2025 11:11 AM [facility] Medications Medications Current Medications Acetaminophen (Acetaminophen 325 Mg Tablet) 650 mg PO Q6H PRN PRN Reason: Headache/Pain, Scale 1-10 Last Admin: 09/20/25 07:01 Dose: 650 mg Al Hydroxide/Mg Hydroxide (Magnesium Hydrox/Alum Hydrox 30 Ml Oral.Susp) 30 ml PO Q6H PRN PRN Reason: Heartburn/Nausea Atorvastatin Calcium (Atorvastatin Calcium 20 Mg Tablet) 20 mg PO DAILY [facility] Last Admin: 09/19/25 08:57 Dose: 20 mg Clotrimazole (Clotrimazole 1 % Cream 15 Gm Tube) 1 appl TOPICAL BID [facility]; Protocol Last Admin: 09/19/25 21:31 Dose: 1 appl Doxycycline Monohydrate (Doxycycline Monohydrate 100 Mg Capsule) 100 mg PO BID [facility] Last Admin: 09/19/25 21:33 Dose: 100 mg Gabapentin (Gabapentin 300 Mg Capsule) 600 mg PO TID [facility] Last Admin: 09/19/25 21:33 Dose: 600 mg Guaifenesin (Guaifenesin La 600 Mg Tab.Er.12h) 600 mg PO BID PRN PRN Reason: Cough Hydroxyzine HCl (Hydroxyzine Hcl 50 Mg Tablet) 50 mg PO Q6H PRN PRN Reason: Agitation Last Admin: 09/20/25 07:01 Dose: 50 mg Levothyroxine Sodium (Levothyroxine Sodium 50 Mcg Tablet) 50 mcg PO DAILY@0600 [facility] Last Admin: 09/20/25 06:15 Dose: 50 mcg Magnesium Hydroxide (Milk Of Magnesia 30 Ml Oral.Susp) 30 ml PO DAILY PRN PRN Reason: Constipation Last Admin: 09/19/25 21:55 Dose: 30 ml Melatonin (Melatonin 3 Mg Tablet) 9 mg PO BEDTIME [facility] Last Admin: 09/19/25 21:32 Dose: 9 mg Multi-Ingred Cream/Lotion/Oil/Oint (Mineral Oil/Petrolatum,White 106 Gm Tube) 1 appl TOPICAL BID [facility]; Protocol Last Admin: 09/19/25 22:37 Dose: Not Given Naltrexone HCl (Naltrexone Hcl 50 Mg Tablet) 50 mg PO DAILY [facility] Last Admin: 09/19/25 08:57 Dose: 50 mg Nicotine (Nicotine 21 Mg Patch.Td24) 21 mg TRANSDERMA DAILY PRN PRN Reason: smoking cessation Nicotine Polacrilex (Nicotine Polacrilex Lozenge 4 Mg Lozenge) 4 mg BUCCAL Q2H PRN PRN Reason: Nicotine Cravings Last Admin: 09/16/25 15:32 Dose: 4 mg Prazosin HCl (Prazosin Hcl 1 Mg Capsule) 3 mg PO BEDTIME [facility]; Protocol On Hold: 09/16/25 20:13 Last Admin: 09/15/25 20:35 Dose: Not Given Risperidone (Risperidone 1 Mg Tablet) 1 mg PO BID [facility] Last Admin: 09/19/25 21:33 Dose: 1 mg Risperidone (Risperidone 0.5 Mg Tablet) 0.5 mg PO BID PRN PRN Reason: Agitation/psychosis Last Admin: 09/19/25 18:35 Dose: 0.5 mg Sertraline HCl (Sertraline Hcl 100 Mg Tablet) 200 mg PO DAILY [facility] Last Admin: 09/19/25 08:56 Dose: 200 mg Tiotropium [place] (Tiotropium [place] 2.5 Mcg 1 Puff/2.5 Mcg Mist.Inhal) 2 puff INHALE RDAILY [facility] Last Admin: 09/19/25 08:58 Dose: 2 puff Trazodone HCl (Trazodone Hcl 50 Mg Tablet) 50 mg PO BEDTIME MRX1 PRN PRN Reason: Insomnia Last Admin: 09/16/25 01:56 Dose: 50 mg Allergies Allergies Allergy/AdvReac Type Severity Reaction Status Date / Time ibuprofen Allergy Intermediate Unknown Verified 09/12/25 21:56 ragweed pollen Allergy Sneezing Verified 09/12/25 21:56 Assessment & Plan Assessment & Plan (1) Bipolar disorder current episode depressed: Status: Acute Code(s): F31.30 - Bipolar disorder, current episode depressed, mild or moderate severity, unspecified (2) PTSD (post-traumatic stress disorder): Status: Acute Code(s): F43.10 - Post-traumatic stress disorder, unspecified (3) Alcohol use disorder, moderate, dependence: Status: Acute Code(s): F10.20 - Alcohol dependence, uncomplicated (4) Cocaine use disorder: Status: Acute Code(s): F14.10 - Cocaine abuse, uncomplicated Plan 65-year-old female with a past medical history listed below presented to the ED with shortness of breath and cough as well as suicide ideation and in ability to care for herself. Polysubstance abuse/PTSD/bipolar with psychotic features/anxiety/depression/alcohol use disorder Treatment per psychiatric team Bradycardia Patient's heart rate continued 40 with slight dizziness. Not on anything for rate control Likely related to hypothyroidism Cardiology consult appreciated, echocardiogram ordered, TSH increased to 50 mcg daily. Encourage patient to abstain from cocaine use. Patient will need continued cardiology follow up outpatient Hypothyroidism/history of thyroid cancer, status post thyroidectomy Increase levothyroxine to 50 mcg daily Her TSH is 54.49 free T4 0.62 Likely due to not taking her medications as her TSH has been elevated in January, June and September. TSH also elevated in 2023 ranged 62.47-99.37 at [facility]. Her dose of levothyroxine at that time was increased to 50 mcg. Patient does not know her home dose but reports that she is taking it. Call placed to [place] where patient gets her medications and she has been on levothyroxine 25 mcg most recently filled in August, no other doses dispensed from this pharmacy. We will need endocrinology follow up outpatient Repeat labs in 2 weeks if patient is here if not she will need close follow up as outpatient to stabilize hypothyroidism. COPD/atypical pneumonia Recently treated for pneumonia presented to the ED, now being treated for atypical pneumonia with doxycycline b.i.d. Continue Spiriva, albuterol as needed Patient reports her breathing is improved. Denies increased shortness of breath Hyperlipidemia Continue atorvastatin Thank you for allowing me to participate in the care of this patient. Will follow with you, please notify medical provider with any changes in condition or concerns. 09/17/25: Continue current regime Team is working with pt on out pt resources so she may return home. 09/18/25: Continue tx Compression stockings for BLE 09/19: no changes 09/20: Hospitalist arranging stress test tomorrow as part of ongoing cardiac workup Reason for continued inpatient stay Substantial Risk for: rapid decompensation and med/psych decompensation Time Spent With Patient Time: Total time managing care of this patient today ____ minutes.
[2025-09-20 08:51] VITALS: BP 106/71; PULSE 36; RESP 16; TEMP 36.4; O2SAT 94
[2025-09-20] MEDS: Tiotropium Bromide 2.5 mcg 1 PUFF/2.5 MCG MIST.INHAL 2 PUFF INHALE (08:52)
[2025-09-20] MEDS: Clotrimazole 1 % Cream 15 GM TUBE 1 APPL TOPICAL (08:54)
[2025-09-20 20:00] VITALS: BP 116/76; PULSE 88; RESP 16; TEMP 36.6; O2SAT 96
[2025-09-20] MEDS: Milk of Magnesia 30 ML ORAL.SUSP PO (23:32)
[2025-09-21] MEDS: Clotrimazole 1 % Cream 15 GM TUBE 1 APPL TOPICAL (08:30)
[2025-09-21 08:54] VITALS: BP 117/68; PULSE 41; RESP 15; TEMP 35.7; O2SAT 93
[2025-09-21] MEDS: Tiotropium Bromide 2.5 mcg 1 PUFF/2.5 MCG MIST.INHAL 2 PUFF INHALE (09:24)
--- NOTE | 2025-09-21 09:49 | HO.PSYCHPN ---
Subjective Subjective Date of Service: 09/21/25 Reason For Visit: SI, bradycardia Subjective Notes: Conditional Voluntary Healthcare Proxy: No Guardianship: No Medical Problems Affecting Mental Status: No Interim History: Pt completed a cardiac stress test this a.m.- reports she believes it went well however is tired post exercise. Asking questions regarding discharge, planned for 09/25. Pt requests a walker which we will order. She also reports compression stockings have been quite helpful and asks if she may take the ones she is using home. Reports constipation is resolved. Requests hydroxyzine increase for anxiety which we discussed is not a good plan and reviewed rationale. Reports medicine regime to be helpful, without adverse effects. Medication Compliance: Yes Side effects from medications: No Attending Groups: No Review of Systems cardiac evaluation Review of Systems Review of Systems Reports feeling tired today post stress test. Mental Status Exam Mental Status Exam Patient Appearance: Fatigued Patient Orientation: Person, Place, Time and Situation Level of Consciousness: Alert Patient Behavior: Talkative and Good Eye Contact Mood Description: Constricted Affect Description: Constricted Patient Cognition Impaired: No Ability to Follow Directions: Good Speech Pattern: Spontaneous Speech Memory Description: Episodic Impaired Hallucinations: None Delusions: Not Present Thought Process: Goal Oriented Thought Content: positive for Goal Oriented and positive for Suicidal Ideation (denies) Depressive Symptoms: Thoughts of /Suicide (denies) Judgement: Fair Diagnostics Vital Signs (24Hr): Vital Signs - 24 hr 09/20/25 20:00 09/21/25 08:54 Temperature 97.8 F 96.3 F L Pulse Rate 88 41 L Respiratory Rate 16 15 Blood Pressure 116/76 117/68 Pulse Oximetry 96 93 Oxygen Delivery Method Room Air Room Air BMI result Body Mass Index 34.9 Labs 09/12/25 23:14 09/15/25 09:00 Imaging Radiology Impressions: ITS Impressions Chest X-Ray 09/17/25 11:01 IMPRESSION: No active pulmonary disease. Electronically signed by: Earl Connor MD 09/17/2025 11:11 AM [facility] Medications Medications Current Medications Acetaminophen (Acetaminophen 325 Mg Tablet) 650 mg PO Q6H PRN PRN Reason: Headache/Pain, Scale 1-10 Last Admin: 09/20/25 21:08 Dose: 650 mg Al Hydroxide/Mg Hydroxide (Magnesium Hydrox/Alum Hydrox 30 Ml Oral.Susp) 30 ml PO Q6H PRN PRN Reason: Heartburn/Nausea Atorvastatin Calcium (Atorvastatin Calcium 20 Mg Tablet) 20 mg PO DAILY [facility] Last Admin: 09/20/25 08:53 Dose: 20 mg Clotrimazole (Clotrimazole 1 % Cream 15 Gm Tube) 1 appl TOPICAL BID [facility]; Protocol Last Admin: 09/21/25 08:30 Dose: 1 appl Doxycycline Monohydrate (Doxycycline Monohydrate 100 Mg Capsule) 100 mg PO BID [facility] Last Admin: 09/20/25 21:04 Dose: 100 mg Gabapentin (Gabapentin 300 Mg Capsule) 600 mg PO TID [facility] Last Admin: 09/20/25 21:04 Dose: 600 mg Guaifenesin (Guaifenesin [place] 600 Mg Tab.Er.12h) 600 mg PO BID PRN PRN Reason: Cough Hydroxyzine HCl (Hydroxyzine Hcl 50 Mg Tablet) 50 mg PO Q6H PRN PRN Reason: Agitation Last Admin: 09/20/25 18:13 Dose: 50 mg Levothyroxine Sodium (Levothyroxine Sodium 50 Mcg Tablet) 50 mcg PO DAILY@0600 [facility] Last Admin: 09/21/25 06:42 Dose: 50 mcg Magnesium Hydroxide (Milk Of Magnesia 30 Ml Oral.Susp) 30 ml PO DAILY PRN PRN Reason: Constipation Last Admin: 09/20/25 23:32 Dose: 30 ml Melatonin (Melatonin 3 Mg Tablet) 9 mg PO BEDTIME [facility] Last Admin: 09/20/25 21:04 Dose: 9 mg Multi-Ingred Cream/Lotion/Oil/Oint (Mineral Oil/Petrolatum,White 106 Gm Tube) 1 appl TOPICAL BID [facility]; Protocol Last Admin: 09/20/25 22:09 Dose: Not Given Naltrexone HCl (Naltrexone Hcl 50 Mg Tablet) 50 mg PO DAILY [facility] Last Admin: 09/20/25 08:53 Dose: 50 mg Nicotine (Nicotine 21 Mg Patch.Td24) 21 mg TRANSDERMA DAILY PRN PRN Reason: smoking cessation Nicotine Polacrilex (Nicotine Polacrilex Lozenge 4 Mg Lozenge) 4 mg BUCCAL Q2H PRN PRN Reason: Nicotine Cravings Last Admin: 09/16/25 15:32 Dose: 4 mg Prazosin HCl (Prazosin Hcl 1 Mg Capsule) 3 mg PO BEDTIME [facility]; Protocol On Hold: 09/16/25 20:13 Last Admin: 09/15/25 20:35 Dose: Not Given Risperidone (Risperidone 1 Mg Tablet) 1 mg PO BID [facility] Last Admin: 09/20/25 21:04 Dose: 1 mg Risperidone (Risperidone 0.5 Mg Tablet) 0.5 mg PO BID PRN PRN Reason: Agitation/psychosis Last Admin: 09/19/25 18:35 Dose: 0.5 mg Sertraline HCl (Sertraline Hcl 100 Mg Tablet) 200 mg PO DAILY [facility] Last Admin: 09/20/25 08:53 Dose: 200 mg Tiotropium [place] (Tiotropium [place] 2.5 Mcg 1 Puff/2.5 Mcg Mist.Inhal) 2 puff INHALE RDAILY [facility] Last Admin: 09/21/25 09:24 Dose: 2 puff Trazodone HCl (Trazodone Hcl 50 Mg Tablet) 50 mg PO BEDTIME MRX1 PRN PRN Reason: Insomnia Last Admin: 09/16/25 01:56 Dose: 50 mg Allergies Allergies Allergy/AdvReac Type Severity Reaction Status Date / Time ibuprofen Allergy Intermediate Unknown Verified 09/12/25 21:56 ragweed pollen Allergy Sneezing Verified 09/12/25 21:56 Assessment & Plan Assessment & Plan (1) Bipolar disorder current episode depressed: Status: Acute Code(s): F31.30 - Bipolar disorder, current episode depressed, mild or moderate severity, unspecified (2) PTSD (post-traumatic stress disorder): Status: Acute Code(s): F43.10 - Post-traumatic stress disorder, unspecified (3) Alcohol use disorder, moderate, dependence: Status: Acute Code(s): F10.20 - Alcohol dependence, uncomplicated (4) Cocaine use disorder: Status: Acute Code(s): F14.10 - Cocaine abuse, uncomplicated Plan 65-year-old female with a past medical history listed below presented to the ED with shortness of breath and cough as well as suicide ideation and in ability to care for herself. Polysubstance abuse/PTSD/bipolar with psychotic features/anxiety/depression/alcohol use disorder Treatment per psychiatric team Bradycardia Patient's heart rate continued 40 with slight dizziness. Not on anything for rate control Likely related to hypothyroidism Cardiology consult appreciated, echocardiogram ordered, TSH increased to 50 mcg daily. Encourage patient to abstain from cocaine use. Patient will need continued cardiology follow up outpatient Hypothyroidism/history of thyroid cancer, status post thyroidectomy Increase levothyroxine to 50 mcg daily Her TSH is 54.49 free T4 0.62 Likely due to not taking her medications as her TSH has been elevated in January, June and September. TSH also elevated in 2023 ranged 62.47-99.37 at [facility]. Her dose of levothyroxine at that time was increased to 50 mcg. Patient does not know her home dose but reports that she is taking it. Call placed to [facility] where patient gets her medications and she has been on levothyroxine 25 mcg most recently filled in August, no other doses dispensed from this pharmacy. We will need endocrinology follow up outpatient Repeat labs in 2 weeks if patient is here if not she will need close follow up as outpatient to stabilize hypothyroidism. COPD/atypical pneumonia Recently treated for pneumonia presented to the ED, now being treated for atypical pneumonia with doxycycline b.i.d. Continue Spiriva, albuterol as needed Patient reports her breathing is improved. Denies increased shortness of breath Hyperlipidemia Continue atorvastatin Thank you for allowing me to participate in the care of this patient. Will follow with you, please notify medical provider with any changes in condition or concerns. 09/17/25: Continue current regime Team is working with pt on out pt resources so she may return home. 09/18/25: Continue tx Compression stockings for BLE 09/19: no changes 09/20: Hospitalist arranging stress test tomorrow as part of ongoing cardiac workup 09/21: Continue regime, preparing to return home with services. Reason for continued inpatient stay Substantial Risk for: med/psych decompensation Time Spent With Patient Time: Total time managing care of this patient today ____ minutes.
[2025-09-21 20:00] VITALS: BP 135/73; PULSE 72; RESP 16; TEMP 36.3; O2SAT 96
[2025-09-21] MEDS: Milk of Magnesia 30 ML ORAL.SUSP PO (21:44)
[2025-09-22 08:00] VITALS: BP 89/63; PULSE 54; RESP 14; TEMP 36.5; O2SAT 95
[2025-09-22] MEDS: Tiotropium Bromide 2.5 mcg 1 PUFF/2.5 MCG MIST.INHAL 2 PUFF INHALE (08:36)
[2025-09-22] MEDS: Clotrimazole 1 % Cream 15 GM TUBE 1 APPL TOPICAL (08:36)
--- NOTE | 2025-09-22 10:05 | HO.PSYCHPN ---
Subjective Subjective Date of Service: 09/22/25 Reason For Visit: SI, bradycardia Subjective Notes: Conditional Voluntary Healthcare Proxy: No Guardianship: No Medical Problems Affecting Mental Status: No Interim History: Awaits a meeting with her out pt health care facilities inspector to discuss returning home. Reports she slept well, about 6.5 hours . Visable in the milieu, anxious about discharge. Denies SI,HI,AH, VH. No sx of acute tegan or psychosis. Discussed worry about her cat and her well-being while the cat is being cared for by a neighbor. Medication Compliance: Yes Side effects from medications: No Attending Groups: No Review of Systems Acute medical concerns: No Medical Review of Systems: unchanged Review of Systems Review of Systems Feeling OK today, with muscle soreness post cardiac stress test. Mental Status Exam Mental Status Exam Patient Appearance: Appropriate Patient Orientation: Person, Place, Time and Situation Level of Consciousness: Alert Patient Behavior: Talkative, Cooperative and Good Eye Contact Mood Description: Appropriate Affect Description: Appropriate Patient Cognition Impaired: No Ability to Follow Directions: Good Speech Pattern: Spontaneous Speech Memory Description: Episodic Impaired Hallucinations: None Delusions: Not Present Thought Process: Goal Oriented Thought Content: positive for Goal Oriented and positive for Suicidal Ideation (denies) Depressive Symptoms: Thoughts of /Suicide (denies) Judgement: Fair Diagnostics Vital Signs (24Hr): Vital Signs - 24 hr 09/21/25 20:00 09/22/25 08:00 Temperature 97.3 F 97.7 F Pulse Rate 72 54 Respiratory Rate 16 14 Blood Pressure 135/73 89/63 L Pulse Oximetry 96 95 Oxygen Delivery Method Room Air Room Air BMI result Body Mass Index 34.9 Labs 09/12/25 23:14 09/15/25 09:00 Imaging Radiology Impressions: ITS Impressions Chest X-Ray 09/17/25 11:01 IMPRESSION: No active pulmonary disease. Electronically signed by: Earl Connor MD 09/17/2025 11:11 AM [facility] Medications Medications Current Medications Acetaminophen (Acetaminophen 325 Mg Tablet) 650 mg PO Q6H PRN PRN Reason: Headache/Pain, Scale 1-10 Last Admin: 09/22/25 09:30 Dose: 650 mg Al Hydroxide/Mg Hydroxide (Magnesium Hydrox/Alum Hydrox 30 Ml Oral.Susp) 30 ml PO Q6H PRN PRN Reason: Heartburn/Nausea Atorvastatin Calcium (Atorvastatin Calcium 20 Mg Tablet) 20 mg PO DAILY [facility] Last Admin: 09/22/25 08:35 Dose: 20 mg Capsaicin (Capsaicin 0.025% Cream 60 Gm Tube) 1 appl TOPICAL TID PRN; Protocol PRN Reason: back pain Last Admin: 09/22/25 05:20 Dose: 1 appl Clotrimazole (Clotrimazole 1 % Cream 15 Gm Tube) 1 appl TOPICAL BID [facility]; Protocol Last Admin: 09/22/25 08:36 Dose: 1 appl Gabapentin (Gabapentin 300 Mg Capsule) 600 mg PO TID [facility] Last Admin: 09/22/25 08:35 Dose: 600 mg Guaifenesin (Guaifenesin [place] 600 Mg Tab.Er.12h) 600 mg PO BID PRN PRN Reason: Cough Hydroxyzine HCl (Hydroxyzine Hcl 50 Mg Tablet) 50 mg PO Q6H PRN PRN Reason: Agitation Last Admin: 09/22/25 05:09 Dose: 50 mg Levothyroxine Sodium (Levothyroxine Sodium 50 Mcg Tablet) 50 mcg PO DAILY@0600 [facility] Last Admin: 09/22/25 05:19 Dose: 50 mcg Magnesium Hydroxide (Milk Of Magnesia 30 Ml Oral.Susp) 30 ml PO DAILY PRN PRN Reason: Constipation Last Admin: 09/21/25 21:44 Dose: 30 ml Melatonin (Melatonin 3 Mg Tablet) 9 mg PO BEDTIME [facility] Last Admin: 09/21/25 21:32 Dose: 9 mg Multi-Ingred Cream/Lotion/Oil/Oint (Mineral Oil/Petrolatum,White 106 Gm Tube) 1 appl TOPICAL BID [facility]; Protocol Last Admin: 09/22/25 10:05 Dose: Not Given Naltrexone HCl (Naltrexone Hcl 50 Mg Tablet) 50 mg PO DAILY [facility] Last Admin: 09/22/25 08:35 Dose: 50 mg Nicotine (Nicotine 21 Mg Patch.Td24) 21 mg TRANSDERMA DAILY PRN PRN Reason: smoking cessation Nicotine Polacrilex (Nicotine Polacrilex Lozenge 4 Mg Lozenge) 4 mg BUCCAL Q2H PRN PRN Reason: Nicotine Cravings Last Admin: 09/16/25 15:32 Dose: 4 mg Prazosin HCl (Prazosin Hcl 1 Mg Capsule) 3 mg PO BEDTIME [facility]; Protocol On Hold: 09/16/25 20:13 Last Admin: 09/15/25 20:35 Dose: Not Given Risperidone (Risperidone 1 Mg Tablet) 1 mg PO BID [facility] Last Admin: 09/22/25 08:36 Dose: 1 mg Risperidone (Risperidone 0.5 Mg Tablet) 0.5 mg PO BID PRN PRN Reason: Agitation/psychosis Last Admin: 09/19/25 18:35 Dose: 0.5 mg Sertraline HCl (Sertraline Hcl 100 Mg Tablet) 200 mg PO DAILY [facility] Last Admin: 09/22/25 08:35 Dose: 200 mg Tiotropium [place] (Tiotropium [place] 2.5 Mcg 1 Puff/2.5 Mcg Mist.Inhal) 2 puff INHALE RDAILY [facility] Last Admin: 09/22/25 08:36 Dose: 2 puff Trazodone HCl (Trazodone Hcl 50 Mg Tablet) 50 mg PO BEDTIME MRX1 PRN PRN Reason: Insomnia Last Admin: 09/16/25 01:56 Dose: 50 mg Allergies Allergies Allergy/AdvReac Type Severity Reaction Status Date / Time ibuprofen Allergy Intermediate Unknown Verified 09/12/25 21:56 ragweed pollen Allergy Sneezing Verified 09/12/25 21:56 Assessment & Plan Assessment & Plan (1) Bipolar disorder current episode depressed: Status: Acute Code(s): F31.30 - Bipolar disorder, current episode depressed, mild or moderate severity, unspecified (2) PTSD (post-traumatic stress disorder): Status: Acute Code(s): F43.10 - Post-traumatic stress disorder, unspecified (3) Alcohol use disorder, moderate, dependence: Status: Acute Code(s): F10.20 - Alcohol dependence, uncomplicated (4) Cocaine use disorder: Status: Acute Code(s): F14.10 - Cocaine abuse, uncomplicated Plan 65-year-old female with a past medical history listed below presented to the ED with shortness of breath and cough as well as suicide ideation and in ability to care for herself. Polysubstance abuse/PTSD/bipolar with psychotic features/anxiety/depression/alcohol use disorder Treatment per psychiatric team Bradycardia Patient's heart rate continued 40 with slight dizziness. Not on anything for rate control Likely related to hypothyroidism Cardiology consult appreciated, echocardiogram ordered, TSH increased to 50 mcg daily. Encourage patient to abstain from cocaine use. Patient will need continued cardiology follow up outpatient Hypothyroidism/history of thyroid cancer, status post thyroidectomy Increase levothyroxine to 50 mcg daily Her TSH is 54.49 free T4 0.62 Likely due to not taking her medications as her TSH has been elevated in January, June and September. TSH also elevated in 2023 ranged 62.47-99.37 at [facility]. Her dose of levothyroxine at that time was increased to 50 mcg. Patient does not know her home dose but reports that she is taking it. Call placed to [facility] where patient gets her medications and she has been on levothyroxine 25 mcg most recently filled in August, no other doses dispensed from this pharmacy. We will need endocrinology follow up outpatient Repeat labs in 2 weeks if patient is here if not she will need close follow up as outpatient to stabilize hypothyroidism. COPD/atypical pneumonia Recently treated for pneumonia presented to the ED, now being treated for atypical pneumonia with doxycycline b.i.d. Continue Spiriva, albuterol as needed Patient reports her breathing is improved. Denies increased shortness of breath Hyperlipidemia Continue atorvastatin Thank you for allowing me to participate in the care of this patient. Will follow with you, please notify medical provider with any changes in condition or concerns. 09/17/25: Continue current regime Team is working with pt on out pt resources so she may return home. 09/18/25: Continue tx Compression stockings for BLE 09/19: no changes 09/20: Hospitalist arranging stress test tomorrow as part of ongoing cardiac workup 09/22: Continue tx Reason for continued inpatient stay Substantial Risk for: med/psych decompensation Time Spent With Patient Time: Total time managing care of this patient today ____ minutes.
[2025-09-22 20:00] VITALS: BP 124/69; PULSE 46; RESP 18; TEMP 36.1; O2SAT 95
[2025-09-22] MEDS: Milk of Magnesia 30 ML ORAL.SUSP PO (21:35)
[2025-09-22] MEDS: guaiFENesin LA 600 MG TAB.ER.12H PO (22:49)
[2025-09-23 08:00] VITALS: BP 106/57; PULSE 49; RESP 16; TEMP 36.2; O2SAT 97
[2025-09-23] MEDS: Tiotropium Bromide 2.5 mcg 1 PUFF/2.5 MCG MIST.INHAL 2 PUFF INHALE (08:41)
[2025-09-23] MEDS: Clotrimazole 1 % Cream 15 GM TUBE 1 APPL TOPICAL ×2 (08:41→22:17)
--- NOTE | 2025-09-23 16:24 | P.PNPSI_ITS ---
Subjective Subjective Date of Service: 09/23/25 Reason For Visit: SI, bradycardia Subjective Notes: Conditional Voluntary Healthcare Proxy: No Guardianship: No Medical Problems Affecting Mental Status: No Interim History: Denies SI,HI,AH,VH. Preparing for DC on 09/25. Anxious to see her cat, Keegan. Waiting for her nursing care partner, Sandi to visit-pt hoping she has purchased a phone for her, also wants to ask her about a ride to [employer] post discharge. Reviewed discharge plan-[place] agrees [place] [facility] [place] PCP for further planning with bradycardia. Will order walker and compression stockings upon discharge as well. Pt reports her room is too cold and reports URI sx. She asks for mucinex rx. Medication Compliance: Yes Side effects from medications: No Attending Groups: Intermittent Review of Systems as noted Medical Review of Systems: unchanged Review of Systems Review of Systems URI sx Mental Status Exam Mental Status Exam Patient Appearance: Appropriate Patient Orientation: Person, Place, Time and Situation Level of Consciousness: Alert Patient Behavior: Talkative, Cooperative and Good Eye Contact Mood Description: Appropriate Affect Description: Appropriate Patient Cognition Impaired: No Ability to Follow Directions: Good Speech Pattern: Spontaneous Speech Memory Description: Episodic Impaired Hallucinations: None Delusions: Not Present Thought Process: Goal Oriented Thought Content: positive for Goal Oriented and positive for Suicidal Ideation (denies) Depressive Symptoms: Thoughts of /Suicide (denies) Judgement: Fair Diagnostics Vital Signs (24Hr): Vital Signs - 24 hr 09/22/25 20:00 09/23/25 08:00 Temperature 97.0 F 97.1 F Pulse Rate 46 L 49 L Respiratory Rate 18 16 Blood Pressure 124/69 106/57 L Pulse Oximetry 95 97 Oxygen Delivery Method Room Air Room Air BMI result Body Mass Index 34.9 Labs 09/12/25 23:14 09/15/25 09:00 Imaging Radiology Impressions: ITS Impressions Chest X-Ray 09/17/25 11:01 IMPRESSION: No active pulmonary disease. Electronically signed by: Earl Connor MD 09/17/2025 11:11 AM [facility] Medications Medications Current Medications Acetaminophen (Acetaminophen 325 Mg Tablet) 650 mg PO Q6H PRN PRN Reason: Headache/Pain, Scale 1-10 Last Admin: 09/23/25 08:55 Dose: 650 mg Al Hydroxide/Mg Hydroxide (Magnesium Hydrox/Alum Hydrox 30 Ml Oral.Susp) 30 ml PO Q6H PRN PRN Reason: Heartburn/Nausea Atorvastatin Calcium (Atorvastatin Calcium 20 Mg Tablet) 20 mg PO DAILY [facility] Last Admin: 09/23/25 08:39 Dose: 20 mg Capsaicin (Capsaicin 0.025% Cream 60 Gm Tube) 1 appl TOPICAL TID PRN; Protocol PRN Reason: back pain Last Admin: 09/22/25 16:00 Dose: 1 appl Clotrimazole (Clotrimazole 1 % Cream 15 Gm Tube) 1 appl TOPICAL BID [facility]; Protocol Last Admin: 09/23/25 08:41 Dose: 1 appl Gabapentin (Gabapentin 300 Mg Capsule) 600 mg PO TID [facility] Last Admin: 09/23/25 15:21 Dose: 600 mg Guaifenesin (Guaifenesin La 600 Mg Tab.Er.12h) 600 mg PO BID PRN PRN Reason: Cough Last Admin: 09/22/25 22:49 Dose: 600 mg Hydroxyzine HCl (Hydroxyzine Hcl 50 Mg Tablet) 50 mg PO Q6H PRN PRN Reason: Agitation Last Admin: 09/23/25 02:45 Dose: 50 mg Levothyroxine Sodium (Levothyroxine Sodium 50 Mcg Tablet) 50 mcg PO DAILY@0600 [facility] Last Admin: 09/23/25 08:39 Dose: 50 mcg Magnesium Hydroxide (Milk Of Magnesia 30 Ml Oral.Susp) 30 ml PO DAILY PRN PRN Reason: Constipation Last Admin: 09/22/25 21:35 Dose: 30 ml Melatonin (Melatonin 3 Mg Tablet) 9 mg PO BEDTIME [facility] Last Admin: 09/22/25 21:36 Dose: 9 mg Multi-Ingred Cream/Lotion/Oil/Oint (Mineral Oil/Petrolatum,White 106 Gm Tube) 1 appl TOPICAL BID [facility]; Protocol Last Admin: 09/23/25 11:47 Dose: Not Given Naltrexone HCl (Naltrexone Hcl 50 Mg Tablet) 50 mg PO DAILY [facility] Last Admin: 09/23/25 08:39 Dose: 50 mg Nicotine (Nicotine 21 Mg Patch.Td24) 21 mg TRANSDERMA DAILY PRN PRN Reason: smoking cessation Nicotine Polacrilex (Nicotine Polacrilex Lozenge 4 Mg Lozenge) 4 mg BUCCAL Q2H PRN PRN Reason: Nicotine Cravings Last Admin: 09/16/25 15:32 Dose: 4 mg Prazosin HCl (Prazosin Hcl 1 Mg Capsule) 3 mg PO BEDTIME [facility]; Protocol On Hold: 09/16/25 20:13 Last Admin: 09/15/25 20:35 Dose: Not Given Risperidone (Risperidone 1 Mg Tablet) 1 mg PO BID [facility] Last Admin: 09/23/25 08:40 Dose: 1 mg Risperidone (Risperidone 0.5 Mg Tablet) 0.5 mg PO BID PRN PRN Reason: Agitation/psychosis Last Admin: 09/22/25 12:58 Dose: 0.5 mg Sertraline HCl (Sertraline Hcl 100 Mg Tablet) 200 mg PO DAILY [facility] Last Admin: 09/23/25 08:40 Dose: 200 mg Tiotropium [place] (Tiotropium [place] 2.5 Mcg 1 Puff/2.5 Mcg Mist.Inhal) 2 puff INHALE RDAILY [facility] Last Admin: 09/23/25 08:41 Dose: 2 puff Trazodone HCl (Trazodone Hcl 50 Mg Tablet) 50 mg PO BEDTIME MRX1 PRN PRN Reason: Insomnia Last Admin: 09/23/25 02:45 Dose: 50 mg Allergies Allergies Allergy/AdvReac Type Severity Reaction Status Date / Time ibuprofen Allergy Intermediate Unknown Verified 09/12/25 21:56 ragweed pollen Allergy Sneezing Verified 09/12/25 21:56 Assessment & Plan Assessment & Plan (1) Bipolar disorder current episode depressed: Status: Acute Code(s): F31.30 - Bipolar disorder, current episode depressed, mild or moderate severity, unspecified (2) PTSD (post-traumatic stress disorder): Status: Acute Code(s): F43.10 - Post-traumatic stress disorder, unspecified (3) Alcohol use disorder, moderate, dependence: Status: Acute Code(s): F10.20 - Alcohol dependence, uncomplicated (4) Cocaine use disorder: Status: Acute Code(s): F14.10 - Cocaine abuse, uncomplicated Plan 65-year-old female with a past medical history listed below presented to the ED with shortness of breath and cough as well as suicide ideation and in ability to care for herself. Polysubstance abuse/PTSD/bipolar with psychotic features/anxiety/depression/alcohol use disorder Treatment per psychiatric team Bradycardia Patient's heart rate continued 40 with slight dizziness. Not on anything for rate control Likely related to hypothyroidism Cardiology consult appreciated, echocardiogram ordered, TSH increased to 50 mcg daily. Encourage patient to abstain from cocaine use. Patient will need continued cardiology follow up outpatient Hypothyroidism/history of thyroid cancer, status post thyroidectomy Increase levothyroxine to 50 mcg daily Her TSH is 54.49 free T4 0.62 Likely due to not taking her medications as her TSH has been elevated in January, June and September. TSH also elevated in 2023 ranged 62.47-99.37 at [facility]. Her dose of levothyroxine at that time was increased to 50 mcg. Patient does not know her home dose but reports that she is taking it. Call placed to [facility] where patient gets her medications and she has been on levothyroxine 25 mcg most recently filled in August, no other doses dispensed from this pharmacy. We will need endocrinology follow up outpatient Repeat labs in 2 weeks if patient is here if not she will need close follow up as outpatient to stabilize hypothyroidism. COPD/atypical pneumonia Recently treated for pneumonia presented to the ED, now being treated for atypical pneumonia with doxycycline b.i.d. Continue Spiriva, albuterol as needed Patient reports her breathing is improved. Denies increased shortness of breath Hyperlipidemia Continue atorvastatin Thank you for allowing me to participate in the care of this patient. Will follow with you, please notify medical provider with any changes in condition or concerns. 09/17/25: Continue current regime Team is working with pt on out pt resources so she may return home. 09/18/25: Continue tx Compression stockings for BLE 09/19: no changes 09/20: Hospitalist arranging stress test tomorrow as part of ongoing cardiac workup 09/22: Continue tx 09/23: Preparing for DC 09/25. Continue tx. Reason for continued inpatient stay Substantial Risk for: stable for discharge Time Spent With Patient Time: Total time managing care of this patient today ____ minutes.
[2025-09-23] MEDS: guaiFENesin LA 600 MG TAB.ER.12H PO (17:10)
[2025-09-23 19:57] VITALS: BP 138/71; PULSE 66; RESP 18; TEMP 36.4; O2SAT 98
[2025-09-23] MEDS: Milk of Magnesia 30 ML ORAL.SUSP PO (22:17)
[2025-09-24 07:00] VITALS: BMI 37.4
[2025-09-24] MEDS: guaiFENesin DM 600/30 1 TAB TAB.ER.12H PO ×2 (07:01→20:25)
[2025-09-24 07:54] VITALS: BP 116/86; PULSE 49; TEMP 35.8; O2SAT 93
[2025-09-24] MEDS: Clotrimazole 1 % Cream 15 GM TUBE 1 APPL TOPICAL (08:18)
[2025-09-24] MEDS: Tiotropium Bromide 2.5 mcg 1 PUFF/2.5 MCG MIST.INHAL 2 PUFF INHALE (08:20)
--- NOTE | 2025-09-24 09:48 | HO.PSYCHPN ---
Subjective Subjective Date of Service: 09/24/25 Reason For Visit: SI, bradycardia Subjective Notes: Conditional Voluntary Healthcare Proxy: No Guardianship: No Medical Problems Affecting Mental Status: No Interim History: Sandi never showed. This is just like I told you, I just cannot count on them-they never show. Discussed caretaker resort not keeping appt. Call to the scenic arts supervisor by team to discuss and continue to plan DC. Reviewed discharge orders, meds, walker, compression socks. Reviewed diagnostics and that we will send results to PCP Wilfrido. Pt feeling prepared to leave but still concerned about OP teams lack of responsibility . Discussed with pt that team has been in contact with OP providers and planning is solid. Medication Compliance: Yes Side effects from medications: No Attending Groups: Intermittent Review of Systems Bradycardia Medical Review of Systems: unchanged Review of Systems Review of Systems URI sx Mental Status Exam Mental Status Exam Patient Appearance: Appropriate Patient Orientation: Person, Place, Time and Situation Level of Consciousness: Alert Patient Behavior: Talkative, Cooperative and Good Eye Contact Mood Description: Appropriate Affect Description: Appropriate Patient Cognition Impaired: No Ability to Follow Directions: Good Speech Pattern: Spontaneous Speech Memory Description: Episodic Impaired Hallucinations: None Delusions: Not Present Thought Process: Goal Oriented Thought Content: positive for Goal Oriented and positive for Suicidal Ideation (denies) Depressive Symptoms: Thoughts of /Suicide (denies) Judgement: Fair Diagnostics Vital Signs (24Hr): Vital Signs - 24 hr 09/23/25 19:57 09/24/25 07:54 Temperature 97.6 F 96.5 F L Pulse Rate 66 49 L Respiratory Rate 18 Blood Pressure 138/71 116/86 Pulse Oximetry 98 93 Oxygen Delivery Method Room Air Room Air BMI result Body Mass Index 34.9 Labs 09/12/25 23:14 09/15/25 09:00 Imaging Radiology Impressions: ITS Impressions Chest X-Ray 09/17/25 11:01 IMPRESSION: No active pulmonary disease. Electronically signed by: Earl Connor MD 09/17/2025 11:11 AM [facility] Medications Medications Current Medications Acetaminophen (Acetaminophen 325 Mg Tablet) 650 mg PO Q6H PRN PRN Reason: Headache/Pain, Scale 1-10 Last Admin: 09/24/25 08:20 Dose: 650 mg Al Hydroxide/Mg Hydroxide (Magnesium Hydrox/Alum Hydrox 30 Ml Oral.Susp) 30 ml PO Q6H PRN PRN Reason: Heartburn/Nausea Atorvastatin Calcium (Atorvastatin Calcium 20 Mg Tablet) 20 mg PO DAILY [facility] Last Admin: 09/24/25 08:20 Dose: 20 mg Capsaicin (Capsaicin 0.025% Cream 60 Gm Tube) 1 appl TOPICAL TID PRN; Protocol PRN Reason: back pain Last Admin: 09/24/25 08:19 Dose: 1 appl Clotrimazole (Clotrimazole 1 % Cream 15 Gm Tube) 1 appl TOPICAL BID [facility]; Protocol Last Admin: 09/24/25 08:18 Dose: 1 appl Gabapentin (Gabapentin 300 Mg Capsule) 600 mg PO TID [facility] Last Admin: 09/24/25 08:20 Dose: 600 mg Guaifenesin (Guaifenesin La 600 Mg Tab.Er.12h) 600 mg PO BID PRN PRN Reason: Cough Last Admin: 09/23/25 17:10 Dose: 600 mg Guaifenesin/Dextromethorphan (Guaifenesin Dm 600/30 1 Tab Tab.Er.12h) 1 tab PO BID PRN PRN Reason: Cough Last Admin: 09/24/25 07:01 Dose: 1 tab Hydroxyzine HCl (Hydroxyzine Hcl 50 Mg Tablet) 50 mg PO Q6H PRN PRN Reason: Agitation Last Admin: 09/24/25 06:51 Dose: 50 mg Levothyroxine Sodium (Levothyroxine Sodium 50 Mcg Tablet) 50 mcg PO DAILY@0600 [facility] Last Admin: 09/24/25 06:58 Dose: 50 mcg Magnesium Hydroxide (Milk Of Magnesia 30 Ml Oral.Susp) 30 ml PO DAILY PRN PRN Reason: Constipation Last Admin: 09/23/25 22:17 Dose: 30 ml Melatonin (Melatonin 3 Mg Tablet) 9 mg PO BEDTIME [facility] Last Admin: 09/23/25 22:19 Dose: 9 mg Multi-Ingred Cream/Lotion/Oil/Oint (Mineral Oil/Petrolatum,White 106 Gm Tube) 1 appl TOPICAL BID [facility]; Protocol Last Admin: 09/23/25 22:15 Dose: Not Given Naltrexone HCl (Naltrexone Hcl 50 Mg Tablet) 50 mg PO DAILY [facility] Last Admin: 09/24/25 08:20 Dose: 50 mg Nicotine (Nicotine 21 Mg Patch.Td24) 21 mg TRANSDERMA DAILY PRN PRN Reason: smoking cessation Nicotine Polacrilex (Nicotine Polacrilex Lozenge 4 Mg Lozenge) 4 mg BUCCAL Q2H PRN PRN Reason: Nicotine Cravings Last Admin: 09/16/25 15:32 Dose: 4 mg Prazosin HCl (Prazosin Hcl 1 Mg Capsule) 3 mg PO BEDTIME [facility]; Protocol On Hold: 09/16/25 20:13 Last Admin: 09/15/25 20:35 Dose: Not Given Risperidone (Risperidone 1 Mg Tablet) 1 mg PO BID [facility] Last Admin: 09/24/25 08:20 Dose: 1 mg Risperidone (Risperidone 0.5 Mg Tablet) 0.5 mg PO BID PRN PRN Reason: Agitation/psychosis Last Admin: 09/23/25 18:42 Dose: 0.5 mg Sertraline HCl (Sertraline Hcl 100 Mg Tablet) 200 mg PO DAILY [facility] Last Admin: 09/24/25 08:20 Dose: 200 mg Tiotropium [place] (Tiotropium [place] 2.5 Mcg 1 Puff/2.5 Mcg Mist.Inhal) 2 puff INHALE RDAILY [facility] Last Admin: 09/24/25 08:20 Dose: 2 puff Trazodone HCl (Trazodone Hcl 50 Mg Tablet) 50 mg PO BEDTIME MRX1 PRN PRN Reason: Insomnia Last Admin: 09/23/25 02:45 Dose: 50 mg Allergies Allergies Allergy/AdvReac Type Severity Reaction Status Date / Time ibuprofen Allergy Intermediate Unknown Verified 09/12/25 21:56 ragweed pollen Allergy Sneezing Verified 09/12/25 21:56 Assessment & Plan Assessment & Plan (1) Bipolar disorder current episode depressed: Status: Acute Code(s): F31.30 - Bipolar disorder, current episode depressed, mild or moderate severity, unspecified (2) PTSD (post-traumatic stress disorder): Status: Acute Code(s): F43.10 - Post-traumatic stress disorder, unspecified (3) Alcohol use disorder, moderate, dependence: Status: Acute Code(s): F10.20 - Alcohol dependence, uncomplicated (4) Cocaine use disorder: Status: Acute Code(s): F14.10 - Cocaine abuse, uncomplicated Plan 65-year-old female with a past medical history listed below presented to the ED with shortness of breath and cough as well as suicide ideation and in ability to care for herself. Polysubstance abuse/PTSD/bipolar with psychotic features/anxiety/depression/alcohol use disorder Treatment per psychiatric team Bradycardia Patient's heart rate continued 40 with slight dizziness. Not on anything for rate control Likely related to hypothyroidism Cardiology consult appreciated, echocardiogram ordered, TSH increased to 50 mcg daily. Encourage patient to abstain from cocaine use. Patient will need continued cardiology follow up outpatient Hypothyroidism/history of thyroid cancer, status post thyroidectomy Increase levothyroxine to 50 mcg daily Her TSH is 54.49 free T4 0.62 Likely due to not taking her medications as her TSH has been elevated in January, June and September. TSH also elevated in 2023 ranged 62.47-99.37 at [facility]. Her dose of levothyroxine at that time was increased to 50 mcg. Patient does not know her home dose but reports that she is taking it. Call placed to [place] [facility] where patient gets her medications and she has been on levothyroxine 25 mcg most recently filled in August, no other doses dispensed from this pharmacy. We will need endocrinology follow up outpatient Repeat labs in 2 weeks if patient is here if not she will need close follow up as outpatient to stabilize hypothyroidism. COPD/atypical pneumonia Recently treated for pneumonia presented to the ED, now being treated for atypical pneumonia with doxycycline b.i.d. Continue Spiriva, albuterol as needed Patient reports her breathing is improved. Denies increased shortness of breath Hyperlipidemia Continue atorvastatin Thank you for allowing me to participate in the care of this patient. Will follow with you, please notify medical provider with any changes in condition or concerns. 09/17/25: Continue current regime Team is working with pt on out pt resources so she may return home. 09/18/25: Continue tx Compression stockings for BLE 09/19: no changes 09/20: Hospitalist arranging stress test tomorrow as part of ongoing cardiac workup 09/22: Continue tx 09/24: DC 09/25. Reason for continued inpatient stay Substantial Risk for: stable for discharge Time Spent With Patient Time: Total time managing care of this patient today ____ minutes.
[2025-09-24 20:00] VITALS: BP 126/65; PULSE 83; RESP 18; TEMP 2.4; TEMP 36.4; O2SAT 95
[2025-09-24] MEDS: Milk of Magnesia 30 ML ORAL.SUSP PO (20:25)
[2025-09-25] MEDS: guaiFENesin LA 600 MG TAB.ER.12H PO (05:46)
[2025-09-25] MEDS: Tiotropium Bromide 2.5 mcg 1 PUFF/2.5 MCG MIST.INHAL 2 PUFF INHALE (08:31)
[2025-09-25] MEDS: Clotrimazole 1 % Cream 15 GM TUBE 1 APPL TOPICAL (08:34)
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
== END 2025-09-25 11:49 | disposition home or self-care (01) | DRG 753 ==
LOC: HO.ED 09-13 01:37 → HO.PM5 09-14 13:30
PROVIDERS: Physician Assistant; Admitting Provider Psychiatry & Neurology Psychiatry; Emergency Provider Student in an Organized Health Care Education/Training Program; Visit Provider Clinical Nurse Specialist Psychiatric/Mental Health, Adult
DX: F31.9 Bipolar disorder, unspecified (principal); J18.9 Pneumonia, unspecified organism; R45.851 Suicidal ideations; J44.0 Chronic obstructive pulmonary disease with (acute) lower respiratory infection; F17.210 Nicotine dependence, cigarettes, uncomplicated; E89.0 Postprocedural hypothyroidism; Z71.6 Tobacco abuse counseling; Z23 Encounter for immunization; N32.81 Overactive bladder; E78.5 Hyperlipidemia, unspecified; F10.20 Alcohol dependence, uncomplicated; F14.10 Cocaine abuse, uncomplicated; F43.10 Post-traumatic stress disorder, unspecified; Z20.822 Contact with and (suspected) exposure to COVID-19; Z85.850 Personal history of malignant neoplasm of thyroid; Z79.890 Hormone replacement therapy; Z79.899 Other long term (current) drug therapy
CPT/HCPCS: 36415; 71045; 71046; 80053; 80061; 80307; 81001; 83036; 83735; 84439; 84443; 84484; 85025; 87502; 87633; 87635; 87637; 90656; 93005; 93017; 93306; 99285; S9485

== ENCOUNTER → 2025-09-12 22:30 | Outpatient (BNV) | payer OTHER, SELFPAY | PROVIDERS: Emergency Provider Student in an Organized Health Care Education/Training Program; Visit Provider Radiology Diagnostic Radiology | DX: J90 Pleural effusion, not elsewhere classified (principal) | CPT/HCPCS: 71045 ==

== ENCOUNTER → 2025-09-12 22:55 | Outpatient (BNV) | payer OTHER, SELFPAY | PROVIDERS: Emergency Provider Student in an Organized Health Care Education/Training Program; Visit Provider Internal Medicine | DX: I49.3 Ventricular premature depolarization (principal) | CPT/HCPCS: 93010 ==

== ENCOUNTER 2025-09-14 13:14 | Outpatient (BNV) | payer OTHER, SELFPAY | END 2025-09-17 06:03 | PROVIDERS: Admitting Provider Psychiatry & Neurology Psychiatry; Emergency Provider Student in an Organized Health Care Education/Training Program; Visit Provider Internal Medicine Cardiovascular Disease | DX: R94.31 Abnormal electrocardiogram [ECG] [EKG] (principal) | CPT/HCPCS: 93010 ==

== ENCOUNTER 2025-09-14 13:14 | Outpatient (BNV) | payer OTHER, SELFPAY | END 2025-09-16 13:31 | PROVIDERS: Admitting Provider Psychiatry & Neurology Psychiatry; Emergency Provider Student in an Organized Health Care Education/Training Program; Visit Provider Internal Medicine Cardiovascular Disease | DX: I49.3 Ventricular premature depolarization (principal) | CPT/HCPCS: 93010 ==

== ENCOUNTER 2025-09-14 13:14 | Outpatient (BNV) | payer OTHER, SELFPAY | END 2025-09-20 | PROVIDERS: Admitting Provider Psychiatry & Neurology Psychiatry; Emergency Provider Student in an Organized Health Care Education/Training Program | DX: I49.3 Ventricular premature depolarization (principal) | CPT/HCPCS: 93016; 93018 ==

== ENCOUNTER 2025-09-14 13:14 | Outpatient (BNV) | payer OTHER, SELFPAY | END 2025-09-17 11:01 | PROVIDERS: Admitting Provider Psychiatry & Neurology Psychiatry; Emergency Provider Student in an Organized Health Care Education/Training Program; Visit Provider Radiology Diagnostic Radiology | DX: R06.02 Shortness of breath (principal); R53.1 Weakness | CPT/HCPCS: 71046 ==

== ENCOUNTER → 2025-09-14 13:14 | Outpatient (BNV) | payer OTHER, SELFPAY | PROVIDERS: Admitting Provider Psychiatry & Neurology Psychiatry; Emergency Provider Student in an Organized Health Care Education/Training Program; Visit Provider Internal Medicine Cardiovascular Disease | DX: R00.1 Bradycardia, unspecified (principal); I49.3 Ventricular premature depolarization | CPT/HCPCS: 99223 ==

== ENCOUNTER → 2025-09-14 13:14 | Outpatient (BNV) | payer OTHER, SELFPAY | PROVIDERS: Admitting Provider Psychiatry & Neurology Psychiatry; Emergency Provider Student in an Organized Health Care Education/Training Program; Visit Provider Nurse Practitioner Family | DX: E03.9 Hypothyroidism, unspecified (principal) | CPT/HCPCS: 99221; 99231; 99232; 99499 ==

== ENCOUNTER → 2025-09-14 13:14 | Outpatient (BNV) | payer OTHER, SELFPAY | PROVIDERS: Admitting Provider Psychiatry & Neurology Psychiatry; Emergency Provider Student in an Organized Health Care Education/Training Program; Visit Provider Nurse Practitioner Psychiatric/Mental Health | DX: F31.30 Bipolar disorder, current episode depressed, mild or moderate severity, unspecified (principal); F43.10 Post-traumatic stress disorder, unspecified; F10.20 Alcohol dependence, uncomplicated; F14.10 Cocaine abuse, uncomplicated | CPT/HCPCS: 99232 ==